=== PATIENT | female | born 1955 | race Caucasian/White ===

== ENCOUNTER 2017-03-13 09:53 | Inpatient (IN) ==
[2017-03-13] MEDS ORDERED: 0.9 % Sodium Chloride 1,000 ML IVC ONE (10:23)
--- NOTE | 2017-03-13 10:27 | Emergency Department Note ---
Disposition Clinical Impression: Hyperkalemia Diverticulitis Qualifiers: Diverticulitis site: large intestine Diverticulitis bleeding: with bleeding Qualified Code(s): K57.33 - Elevated WBC count Qualifiers: Leukocytosis type: other Qualified Code(s): D72.828 - Other elevated white blood cell count GI bleed Qualifiers: GI bleed type/associated pathology: anorectal hemorrhage Qualified Code(s): K62.5 - Hemorrhage of anus and rectum Disposition: Admitted As Inpatient Condition: Good Time of Disposition: 12:45 General Adult HPI - General Chief complaint: ED GI Bleed Stated complaint: cough and rectal bleeding Time Seen by Provider: 03/13/17 10:07 Source: patient Mode of arrival: ambulatory Limitations: no limitations Nursing Notes Reviewed: Yes Vital Signs Reviewed: Yes - History of Present Illness HPI Narrative: 62-year-old female history of COPD, diabetes, hyperlipidemia presents with rectal bleeding for the past 3 days. States on Wednesday she noticed blood when she wipes as well as on her underwear. She reports 2 days ago she went to see her primary care physician Dr. Liao but no further orders at that time. She is also complaining of left lower quadrant pain. She reports reports weakness and fatigue. Has lost over 10 lbs the past few weeks. Denies any recent illness, fever, chest pain, nausea or vomiting. She is also been having a cough over the past several days as well. She believes it could be due to her smoking. Patient's daughter's at bedside helps with the history and reports use of anticoagulant. Reportedly is for a minor heart attack she has had the past. She has her medications at bedside and she has multiple bottles of clopidogrel. Patient lives at home with daughter. She is reportedly very independent and takes care for all medications. Daughters concerned that she may be taken more than indicated. She recently fell over a month ago but denies any recent falls. Pain Scale: 0 - Related Data Home Medications Medication Instructions Recorded Confirmed Albuterol Sulfate [Albuterol 2 puff IH Q4H PRN 03/13/17 03/13/17 Inhaler] Beclomethasone Diprop 40mcg [QVAR 2 puff IH BID 03/13/17 03/13/17 40 mcg] Clopidogrel [Plavix] 75 mg PO DAILY 03/13/17 03/13/17 Diphenoxylate/Atropine [Lomotil 1 tab PO Q6-8H PRN 03/13/17 03/13/17 2.5 mg/0.025 mg] Gabapentin [Neurontin] 300 mg PO QAM 03/13/17 03/13/17 Glimepiride [Amaryl] 4 mg PO DAILY 03/13/17 03/13/17 Ipratropium [ATROVENT Inhaler] 2 puff IH QID 03/13/17 03/13/17 Ipratropium/Albuterol Sulfate 1 puff IH QID 03/13/17 03/13/17 [Combivent Respimat Inhal [place]] Pravastatin Sodium [Pravachol] 20 mg PO DAILY 03/13/17 03/13/17 Ranitidine HCl [Zantac] 150 mg PO BID 03/13/17 03/13/17 Allergies Allergy/AdvReac Type Severity Reaction Status Date / Time Penicillins Allergy Unknown Hives Verified 03/13/17 13:00 Sulfa (Sulfonamide Allergy Unknown Hives Verified 03/13/17 13:00 Antibiotics) aspirin AdvReac Unknown Nausea Verified 03/13/17 13:00 All systems ED: reviewed and negative except as stated. Constitutional: Reports: weakness, weight change. Denies: fever, chills Cardiovascular: Denies: chest pain Respiratory: Reports: cough, dyspnea Gastrointestinal: Reports: abdominal pain, melena, hematochezia. Denies: nausea , vomiting Genitourinary: Denies: urgency, dysuria Musculoskeletal: Denies: back pain, neck pain Integumentary: Denies: rash, abrasion Past Medical History - Past Medical History Attestation: Yes The following information was validated with the patient. Source: patient Medical history: Reports: asthma, COPD Psychiatric history: Reports: no psych history - Social History Smoking Status: Current every day smoker Smokeless Tobacco Status: No Alcohol use: Reports: none Drug use: Reports: none Physical Exam - General Limitations: no limitations General appearance: alert, in no apparent distress, other (appears weak and ill) - Head Head exam: atraumatic, normocephalic, normal inspection - Eye Eye exam: Present: normal appearance, PERRL, EOMI, other (conjunctiva pink). Absent: scleral icterus - ENT ENT exam: normal exam, normal oropharynx, mucous membranes dry - Neck Neck exam: Present: normal inspection, full ROM, trachea midline. Absent: tenderness - Expanded Neck Exam Neck exam focused ED: Absent: midline tenderness - Chest Chest inspection: Present: normal inspection, symmetric chest wall rise - Respiratory Respiratory exam: Present: normal lung sounds bilaterally. Absent: respiratory distress, wheezes - Cardiovascular Cardiovascular exam: Present: regular rate, normal rhythm, normal heart sounds - Abdominal Exam Abdominal exam: Present: soft, tenderness, normal bowel sounds. Absent: Non- Tender, distention, guarding, rebound, rigidity Abdominal tenderness: Present: LLQ - Rectal Exam [employer] present during exam: Yes Rectal exam: Present: normal rectal tone, heme (+) stool, bloody stool, other ( no fissure). Absent: hemorrhoids, tenderness - Extremities Exam Extremities exam: Present: normal inspection, full ROM, normal capillary refill. Absent: tenderness, pedal edema, calf tenderness - Back Exam Back exam: Present: normal inspection, full ROM. Absent: tenderness, CVA tenderness (R), CVA tenderness (L), vertebral tenderness - Neurological Exam Neurological exam: Present: alert, oriented X3 - Expanded Neurological Exam Patient oriented to: Present: person, place, time Speech: Present: fluid speech (appears to slur) Cranial nerves: EOM function (II, III, IV, ): Normal, facial sensation (V): Normal, facial palsy (VII): Normal, gag reflex (IX): Normal, spinal accessory function (XI): Normal, tongue deviation (XII): Normal Motor strength - LUE: 5/5 Motor strength - RUE: 5/5 Motor strength - LLE: 5/5 Motor strength - RLE: 5/5 - Psychiatric Psychiatric exam: Present: normal affect, normal mood - Skin Skin exam: Present: warm, dry, intact, normal color, other (ecchymoses to upper extremity) Course Course Narrative: 62-year-old female presents rectal bleeding and pain in the left lower quadrant. Denies history this in the past. Denies any history of G.I. bleed. She reportedly takes anticoagulants but we can only see clip afebrile honor medication was. Patient slightly tachycardic otherwise vitals are stable. Daughter reports patient is confused is concern due to a recent fall. Her neurologic exam is normal without focal neural deficits. No midline neck tenderness. She appears pale but conjunctiva is pink. Heart is regular rate and rhythm. Lungs are clear auscultation bilaterally. She has tenderness to the left lower quadrant. Rectal exam reveals obvious bloody stool. No signs of hemorrhoids or fissure. Will get basic labs, troponin, EKG is CT of the abdomen and pelvis. Type and screen ordered. Started on 1 L normal saline. Due to the recent fall and unverified medication list will is CT of the head. Patients in agreement with this plan. - Reevaluation(s) Reevaluation #1: Critical lab WBC 196.2. Review of her prior labs reveals elevations in the past. Patient denies any known history of lymphoma. Her CT of the abdomen and pelvis reveals acute diverticulitis without complication. There is also lymphadenopathy consistent with lymphoproliferative disease. These findings are consistent with patient's symptoms of fatigue. Her potassium is also elevated 6.0. She has a wide QRS on EKG. Patient currently denies any chest pain, shortness of breath or heaviness. Will treat with albuterol, calcium 1 amp, insulin, glucose give her dose of kayexlate. No signs of acidosis, will not treat with bicarb. Will treat her diverticulitis uncomplicated with Cipro and Flagyl. Her hemoglobin 10.5. This is a drop from her prior from several years ago. Will admit patient for G.I. bleed, EKG changes, hyperkalemia, rectal bleeding, and elevated WBC that will require admission for further workup. Time: 12:14 - Consultations Consultation #1: Spoke with on-call hospitalist camille Collins to admit for rectal bleeding, diverticulitis, abdominal pain, EKG changes, elevated WBC concerning for lymphoproliferative disease. No further orders at this time Time: 12:45 Vital Signs Temperature 97.5 F L 03/13/17 09:56 Pulse Rate 101 03/13/17 09:56 Respiratory Rate 16 03/13/17 09:56 Blood Pressure 138/62 03/13/17 09:56 O2 Sat by Pulse Oximetry 92 03/13/17 09:56 Temperature 97.6 F 03/13/17 15:06 Pulse Rate 78 03/13/17 15:06 Respiratory Rate 17 03/13/17 15:06 Blood Pressure 155/62 03/13/17 15:06 O2 Sat by Pulse Oximetry 92 03/13/17 15:06 Oxygen Delivery Oxygen Delivery Nasal Cannula Medical Decision Making - Medical Records Medical records reviewed: Yes I reviewed the patient's medical records. - Lab Data Lab results reviewed: Yes I reviewed the patient's lab results. Result diagrams: 03/13/17 11:36 03/13/17 11:36 Lab Results 03/13/17 03/13/17 03/13/17 Range/Units 11:36 11:36 11:36 WBC 196.2 H* (4.3-11.1) K/mcL RBC 3.89 (3.82-4.97) M/mcL Hgb 10.5 L (11.5-15.4) g/dL Hct 35.9 (35.3-44.9) % MCV 92.3 (83.0-100.0) fL MCH 27.0 L (28.0-33.3) pg MCHC 29.2 L (31.6-35.5) g/dL RDW 14.5 (11.5-14.5) % Plt Count 87 L (140-400) K/mcL MPV 11.9 (9.4-12.4) fL Seg Neutrophils % 6.0 % Lymphocytes % 92.0 % Blast Cells % 2.0 H (0) % Neutrophils # 11.8 H (1.6-8.9) K/mcL Lymphocytes # 180.5 H (0.6-4.6) K/mcL Smudge Cells Present A (Not Present) Platelet Estimate Decreased L (Normal) PT 11.9 (9.4-12.1) Seconds INR 1.1 APTT 34.8 (26.0-36.0) Seconds Sodium 136 (136-145) mEq/L Potassium 6.0 H (3.5-4.5) mEq/L Chloride 106 (98-109) mEq/L Carbon Dioxide 24 (19-29) mEq/L BUN 19 (7-20) mg/dL Creatinine 0.70 (0.57-1.11) mg/dL Est GFR ( Amer) > 60 (> 60) Est GFR (Non-Af Amer) > 60 (> 60) BUN/Creatinine Ratio 27 H (6-26) Glucose 93 (70-99) mg/dL Calculated Osmolality 284 (280-300) Calcium 8.4 L (8.6-10.8) mg/dL Total Bilirubin 0.4 (0.2-1.2) mg/dL AST 21 (5-34) Units/L ALT 11 (0-55) Units/L Alkaline Phosphatase 62 (38-126) Units/L Troponin I (0-0.03) ng/mL Serum Total Protein 5.7 L (6.0-8.3) g/dL Albumin 3.3 L (3.5-5.0) g/dL Globulin 2.4 (2.4-3.5) g/dL Albumin/Globulin Ratio 1.4 (1.1-2.2) Lipase 17 (8-78) Units/L Urine Color (Yellow) Urine Clarity (Clear) Urine pH (5.0-8.0) pH Units Ur Specific [place] (1.010-1.025) Urine Protein (Neg-Trace) mg/dL Urine Glucose (UA) (Normal) mg/dL Urine Ketones (Negative) mg/dL Urine Blood (Negative) Urine Nitrite (Negative) Urine Bilirubin (Negative) Urine Urobilinogen (Normal) mg/dL Ur Leukocyte Esterase (Negative) Urine Microscopic RBC (0-3) per hpf Urine Microscopic WBC (0-3) per hpf Ur Squamous Epith Cells (None-Few) per lpf Urine Bacteria (None-Few) per hpf Hyaline Casts (None-Few) per lpf Stool Occult Blood (Negative) Blood Type Antibody Screen 03/13/17 03/13/17 03/13/17 Range/Units 11:36 11:36 11:43 WBC (4.3-11.1) K/mcL RBC (3.82-4.97) M/mcL Hgb (11.5-15.4) g/dL Hct (35.3-44.9) % MCV (83.0-100.0) fL MCH (28.0-33.3) pg MCHC (31.6-35.5) g/dL RDW (11.5-14.5) % Plt Count (140-400) K/mcL MPV (9.4-12.4) fL Seg Neutrophils % % Lymphocytes % % Blast Cells % (0) % Neutrophils # (1.6-8.9) K/mcL Lymphocytes # (0.6-4.6) K/mcL Smudge Cells (Not Present) Platelet Estimate (Normal) PT (9.4-12.1) Seconds INR APTT (26.0-36.0) Seconds Sodium (136-145) mEq/L Potassium (3.5-4.5) mEq/L Chloride (98-109) mEq/L Carbon Dioxide (19-29) mEq/L BUN (7-20) mg/dL Creatinine (0.57-1.11) mg/dL Est GFR ( Amer) (> 60) Est GFR (Non-Af Amer) (> 60) BUN/Creatinine Ratio (6-26) Glucose (70-99) mg/dL Calculated Osmolality (280-300) Calcium (8.6-10.8) mg/dL Total Bilirubin (0.2-1.2) mg/dL AST (5-34) Units/L ALT (0-55) Units/L Alkaline Phosphatase (38-126) Units/L Troponin I 0.00 (0-0.03) ng/mL Serum Total Protein (6.0-8.3) g/dL Albumin (3.5-5.0) g/dL Globulin (2.4-3.5) g/dL Albumin/Globulin Ratio (1.1-2.2) Lipase (8-78) Units/L Urine Color (Yellow) Urine Clarity (Clear) Urine pH (5.0-8.0) pH Units Ur Specific [place] (1.010-1.025) Urine Protein (Neg-Trace) mg/dL Urine Glucose (UA) (Normal) mg/dL Urine Ketones (Negative) mg/dL Urine Blood (Negative) Urine Nitrite (Negative) Urine Bilirubin (Negative) Urine Urobilinogen (Normal) mg/dL Ur Leukocyte Esterase (Negative) Urine Microscopic RBC (0-3) per hpf Urine Microscopic WBC (0-3) per hpf Ur Squamous Epith Cells (None-Few) per lpf Urine Bacteria (None-Few) per hpf Hyaline Casts (None-Few) per lpf Stool Occult Blood Positive A (Negative) Blood Type A NEGATIVE Antibody Screen NEGATIVE 03/13/17 Range/Units 13:59 WBC (4.3-11.1) K/mcL RBC (3.82-4.97) M/mcL Hgb (11.5-15.4) g/dL Hct (35.3-44.9) % MCV (83.0-100.0) fL MCH (28.0-33.3) pg MCHC (31.6-35.5) g/dL RDW (11.5-14.5) % Plt Count (140-400) K/mcL MPV (9.4-12.4) fL Seg Neutrophils % % Lymphocytes % % Blast Cells % (0) % Neutrophils # (1.6-8.9) K/mcL Lymphocytes # (0.6-4.6) K/mcL Smudge Cells (Not Present) Platelet Estimate (Normal) PT (9.4-12.1) Seconds INR APTT (26.0-36.0) Seconds Sodium (136-145) mEq/L Potassium (3.5-4.5) mEq/L Chloride (98-109) mEq/L Carbon Dioxide (19-29) mEq/L BUN (7-20) mg/dL Creatinine (0.57-1.11) mg/dL Est GFR ( Amer) (> 60) Est GFR (Non-Af Amer) (> 60) BUN/Creatinine Ratio (6-26) Glucose (70-99) mg/dL Calculated Osmolality (280-300) Calcium (8.6-10.8) mg/dL Total Bilirubin (0.2-1.2) mg/dL AST (5-34) Units/L ALT (0-55) Units/L Alkaline Phosphatase (38-126) Units/L Troponin I (0-0.03) ng/mL Serum Total Protein (6.0-8.3) g/dL Albumin (3.5-5.0) g/dL Globulin (2.4-3.5) g/dL Albumin/Globulin Ratio (1.1-2.2) Lipase (8-78) Units/L Urine Color Yellow (Yellow) Urine Clarity Clear (Clear) Urine pH 6.0 (5.0-8.0) pH Units Ur Specific [place] 1.010 (1.010-1.025) Urine Protein Negative (Neg-Trace) mg/dL Urine Glucose (UA) Normal (Normal) mg/dL Urine Ketones Negative (Negative) mg/dL Urine Blood Moderate H (Negative) Urine Nitrite Negative (Negative) Urine Bilirubin Negative (Negative) Urine Urobilinogen Normal (Normal) mg/dL Ur Leukocyte Esterase Negative (Negative) Urine Microscopic RBC 0-3 (0-3) per hpf Urine Microscopic WBC 0-3 (0-3) per hpf Ur Squamous Epith Cells Moderate H (None-Few) per lpf Urine Bacteria None Seen (None-Few) per hpf Hyaline Casts None Seen (None-Few) per lpf Stool Occult Blood (Negative) Blood Type Antibody Screen - Radiology Data Radiology results reviewed: Yes I reviewed the patient's radiology results. Chest X-Ray 03/13/17 10:23 IMPRESSION: No acute cardiopulmonary process. D/ / 03/13/2017 10:39:00 Patrick Hartman MD / [email or web address] Interpreting Provider: Patrick Hartman MD Abdomen/Pelvis CT 03/13/17 10:24 IMPRESSION: 1. Acute uncomplicated diverticulitis involving the proximal sigmoid colon. . 2. Splenomegaly with bilateral external iliac and inguinal adenopathy concerning for lymphoproliferative disease including lymphoma. D/ / Jordy Iraheta MD / Jordy Iraheta MD Interpreting Provider: Jordy Iraheta MD Head CT 03/13/17 10:31 IMPRESSION: No acute intracranial abnormality. D/ / Antwon Bundy MD / Antwon Bundy MD Interpreting Provider: Antwon Bundy MD - EKG Data EKG #1 EKG attestation: Yes I reviewed and interpreted this EKG. EKG results narrative: EKG performed at 1150 shows sinus rhythm 69 bpm with a widening QRS 116 and possible developing left bundle branch block. This appears new to her prior EKG performed 10/28/2009. Patient denies any chest pain, shortness of breath, chest heaviness. This is an abnormal EKG. Attestation Statement - Attestation Attestation: I personally interviewed and examined this patient and my medical decision- making was reviewed with the ED Resident Physician, Dr. Miranda I agree with the documented findings, disposition and treatment plan as described except to the extent set forth below. Patient is a 62-year-old white female, who appears significantly older than stated age, who is brought by her daughter today for evaluation of left lower quadrant abdominal pain and bright red blood per rectum that she has been experiencing over the last 3 days with increased frequency of loose bowel movements. Patient denies any history of GI bleeding, does take Plavix but not on Coumadin. Patient denies any fevers or chills, no nausea vomiting, has had an occasional nonproductive cough but states this is baseline for her with her history of COPD. Patient's denies any urinary symptoms or flank pain. Patient' s also been experiencing generalized weakness and occasional lightheadedness with positional changes. No syncopal episodes. Patient denies any form of chest pain pressure or heaviness and no diaphoresis. I agree with patient's physical exam findings as documented. Patient with symptoms suggestive of possible diverticulitis, patient had labs performed and CT imaging to evaluate for abdominal pain and diarrhea as well as bright red blood per rectum. Patient's bedside rectal exam was guaiac positive. Pt has been hemodynamically stable throughout her ED course. Patient CT scan shows non-complicated diverticulitis. Patient's lab evaluation shows an elevated potassium with normal renal function. Patient started on IV antibiotics for the diverticulitis, as well as medications are administered to treat her hyperkalemia. There are also findings concerning for possible lymphoma on the CT scan with splenomegaly and diffuse lymphadenopathy. Patient' s white count was significantly elevated at 196. When asking the patient regarding this as best lab was not new compared to a prior white count that was elevated similarly 2 years ago, patient denied any knowledge or prior diagnosis of lymphoma although she does mention gradual weight loss over the past few months. We will admit the patient for continued IV antibiotics, treatment for hyperkalemia and continued cardiac monitoring. Discussed with the hospitalist who accepted the patient for admission for continued management. Patient remains hemodynamically stable in the ED.
[2017-03-13 11:47] LABS: Hematocrit 35.9 % (35.3-44.9); Hemoglobin 10.5 g/dL (11.5-15.4); Mean Corpuscular HGB Conc 29.2 g/dL (31.6-35.5); Mean Corpuscular Volume 92.3 fL (83.0-100.0); Mean Platelet Volume 11.9 fL (9.4-12.4); Red Blood Count 3.89 M/mcL (3.82-4.97); Red Cell Distribution Width 14.5 % (11.5-14.5)
[2017-03-13 12:02] LABS: Alanine Aminotransferase 11 Units/L (0-55); Albumin 3.3 g/dL (3.5-5.0); Albumin/Globulin Ratio 1.4 (1.1-2.2); Alkaline Phosphatase 62 Units/L (38-126); Aspartate Amino Transferase 21 Units/L (5-34); BUN/Creatinine Ratio 27 (6-26); Bilirubin,Total 0.4 mg/dL (0.2-1.2); Blood Urea Nitrogen 19 mg/dL (7-20); Calcium 8.4 mg/dL (8.6-10.8); Carbon Dioxide 24 mEq/L (19-29); Chloride 106 mEq/L (98-109); Globulin 2.4 g/dL (2.4-3.5); Glucose 93 mg/dL (70-99); Lipase 17 Units/L (8-78); Osmolality,Calculated 284 (280-300); Sodium 136 mEq/L (136-145); Total Protein 5.7 g/dL (6.0-8.3); eGFR For African Americans > 60 (> 60); eGFR For Non-African Americans > 60 (> 60)
[2017-03-13 12:05] LABS: Platelet Count 87 K/mcL (140-400)
[2017-03-13] MEDS ORDERED: Calcium Gluconate 1,000 MG in D5% in Water 100 ML IVPB ONE (12:09)
[2017-03-13] MEDS ORDERED: Ipratropium/Albuterol Neb 3 ML IH ONE (12:09)
[2017-03-13] MEDS ORDERED: MetroNIDAZOLE 500 MG/100 ML 500 MG/100 ML BAG IVPB ONE (12:09)
[2017-03-13] MEDS ORDERED: *HR* Dextrose 50 % in Water (Syg) 50 ML SYRINGE IVP ONE (12:12)
[2017-03-13] MEDS ORDERED: Insulin Regular, Human 100 UNIT/ML SQ ONE (12:12)
[2017-03-13 12:27] LABS: INR 1.1; Prothrombin Time 11.9 Seconds (9.4-12.1)
[2017-03-13 12:29] LABS: Activated Partial Thrombo Time 34.8 Seconds (26.0-36.0)
[2017-03-13 12:41] LABS: Lymphocytes # 180.5 K/mcL (0.6-4.6); Neutrophils # 11.8 K/mcL (1.6-8.9)
[2017-03-13 12:43] LABS: Platelet Estimate Decreased (Normal); Smudge Cells Present (Not Present)
[2017-03-13 14:09] LABS: Bilirubin,Urine Negative (Negative); Blood,Urine Moderate (Negative); Clarity,Urine Clear (Clear); Color,Urine Yellow (Yellow); Glucose,Urine (UA) Normal (Normal); Ketones,Urine Negative (Negative); Leukocyte Esterase,Urine Negative (Negative); Nitrite,Urine Negative (Negative); Protein,Urine Negative (Neg-Trace); Urobilinogen,Urine Normal (Normal)
[2017-03-13 14:10] LABS: Bacteria,Urine None Seen per hpf (None-Few); Hyaline Casts,Urine None Seen per lpf (None-Few); RBC,Urine 0-3 per hpf (0-3); Squamous Epithelial Cell,Urine Moderate per lpf (None-Few); WBC,Urine 0-3 per hpf (0-3)
[2017-03-13] MEDS ORDERED: Naloxone 0.4 MG/ML INJ IVP PRN (14:19)
[2017-03-13] MEDS ORDERED: D5% in 0.45% NACL 1,000 ML IVC SCH (14:30)
--- NOTE | 2017-03-13 14:41 | Internal Med History&Physical ---
Date of Encounter: 03/13/17 Time of Encounter: 14:00 Assessment and Plan (1) Diverticulitis Current visit: Yes Status: Acute Patient with acute sigmoid diverticulitis with GI bleed. We will admit inpatient. Treat with IV antibiotics. Keep nothing by mouth. IV fluids. Monitor vital signs closely. GI consult. High risk for complications. Qualifiers: Diverticulitis site: large intestine Diverticulitis bleeding: with bleeding Diverticulitis complication: without perforation or abscess Qualified Code(s): K57.33 - Diverticulitis of large intestine without perforation or abscess with bleeding (2) GI bleed Current visit: Yes Status: Acute Recent with lower GI bleed. On Plavix at home. At risk for continued bleeding. Monitor blood counts closely. Consult GI. On PPI Qualifiers: GI bleed type/associated pathology: anorectal hemorrhage Qualified Code(s) : K62.5 - Hemorrhage of anus and rectum (3) Lymphocytosis Current visit: Yes Status: Acute Patient has severely elevated WBC count with low platelets and anemia. Concern for CLL or other lymphoma. Consult oncology. (4) COPD (chronic obstructive pulmonary disease) Current visit: Yes Status: Acute Will treat with bronchodilators. Patient will resume antibiotics for diverticulitis. O2 supplementation as needed. Qualifiers: COPD type: chronic bronchitis Chronic bronchitis type: simple Qualified Code(s): J41.0 - Simple chronic bronchitis (5) Coronary artery disease Current visit: Yes Status: Chronic Patient reports history of coronary artery disease. We will hold Plavix for now due to severe GI bleed. Continue other medications. No chest pain. Qualifiers: Coronary Disease-Associated Artery/Lesion type: [place] artery [place] vs. transplanted heart: [place] heart Associated angina: without angina Qualified Code(s): I25.10 - Atherosclerotic heart disease of [place] coronary artery without angina pectoris (6) Hyperkalemia Current visit: Yes Status: Acute Potassium of 6. EKG changes present with widening QRS. Given Kayexalate in the ER. We will recheck values. Place on telemetry. Internal Medicine - H&P: HPI Chief complaint: GI bleed and abdominal pain Admitted From: Emergency Dept Plans for Post Hospital Care: Home History of present illness: Ms. Sheridan is a 62 year old female patient with a history of hyperlipidemia, diabetes mellitus type 2, asthma/COPD, chronic smoker presented to the ER with complaints of severe abdominal pain along with GI bleed that began this morning. She has had bright red bleeding per rectum. She has never had this symptom before. Denies any hematemesis. No nausea or vomiting. No chest pain. No fever chills or night sweats. She denies knowing about any sort of lymphatic or blood issues in the past. She reports that she had a minor heart attack in the past and has been on Plavix and statin. Past Med Surg Social Fam HX - Past Medical History Attestation: Yes The following information was validated with the patient. Source: patient, old records reviewed, obtained from family Medical history: asthma, COPD Psychiatric history: no psych history - Social History Smoking Status: Current every day smoker Smokeless Tobacco Status: No Alcohol use: none Drug use: none - Additional Family History Additional family history: Reviewed and found to be noncontributory at this time Internal Medicine - H&P: Meds Albuterol Sulfate [Albuterol Inhaler] 2 puff IH Q4H PRN 03/13/17 [History] Beclomethasone Diprop 40mcg [QVAR 40 mcg] 2 puff IH BID 03/13/17 [History] Clopidogrel [Plavix] 75 mg PO DAILY 03/13/17 [History] Diphenoxylate/Atropine [Lomotil 2.5 mg/0.025 mg] 1 tab PO Q6-8H PRN 03/13/17 [ History] Gabapentin [Neurontin] 300 mg PO QAM 03/13/17 [History] Glimepiride [Amaryl] 4 mg PO DAILY 03/13/17 [History] Ipratropium [ATROVENT Inhaler] 2 puff IH QID 03/13/17 [History] Ipratropium/Albuterol Sulfate [Combivent Respimat Inhal [place]] 1 puff IH QID [History] Pravastatin Sodium [Pravachol] 20 mg PO DAILY 03/13/17 [History] Ranitidine HCl [Zantac] 150 mg PO BID 03/13/17 [History] Allergies Penicillins Allergy (Unknown, Verified 03/13/17 13:00) Hives Sulfa (Sulfonamide Antibiotics) Allergy (Unknown, Verified 03/13/17 13:00) Hives aspirin Adverse Reaction (Unknown, Verified 03/13/17 13:00) Nausea All Systems PM: A 10-system review of systems was performed and is negative for pertinent findings except as documented above in the HPI. - Constitutional Constitutional: malaise, no chills, no fever(s), no night sweats - EENT Eyes: no change in vision, no discharge, no pain, no photophobia Ears: no ear discharge, no ear pain, no tinnitus Nose, mouth and throat: no dysphagia, no nasal discharge, no neck pain, no sore throat - Cardiovascular Cardiovascular ROS IM: no chest pain, no diaphoresis, no dyspnea, no lightheadedness, no palpitations, no syncope - Respiratory Respiratory: cough, no dyspnea, no wheezing, no excessive phlegm production - Gastrointestinal Gastrointestinal: abdominal pain, diarrhea, hematochezia, no hematemesis, no melena, no nausea, no vomiting - Genitourinary Genitourinary: no change in urinary stream, no dysuria, no flank pain, no hematuria - Musculoskeletal Musculoskeletal ROS IM: no numbness, no tingling - Integumentary Integumentary IM: no rash, no unusual bruising - Neurological Neurological ROS: no confusion, no convulsions, no focal weakness, no numbness, no tingling, no tremor(s) - Hematologic/Lymphatic Hematologic/Lymphatic: no easy bruising - Constitutional Vitals: Temp Pulse Resp BP Pulse Ox 97.5 F L 73 18 159/67 100 03/13/17 09:56 03/13/17 13:58 03/13/17 13:58 03/13/17 13:58 03/13/17 13:58 General appearance: Present: cooperative, A&O X 3, answers questions appropriately Exam: Moderate distress - Eye Eye exam: Present: EOMI, PERRL, conjuntiva pink, sclera anicteric - ENT ENT exam: Present: mucous membranes dry - Neck Neck exam general surgery: Present: supple, trachea midline. Absent: lymphadenopathy - Respiratory Respiratory exam: Present: CTAB, prolonged expiratory phase. Absent: accessory muscle use, rales, rhonchi, wheezes - Cardiovascular Cardiovascular exam: Present: RRR, +S1, +S2. Absent: diastolic murmur, gallop, rubs, systolic murmur - GI/Abdominal GI/Abdominal exam: Present: normal bowel sounds, soft, no peritoneal signs. Absent: distended, tenderness - Extremities Exam Extremities exam: Present: warm, radial pulses palpable and symetrical. Absent : calf tenderness, cyanotic, pedal edema - Neurological Exam Neurological exam: Present: alert, CN II-XII intact, oriented X3, no focal deficits. Absent: facial droop, speech deficit - Skin Skin exam: Present: dry, intact, pallor Internal Med - H&P Results - Labs CBC & Chem 7: 03/13/17 11:36 03/13/17 11:36 Labs: Urine 03/13/17 Range/Units 13:59 Urine Color Yellow (Yellow) Urine Clarity Clear (Clear) Urine pH 6.0 (5.0-8.0) pH Units Ur Specific [place] 1.010 (1.010-1.025) Urine Protein Negative (Neg-Trace) mg/dL Urine Glucose (UA) Normal (Normal) mg/dL - Impressions Impressions Chest X-Ray 03/13/17 10:23 IMPRESSION: No acute cardiopulmonary process. D/ / 03/13/2017 10:39:00 Patrick Hartman MD / rowdy Interpreting Provider: Patrick Hartman MD Abdomen/Pelvis CT 03/13/17 10:24 IMPRESSION: 1. Acute uncomplicated diverticulitis involving the proximal sigmoid colon. . 2. Splenomegaly with bilateral external iliac and inguinal adenopathy concerning for lymphoproliferative disease including lymphoma. D/ / Jordy Iraheta MD / Jordy Iraheta MD Interpreting Provider: Jordy Iraheta MD Head CT 03/13/17 10:31 IMPRESSION: No acute intracranial abnormality. D/ / Antwon Bundy MD / Antwon Bundy MD Interpreting Provider: Antwon Bundy MD
--- NOTE | 2017-03-13 15:44 | Internal Medicine Consult Note ---
Date of Encounter: 03/13/17 Time of Encounter: 15:42 - Assessment and Plan (1) Lower GI bleeding Current Visit: Yes Status: Acute Assessment and plan: She has acute diverticulitis via CT scan. Really no tenderness, it is possible she's had diverticular bleeding as well.. Given the divierticulitis, will not pursue Endoscopy at this time.. this can be done urgently if the bleeding becomes more worrisome. This can also be pursued as outpatient. (2) Diabetes mellitus type 2 in nonobese Current Visit: Yes Status: Chronic (3) Diverticulitis Current Visit: Yes Status: Acute Qualifiers: Diverticulitis site: large intestine Diverticulitis bleeding: with bleeding Qualified Code(s): K57.33 - Diverticulitis of large intestine without perforation or abscess with bleeding (4) Lymphocytosis Current Visit: Yes Status: Chronic Assessment and plan: She has Smudge cells, along with adenopathy and spleenomegaly.. all consistent with CLL. (5) COPD (chronic obstructive pulmonary disease) Current Visit: Yes Status: Acute Qualifiers: Chronic bronchitis type: simple Qualified Code(s): J41.0 - Simple chronic bronchitis (6) Coronary artery disease Current Visit: Yes Status: Chronic Qualifiers: Coronary Disease-Associated Artery/Lesion type: [place] artery [place] vs. transplanted heart: [place] heart Associated angina: without angina Qualified Code(s): I25.10 - Atherosclerotic heart disease of [place] coronary artery without angina pectoris (7) Thrombocytopenia Current Visit: Yes Status: Acute Assessment and plan: Most likely due to spleenomegaly and CLL Internal Medicine - CN: HPI - Data of Consult Patient: new to practice Consult date: 03/13/17 Requesting Physician: Mary Ellen Shea CNP - Consult Narrative Reason for consult: Lower GI [place] History of present illness: Ms. Sheridan is a 62 year old female who presented to the emergency room with a chief complaint of weakness and bright red rectal bleeding. her daughter states roughly 3 day, No clots. She has had some weight loss with poor appetite. No prior GI bleeding or endoscopy. Past Med Surg Social Fam HX - Past Medical History Medical history: asthma, COPD, coronary artery disease, diabetes, GERD Psychiatric history: no psych history - Social History Smoking Status: Current every day smoker Smokeless Tobacco Status: No Alcohol use: none Drug use: none ROS unobtainable: due to mental status Internal Medicine - CN: Meds Albuterol Sulfate [Albuterol Inhaler] 2 puff IH Q4H PRN 03/13/17 [History] Beclomethasone Diprop 40mcg [QVAR 40 mcg] 2 puff IH BID 03/13/17 [History] Clopidogrel [Plavix] 75 mg PO DAILY 03/13/17 [History] Diphenoxylate/Atropine [Lomotil 2.5 mg/0.025 mg] 1 tab PO Q6-8H PRN 03/13/17 [ History] Gabapentin [Neurontin] 300 mg PO QAM 03/13/17 [History] Glimepiride [Amaryl] 4 mg PO DAILY 03/13/17 [History] Ipratropium [ATROVENT Inhaler] 2 puff IH QID 03/13/17 [History] Ipratropium/Albuterol Sulfate [Combivent Respimat Inhal [place]] 1 puff IH QID [History] Pravastatin Sodium [Pravachol] 20 mg PO DAILY 03/13/17 [History] Ranitidine HCl [Zantac] 150 mg PO BID 03/13/17 [History] Allergies Penicillins Allergy (Unknown, Verified 03/13/17 13:00) Hives Sulfa (Sulfonamide Antibiotics) Allergy (Unknown, Verified 03/13/17 13:00) Hives aspirin Adverse Reaction (Unknown, Verified 03/13/17 13:00) Nausea Internal Medicine - CN: Exam - Constitutional Vitals: Temp Pulse Resp BP Pulse Ox 97.6 F 78 17 155/62 92 03/13/17 15:06 03/13/17 15:06 03/13/17 15:06 03/13/17 15:06 03/13/17 15:06 General appearance IM: Present: cachectic, A&O X 1, disheveled, no acute distress, underweight - Head Head exam: Present: atraumatic - Eye Eye exam: Present: conjuntiva pink, sclera anicteric - ENT ENT exam: Present: mucous membranes moist - Neck Neck exam general surgery: Present: normal inspection, supple, trachea midline - Respiratory Respiratory exam: Present: decreased breath sounds, CTAB. Absent: respiratory distress, tachypnea - Cardiovascular Cardiovascular exam IM: Present: distant heart sounds, RRR - GI/Abdominal GI/Abdominal exam IM: Present: diminished bowel sounds, soft, no peritoneal signs. Absent: mass, tenderness - Rectal Rectal exam: Present: deferred Internal Medicine - CN: Reslt - Labs CBC & Chem 7: 03/13/17 11:36 03/13/17 11:36 Labs: Urine 03/13/17 Range/Units 13:59 Urine Color Yellow (Yellow) Urine Clarity Clear (Clear) Urine pH 6.0 (5.0-8.0) pH Units Ur Specific [place] 1.010 (1.010-1.025) Urine Protein Negative (Neg-Trace) mg/dL Urine Glucose (UA) Normal (Normal) mg/dL - ABG Interpretation ABG results: PT/INR, D-dimer PT 11.9 Seconds (9.4-12.1) 03/13/17 11:36 Consult Discharge Plan - Plan Referrals: Stephen Liao MD [Primary Care Provider] -
[2017-03-13] MEDS ORDERED: MetroNIDAZOLE 500 MG/100 ML 500 MG/100 ML BAG IVPB SCH (16:00)
[2017-03-13 16:40] LABS: % Iron Saturation 18 % (15-50); Iron 62 mcg/dL (50-170); Transferrin 247 mg/dL (180-382)
[2017-03-13 17:03] LABS: Ferritin 46 ng/ml (5-204)
[2017-03-13] MEDS ORDERED: Pantoprazole 40 MG VIAL IVP SCH (18:00)
[2017-03-13] MEDS ORDERED: 0.9 % Sodium Chloride 250 ML ONE ×2 (19:00→21:51)
[2017-03-14 01:10] LABS: Basophils % 0.2 %; Hematocrit 39.4 % (35.3-44.9); Hemoglobin 11.9 g/dL (11.5-15.4); Immature Granulocytes % 0.1 % (0-4); Lymphocytes % 93.2 %; Mean Corpuscular HGB Conc 30.2 g/dL (31.6-35.5); Mean Corpuscular Hemoglobin 27.3 pg (28.0-33.3); Mean Corpuscular Volume 90.4 fL (83.0-100.0); Mean Platelet Volume 12.1 fL (9.4-12.4); Monocytes % 4.8 %; Red Blood Count 4.36 M/mcL (3.82-4.97); Segmented Neutrophils % 1.7 %
[2017-03-14 01:11] LABS: Basophils # 0.4 K/mcL (0.0-0.2); Lymphocytes # 184.6 K/mcL (0.6-4.6); Monocytes # 9.5 K/mcL (0.0-1.3); Neutrophils # 3.4 K/mcL (1.6-8.9); Platelet Count 80 K/mcL (140-400)
[2017-03-14 01:15] LABS: INR 1.1; Prothrombin Time 12.2 Seconds (9.4-12.1)
[2017-03-14 01:21] LABS: BUN/Creatinine Ratio 18 (6-26); Blood Urea Nitrogen 10 mg/dL (7-20); Calcium 8.2 mg/dL (8.6-10.8); Carbon Dioxide 21 mEq/L (19-29); Chloride 107 mEq/L (98-109); Glucose 101 mg/dL (70-99); Osmolality,Calculated 281 (280-300); Sodium 136 mEq/L (136-145); eGFR For African Americans > 60 (> 60); eGFR For Non-African Americans > 60 (> 60)
[2017-03-14 01:27] LABS: Potassium 7.1 mEq/L (3.5-4.5)
[2017-03-14] MEDS ORDERED: Calcium Gluconate 1,000 MG in D5% in Water 100 ML IVPB ONE (01:32)
[2017-03-14] MEDS ORDERED: Insulin Human Regular 10 UNIT in 0.9 % Sodium Chloride 10 ML IV ONE ×2 (01:32→02:24)
[2017-03-14] MEDS ORDERED: *HR* Dextrose 50 % in Water (Syg) 50 ML SYRINGE IVP ONE (01:32)
[2017-03-14 01:33] LABS: Platelet Estimate Marked Decrease (Normal); Smudge Cells Present (Not Present)
[2017-03-14] MEDS ORDERED: Albuterol 2.5 MG/3 ML NEBULIZER IH ONE (01:33)
[2017-03-14] MEDS ORDERED: 0.9 % Sodium Chloride 1,000 ML IVC ONE ×2 (02:02→02:20)
[2017-03-14] MEDS ORDERED: Furosemide 40 MG/4 ML VIAL IVP ONE (02:03)
--- NOTE | 2017-03-14 02:10 | Event Note ---
Date of Encounter: 03/14/17 Time of Encounter: 02:09 I was paged as this patient has a potassium level of 7.1 Patient evaluated at bedside She denies CP, SOB, palpitations or lightheadedness Patient admitted with diverticulitis causing GI bleed On exam, CTAB. S1 & S2 present without any murmurs. EKG STAT reviewed personally - QRS widening (duration of 133 ms) with LBBB Labs reviewed. WBC of 198. Assessment: 1. Hyperkalemic emergency 2. Suspected Tumor Lysis syndrome due to possible Lymphoma Plan: 1. Hyperkalemic emergency - STAT Nephrology consulted. Case discussed with Dr. Boone. - Patient being given the following: a. Calcium gluconate 3g iv b. Insulin 10 units IV with D50% (2 rounds of this) c. Kayaxelate 30g (Pt. had received Kayexelate 30g yesterday) d. Normal saline bolus of 2L with 40 mg IV lasix e. 0.45 NS with 1.5 amp of sodium bicarbonate @ 150 ml -Patient will be transferred to the ICU. Will repeat potassium level in 1 hour. If potassium does not decrease, patient will likely need emergent hemodialysis 2. Suspected Tumor Lysis Syndrome - Will obtain uric acid level and LDH level. - Oncology has already been consulted. - Nephrology on board. Total critical care time in the stabilization of her organ functions, coordinating care and to prevent mortality and morbidity is 40 min
[2017-03-14] MEDS ORDERED: Calcium Gluconate 2,000 MG in D5% in Water 100 ML IVPB ONE (02:20)
[2017-03-14] MEDS: *HR* Dextrose 50 % in Water (Syg) 50 ML SYRINGE IVP SCH (03:04)
[2017-03-14 04:09] LABS: Phosphorous 3.9 mg/dL (2.3-4.7); Uric Acid 5.5 mg/dL (2.6-6.0)
[2017-03-14 04:10] LABS: Lactate Dehydrogenase 355 Units/L (159-327)
[2017-03-14 05:22] LABS: BUN/Creatinine Ratio 14 (6-26); Blood Urea Nitrogen 8 mg/dL (7-20); Calcium 8.9 mg/dL (8.6-10.8); Carbon Dioxide 24 mEq/L (19-29); Chloride 105 mEq/L (98-109); Glucose 111 mg/dL (70-99); Osmolality,Calculated 283 (280-300); Potassium 5.2 mEq/L (3.5-4.5); Sodium 137 mEq/L (136-145); eGFR For African Americans > 60 (> 60); eGFR For Non-African Americans > 60 (> 60)
[2017-03-14] MEDS: Sodium Bicarbonate 75 MEQ in 0.45 % Sodium Chloride 1,000 ML IVC SCH ×3 (05:24→19:56)
--- NOTE | 2017-03-14 08:29 | Internal Med Progress Note ---
Date of Encounter: 03/19/17 Time of Encounter: 08:27 - Assessment and plan (1) Lower GI bleeding Current Visit: Yes Status: Resolved Assessment and plan: Most likely diverticular. Will not plan Endoscopy at this time.. has more pressing issues. Such as hyperkalemia, CLL with low platelets. (2) Diabetes mellitus type 2 in nonobese Current Visit: Yes Status: Chronic (3) Diverticulitis Current Visit: Yes Status: Acute Assessment and plan: Abdomen remains soft.. Qualifiers: Diverticulitis site: large intestine Diverticulitis bleeding: with bleeding Diverticulitis complication: without perforation or abscess Qualified Code(s): K57.33 - Diverticulitis of large intestine without perforation or abscess with bleeding (4) Lymphocytosis Current Visit: Yes Status: Chronic Assessment and plan: Most likely CLL.. this is somewhat advanced with low platelets, abd. lymphadenopaty, and spleenomegaly (5) COPD (chronic obstructive pulmonary disease) Current Visit: Yes Status: Acute Qualifiers: Chronic bronchitis type: simple Qualified Code(s): J41.0 - Simple chronic bronchitis (6) Coronary artery disease Current Visit: Yes Status: Chronic Qualifiers: Coronary Disease-Associated Artery/Lesion type: [place] artery [place] vs. transplanted heart: [place] heart Associated angina: without angina Qualified Code(s): I25.10 - Atherosclerotic heart disease of [place] coronary artery without angina pectoris (7) Thrombocytopenia Current Visit: Yes Status: Acute - Subjective Interval history: She remains a bit restless, multiple BM's this AM with Kayexlate..no blood. She does not describe abd. pain. Wanting to advance diet. Noted she did recieve 2 units blood.. HGB now stable. - Constitutional Vitals: Temp Pulse Resp BP Pulse Ox 97.5 F L 64 19 144/74 98 03/14/17 07:52 03/14/17 06:00 03/14/17 06:00 03/14/17 06:00 03/14/17 06:00 General appearance: Present: cachectic, A&O X 1, disheveled, no acute distress, underweight - ENT ENT exam: Present: mucous membranes moist - Neck Neck exam general surgery: Present: trachea midline - Respiratory Respiratory exam: Present: CTAB - GI/Abdominal GI/Abdominal exam: Present: normal bowel sounds, soft, splenomegaly, no peritoneal signs. Absent: rigid Internal Medicine: Result - Labs CBC & Chem 7: 03/19/17 03:32 03/19/17 03:32 Labs: Short CBC 03/13/17 03/14/17 Range/Units 17:24 00:39 WBC 198.1 H* (4.3-11.1) K/mcL Hgb 10.5 L 11.9 (11.5-15.4) g/dL Hct 39.4 (35.3-44.9) % Plt Count 80 L (140-400) K/mcL Neutrophils # 3.4 (1.6-8.9) K/mcL BMP 03/14/17 03/14/17 00:39 04:56 Sodium 136 137 Potassium 7.1 H* D 5.2 H D Chloride 107 105 Carbon Dioxide 21 24 BUN 10 8 Creatinine 0.57 0.56 L Glucose 101 H 111 H Calcium 8.2 L 8.9 Cardiac Enzymes 03/14/17 Range/Units 04:56 Troponin I 0.05 H* (0-0.03) ng/mL - ABG Interpretation ABG results: PT/INR, D-dimer PT 12.2 Seconds (9.4-12.1) H 03/14/17 00:39 Consult Discharge Plan - Plan Referrals: Stephen Liao MD [Primary Care Provider] -
[2017-03-14] MEDS: MetroNIDAZOLE 500 MG/100 ML 500 MG/100 ML BAG IVPB SCH ×3 (11:07→16:13)
--- NOTE | 2017-03-14 11:37 | Nephrology Consult Note ---
Date of Encounter: 03/14/17 Time of Encounter: 11:35 Assessment and Plan (1) CLL (chronic lymphocytic leukemia) Current Visit: Yes Status: Acute This appears to have been present since 2014. Hematology has been consulted. (2) Diverticulitis Current Visit: Yes Status: Acute Patient abdominal pain and CT findings concerning for diverticulitis. Management per primary team. Patient with rectal bleeding. Agree with GI consult. Monitor hemoglobin and transfuse if hemoglobin less than 7.0 or the patient is symptomatic. Qualifiers: Diverticulitis site: large intestine Diverticulitis bleeding: with bleeding Qualified Code(s): K57.33 - Diverticulitis of large intestine without perforation or abscess with bleeding (3) GI bleed Current Visit: Yes Status: Acute Transfuse as needed. GI consult. Qualifiers: GI bleed type/associated pathology: anorectal hemorrhage Qualified Code(s) : K62.5 - Hemorrhage of anus and rectum (4) Hyperkalemia Current Visit: Yes Status: Acute Etiology of her hyperkalemia is unclear. The patient denies ingestion of potassium supplement. Evaluation for tumor lysis syndrome was unremarkable as her LDH is only mildly elevated and her uric acid is within normal limits. Her renal function is normal and she has good urine output. Her hyperkalemia responded to aggressive medical management. Continue with adequate hydration, avoid high potassium foods. We will continue to follow thank you for consult. (5) Anemia Current Visit: Yes Status: Acute Monitor hemoglobin. Qualifiers: Qualified Code(s): D64.9 - Anemia, unspecified (6) Lymphadenopathy Current Visit: Yes Status: Acute hematology consulted. History of Present Illness - Reason for Consult Consult date: 03/14/17 hyperkalemia - Chief Complaint hyperkalemia - History of Present Illness Ms. Sheridan is a 62 yo woman with a history of CLL who presents with abdominal pain and was found to have diverticulitis. She also was found to have hyperkalemia that got worse. I was called overnight and assisted Dr. Ibarra ( the covering hospitalist) with management of her critical potassium levels. This morning the patient reports she is in stable condition, she is having some diarrhea. She also has some abdominal pain, but she reports it is better than when she came in the hospital. She reports hematochezia prior to admission. She denies history of kidney problems. She denies chest pain, shortness shortness of breath. Past Med Surg Social Fam HX - Past Medical History Medical history: asthma, COPD Psychiatric history: no psych history - Social History Smoking Status: Current every day smoker Smokeless Tobacco Status: No Alcohol use: none Drug use: none Medications and Allergies Albuterol Sulfate [Albuterol Inhaler] 2 puff IH Q4H PRN 03/13/17 [History] Beclomethasone Diprop 40mcg [QVAR 40 mcg] 2 puff IH BID 03/13/17 [History] Clopidogrel [Plavix] 75 mg PO DAILY 03/13/17 [History] Diphenoxylate/Atropine [Lomotil 2.5 mg/0.025 mg] 1 tab PO Q6-8H PRN 03/13/17 [ History] Gabapentin [Neurontin] 300 mg PO QAM 03/13/17 [History] Glimepiride [Amaryl] 4 mg PO DAILY 03/13/17 [History] Ipratropium [ATROVENT Inhaler] 2 puff IH QID 03/13/17 [History] Ipratropium/Albuterol Sulfate [Combivent Respimat Inhal [place]] 1 puff IH QID [History] Pravastatin Sodium [Pravachol] 20 mg PO DAILY 03/13/17 [History] Ranitidine HCl [Zantac] 150 mg PO BID 03/13/17 [History] Allergies Penicillins Allergy (Unknown, Verified 03/13/17 13:00) Hives Sulfa (Sulfonamide Antibiotics) Allergy (Unknown, Verified 03/13/17 13:00) Hives aspirin Adverse Reaction (Unknown, Verified 03/13/17 13:00) Nausea Review of Systems All Systems: reviewed and no additional remarkable complaints except as stated ( As documented in the history of present illness) Exam - Vital Signs Vital signs: Initial Vital Signs Temp Pulse Resp BP Pulse Ox 97.5 F L 101 16 138/62 92 03/13/17 09:56 03/13/17 09:56 03/13/17 09:56 03/13/17 09:56 03/13/17 09:56 Vital Signs - Last 8 Hours Temp Pulse Resp BP Pulse Ox 03/14/17 09:00 69 19 155/127 89 03/14/17 08:00 76 26 137/106 94 03/14/17 07:52 97.5 F L 03/14/17 07:00 74 20 133/82 95 03/14/17 06:00 64 19 144/74 98 03/14/17 05:06 64 18 156/73 98 03/14/17 04:16 67 03/14/17 04:15 98.1 F 67 24 166/77 98 Intake and Output 03/13/17 03/14/17 03/14/17 23:59 07:59 15:59 Intake Total 350 / 350 760 / 760 1075 / 1075 Output Total 0 / 0 2450 / 2450 Balance 350 / 350 -1690 / -1690 1075 / 1075 Intake: IV Fluids 410 / 410 1075 / 1075 Sodium Bicarbonate 75 MEQ 1075 / 1075 In 0.45% Sodium Chloride 1000 Ml 1000 Ml 1,000 ML @ 150 mls/hr IVC .[id number] [facility] Rx#:[id number] Calcium Gluconate 1,000 110 / 110 MG In Dextrose 5% 100 ML @ 220 mls/hr IVPB ONCE ONE Rx#:[id number] Cipro Premix 400 MG/200 200 / 200 ML 400 mg In 200 ml @ 200 mls/hr IVPB Q12HR [facility] Rx #:[id number] Flagyl Premix 500 MG/100 100 / 100 ML 500 mg In 100 ml @ 100 mls/hr IVPB Q8HR [facility] Rx# :[id number] Oral 0 / 0 Blood Product 350 / 350 350 / 350 Rbcs Leuko Poor As-1 350 / 350 Unit [id number] Rbcs Leuko Poor As-3 2nd 0 / 0 350 / 350 Unit [id number] Output: Urine 0 / 0 Catheter 2450 / 2450 Other: Stool Size Moderate Moderate Small Stool Consistency soft liquid liquid Stool Characteristics [place] Normal for Patient Stool Color Brown Brown Brown Yellow # Voids 3 # Bowel Movements 1 1 2 Weight 45 kg 44.8 kg Blood Glucose* 204 Patient Weight 03/14/17 23:59 Weight 44.8 kg - General Appearance General appearance: well-developed, well-nourished EENT: ATNC Neck: supple Respiratory: clear Cardiology: no edema, regular rate Gastrointestinal: normoactive bowel sounds, tenderness, no guarding Integumentary: warm and dry Neurologic: alert and oriented x3 Musculoskeletal: no cyanosis Psychiatric: mood/affect appropriate Results - Lab Results 03/14/17 00:39 03/14/17 04:56 Most recent lab results Calcium 8.9 mg/dL (8.6-10.8) 03/14/17 04:56 Phosphorus 3.9 mg/dL (2.3-4.7) 03/14/17 00:39 Consult Discharge Plan - Plan Referrals: Stephen Liao MD [Primary Care Provider] -
[2017-03-14] MEDS ORDERED: 0.9 % Sodium Chloride 1,000 ML IVC SCH (11:45)
[2017-03-14 12:12] LABS: Hematocrit 39.8 % (35.3-44.9); Hemoglobin 12.3 g/dL (11.5-15.4); Mean Corpuscular HGB Conc 30.9 g/dL (31.6-35.5); Mean Corpuscular Volume 90.7 fL (83.0-100.0); Red Blood Count 4.39 M/mcL (3.82-4.97); Red Cell Distribution Width 14.4 % (11.5-14.5)
[2017-03-14 12:15] LABS: Platelet Count 76 K/mcL (140-400)
[2017-03-14 12:25] LABS: BUN/Creatinine Ratio 12 (6-26); Blood Urea Nitrogen 8 mg/dL (7-20); Calcium 8.1 mg/dL (8.6-10.8); Glucose 176 mg/dL (70-99); Osmolality,Calculated 287 (280-300); Sodium 137 mEq/L (136-145); eGFR For African Americans > 60 (> 60); eGFR For Non-African Americans > 60 (> 60)
[2017-03-14 12:26] LABS: Carbon Dioxide 27 mEq/L (19-29); Chloride 104 mEq/L (98-109); Potassium 5.8 mEq/L (3.5-4.5)
[2017-03-14] MEDS ORDERED: (Ipratropium/Albuterol Sulfate [Combivent Respimat In) IH SCH (13:00)
--- NOTE | 2017-03-14 13:18 | Internal Med Progress Note ---
Date of Encounter: 03/14/17 Time of Encounter: 13:16 - Assessment and plan (1) Diverticulitis Current Visit: Yes Status: Acute Assessment and plan: CT scan shows possible proximal sigmoid diverticulitis with a splenomegaly and bilateral external iliac and inguinal adenopathy possible lymphoproliferative disease versus lymphoma Currently on a diet, consider switching to nothing by mouth if worse Decrease hydration due to congestion and start normal saline after bicarbonate is completed Continue ciprofloxacin and Flagyl IV day [address] Sierra, no intervention recommended due to acute diverticulitis (no colonoscopy) Qualifiers: Diverticulitis site: large intestine Diverticulitis bleeding: with bleeding Qualified Code(s): K57.33 - Diverticulitis of large intestine without perforation or abscess with bleeding (2) Elevated WBC count Current Visit: Yes Status: Acute Assessment and plan: Likely secondary to leukemia Oncology consulted No evidence of tumor lysis syndrome Qualifiers: Leukocytosis type: lymphocytosis Qualified Code(s): D72.820 - Lymphocytosis (symptomatic) (3) Hyperkalemia Current Visit: Yes Status: Acute Assessment and plan: Improving after receiving Kayexalate, may discontinue sodium bicarbonate later today Followed by nephrology (4) Lymphocytosis Current Visit: Yes Status: Chronic Assessment and plan: Most likely CLL.. this is somewhat advanced with low platelets, abd. lymphadenopaty, and spleenomegaly (5) COPD (chronic obstructive pulmonary disease) Current Visit: Yes Status: Acute Assessment and plan: Stable, continue inhalers Qualifiers: Chronic bronchitis type: simple Qualified Code(s): J41.0 - Simple chronic bronchitis (6) Diabetes mellitus type 2 in nonobese Current Visit: Yes Status: Chronic (7) Thrombocytopenia Current Visit: Yes Status: Acute (8) CLL (chronic lymphocytic leukemia) Current Visit: Yes Status: Acute (9) Anemia Current Visit: Yes Status: Acute Qualifiers: Qualified Code(s): D64.9 - Anemia, unspecified (10) Lymphadenopathy Current Visit: Yes Status: Acute - Subjective Interval history: Very somnolent, the patient is very congested, complaining of abdominal pain mainly in the left lower quadrant, no nausea or vomiting. Has not had any more episodes of bleeding. No fevers - Constitutional Vitals: Temp Pulse Resp BP Pulse Ox 97.9 F 85 24 154/61 94 03/14/17 11:44 03/14/17 12:00 03/14/17 12:00 03/14/17 12:00 03/14/17 12:00 General appearance: Present: cachectic, A&O X 1, disheveled, no acute distress, underweight Exam: Confused - Head Head exam: Present: atraumatic, normocephalic - Eye Eye exam: Present: PERRL, conjuntiva pink, sclera anicteric Pupils: Present: PERRL - Neck Neck exam general surgery: Present: supple, trachea midline. Absent: lymphadenopathy - Respiratory Respiratory exam: Present: CTAB, rales (Diffuse crackles, no wheezing). Absent : accessory muscle use, rhonchi, wheezes - Cardiovascular Cardiovascular exam: Present: RRR, +S1, +S2. Absent: diastolic murmur, gallop, rubs, systolic murmur - GI/Abdominal GI/Abdominal exam: Present: normal bowel sounds, soft, tenderness (Left lower quadrant tenderness, no rebound), no peritoneal signs. Absent: distended - Extremities Exam Extremities exam: Present: warm, radial pulses palpable and symetrical. Absent : calf tenderness, cyanotic, pedal edema - Neurological Exam Neurological exam: Present: CN II-XII intact, no focal deficits. Absent: oriented X3 (Dysarthria at baseline), pronater drift, facial droop, speech deficit - Skin Skin exam: Present: dry, intact Internal Medicine: Result - Labs CBC & Chem 7: 03/14/17 12:05 03/14/17 12:05 Labs: Short CBC 03/13/17 03/14/17 03/14/17 Range/Units 17:24 00:39 12:05 WBC 198.1 H* 183.3 H* (4.3-11.1) K/mcL Hgb 10.5 L 11.9 12.3 (11.5-15.4) g/dL Hct 39.4 39.8 (35.3-44.9) % Plt Count 80 L 76 L (140-400) K/mcL Neutrophils # 3.4 (1.6-8.9) K/mcL BMP 03/14/17 03/14/17 03/14/17 00:39 04:56 12:05 Sodium 136 137 137 Potassium 7.1 H* D 5.2 H D 5.8 H Chloride 107 105 104 Carbon Dioxide 21 24 27 BUN 10 8 8 Creatinine 0.57 0.56 L 0.67 Glucose 101 H 111 H 176 H Calcium 8.2 L 8.9 8.1 L Cardiac Enzymes 03/14/17 03/14/17 Range/Units 04:56 12:05 Troponin I 0.05 H* 0.01 (0-0.03) ng/mL - ABG Interpretation ABG results: PT/INR, D-dimer PT 12.2 Seconds (9.4-12.1) H 03/14/17 00:39 Consult Discharge Plan - Plan Referrals: Stephen Liao MD [Primary Care Provider] -
--- NOTE | 2017-03-14 14:19 | Oncology Inp Consult Note ---
Date of Encounter: 03/15/17 Time of Encounter: 14:12 Assessment and Plan (1) CLL (chronic lymphocytic leukemia) Status: Acute Assessment and plan: recommend peripheral blood flow cytometry. It may take one week for the report. will follow her up as an outpatient to discuss treatment. CT scan showed bilateral pelvic lymphadenopathy largest 1.4 x 3.2 cm. Also splenomegaly mild thrombocytopenia. Likely HORTON stage II. Thrombocytopenia is likely from splenomegaly. Acute drop is secondary to her current problems. If thrombocytopenia is from CLL could make it stage IV also elevated monocyte count of 9000 and Basophil count of count 400 (2) Hyperkalemia Status: Acute Assessment and plan: potassium been up to 7.1 down to 5.8. No renal insufficiency. LDH upper limits of normal. Uric acid and phosphorus normal. Unlikely to be tumor lysis. Also CLL rarely causes tumor lysis. Other forms of lymphoma cannot be ruled out. Flow cytometry should help (3) Lower GI bleeding Status: Resolved Assessment and plan: diverticulitis. Hemeoccult stool positive. She is currently on Plavix. She is getting Flagyl and Cipro and symptoms have improved - Data of Consult Requesting Physician: Mary Ellen Shea CNP Primary Care Provider: Stephen Liao MD - Consult Narrative Reason for consult: lympho proliferative disorder History of present illness: Presented to the ER with complaints of severe abdominal pain along with GI bleed that began this morning. She has had bright red bleeding per rectum. She has never had this symptom before. Denies any hematemesis. No nausea or vomiting. No chest pain. No fever chills or night sweats. She denies knowing about any sort of lymphatic or blood issues in the past. She reports that she had a minor heart attack in the past and has been on Plavix and statin. ONCOLOGY CONSULT IS FOR LYMPHOCYTOSIS AND THROMBOCYTOPENIA. I reviewed the PCI. She had lymphocytosis dating back to September 2007 with lymphocyte count 52K. On February of 2013 it increased 87. Further increased to 163 on May 2015 and on further increased to 184 on February. she also has mild thrombocytopenia platelet count 1 13 K on February 2013. Since hospitalization reduced further to 80K. CT abdomen and pelvis without contrast on March 13, 2017 showed splenomegaly 18 cm. On March 13, 2017 CT head without contrast negative pathology review of smear on May 2015 showed smudge cells indicating possible CLL PAST MEDICAL HISTORY hyperlipidemia, diabetes mellitus type 2, asthma/COPD, chronic smoker Past Med Surg Social Fam HX - Past Medical History Medical history: asthma, COPD Psychiatric history: no psych history - Social History Smoking Status: Current every day smoker Smokeless Tobacco Status: No Alcohol use: none Drug use: none Medications and Allergies Albuterol Sulfate [Albuterol Inhaler] 2 puff IH Q4H PRN 03/13/17 [History] Beclomethasone Diprop 40mcg [QVAR 40 mcg] 2 puff IH BID 03/13/17 [History] Clopidogrel [Plavix] 75 mg PO DAILY 03/13/17 [History] Diphenoxylate/Atropine [Lomotil 2.5 mg/0.025 mg] 1 tab PO Q6-8H PRN 03/13/17 [ History] Gabapentin [Neurontin] 300 mg PO QAM 03/13/17 [History] Glimepiride [Amaryl] 4 mg PO DAILY 03/13/17 [History] Ipratropium [ATROVENT Inhaler] 2 puff IH QID 03/13/17 [History] Ipratropium/Albuterol Sulfate [Combivent Respimat Inhal [place]] 1 puff IH QID [History] Pravastatin Sodium [Pravachol] 20 mg PO DAILY 03/13/17 [History] Ranitidine HCl [Zantac] 150 mg PO BID 03/13/17 [History] Allergies Penicillins Allergy (Unknown, Verified 03/13/17 13:00) Hives Sulfa (Sulfonamide Antibiotics) Allergy (Unknown, Verified 03/13/17 13:00) Hives aspirin Adverse Reaction (Unknown, Verified 03/13/17 13:00) Nausea Review of systems: No fever chills. No evidence of rhabdomyolysis . Not in acute distress Oncology - Exam - Constitutional Vitals: Temp Pulse Resp BP Pulse Ox 97.9 F 80 20 163/77 95 03/14/17 11:44 03/14/17 14:00 03/14/17 14:00 03/14/17 14:00 03/14/17 14:00 Exam: GENERAL: Sleepy but arousable. Her speech is not clear because she is edentulous. Mental Status: Affect appropriate for circumstances HEENT: Sclerae anicteric. No mucositis or thrush. No other oral or pharyngeal lesions or erythema. Skin: No rashes or petechiae. No evidence of skin malignancy Lymph nodes: No cervical, supraclavicular, axillary, or inguinal adenopathy. Lungs: Air entry normal with normal breath sounds. No rhonchi or wheezing Cardiovascular: Regular rate and rhythm. No skipped beats Abdomen: Soft, nontender; no organomegaly or masses palpable. Extremities: No edema. No calf swelling or tenderness. No joint deformity. Neurologic: Limited exam due to patient at ICU. No focal neurological deficit. Oncology - Results - Labs Labs: Short CBC 03/13/17 03/14/17 03/14/17 Range/Units 17:24 00:39 12:05 WBC 198.1 H* 183.3 H* (4.3-11.1) K/mcL Hgb 10.5 L 11.9 12.3 (11.5-15.4) g/dL Hct 39.4 39.8 (35.3-44.9) % Plt Count 80 L 76 L (140-400) K/mcL Neutrophils # 3.4 (1.6-8.9) K/mcL BMP 03/14/17 03/14/17 03/14/17 00:39 04:56 12:05 Sodium 136 137 137 Potassium 7.1 H* D 5.2 H D 5.8 H Chloride 107 105 104 Carbon Dioxide 21 24 27 BUN 10 8 8 Creatinine 0.57 0.56 L 0.67 Glucose 101 H 111 H 176 H Calcium 8.2 L 8.9 8.1 L Cardiac Enzymes 03/14/17 03/14/17 Range/Units 04:56 12:05 Troponin I 0.05 H* 0.01 (0-0.03) ng/mL Consult Discharge Plan - Plan Referrals: Stephen Liao MD [Primary Care Provider] -
--- NOTE | 2017-03-14 14:32 | Electrocardiograph Report ---
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
--- NOTE | 2017-03-14 14:48 | Electrocardiograph Report ---
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
[2017-03-14] MEDS ORDERED: Ipratropium/Albuterol Neb 3 ML ONE (15:08)
[2017-03-14] MEDS: Ipratropium/Albuterol Neb 3 ML IH SCH ×2 (15:23→22:18)
[2017-03-14] MEDS: Acetaminophen 325 MG TABLET PO PRN (21:51)
[2017-03-15] MEDS: 0.9 % Sodium Chloride 1,000 ML IVC SCH ×3 (00:44→16:55)
[2017-03-15] MEDS: MetroNIDAZOLE 500 MG/100 ML 500 MG/100 ML BAG IVPB SCH ×3 (00:45→16:50)
[2017-03-15] MEDS: Sodium Bicarbonate 75 MEQ in 0.45 % Sodium Chloride 1,000 ML IVC SCH ×2 (00:45→05:32)
[2017-03-15] MEDS: *HR* Dextrose 50 % in Water (Syg) 50 ML SYRINGE IVP SCH (00:51)
[2017-03-15] MEDS: Ipratropium/Albuterol Neb 3 ML IH SCH ×4 (04:08→21:56)
[2017-03-15 06:32] LABS: Hematocrit 36.6 % (35.3-44.9); Hemoglobin 11.5 g/dL (11.5-15.4); Immature Platelets 15.8 % (1.1-6.1); Mean Corpuscular HGB Conc 31.4 g/dL (31.6-35.5); Mean Corpuscular Volume 89.1 fL (83.0-100.0); Red Blood Count 4.11 M/mcL (3.82-4.97)
[2017-03-15 06:45] LABS: BUN/Creatinine Ratio 8 (6-26); Calcium 7.7 mg/dL (8.6-10.8); Carbon Dioxide 27 mEq/L (19-29); Chloride 102 mEq/L (98-109); Glucose 148 mg/dL (70-99); Osmolality,Calculated 280 (280-300); Potassium 4.8 mEq/L (3.5-4.5); Sodium 135 mEq/L (136-145); eGFR For African Americans > 60 (> 60); eGFR For Non-African Americans > 60 (> 60)
[2017-03-15 06:50] LABS: Blood Urea Nitrogen 5 mg/dL (7-20); Platelet Count 73 K/mcL (140-400)
[2017-03-15 06:57] LABS: Lymphocytes # 138.5 K/mcL (0.6-4.6); Microcytosis Present (Not Present); Platelet Estimate Decreased (Normal); Reactive Lymphocytes Present (Not Present)
--- NOTE | 2017-03-15 11:54 | Nephrology Progress Note ---
Date of Encounter: 03/15/17 Time of Encounter: 11:54 - Assessment and Plan (1) CLL (chronic lymphocytic leukemia) Current Visit: Yes Status: Acute per primary team and hematology. (2) Diverticulitis Current Visit: Yes Status: Acute per primary team. Patient reported some bleeding overnight. Qualifiers: Diverticulitis site: large intestine Diverticulitis bleeding: with bleeding Diverticulitis complication: without perforation or abscess Qualified Code(s): K57.33 - Diverticulitis of large intestine without perforation or abscess with bleeding (3) GI bleed Current Visit: Yes Status: Acute Per primary team. GI consulted. Secondary to diverticulitis. Qualifiers: GI bleed type/associated pathology: anorectal hemorrhage Qualified Code(s) : K62.5 - Hemorrhage of anus and rectum (4) Hyperkalemia Current Visit: Yes Status: Acute mildly elevated. Etiology not completely clear. May need further work-up if persistent. (5) Anemia Current Visit: Yes Status: Acute Tansfuse as needed. Qualifiers: Anemia type: iron deficiency Qualified Code(s): D50.0 - Iron deficiency anemia secondary to blood loss (chronic) Subjective Principal diagnosis: hyperkalemia Interval history: Patient seen and evaluated. She has no new complaint. Objective - Vital Signs Vital signs: Vital Signs Temp Pulse Resp BP Pulse Ox 03/15/17 11:24 97.5 F L 03/15/17 11:08 19 145/70 100 03/15/17 10:57 16 93 03/15/17 10:00 71 16 134/58 94 03/15/17 09:25 78 20 158/97 93 03/15/17 08:19 60 03/15/17 08:00 58 16 153/114 91 03/15/17 07:25 98.1 F 03/15/17 07:20 60 26 154/86 95 03/15/17 06:00 61 20 147/71 94 03/15/17 05:00 63 18 132/59 94 03/15/17 04:36 64 03/15/17 04:10 16 95 03/15/17 04:00 98.2 F 64 18 155/67 95 03/15/17 03:00 63 20 154/71 95 03/15/17 02:00 67 20 155/69 94 03/15/17 01:00 68 20 149/79 95 03/15/17 00:00 71 20 158/84 92 03/14/17 23:15 69 03/14/17 23:00 70 20 167/80 91 03/14/17 22:18 16 92 03/14/17 22:00 69 16 164/80 96 03/14/17 21:00 74 24 123/107 95 03/14/17 20:00 78 18 159/87 94 03/14/17 19:50 74 03/14/17 19:00 98.0 F 74 20 168/75 94 03/14/17 18:00 75 16 171/88 94 03/14/17 17:00 86 20 163/86 96 03/14/17 16:00 80 19 168/68 96 03/14/17 15:35 98.1 F 03/14/17 15:24 24 144/80 96 03/14/17 14:00 80 20 163/77 95 03/14/17 13:00 85 24 154/61 94 03/14/17 12:00 85 24 154/61 94 Intake and Output 03/14/17 03/15/17 03/15/17 23:59 07:59 15:59 Intake Total 1660 / 1660 475 / 475 1040 / 1040 Output Total 2550 / 2550 800 / 800 400 / 400 Balance -890 / -890 -325 / -325 640 / 640 Intake: IV Fluids 300 / 300 475 / 475 800 / 800 0.9 % Sodium Chloride 1, 500 / 500 000 ML @ 75 mls/hr IVC . [id number] [facility] Rx#: [id number] Sodium Bicarbonate 75 MEQ 375 / 375 In 0.45% Sodium Chloride 1000 Ml 1000 Ml 1,000 ML @ 150 mls/hr IVC .Q7H10M [facility] Rx#:[id number] Cipro Premix 400 MG/200 200 / 200 200 / 200 ML 400 mg In 200 ml @ 200 mls/hr IVPB Q12HR [facility] Rx #:[id number] Flagyl Premix 500 MG/100 100 / 100 100 / 100 100 / 100 ML 500 mg In 100 ml @ 100 mls/hr IVPB Q8HR [facility] Rx# :[id number] Oral 1360 / 1360 240 / 240 Output: Urine 600 / 600 550 / 550 Stool 100 / 100 Rectal Tube 900 / 900 0 / 0 0 / 0 Catheter 950 / 950 250 / 250 400 / 400 Other: Meal Lunch Breakfast Percent of Meal Consumed 75% 100% Stool Consistency liquid Stool Color Brown Weight 46.9 kg Blood Glucose* 126 203 Patient Weight 03/15/17 23:59 Weight 46.9 kg - General Appearance General appearance: Present: well-developed, well-nourished, chronically ill, frail EENT: Present: ATNC Neck: Present: supple Respiratory: Present: clear Cardiology: Present: no edema, regular rate, regular rhythm Integumentary: Present: warm and dry Neurologic: Present: alert and oriented x3 Psychiatric: Present: mood/affect appropriate - Lab 03/15/17 06:22 03/15/17 06:22 Most recent lab results Calcium 7.7 mg/dL (8.6-10.8) L 03/15/17 06:22 Phosphorus 3.9 mg/dL (2.3-4.7) 03/14/17 00:39 Consult Discharge Plan - Plan Referrals: Stephen Liao MD [Primary Care Provider] -
[2017-03-15] MEDS ORDERED: *HR* Dextrose 50 % in Water (Syg) 50 ML SYRINGE IVP PRN (13:24)
[2017-03-15] MEDS ORDERED: Dextrose Gel 15 GM PO PRN ×2 (13:24)
[2017-03-15] MEDS ORDERED: D5% in Water 1,000 ML IVC PRN (13:24)
--- NOTE | 2017-03-15 14:48 | Internal Med Progress Note ---
Date of Encounter: 03/15/17 Time of Encounter: 14:48 - Assessment and plan (1) Diverticulitis Current Visit: Yes Status: Acute Assessment and plan: CT scan shows possible proximal sigmoid diverticulitis with a splenomegaly and bilateral external iliac and inguinal adenopathy possible lymphoproliferative disease versus lymphoma Currently on a diet, consider switching to nothing by mouth if worse gentle hydration due to congestion with normal saline(received IV bicarbonate hen admitted) Continue ciprofloxacin and Flagyl IV day [address] Sierra, no intervention recommended due to acute diverticulitis (no colonoscopy) Qualifiers: Diverticulitis site: large intestine Diverticulitis bleeding: with bleeding Diverticulitis complication: without perforation or abscess Qualified Code(s): K57.33 - Diverticulitis of large intestine without perforation or abscess with bleeding (2) Elevated WBC count Current Visit: Yes Status: Acute Assessment and plan: Likely secondary to leukemia Oncology consulted flow cytometry recmmended No evidence of tumor lysis syndrome Qualifiers: Leukocytosis type: lymphocytosis Qualified Code(s): D72.820 - Lymphocytosis (symptomatic) (3) Hyperkalemia Current Visit: Yes Status: Acute Assessment and plan: Resolved after receiving Kayexalate sodium bicarbonate Followed by nephrology (4) Lymphocytosis Current Visit: Yes Status: Chronic Assessment and plan: Most likely CLL.. this is somewhat advanced with low platelets, abd. lymphadenopaty, and splenomegaly (5) COPD (chronic obstructive pulmonary disease) Current Visit: Yes Status: Acute Assessment and plan: Stable, continue inhalers Qualifiers: Chronic bronchitis type: simple Qualified Code(s): J41.0 - Simple chronic bronchitis (6) Diabetes mellitus type 2 in nonobese Current Visit: Yes Status: Chronic (7) Thrombocytopenia Current Visit: Yes Status: Acute (8) CLL (chronic lymphocytic leukemia) Current Visit: Yes Status: Acute (9) Anemia Current Visit: Yes Status: Acute Qualifiers: Anemia type: iron deficiency Qualified Code(s): D50.0 - Iron deficiency anemia secondary to blood loss (chronic) (10) Lymphadenopathy Current Visit: Yes Status: Acute - Subjective Interval history: Lesssomnolent, the patient is less congested, complaining of abdominal pain mainly in the left lower quadrant, no nausea or vomiting. Has not had any more episodes of bleeding. No fevers - Constitutional Vitals: Temp Pulse Resp BP Pulse Ox 97.5 F L 69 18 145/68 92 03/15/17 11:24 03/15/17 13:20 03/15/17 13:20 03/15/17 13:20 03/15/17 12:15 General appearance: Present: cachectic, disheveled, A&O X 2, no acute distress, underweight - Head Head exam: Present: atraumatic, normocephalic - Eye Eye exam: Present: PERRL, conjuntiva pink, sclera anicteric Pupils: Present: PERRL - Neck Neck exam general surgery: Present: supple, trachea midline. Absent: lymphadenopathy - Respiratory Respiratory exam: Present: CTAB, rales (Fine bibasilar crackles). Absent: accessory muscle use, rhonchi, wheezes - Cardiovascular Cardiovascular exam: Present: RRR, +S1, +S2. Absent: diastolic murmur, gallop, rubs, systolic murmur - GI/Abdominal GI/Abdominal exam: Present: normal bowel sounds, soft, tenderness (Left lower quadrant tenderness, no rebound), no peritoneal signs. Absent: distended - Extremities Exam Extremities exam: Present: warm, radial pulses palpable and symetrical. Absent : calf tenderness, cyanotic, pedal edema - Neurological Exam Neurological exam: Present: CN II-XII intact, oriented X3, no focal deficits. Absent: pronater drift, facial droop, speech deficit - Skin Skin exam: Present: dry, intact Internal Medicine: Result - Labs CBC & Chem 7: 03/15/17 06:22 03/15/17 06:22 Labs: Short CBC 03/15/17 Range/Units 06:22 WBC 150.5 H* (4.3-11.1) K/mcL Hgb 11.5 (11.5-15.4) g/dL Hct 36.6 (35.3-44.9) % Plt Count 73 L (140-400) K/mcL Neutrophils # 3.0 (1.6-8.9) K/mcL BMP 03/15/17 06:22 Sodium 135 L Potassium 4.8 H D Chloride 102 Carbon Dioxide 27 BUN 5 L Creatinine 0.64 Glucose 148 H Calcium 7.7 L - ABG Interpretation ABG results: PT/INR, D-dimer PT 12.2 Seconds (9.4-12.1) H 03/14/17 00:39 Consult Discharge Plan - Plan Referrals: Stephen Liao MD [Primary Care Provider] -
[2017-03-15] MEDS: Insulin LISPRO 300 UNITS/3 ML VIAL SQ SCH ×2 (15:32→19:59)
[2017-03-16] MEDS: Ipratropium/Albuterol Neb 3 ML IH SCH ×4 (04:32→22:15)
[2017-03-16 05:53] LABS: Basophils % 0.6 %; Eosinophils % 0.1 %; Hemoglobin 11.5 g/dL (11.5-15.4); Immature Granulocytes % 0.1 % (0-4)
[2017-03-16 05:54] LABS: Hematocrit 37.1 % (35.3-44.9); Lymphocytes % 94.1 %; Mean Corpuscular Hemoglobin 27.9 pg (28.0-33.3); Mean Platelet Volume 12.6 fL (9.4-12.4); Monocytes # 5.3 K/mcL (0.0-1.3); Monocytes % 3.5 %; Red Blood Count 4.12 M/mcL (3.82-4.97); Red Cell Distribution Width 14.3 % (11.5-14.5); Segmented Neutrophils % 1.6 %
[2017-03-16] MEDS: 0.9 % Sodium Chloride 1,000 ML IVC SCH (06:04)
[2017-03-16] MEDS: MetroNIDAZOLE 500 MG/100 ML 500 MG/100 ML BAG IVPB SCH ×4 (06:05→23:29)
[2017-03-16 06:07] LABS: BUN/Creatinine Ratio 15 (6-26); Blood Urea Nitrogen 9 mg/dL (7-20); Carbon Dioxide 27 mEq/L (19-29); Chloride 106 mEq/L (98-109); Glucose 114 mg/dL (70-99); Osmolality,Calculated 284 (280-300); Potassium 5.2 mEq/L (3.5-4.5); Sodium 137 mEq/L (136-145); eGFR For African Americans > 60 (> 60); eGFR For Non-African Americans > 60 (> 60)
[2017-03-16 06:30] LABS: Basophils # 0.9 K/mcL (0.0-0.2); Eosinophils # 0.2 K/mcL (0.0-0.6); Lymphocytes # 142.9 K/mcL (0.6-4.6); Neutrophils # 2.4 K/mcL (1.6-8.9); Platelet Count 70 K/mcL (140-400)
[2017-03-16 06:33] LABS: Platelet Estimate Marked Decrease (Normal); Smudge Cells Present (Not Present)
[2017-03-16] MEDS: Insulin LISPRO 300 UNITS/3 ML VIAL SQ SCH ×4 (07:28→21:22)
--- NOTE | 2017-03-16 10:52 | Nephrology Progress Note ---
Date of Encounter: 03/16/17 Time of Encounter: 10:49 - Assessment and Plan (1) CLL (chronic lymphocytic leukemia) Current Visit: Yes Status: Acute per primary team and hematology. (2) Diverticulitis Current Visit: Yes Status: Acute per primary team. Qualifiers: Diverticulitis site: large intestine Diverticulitis bleeding: with bleeding Diverticulitis complication: without perforation or abscess Qualified Code(s): K57.33 - Diverticulitis of large intestine without perforation or abscess with bleeding (3) GI bleed Current Visit: Yes Status: Acute Per primary team. GI consulted. Secondary to diverticulitis. Qualifiers: GI bleed type/associated pathology: anorectal hemorrhage Qualified Code(s) : K62.5 - Hemorrhage of anus and rectum (4) Hyperkalemia Current Visit: Yes Status: Acute mildly elevated. Etiology not completely clear. Will check aldosterone level. (5) Anemia Current Visit: Yes Status: Acute Tansfuse as needed. Qualifiers: Anemia type: iron deficiency Qualified Code(s): D50.0 - Iron deficiency anemia secondary to blood loss (chronic) Subjective Principal diagnosis: hyperkalemia Interval history: Patient seen and evaluated. She is resting. Objective - Vital Signs Vital signs: Vital Signs Temp Pulse Resp BP Pulse Ox 03/16/17 09:45 20 153/69 99 03/16/17 08:00 97.5 F L 70 20 153/69 95 03/16/17 07:32 97.5 F L 03/16/17 05:02 63 03/16/17 04:32 16 95 03/16/17 04:00 63 18 152/68 94 03/16/17 00:05 70 03/16/17 00:00 97.7 F 70 14 168/81 96 03/15/17 21:56 18 97 03/15/17 19:50 74 03/15/17 19:00 97.8 F 74 20 154/74 98 03/15/17 17:51 81 16 143/59 95 03/15/17 16:28 98.1 F 03/15/17 16:05 84 20 159/65 93 03/15/17 15:39 16 159/72 96 03/15/17 15:06 72 19 159/72 96 03/15/17 14:45 79 17 159/72 95 03/15/17 13:20 69 18 145/68 03/15/17 12:15 83 20 145/73 92 03/15/17 11:24 97.5 F L 03/15/17 11:08 19 145/70 100 03/15/17 10:57 16 93 Intake and Output 03/15/17 03/16/17 03/16/17 23:59 07:59 15:59 Intake Total 750 / 750 2200 / 2200 240 / 240 Output Total 1150 / 1150 2400 / 2400 Balance -400 / -400 -200 / -200 240 / 240 Intake: IV Fluids 750 / 750 1000 / 1000 0.9 % Sodium Chloride 1, 450 / 450 1000 / 1000 000 ML @ 75 mls/hr IVC . [id number] [facility] Rx#: [id number] Cipro Premix 400 MG/200 200 / 200 ML 400 mg In 200 ml @ 200 mls/hr IVPB Q12HR [facility] Rx #:[id number] Flagyl Premix 500 MG/100 100 / 100 ML 500 mg In 100 ml @ 100 mls/hr IVPB Q8HR [facility] Rx# :[id number] Oral 1200 / 1200 240 / 240 Output: Rectal Tube 50 / 50 Catheter 1100 / 1100 2400 / 2400 Other: Meal Breakfast Percent of Meal Consumed 95% Weight 48.8 kg Blood Glucose* 280 148 Patient Weight 03/16/17 23:59 Weight 48.8 kg - General Appearance General appearance: Present: well-developed, chronically ill, frail EENT: Present: ATNC Additional Comments: respirations are unlabored. - Lab 03/16/17 05:26 03/16/17 05:26 Most recent lab results Calcium 8.0 mg/dL (8.6-10.8) L 03/16/17 05:26 Phosphorus 3.9 mg/dL (2.3-4.7) 03/14/17 00:39 Consult Discharge Plan - Plan Referrals: Stephen Liao MD [Primary Care Provider] -
--- NOTE | 2017-03-16 11:29 | Internal Med Progress Note ---
Date of Encounter: 03/16/17 Time of Encounter: 11:28 - Assessment and plan (1) Diverticulitis Current Visit: Yes Status: Acute Assessment and plan: 03/16/2017: CT scan shows possible proximal sigmoid diverticulitis with a splenomegaly and bilateral external iliac and inguinal adenopathy possible lymphoproliferative disease versus lymphoma Currently on a diet, consider switching to nothing by mouth if worse gentle hydration Continue ciprofloxacin and Flagyl IV day [address] Minor, no intervention recommended due to acute diverticulitis ( no colonoscopy) Qualifiers: Diverticulitis site: large intestine Diverticulitis bleeding: with bleeding Diverticulitis complication: without perforation or abscess Qualified Code(s): K57.33 - Diverticulitis of large intestine without perforation or abscess with bleeding (2) Elevated WBC count Current Visit: Yes Status: Acute Assessment and plan: Likely secondary to leukemia Oncology consulted flow cytometry recmmended No evidence of tumor lysis syndrome Qualifiers: Leukocytosis type: lymphocytosis Qualified Code(s): D72.820 - Lymphocytosis (symptomatic) (3) Hyperkalemia Current Visit: Yes Status: Acute Assessment and plan: , Currently improving. Potassium still slightly above range. No evidence of tumor lysis. Appreciate nephrology input. (4) COPD (chronic obstructive pulmonary disease) Current Visit: Yes Status: Acute Assessment and plan: Stable, continue inhalers Qualifiers: Chronic bronchitis type: simple Qualified Code(s): J41.0 - Simple chronic bronchitis (5) CLL (chronic lymphocytic leukemia) Current Visit: Yes Status: Acute Assessment and plan: Follow-up with hematology oncology. Flow cytometry studies pending. - Subjective Interval history: 03/16/2017: Patient reports 0/10 abdominal pain today, no associated nausea or vomiting. She tolerated a diet, reports poor appetite. She continues to have a rectal tube which puts out dark liquid stool. - Constitutional Vitals: Temp Pulse Resp BP Pulse Ox 97.5 F L 70 20 153/69 99 03/16/17 08:00 03/16/17 08:00 03/16/17 09:45 03/16/17 09:45 03/16/17 09:45 General appearance: Present: cachectic, disheveled, A&O X 2, no acute distress, underweight - Eye Eye exam: Present: PERRL, conjuntiva pink, sclera anicteric Pupils: Present: PERRL - Respiratory Respiratory exam: Present: CTAB. Absent: accessory muscle use, rales, rhonchi, wheezes - Cardiovascular Cardiovascular exam: Present: RRR, +S1, +S2. Absent: diastolic murmur, gallop, rubs, systolic murmur - GI/Abdominal GI/Abdominal exam: Present: normal bowel sounds, soft, splenomegaly, no peritoneal signs. Absent: distended, tenderness - Extremities Exam Extremities exam: Present: warm, radial pulses palpable and symetrical. Absent : calf tenderness, cyanotic, pedal edema - Skin Skin exam: Present: dry, intact Internal Medicine: Result - Labs CBC & Chem 7: 03/16/17 05:26 03/16/17 05:26 Labs: Short CBC 03/16/17 Range/Units 05:26 WBC 151.9 H* (4.3-11.1) K/mcL Hgb 11.5 (11.5-15.4) g/dL Hct 37.1 (35.3-44.9) % Plt Count 70 L (140-400) K/mcL Neutrophils # 2.4 (1.6-8.9) K/mcL BMP 03/16/17 05:26 Sodium 137 Potassium 5.2 H Chloride 106 Carbon Dioxide 27 BUN 9 Creatinine 0.62 Glucose 114 H Calcium 8.0 L - ABG Interpretation ABG results: PT/INR, D-dimer PT 12.2 Seconds (9.4-12.1) H 03/14/17 00:39 Consult Discharge Plan - Plan Referrals: Stephen Liao MD [Primary Care Provider] -
[2017-03-17] MEDS: Ipratropium/Albuterol Neb 3 ML IH SCH ×4 (04:30→21:58)
[2017-03-17 06:29] LABS: Red Cell Distribution Width 14.4 % (11.5-14.5)
[2017-03-17 06:31] LABS: Hematocrit 37.3 % (35.3-44.9); Hemoglobin 11.5 g/dL (11.5-15.4); Mean Corpuscular HGB Conc 30.8 g/dL (31.6-35.5); Mean Corpuscular Hemoglobin 27.9 pg (28.0-33.3); Mean Corpuscular Volume 90.5 fL (83.0-100.0); Mean Platelet Volume 13.1 fL (9.4-12.4); Red Blood Count 4.12 M/mcL (3.82-4.97)
[2017-03-17 07:29] LABS: Platelet Count 69 K/mcL (140-400)
[2017-03-17 07:35] LABS: Lymphocytes # 135.8 K/mcL (0.6-4.6); Neutrophils # 22.6 K/mcL (1.6-8.9); Platelet Estimate Decreased (Normal); Reactive Lymphocytes Present (Not Present); Smudge Cells Present (Not Present)
[2017-03-17] MEDS: MetroNIDAZOLE 500 MG/100 ML 500 MG/100 ML BAG IVPB SCH ×3 (08:21→23:44)
[2017-03-17 08:38] LABS: BUN/Creatinine Ratio 17 (6-26); Blood Urea Nitrogen 11 mg/dL (7-20); Calcium 8.3 mg/dL (8.6-10.8); Carbon Dioxide 24 mEq/L (19-29); Chloride 104 mEq/L (98-109); Glucose 165 mg/dL (70-99); Osmolality,Calculated 281 (280-300); Potassium 4.1 mEq/L (3.5-4.5); Sodium 134 mEq/L (136-145); eGFR For African Americans > 60 (> 60); eGFR For Non-African Americans > 60 (> 60)
[2017-03-17] MEDS: Insulin LISPRO 300 UNITS/3 ML VIAL SQ SCH ×4 (08:38→21:29)
--- NOTE | 2017-03-17 11:30 | Nephrology Progress Note ---
Date of Encounter: 03/17/17 Time of Encounter: 11:28 - Assessment and Plan (1) CLL (chronic lymphocytic leukemia) Current Visit: Yes Status: Acute per primary team and hematology. (2) Diverticulitis Current Visit: Yes Status: Acute per primary team. Qualifiers: Diverticulitis site: large intestine Diverticulitis bleeding: with bleeding Diverticulitis complication: without perforation or abscess Qualified Code(s): K57.33 - Diverticulitis of large intestine without perforation or abscess with bleeding (3) GI bleed Current Visit: Yes Status: Acute Per primary team. GI consulted. Secondary to diverticulitis. Qualifiers: GI bleed type/associated pathology: anorectal hemorrhage Qualified Code(s) : K62.5 - Hemorrhage of anus and rectum (4) Hyperkalemia Current Visit: Yes Status: Acute Etiology not completely clear. but has resolved. Can discontinue saline infusion. Will check aldosterone level. (5) Anemia Current Visit: Yes Status: Acute Tansfuse as needed. Qualifiers: Anemia type: iron deficiency Qualified Code(s): D50.0 - Iron deficiency anemia secondary to blood loss (chronic) (6) Hypertension Current Visit: Yes Status: Acute Uncontrolled. Discontinue saline and monitor. May need to add diuretic. Patient not on antihypertensive at home. Qualifiers: Qualified Code(s): I10 - Essential (primary) hypertension Subjective Principal diagnosis: hyperkalemia Interval history: Patient seen and evaluated. She has no new complaint. Objective - Vital Signs Vital signs: Vital Signs Temp Pulse Resp BP Pulse Ox 03/17/17 10:35 16 93 03/17/17 06:50 97.9 F 73 17 160/71 92 03/17/17 04:30 16 94 03/17/17 04:00 98.6 F 77 15 161/73 93 03/16/17 23:32 98.3 F 83 14 159/82 93 03/16/17 22:15 16 98 03/16/17 19:33 98.8 F 78 18 129/54 94 03/16/17 17:11 96.8 F L 89 16 163/81 92 03/16/17 15:59 98.5 F 80 23 165/114 100 03/16/17 15:45 16 96 03/16/17 15:43 98.5 F 03/16/17 12:05 98.1 F 03/16/17 12:00 98.1 F 78 16 146/116 95 Intake and Output 03/16/17 03/17/17 03/17/17 23:59 07:59 15:59 Intake Total 540 / 540 0 / 0 Output Total 2200 / 2200 1800 / 1800 Balance -1660 / -1660 -1800 / -1800 Intake: IV Fluids 300 / 300 0 / 0 Cipro Premix 400 MG/200 200 / 200 ML 400 mg In 200 ml @ 200 mls/hr IVPB Q12HR [facility] Rx #:[id number] Flagyl Premix 500 MG/100 100 / 100 0 / 0 ML 500 mg In 100 ml @ 100 mls/hr IVPB Q8HR [facility] Rx# :[id number] Oral 240 / 240 Output: Catheter 2200 / 2200 1800 / 1800 Other: Meal Dinner Breakfast Percent of Meal Consumed 90% 100% Weight 46.5 kg Blood Glucose* 266 132 Patient Weight 03/17/17 23:59 Weight 46.5 kg - General Appearance General appearance: Present: well-developed, chronically ill, frail EENT: Present: ATNC Additional Comments: respirations are unlabored. Cardiology: Present: regular rate - Lab 03/17/17 05:24 03/17/17 07:31 Most recent lab results Calcium 8.3 mg/dL (8.6-10.8) L 03/17/17 07:31 Phosphorus 3.9 mg/dL (2.3-4.7) 03/14/17 00:39 Consult Discharge Plan - Plan Referrals: Stephen Liao MD [Primary Care Provider] -
--- NOTE | 2017-03-17 17:49 | Internal Med Progress Note ---
Date of Encounter: 03/17/17 Time of Encounter: 11:00 - Assessment and plan (1) Diverticulitis Current Visit: Yes Status: Acute Assessment and plan: 03/17/2017: We will continue with oral antibiotics. Advance diet. 03/16/2017: CT scan shows possible proximal sigmoid diverticulitis with a splenomegaly and bilateral external iliac and inguinal adenopathy possible lymphoproliferative disease versus lymphoma Currently on a diet, consider switching to nothing by mouth if worse gentle hydration Continue ciprofloxacin and Flagyl IV day [address] Minor, no intervention recommended due to acute diverticulitis ( no colonoscopy) Qualifiers: Diverticulitis site: large intestine Diverticulitis bleeding: with bleeding Diverticulitis complication: without perforation or abscess Qualified Code(s): K57.33 - Diverticulitis of large intestine without perforation or abscess with bleeding (2) Elevated WBC count Current Visit: Yes Status: Acute Assessment and plan: Likely secondary to leukemia Oncology consulted flow cytometry recmmended No evidence of tumor lysis syndrome Qualifiers: Leukocytosis type: lymphocytosis Qualified Code(s): D72.820 - Lymphocytosis (symptomatic) (3) Hyperkalemia Current Visit: Yes Status: Acute Assessment and plan: , Resolved with no intervention. No evidence of tumor lysis. Appreciate nephrology input. (4) COPD (chronic obstructive pulmonary disease) Current Visit: Yes Status: Acute Assessment and plan: Stable, continue inhalers Qualifiers: Chronic bronchitis type: simple Qualified Code(s): J41.0 - Simple chronic bronchitis (5) CLL (chronic lymphocytic leukemia) Current Visit: Yes Status: Acute Assessment and plan: Follow-up with hematology oncology. Flow cytometry studies pending. - Subjective Interval history: 03/17/2017: Patient and denies abdominal pain. Had a soft bowel movement, rectal tube was removed yesterday. Denies associated fevers or chills. 03/16/2017: Patient reports 0/10 abdominal pain today, no associated nausea or vomiting. She tolerated a diet, reports poor appetite. She continues to have a rectal tube which puts out dark liquid stool. - Constitutional Vitals: Temp Pulse Resp BP Pulse Ox 97.9 F 97 17 160/71 97 03/17/17 06:50 03/17/17 16:42 03/17/17 16:42 03/17/17 16:42 03/17/17 16:42 General appearance: Present: cachectic, disheveled, A&O X 2, no acute distress, underweight - Respiratory Respiratory exam: Present: CTAB. Absent: accessory muscle use, rales, rhonchi, wheezes - Cardiovascular Cardiovascular exam: Present: RRR, +S1, +S2. Absent: diastolic murmur, gallop, rubs, systolic murmur - GI/Abdominal GI/Abdominal exam: Present: normal bowel sounds, soft, no peritoneal signs. Absent: distended, tenderness - Extremities Exam Extremities exam: Present: warm, radial pulses palpable and symetrical. Absent : calf tenderness, cyanotic, pedal edema - Skin Skin exam: Present: dry, intact Internal Medicine: Result - Labs CBC & Chem 7: 03/17/17 05:24 03/17/17 07:31 Labs: Short CBC 03/17/17 Range/Units 05:24 WBC 161.7 H* (4.3-11.1) K/mcL Hgb 11.5 (11.5-15.4) g/dL Hct 37.3 (35.3-44.9) % Plt Count 69 L (140-400) K/mcL Neutrophils # 22.6 H (1.6-8.9) K/mcL BMP 03/17/17 07:31 Sodium 134 L Potassium 4.1 D Chloride 104 Carbon Dioxide 24 BUN 11 Creatinine 0.63 Glucose 165 H Calcium 8.3 L - ABG Interpretation ABG results: PT/INR, D-dimer PT 12.2 Seconds (9.4-12.1) H 03/14/17 00:39 Consult Discharge Plan - Plan Referrals: Stephen Liao MD [Primary Care Provider] -
[2017-03-17] MEDS: Acetaminophen 325 MG TABLET PO PRN (23:44)
[2017-03-17] MEDS ORDERED: Melatonin 3 MG TABLET PO ONE (23:46)
[2017-03-18] MEDS: Ipratropium/Albuterol Neb 3 ML IH SCH ×4 (04:10→22:38)
[2017-03-18 06:27] LABS: Red Cell Distribution Width 14.5 % (11.5-14.5)
[2017-03-18 06:29] LABS: Hematocrit 38.1 % (35.3-44.9); Hemoglobin 11.9 g/dL (11.5-15.4); Mean Corpuscular HGB Conc 31.2 g/dL (31.6-35.5); Mean Corpuscular Hemoglobin 28.2 pg (28.0-33.3); Mean Corpuscular Volume 90.3 fL (83.0-100.0); Mean Platelet Volume 12.7 fL (9.4-12.4); Red Blood Count 4.22 M/mcL (3.82-4.97)
[2017-03-18 06:33] LABS: Platelet Count 62 K/mcL (140-400)
[2017-03-18 06:39] LABS: BUN/Creatinine Ratio 24 (6-26); Blood Urea Nitrogen 14 mg/dL (7-20); Calcium 8.5 mg/dL (8.6-10.8); Carbon Dioxide 27 mEq/L (19-29); Chloride 104 mEq/L (98-109); Glucose 106 mg/dL (70-99); Osmolality,Calculated 279 (280-300); Sodium 134 mEq/L (136-145); eGFR For African Americans > 60 (> 60); eGFR For Non-African Americans > 60 (> 60)
[2017-03-18 06:40] LABS: Potassium 5.8 mEq/L (3.5-4.5)
[2017-03-18 06:54] LABS: Monocytes # 6.4 K/mcL (0.0-1.3); Neutrophils # 22.3 K/mcL (1.6-8.9); Platelet Estimate Decreased (Normal)
[2017-03-18] MEDS: Insulin LISPRO 300 UNITS/3 ML VIAL SQ SCH ×4 (08:31→22:37)
[2017-03-18] MEDS: MetroNIDAZOLE 500 MG/100 ML 500 MG/100 ML BAG IVPB SCH ×2 (09:09→18:16)
--- NOTE | 2017-03-18 10:42 | Nephrology Progress Note ---
Date of Encounter: 03/18/17 Time of Encounter: 12:07 - Assessment and Plan (1) Hyperkalemia Current Visit: Yes Status: Acute Etiology not completely clear. Work up for TLS or hemolysis was unremarkable. Does not seem to be medication induced. Responded to medical management. Saline discontinued 03/17/17. Aldosterone level ordered. 03/18/17 potassium up to 5.8. Will restart furosemide. Consult nutrition for low potassium diet. (2) Hypertension Current Visit: Yes Status: Acute Uncontrolled. Discontinue saline and monitor. Furosemide 20mg bid added. Aldosterone added. Patient not on antihypertensive at home. Qualifiers: Qualified Code(s): I10 - Essential (primary) hypertension (3) Anemia Current Visit: Yes Status: Acute Tansfuse as needed. Qualifiers: Anemia type: iron deficiency Qualified Code(s): D50.0 - Iron deficiency anemia secondary to blood loss (chronic) (4) Diverticulitis Current Visit: Yes Status: Acute per primary team. Qualifiers: Diverticulitis site: large intestine Diverticulitis bleeding: with bleeding Diverticulitis complication: without perforation or abscess Qualified Code(s): K57.33 - Diverticulitis of large intestine without perforation or abscess with bleeding (5) CLL (chronic lymphocytic leukemia) Current Visit: Yes Status: Acute per primary team and hematology. (6) GI bleed Current Visit: Yes Status: Acute Per primary team. GI consulted. Secondary to diverticulitis. Qualifiers: GI bleed type/associated pathology: anorectal hemorrhage Qualified Code(s) : K62.5 - Hemorrhage of anus and rectum Subjective Principal diagnosis: hyperkalemia Interval history: Patient seen and evaluated. She has no new complaint. She is resting with albuterol nebulizer on her face. Objective - Vital Signs Vital signs: Vital Signs Temp Pulse Resp BP Pulse Ox 03/18/17 10:32 18 97 03/18/17 07:00 79 18 156/71 93 03/18/17 04:12 16 98 03/18/17 03:34 98.6 F 75 16 144/56 96 03/17/17 23:47 98.9 F 88 16 169/75 96 03/17/17 22:00 16 98 03/17/17 19:06 97.7 F 89 16 169/75 98 03/17/17 16:42 97 17 160/71 97 03/17/17 16:09 16 94 Intake and Output 03/17/17 03/18/17 03/18/17 23:59 07:59 15:59 Intake Total 300 / 300 100 / 100 Balance 300 / 300 100 / 100 Intake: IV Fluids 300 / 300 100 / 100 Cipro Premix 400 MG/200 200 / 200 ML 400 mg In 200 ml @ 200 mls/hr IVPB Q12HR [facility] Rx #:[id number] Flagyl Premix 500 MG/100 100 / 100 100 / 100 ML 500 mg In 100 ml @ 100 mls/hr IVPB Q8HR [facility] Rx# :[id number] Other: Meal Breakfast Percent of Meal Consumed 100% Stool Size Moderate Stool Consistency formed Stool Color Brown # Voids 3 1 Weight 46.6 kg Blood Glucose* 256 156 Patient Weight 03/18/17 23:59 Weight 46.6 kg - General Appearance General appearance: Present: well-developed, chronically ill, frail EENT: Present: ATNC Respiratory: Present: clear (anteriorly) Cardiology: Present: no edema, regular rate Integumentary: Present: warm and dry - Lab 03/18/17 05:56 03/18/17 05:56 Most recent lab results Calcium 8.5 mg/dL (8.6-10.8) L 03/18/17 05:56 Phosphorus 3.9 mg/dL (2.3-4.7) 03/14/17 00:39 Consult Discharge Plan - Plan Referrals: Stephen Liao MD [Primary Care Provider] -
--- NOTE | 2017-03-18 11:54 | Internal Med Progress Note ---
Date of Encounter: 03/18/17 Time of Encounter: 11:52 - Assessment and plan (1) Diverticulitis Current Visit: Yes Status: Acute Assessment and plan: 03/17/2017: We will continue with oral antibiotics. Advance diet. 03/16/2017: CT scan shows possible proximal sigmoid diverticulitis with a splenomegaly and bilateral external iliac and inguinal adenopathy possible lymphoproliferative disease versus lymphoma Currently on a diet, consider switching to nothing by mouth if worse gentle hydration Continue ciprofloxacin and Flagyl IV day [address] Minor, no intervention recommended due to acute diverticulitis ( no colonoscopy) Qualifiers: Diverticulitis site: large intestine Diverticulitis bleeding: with bleeding Diverticulitis complication: without perforation or abscess Qualified Code(s): K57.33 - Diverticulitis of large intestine without perforation or abscess with bleeding (2) Elevated WBC count Current Visit: Yes Status: Acute Assessment and plan: Likely secondary to leukemia Oncology consulted flow cytometry recmmended No evidence of tumor lysis syndrome Qualifiers: Leukocytosis type: lymphocytosis Qualified Code(s): D72.820 - Lymphocytosis (symptomatic) (3) Hyperkalemia Current Visit: Yes Status: Acute Assessment and plan: , Potassium worsening today. We will start low potassium diet. Follow-up with nephrology. Appreciate nephrology input. (4) COPD (chronic obstructive pulmonary disease) Current Visit: Yes Status: Acute Assessment and plan: Stable, continue inhalers Qualifiers: COPD type: chronic bronchitis Chronic bronchitis type: simple Qualified Code(s): J41.0 - Simple chronic bronchitis (5) CLL (chronic lymphocytic leukemia) Current Visit: Yes Status: Acute Assessment and plan: Follow-up with hematology oncology. Flow cytometry studies pending. (6) Right arm cellulitis Current Visit: Yes Status: Acute Assessment and plan: Right upper extremity is swollen, examination reveals skin redness and warmth, tenderness to palpation. Concerned of cellulitis. I will start oral doxycycline to cover skin f fay. Will monitor clinically. We will obtain ultrasound to rule out DVT. - Subjective Interval history: 03/18/2017: Patient denies abdominal pain, reports good appetite, tolerated diet. She has new right upper arm pain and swelling, per RN her right arm has significantly swollen since yesterday at a site where she had an IV line inserted. The IV was discontinued 2 days ago. 03/17/2017: Patient and denies abdominal pain. Had a soft bowel movement, rectal tube was removed yesterday. Denies associated fevers or chills. 03/16/2017: Patient reports 0/10 abdominal pain today, no associated nausea or vomiting. She tolerated a diet, reports poor appetite. She continues to have a rectal tube which puts out dark liquid stool. - Constitutional Vitals: Temp Pulse Resp BP Pulse Ox 98.6 F 79 18 156/71 97 03/18/17 03:34 03/18/17 07:00 03/18/17 10:32 03/18/17 07:00 03/18/17 10:32 General appearance: Present: cachectic, disheveled, A&O X 2, no acute distress, underweight - Respiratory Respiratory exam: Present: CTAB. Absent: accessory muscle use, rales, rhonchi, wheezes - Cardiovascular Cardiovascular exam: Present: RRR, +S1, +S2. Absent: diastolic murmur, gallop, rubs, systolic murmur - GI/Abdominal GI/Abdominal exam: Present: normal bowel sounds, soft, no peritoneal signs. Absent: distended, tenderness - Extremities Exam Extremities exam: Present: warm, radial pulses palpable and symetrical. Absent : calf tenderness, cyanotic, pedal edema - Neurological Exam Neurological exam: Present: CN II-XII intact, oriented X3, no focal deficits. Absent: pronater drift, facial droop, speech deficit - Skin Skin exam: Present: dry, erythema (Right arm erythema and pitting edema, tenderness to palpation), intact Internal Medicine: Result - Labs CBC & Chem 7: 03/19/17 03:32 03/19/17 03:32 Labs: Short CBC 03/18/17 Range/Units 05:56 WBC 159.2 H* (4.3-11.1) K/mcL Hgb 11.9 (11.5-15.4) g/dL Hct 38.1 (35.3-44.9) % Plt Count 62 L (140-400) K/mcL Neutrophils # 22.3 H (1.6-8.9) K/mcL BMP 03/18/17 05:56 Sodium 134 L Potassium 5.8 H D Chloride 104 Carbon Dioxide 27 BUN 14 Creatinine 0.59 Glucose 106 H Calcium 8.5 L - ABG Interpretation ABG results: PT/INR, D-dimer PT 12.2 Seconds (9.4-12.1) H 03/14/17 00:39 Consult Discharge Plan - Plan Referrals: Stephen Liao MD [Primary Care Provider] -
[2017-03-18] MEDS: Furosemide 20 MG TABLET PO SCH ×2 (12:02→18:16)
[2017-03-18] MEDS: levoFLOXacin 750 MG TABLET PO SCH (14:06)
[2017-03-18] MEDS: Doxycycline 100 MG CAPSULE PO SCH ×2 (14:06→21:41)
[2017-03-19] MEDS: MetroNIDAZOLE 500 MG/100 ML 500 MG/100 ML BAG IVPB SCH ×4 (02:05→23:34)
[2017-03-19] MEDS: Acetaminophen 325 MG TABLET PO PRN (02:05)
[2017-03-19] MEDS: Ipratropium/Albuterol Neb 3 ML IH SCH ×4 (03:47→22:07)
[2017-03-19 04:15] LABS: Red Cell Distribution Width 14.6 % (11.5-14.5)
[2017-03-19 04:16] LABS: Hematocrit 38.4 % (35.3-44.9); Hemoglobin 11.7 g/dL (11.5-15.4); Mean Corpuscular HGB Conc 30.5 g/dL (31.6-35.5); Mean Corpuscular Hemoglobin 27.9 pg (28.0-33.3); Mean Corpuscular Volume 91.6 fL (83.0-100.0); Mean Platelet Volume 13.4 fL (9.4-12.4); Red Blood Count 4.19 M/mcL (3.82-4.97)
[2017-03-19 04:25] LABS: Platelet Count 63 K/mcL (140-400)
[2017-03-19 04:29] LABS: BUN/Creatinine Ratio 26 (6-26); Blood Urea Nitrogen 21 mg/dL (7-20); Calcium 8.8 mg/dL (8.6-10.8); Carbon Dioxide 26 mEq/L (19-29); Chloride 101 mEq/L (98-109); Glucose 178 mg/dL (70-99); Osmolality,Calculated 281 (280-300); Potassium 6.3 mEq/L (3.5-4.5); Sodium 132 mEq/L (136-145); eGFR For African Americans > 60 (> 60); eGFR For Non-African Americans > 60 (> 60)
[2017-03-19] MEDS ORDERED: 0.9 % Sodium Chloride 500 ML IVC ONE (04:43)
[2017-03-19 04:46] LABS: Lymphocytes # 158.1 K/mcL (0.6-4.6); Monocytes # 10.5 K/mcL (0.0-1.3); Platelet Estimate Decreased (Normal); Reactive Lymphocytes Present (Not Present); Smudge Cells Present (Not Present)
--- NOTE | 2017-03-19 08:19 | Nephrology Progress Note ---
Date of Encounter: 03/19/17 Time of Encounter: 09:14 - Assessment and Plan (1) Hyperkalemia Current Visit: Yes Status: Acute There are several documented cases of Pseudohyperkalemia from a severely elevated WBC. The test of choice to confirm this suspicion is a "Whole blood potassium", not a standard serum potassium. The whole blood potassium is not a listed lab option in our system, so I've called our inpatient lab and requested this test to be collected and sent to a reference lab stat. The suspicion for Pseudohyperkalemia is especially apparent in this patient because she has been asymptomatic without EKG changes and has a worsening WBC from her leukemia. Agree with inducing kaliuresis from diuretics in the meantime. I received a face to face sign-out from my colleague Dr. Boone. The brando and renin levels are pending. Also in the DDx includes hyporeninemic hypoaldosteronism, which could also lead to simultaneous hyperkalemia and hyponatremia. (2) Elevated WBC count Current Visit: Yes Status: Acute Qualifiers: Leukocytosis type: lymphocytosis Qualified Code(s): D72.820 - Lymphocytosis (symptomatic) (3) Hyponatremia Current Visit: Yes Status: Acute (4) CLL (chronic lymphocytic leukemia) Current Visit: Yes Status: Acute Subjective Principal diagnosis: hyperkalemia Interval history: Pt was s/e earlier today. She did not affirm CP, palpitations. She reported fatigue and loose stool. I called the lab to discuss lab options for her. Pt said her PCP is Dr. Liao in [place]. Objective - Vital Signs Vital signs: Vital Signs Temp Pulse Resp BP Pulse Ox 03/19/17 07:46 98.3 F 67 15 82/57 91 03/19/17 06:10 73 105/74 03/19/17 05:04 103/75 03/19/17 04:42 98.3 F 77 16 80/54 91 03/19/17 03:48 18 94 03/18/17 22:38 18 94 03/18/17 19:29 98.6 F 81 17 125/55 96 03/18/17 15:49 97.9 F 75 16 145/68 98 03/18/17 15:27 18 98 03/18/17 10:32 18 97 Intake and Output 03/18/17 03/19/1717 23:59 07:59 15:59 Intake Total 100 / 100 300 / 300 Output Total 350 / 350 600 / 600 Balance -250 / -250 -300 / -300 Intake: IV Fluids 100 / 100 100 / 100 Flagyl Premix 500 MG/100 100 / 100 100 / 100 ML 500 mg In 100 ml @ 100 mls/hr IVPB Q8HR [facility] Rx# :[id number] Oral 200 / 200 Output: Urine 350 / 350 600 / 600 Other: # Voids 1 Blood Glucose* 215 111 - General Appearance General appearance: Present: chronically ill, fatigue, frail EENT: Present: ATNC, PERRL, mucous membranes moist Additional Comments: Speech impediment. Left eye strabismus Neck: Present: supple Respiratory: Present: clear Cardiology: Present: no edema, normal S1, normal S2 Gastrointestinal: Present: normoactive bowel sounds, no tenderness Integumentary: Present: warm and dry Neurologic: Present: no asterixis Musculoskeletal: Present: no cyanosis Psychiatric: Present: cooperative - Lab 03/19/17 03:32 03/19/17 03:32 Most recent lab results Calcium 8.8 mg/dL (8.6-10.8) 03/19/17 03:32 Phosphorus 3.9 mg/dL (2.3-4.7) 03/14/17 00:39 Consult Discharge Plan - Plan Referrals: Stephen Liao MD [Primary Care Provider] -
[2017-03-19] MEDS: Insulin LISPRO 300 UNITS/3 ML VIAL SQ SCH ×4 (09:53→21:13)
[2017-03-19] MEDS: Furosemide 20 MG TABLET PO SCH ×2 (09:58→16:16)
[2017-03-19] MEDS: levoFLOXacin 750 MG TABLET PO SCH (09:58)
[2017-03-19] MEDS: Doxycycline 100 MG CAPSULE PO SCH ×2 (09:58→21:14)
[2017-03-19 15:28] LABS: AGL Flow Result See EMR document.
--- NOTE | 2017-03-19 16:57 | Venous Imaging Report ---
UE Venous Duplex Patient Name:Domenica Sheridan Order Number:[id number] Procedure Date:03/18/2017 Date:1955ge:62 yrs Gender:Female Location:[facility] Room #: 2NE19 Manager Transfer:Mariela Johnson Referring MD:[place]ana Dawson MD central office technician:Stephen Liao MD Reading MD:Gaurav Deluca MD Primary Indications:Edema, redness to site, r/o DVT Secondary Indications: Risk Factors Yes/No Anticoagulants Impressions: Upper extremity abnormal superficial exam: right Cephalic vein acute thrombosis. Recommendations: Test completed on 03/18/2017 at 6:37:00 pm. Critical findings reported to IBIS Payan by phone at 6:40:00 pm on 03/18/2017 by Mariela Johnson. Findings Venous Duplex Results: Right: There is an acute occlusive thrombus seen in the right cephalic. Prior Study: No prior study available for comparison. Upper Extremity Venous Duplex Side Vein Compress Spontaneous Flow Augment Right Jugular Normal Yes Phasic Yes Right Subclavian Normal Yes Phasic Yes Right Axillary Normal Yes Phasic Yes Right Brachial Normal Yes Phasic Yes Right Cephalic None no Absent no Right Basilic Normal Yes Phasic Yes Right Radial Normal Yes Phasic Yes Right Ulnar Normal Yes Phasic Yes Left Subclavian Normal Yes Phasic Yes Updated by Gaurav Deluca MD on 03/19/2017 4:53:58 PM electronically signed on 03/19/2017 4:54:11 PM with status of Final
--- NOTE | 2017-03-19 18:17 | Internal Med Progress Note ---
Date of Encounter: 03/19/17 Time of Encounter: 10:00 - Assessment and plan (1) Diverticulitis Current Visit: Yes Status: Acute Assessment and plan: 03/17/2017: We will continue with oral antibiotics. Advance diet. 03/16/2017: CT scan shows possible proximal sigmoid diverticulitis with a splenomegaly and bilateral external iliac and inguinal adenopathy possible lymphoproliferative disease versus lymphoma Currently on a diet, consider switching to nothing by mouth if worse gentle hydration Continue ciprofloxacin and Flagyl IV day [address] Minor, no intervention recommended due to acute diverticulitis ( no colonoscopy) Qualifiers: Diverticulitis site: large intestine Diverticulitis bleeding: with bleeding Diverticulitis complication: without perforation or abscess Qualified Code(s): K57.33 - Diverticulitis of large intestine without perforation or abscess with bleeding (2) Elevated WBC count Current Visit: Yes Status: Acute Assessment and plan: Likely secondary to leukemia Oncology consulted flow cytometry recmmended No evidence of tumor lysis syndrome Qualifiers: Leukocytosis type: lymphocytosis Qualified Code(s): D72.820 - Lymphocytosis (symptomatic) (3) Hyperkalemia Current Visit: Yes Status: Acute Assessment and plan: , Potassium continues to trend up in accordance with WBC trend. I do suspect some degree of tumor lysis. I will check LDH. I appreciate nephrology recommendations. We will give 1 dose of Kayexalate and will repeat potassium at 8 PM tonight. (4) COPD (chronic obstructive pulmonary disease) Current Visit: Yes Status: Acute Assessment and plan: Stable, continue inhalers Qualifiers: COPD type: chronic bronchitis Chronic bronchitis type: simple Qualified Code(s): J41.0 - Simple chronic bronchitis (5) CLL (chronic lymphocytic leukemia) Current Visit: Yes Status: Acute Assessment and plan: I discussed the case with oncology. I will check LDH and uric acid to look into the possibility of tumor lysis. Follow-up with hematology oncology. Flow cytometry studies pending. (6) Right arm cellulitis Current Visit: Yes Status: Acute - Subjective Interval history: 03/19/2017: Patient's potassium has gone up, she denies weakness nausea or vomiting. Denies abdominal pain. 03/18/2017: Patient denies abdominal pain, reports good appetite, tolerated diet. She has new right upper arm pain and swelling, per RN her right arm has significantly swollen since yesterday at a site where she had an IV line inserted. The IV was discontinued 2 days ago. 03/17/2017: Patient and denies abdominal pain. Had a soft bowel movement, rectal tube was removed yesterday. Denies associated fevers or chills. 03/16/2017: Patient reports 0/10 abdominal pain today, no associated nausea or vomiting. She tolerated a diet, reports poor appetite. She continues to have a rectal tube which puts out dark liquid stool. - Constitutional Vitals: Temp Pulse Resp BP Pulse Ox 98.3 F 75 16 94/76 94 03/19/17 15:00 03/19/17 15:00 03/19/17 16:00 03/19/17 15:00 03/19/17 16:00 General appearance: Present: cachectic, disheveled, A&O X 2, no acute distress, underweight - Cardiovascular Cardiovascular exam: Present: RRR, +S1, +S2. Absent: diastolic murmur, gallop, rubs, systolic murmur - GI/Abdominal GI/Abdominal exam: Present: normal bowel sounds, soft, no peritoneal signs. Absent: distended, tenderness - Extremities Exam Extremities exam: Present: warm, radial pulses palpable and symetrical. Absent : calf tenderness, cyanotic, pedal edema - Skin Skin exam: Present: dry, intact Internal Medicine: Result - Labs CBC & Chem 7: 03/19/17 03:32 03/19/17 03:32 Labs: Short CBC 03/19/17 Range/Units 03:32 WBC 175.7 H* (4.3-11.1) K/mcL Hgb 11.7 (11.5-15.4) g/dL Hct 38.4 (35.3-44.9) % Plt Count 63 L (140-400) K/mcL Neutrophils # 7.0 (1.6-8.9) K/mcL BMP 03/19/17 03:32 Sodium 132 L Potassium 6.3 H Chloride 101 Carbon Dioxide 26 BUN 21 H Creatinine 0.80 Glucose 178 H Calcium 8.8 - ABG Interpretation ABG results: PT/INR, D-dimer PT 12.2 Seconds (9.4-12.1) H 03/14/17 00:39 Consult Discharge Plan - Plan Referrals: Stephen Liao MD [Primary Care Provider] -
[2017-03-19] MEDS: 0.9 % Sodium Chloride 1,000 ML IVC SCH (21:50)
[2017-03-19 22:10] LABS: BUN/Creatinine Ratio 31 (6-26); Blood Urea Nitrogen 24 mg/dL (7-20); Calcium 9.2 mg/dL (8.6-10.8); Carbon Dioxide 27 mEq/L (19-29); Chloride 98 mEq/L (98-109); Glucose 156 mg/dL (70-99); Osmolality,Calculated 279 (280-300); Sodium 131 mEq/L (136-145); eGFR For African Americans > 60 (> 60); eGFR For Non-African Americans > 60 (> 60)
[2017-03-19 22:16] LABS: Potassium 7.4 mEq/L (3.5-4.5)
[2017-03-19] MEDS ORDERED: Lactulose Oral Soln 20 GM/30 ML UDC PO ONE (22:21)
[2017-03-19] MEDS ORDERED: Calcium Gluconate 1,000 MG in D5% in Water 100 ML IVPB ONE (22:21)
[2017-03-19] MEDS ORDERED: *HR* Dextrose 50 % in Water (Syg) 50 ML SYRINGE IVP ONE (22:21)
[2017-03-19] MEDS ORDERED: Insulin LISPRO 300 UNITS/3 ML VIAL SQ ONE (22:23)
--- NOTE | 2017-03-19 23:36 | Event Note ---
Date of Encounter: 03/19/17 Time of Encounter: 22:20 On-Call Hospitalist Note: Hyperkalemia: Serum Potassium 7.4. EKG showed LBBB, with prominent T waves Pt is given calcium gluconate IV, kayexalate, Insulin / dextrose, sodium bicarbonate IV. Will recheck BMP.
[2017-03-20] MEDS: Ipratropium/Albuterol Neb 3 ML IH SCH ×4 (03:42→22:27)
[2017-03-20 04:52] LABS: BUN/Creatinine Ratio 39 (6-26); Blood Urea Nitrogen 24 mg/dL (7-20); Calcium 8.8 mg/dL (8.6-10.8); Carbon Dioxide 26 mEq/L (19-29); Chloride 106 mEq/L (98-109); Glucose 97 mg/dL (70-99); Lactate Dehydrogenase 257 Units/L (159-327); Magnesium 1.7 mg/dL (1.6-2.6); Osmolality,Calculated 288 (280-300); Phosphorous 4.2 mg/dL (2.3-4.7); Potassium 5.3 mEq/L (3.5-4.5); Sodium 137 mEq/L (136-145); Uric Acid 5.2 mg/dL (2.6-6.0); eGFR For African Americans > 60 (> 60); eGFR For Non-African Americans > 60 (> 60)
[2017-03-20 04:59] LABS: Basophils # 0.3 K/mcL (0.0-0.2); Basophils % 0.2 %; Hematocrit 38.5 % (35.3-44.9); Hemoglobin 11.8 g/dL (11.5-15.4); Immature Granulocytes % 0.1 % (0-4); Lymphocytes # 160.9 K/mcL (0.6-4.6); Lymphocytes % 93.3 %; Mean Corpuscular HGB Conc 30.6 g/dL (31.6-35.5); Mean Corpuscular Hemoglobin 28.2 pg (28.0-33.3); Mean Corpuscular Volume 91.9 fL (83.0-100.0); Monocytes # 8.1 K/mcL (0.0-1.3); Monocytes % 4.7 %; Red Blood Count 4.19 M/mcL (3.82-4.97); Red Cell Distribution Width 14.6 % (11.5-14.5); Segmented Neutrophils % 1.7 %
[2017-03-20 05:00] LABS: Neutrophils # 2.9 K/mcL (1.6-8.9); Platelet Count 68 K/mcL (140-400)
[2017-03-20 05:39] LABS: Platelet Estimate Decreased (Normal); Smudge Cells Present (Not Present)
[2017-03-20 05:41] LABS: Reactive Lymphocytes Present (Not Present)
[2017-03-20] MEDS: levoFLOXacin 750 MG TABLET PO SCH (09:06)
[2017-03-20] MEDS: Insulin LISPRO 300 UNITS/3 ML VIAL SQ SCH ×4 (09:06→20:15)
[2017-03-20] MEDS: Furosemide 20 MG TABLET PO SCH (09:06)
[2017-03-20] MEDS: Doxycycline 100 MG CAPSULE PO SCH ×2 (09:06→20:10)
--- NOTE | 2017-03-20 09:33 | Nephrology Progress Note ---
Date of Encounter: 03/20/17 Time of Encounter: 09:30 - Assessment and Plan (1) Hyperkalemia Current Visit: Yes Status: Acute I still suspect potential pseudohyperkalemia from a severely elevated WBC, but a "Whole blood potassium", cannot be drawn locally and is a send-out test. Nevertheless, I still provided kayexalate yesterday and it appears the night hospitalist did as well. Her SCr is not sufficiently elevated to warrant HD. Serum K+ has improved but remains elevated, so I'll provide kayexalate again this AM to help minimize the risk for rebound and help lower her risk to her myocardium. Still pending the brando and renin levels are pending. Also in the DDx includes hyporeninemic hypoaldosteronism, which could also lead to simultaneous hyperkalemia and hyponatremia. Hyponatremia has resolved for now. Agree with IVF: continue. I've stopped the Lasix as she is developing a slightly rising BUN, likely from the diuretics. CLL as per heme/onc. Not clear what their plan is for her. Will follow with you. Thank you. (2) Elevated WBC count Current Visit: Yes Status: Acute Qualifiers: Leukocytosis type: lymphocytosis Qualified Code(s): D72.820 - Lymphocytosis (symptomatic) (3) Hyponatremia Current Visit: Yes Status: Acute (4) CLL (chronic lymphocytic leukemia) Current Visit: Yes Status: Acute Subjective Principal diagnosis: hyperkalemia Interval history: Pt was s/e earlier today. Received more kayexalte overnight. This AM she lost her IV access. She did not affirm CP or N/V but has had several loose stools from the Kayexalate. Objective - Vital Signs Vital signs: Vital Signs Temp Pulse Resp BP Pulse Ox 03/20/17 07:19 98.4 F 81 16 148/72 93 03/20/17 04:45 98.0 F 88 17 145/55 94 03/20/17 03:44 14 93 03/19/17 22:10 15 94 03/19/17 19:00 97.7 F 86 19 144/72 94 03/19/17 16:00 16 94 03/19/17 15:00 98.3 F 75 15 94/76 100 03/19/17 11:00 98.3 F 80 15 76/55 93 03/19/17 09:35 16 93 Intake and Output 03/19/17 03/20/17 03/20/17 23:59 07:59 15:59 Intake Total 340 / 340 100 / 100 Balance 340 / 340 100 / 100 Intake: IV Fluids 100 / 100 100 / 100 Flagyl Premix 500 MG/100 100 / 100 100 / 100 ML 500 mg In 100 ml @ 100 mls/hr IVPB Q8HR [facility] Rx# :[id number] Oral 240 / 240 0 / 0 Other: Meal Dinner Percent of Meal Consumed 90% Stool Size Moderate Stool Consistency soft loose liquid soft Stool Color Green # Voids 0 # Bowel Movement Diapers 1 Blood Glucose* 166 138 - General Appearance Exam: General appearance: Present: chronically ill, fatigue, frail EENT: Present: ATNC, PERRL, mucous membranes moist Additional Comments: Speech impediment. Left eye strabismus Neck: Present: supple Respiratory: Present: clear Cardiology: Present: no edema, normal S1, normal S2 Gastrointestinal: Present: normoactive bowel sounds, no tenderness Integumentary: Present: warm and dry Neurologic: Present: no asterixis Musculoskeletal: Present: no cyanosis Psychiatric: Present: cooperative - Lab 03/20/17 04:13 03/20/17 18:30 Most recent lab results Calcium 8.8 mg/dL (8.6-10.8) 03/20/17 04:13 Phosphorus 4.2 mg/dL (2.3-4.7) 03/20/17 04:13 Magnesium 1.7 mg/dL (1.6-2.6) 03/20/17 04:13 Consult Discharge Plan - Plan Referrals: Stephen Liao MD [Primary Care Provider] -
[2017-03-20] MEDS: 0.9 % Sodium Chloride 1,000 ML IVC SCH (13:21)
[2017-03-20] MEDS: MetroNIDAZOLE 500 MG/100 ML 500 MG/100 ML BAG IVPB SCH ×3 (13:22→23:34)
[2017-03-20] MEDS: Acetaminophen 325 MG TABLET PO PRN (17:19)
--- NOTE | 2017-03-20 17:30 | Internal Med Progress Note ---
Date of Encounter: 03/20/17 Time of Encounter: 10:00 - Assessment and plan (1) Diverticulitis Current Visit: Yes Status: Acute Assessment and plan: 03/17/2017: We will continue with oral antibiotics. Advance diet. 03/16/2017: CT scan shows possible proximal sigmoid diverticulitis with a splenomegaly and bilateral external iliac and inguinal adenopathy possible lymphoproliferative disease versus lymphoma Currently on a diet, consider switching to nothing by mouth if worse gentle hydration Continue ciprofloxacin and Flagyl IV day [address] Minor, no intervention recommended due to acute diverticulitis ( no colonoscopy) Qualifiers: Diverticulitis site: large intestine Diverticulitis bleeding: with bleeding Diverticulitis complication: without perforation or abscess Qualified Code(s): K57.33 - Diverticulitis of large intestine without perforation or abscess with bleeding (2) Elevated WBC count Current Visit: Yes Status: Acute Assessment and plan: Likely secondary to leukemia Oncology consulted flow cytometry recmmended No evidence of tumor lysis syndrome. I have repeated lysis labs and are currently negative. No symptoms to suggest hyperviscosity syndrome. Per chart review she has chronic elevation with WBC count. In May 2015 white count was 165,000. Qualifiers: Leukocytosis type: lymphocytosis Qualified Code(s): D72.820 - Lymphocytosis (symptomatic) (3) Hyperkalemia Current Visit: Yes Status: Acute Assessment and plan: 03/20/2017: Potassium continues to rise. Last night potassium lowering management was started. Was given Kayexalate. We will check potassium level twice daily and re-dose Kayexalate as needed. Follow-up with nephrology. Low potassium diet. 03/19/2017: Potassium continues to trend up in accordance with WBC trend. I do suspect some degree of tumor lysis. I will check LDH. I appreciate nephrology recommendations. We will give 1 dose of Kayexalate and will repeat potassium at 8 PM tonight. (4) COPD (chronic obstructive pulmonary disease) Current Visit: Yes Status: Acute Assessment and plan: Stable, continue inhalers Qualifiers: COPD type: chronic bronchitis Chronic bronchitis type: simple Qualified Code(s): J41.0 - Simple chronic bronchitis (5) CLL (chronic lymphocytic leukemia) Current Visit: Yes Status: Acute Assessment and plan: I discussed the case with oncology. I will check LDH and uric acid to look into the possibility of tumor lysis. Follow-up with hematology oncology. Flow cytometry studies pending. (6) Right arm cellulitis Current Visit: Yes Status: Acute Assessment and plan: Right upper extremity is swollen, examination reveals skin redness and warmth, tenderness to palpation. Concerned of cellulitis. I will start oral doxycycline to cover skin fay. Will monitor clinically. We will obtain ultrasound to rule out DVT. - Subjective Interval history: 03/20/2017: The patient reports lower abdominal pain, she has not been able to urinate today. She has had increased diarrhea over the last 12 hours and required a rectal tube placement. Her potassium went up to 7.4 and she was given several doses of Kayexalate. She denies nausea, chest pain, headache, vision changes. 03/19/2017: Patient's potassium has gone up, she denies weakness nausea or vomiting. Denies abdominal pain. 03/18/2017: Patient denies abdominal pain, reports good appetite, tolerated diet. She has new right upper arm pain and swelling, per RN her right arm has significantly swollen since yesterday at a site where she had an IV line inserted. The IV was discontinued 2 days ago. 03/17/2017: Patient and denies abdominal pain. Had a soft bowel movement, rectal tube was removed yesterday. Denies associated fevers or chills. 03/16/2017: Patient reports 0/10 abdominal pain today, no associated nausea or vomiting. She tolerated a diet, reports poor appetite. She continues to have a rectal tube which puts out dark liquid stool. - Constitutional Vitals: Temp Pulse Resp BP Pulse Ox 98 F 90 16 117/78 92 03/20/17 15:44 03/20/17 15:44 03/20/17 15:44 03/20/17 15:44 03/20/17 15:44 General appearance: Present: cachectic, disheveled, A&O X 2, no acute distress, underweight - Eye Eye exam: Present: PERRL, conjuntiva pink, sclera anicteric Pupils: Present: PERRL - Respiratory Respiratory exam: Present: CTAB. Absent: accessory muscle use, rales, rhonchi, wheezes - Cardiovascular Cardiovascular exam: Present: RRR, +S1, +S2. Absent: diastolic murmur, gallop, rubs, systolic murmur - GI/Abdominal GI/Abdominal exam: Present: normal bowel sounds, soft, no peritoneal signs. Absent: distended, tenderness - Extremities Exam Extremities exam: Present: warm, radial pulses palpable and symetrical. Absent : calf tenderness, cyanotic, pedal edema - Neurological Exam Neurological exam: Present: CN II-XII intact, oriented X3, no focal deficits. Absent: pronater drift, facial droop, speech deficit - Skin Skin exam: Present: dry, intact Internal Medicine: Result - Labs CBC & Chem 7: 03/20/17 04:13 03/20/17 04:13 Labs: Short CBC 03/20/17 Range/Units 04:13 WBC 172.4 H* (4.3-11.1) K/mcL Hgb 11.8 (11.5-15.4) g/dL Hct 38.5 (35.3-44.9) % Plt Count 68 L (140-400) K/mcL Neutrophils # 2.9 (1.6-8.9) K/mcL [facility] 03/19/17 03/20/17 03/20/17 21:47 00:58 04:13 Sodium 131 L 137 Potassium 7.4 H* D 5.2 H D 5.3 H Chloride 98 106 Carbon Dioxide 27 26 BUN 24 H 24 H Creatinine 0.78 0.62 Glucose 156 H 97 Calcium 9.2 8.8 - ABG Interpretation ABG results: PT/INR, D-dimer PT 12.2 Seconds (9.4-12.1) H 03/14/17 00:39 Consult Discharge Plan - Plan Referrals: Stephen Liao MD [Primary Care Provider] -
[2017-03-20 17:59] LABS: Bilirubin,Urine Negative (Negative); Blood,Urine Small (Negative); Clarity,Urine Clear (Clear); Color,Urine Yellow (Yellow); Glucose,Urine (UA) Normal (Normal); Ketones,Urine Negative (Negative); Leukocyte Esterase,Urine Negative (Negative); Nitrite,Urine Negative (Negative); Protein,Urine Negative (Neg-Trace); Specific Gravity,Urine 1.009 (1.010-1.025); Urobilinogen,Urine Normal (Normal)
[2017-03-20 18:02] LABS: Bacteria,Urine None Seen per hpf (None-Few); Hyaline Casts,Urine None Seen per lpf (None-Few); RBC,Urine 0-3 per hpf (0-3); Squamous Epithelial Cell,Urine Few per lpf (None-Few); WBC,Urine 0-3 per hpf (0-3)
[2017-03-20 18:56] LABS: BUN/Creatinine Ratio 28 (6-26); Blood Urea Nitrogen 19 mg/dL (7-20); Calcium 8.6 mg/dL (8.6-10.8); Carbon Dioxide 23 mEq/L (19-29); Chloride 103 mEq/L (98-109); Glucose 186 mg/dL (70-99); Osmolality,Calculated 289 (280-300); eGFR For African Americans > 60 (> 60); eGFR For Non-African Americans > 60 (> 60)
[2017-03-20 18:57] LABS: Potassium 4.2 mEq/L (3.5-4.5); Sodium 136 mEq/L (136-145)
[2017-03-21] MEDS: Ipratropium/Albuterol Neb 3 ML IH SCH ×4 (04:18→21:31)
[2017-03-21 04:19] LABS: Basophils % 0.2 %; Eosinophils % 0.1 %; Hematocrit 37.6 % (35.3-44.9); Hemoglobin 11.1 g/dL (11.5-15.4); Immature Granulocytes % 0.1 % (0-4); Lymphocytes % 93.2 %; Mean Corpuscular HGB Conc 29.5 g/dL (31.6-35.5); Mean Corpuscular Hemoglobin 27.3 pg (28.0-33.3); Mean Corpuscular Volume 92.6 fL (83.0-100.0); Mean Platelet Volume 12.7 fL (9.4-12.4); Monocytes % 5.1 %; Red Blood Count 4.06 M/mcL (3.82-4.97); Red Cell Distribution Width 14.5 % (11.5-14.5); Segmented Neutrophils % 1.3 %
[2017-03-21 04:24] LABS: Basophils # 0.4 K/mcL (0.0-0.2); Eosinophils # 0.2 K/mcL (0.0-0.6); Lymphocytes # 166.2 K/mcL (0.6-4.6); Monocytes # 9.1 K/mcL (0.0-1.3); Neutrophils # 2.3 K/mcL (1.6-8.9); Platelet Count 79 K/mcL (140-400)
[2017-03-21 04:32] LABS: BUN/Creatinine Ratio 31 (6-26); Blood Urea Nitrogen 21 mg/dL (7-20); Calcium 8.3 mg/dL (8.6-10.8); Carbon Dioxide 26 mEq/L (19-29); Chloride 107 mEq/L (98-109); Glucose 138 mg/dL (70-99); Osmolality,Calculated 291 (280-300); Sodium 138 mEq/L (136-145); eGFR For African Americans > 60 (> 60); eGFR For Non-African Americans > 60 (> 60)
[2017-03-21 04:34] LABS: Potassium 5.6 mEq/L (3.5-4.5)
[2017-03-21 04:50] LABS: Platelet Estimate Decreased (Normal); Reactive Lymphocytes Present (Not Present); Smudge Cells Present (Not Present)
[2017-03-21] MEDS: Acetaminophen 325 MG TABLET PO PRN ×2 (04:58→16:30)
[2017-03-21] MEDS: 0.9 % Sodium Chloride 1,000 ML IVC SCH ×2 (05:39→20:20)
--- NOTE | 2017-03-21 09:03 | Nephrology Progress Note ---
Date of Encounter: 03/21/17 Time of Encounter: 08:55 - Assessment and Plan (1) Hyperkalemia Current Visit: Yes Status: Acute Recurrent hyperkalemia associated with severe Leukocytosis. Rebounded again today. Will have to provide another dose of Kayexalate. Phos, SCr and Uric acid were WNL. Mildly low Calcium but also hypoalbuminemic. No urgent HD indicated, but give the referactory nature of the hyperkalemia, this may be an option. For today (Wednesday), will provide further IVF and Kayexalate. Still pending the brando and renin levels are pending. Also in the DDx includes hyporeninemic hypoaldosteronism, which could also lead to simultaneous hyperkalemia and hyponatremia. Since these are still pendin, I will order (I was under the impression that these studies had been ordered before I started covering this pt). Hyponatremia has resolved for now. Agree with IVF: continue. I've stopped the Lasix as she is developing a slightly rising BUN, likely from the diuretics. CLL as per heme/onc. Not clear what their plan is for her. Will follow with you. Thank you. (2) Elevated WBC count Current Visit: Yes Status: Acute Qualifiers: Leukocytosis type: lymphocytosis Qualified Code(s): D72.820 - Lymphocytosis (symptomatic) (3) Hyponatremia Current Visit: Yes Status: Resolved (4) CLL (chronic lymphocytic leukemia) Current Visit: Yes Status: Acute As per Heme/Onc Subjective Principal diagnosis: hyperkalemia Interval history: Pt was s/e earlier today. She did not affirm CP or N/V. She received a rectal sanchez. She denied any new major complaints. Objective - Vital Signs Vital signs: Vital Signs Temp Pulse Resp BP Pulse Ox 03/21/17 07:05 98.1 F 73 16 99/55 91 03/21/17 04:20 18 93 03/21/17 03:45 98.1 F 98 19 151/65 92 03/20/17 22:27 18 93 03/20/17 18:44 98.0 F 84 16 130/83 94 03/20/17 15:44 98 F 90 16 117/78 92 03/20/17 15:10 16 117/78 95 03/20/17 12:08 97.7 F 84 16 109/69 94 03/20/17 09:12 16 148/72 93 Intake and Output 03/20/17 03/21/17 03/21/17 23:59 07:59 15:59 Intake Total 100 / 100 1100 / 1100 Output Total 1700 / 1700 900 / 900 Balance -1600 / -1600 200 / 200 Intake: IV Fluids 100 / 100 1100 / 1100 0.9 % Sodium Chloride 1, 1000 / 1000 000 ML @ 80 mls/hr IVC . [id number] [facility] Rx#: [id number] Flagyl Premix 500 MG/100 100 / 100 100 / 100 ML 500 mg In 100 ml @ 100 mls/hr IVPB Q8HR [facility] Rx# :[id number] Output: Urine 900 / 900 2-way Urethral 900 / 900 Catheter 800 / 800 900 / 900 Other: Weight 45.6 kg Blood Glucose* 156 115 Patient Weight 03/21/17 23:59 Weight 45.6 kg - General Appearance Exam: General appearance: Present: chronically ill, fatigue, frail EENT: Present: ATNC, PERRL, mucous membranes moist Additional Comments: Speech impediment. Left eye strabismus Neck: Present: supple Respiratory: Present: clear Cardiology: Present: no edema, normal S1, normal S2 Gastrointestinal: Present: normoactive bowel sounds, no tenderness Integumentary: Present: warm and dry Neurologic: Present: no asterixis Musculoskeletal: Present: no cyanosis Psychiatric: Present: cooperative - Lab 03/21/17 03:38 03/21/17 03:38 Most recent lab results Calcium 8.3 mg/dL (8.6-10.8) L 03/21/17 03:38 Phosphorus 4.2 mg/dL (2.3-4.7) 03/20/17 04:13 Magnesium 1.7 mg/dL (1.6-2.6) 03/20/17 04:13 Consult Discharge Plan - Plan Referrals: Stephen Liao MD [Primary Care Provider] -
[2017-03-21] MEDS: Insulin LISPRO 300 UNITS/3 ML VIAL SQ SCH ×4 (11:44→21:35)
[2017-03-21] MEDS: levoFLOXacin 750 MG TABLET PO SCH (11:57)
[2017-03-21] MEDS: Doxycycline 100 MG CAPSULE PO SCH ×2 (11:57→21:35)
[2017-03-21] MEDS: MetroNIDAZOLE 500 MG/100 ML 500 MG/100 ML BAG IVPB SCH ×2 (11:57→16:31)
--- NOTE | 2017-03-21 17:43 | Internal Med Progress Note ---
Date of Encounter: 03/21/17 Time of Encounter: 10:00 - Assessment and plan (1) Diverticulitis Current Visit: Yes Status: Acute Assessment and plan: 03/21/2017: Continue with Cipro and Flagyl for a total of 10 days. 03/17/2017: We will continue with oral antibiotics. Advance diet. 03/16/2017: CT scan shows possible proximal sigmoid diverticulitis with a splenomegaly and bilateral external iliac and inguinal adenopathy possible lymphoproliferative disease versus lymphoma Currently on a diet, consider switching to nothing by mouth if worse gentle hydration Continue ciprofloxacin and Flagyl IV day [address] Minor, no intervention recommended due to acute diverticulitis ( no colonoscopy) Qualifiers: Diverticulitis site: large intestine Diverticulitis bleeding: with bleeding Diverticulitis complication: without perforation or abscess Qualified Code(s): K57.33 - Diverticulitis of large intestine without perforation or abscess with bleeding (2) Elevated WBC count Current Visit: Yes Status: Acute Assessment and plan: Likely secondary to leukemia Oncology consulted flow cytometry recmmended No evidence of tumor lysis syndrome. I have repeated lysis labs and are currently negative. No symptoms to suggest hyperviscosity syndrome. Per chart review she has chronic elevation with WBC count. In May 2015 white count was 165,000. Qualifiers: Leukocytosis type: lymphocytosis Qualified Code(s): D72.820 - Lymphocytosis (symptomatic) (3) Hyperkalemia Current Visit: Yes Status: Acute Assessment and plan: 03/21/2017: Continue with IV fluids. Oral Kayexalate. Follow-up with nephrology. 03/20/2017: Potassium continues to rise. Last night potassium lowering management was started. Was given Kayexalate. We will check potassium level twice daily and re-dose Kayexalate as needed. Follow-up with nephrology. Low potassium diet. 03/19/2017: Potassium continues to trend up in accordance with WBC trend. I do suspect some degree of tumor lysis. I will check LDH. I appreciate nephrology recommendations. We will give 1 dose of Kayexalate and will repeat potassium at 8 PM tonight. (4) COPD (chronic obstructive pulmonary disease) Current Visit: Yes Status: Acute Assessment and plan: Stable, continue inhalers Qualifiers: COPD type: chronic bronchitis Chronic bronchitis type: simple Qualified Code(s): J41.0 - Simple chronic bronchitis (5) CLL (chronic lymphocytic leukemia) Current Visit: Yes Status: Acute Assessment and plan: I discussed the case with oncology. I will check LDH and uric acid to look into the possibility of tumor lysis. Follow-up with hematology oncology. Flow cytometry studies pending. (6) Right arm cellulitis Current Visit: Yes Status: Acute Assessment and plan: 03/21/2017: cellulitis greatly improved with antibiotics and cold compresses. Right upper extremity is swollen, examination reveals skin redness and warmth, tenderness to palpation. Concerned of cellulitis. I will start oral doxycycline to cover skin afy. Will monitor clinically. We will obtain ultrasound to rule out DVT. (7) Urinary retention Current Visit: Yes Status: Acute Assessment and plan: Could be secondary to metabolic derangements. Urinalysis with no evidence of infection. Follow-up urine culture. Continue with Givens catheter (8) Coronary artery disease Current Visit: Yes Status: Chronic Assessment and plan: Continue to hold Plavix due to severe GI bleed on presentation and thrombocytopenia. Qualifiers: Coronary Disease-Associated Artery/Lesion type: [place] artery [place] vs. transplanted heart: [place] heart Associated angina: without angina Qualified Code(s): I25.10 - Atherosclerotic heart disease of [place] coronary artery without angina pectoris - Subjective Interval history: 03/21/2017: The patient has abundant diarrhea and had a rectal tube replaced. Potassium is still elevated. She reports generalized weakness. Denies headache denies vision loss and double vision and blurry vision. Denies confusion nausea and vomiting. 03/20/2017: The patient reports lower abdominal pain, she has not been able to urinate today. She has had increased diarrhea over the last 12 hours and required a rectal tube placement. Her potassium went up to 7.4 and she was given several doses of Kayexalate. She denies nausea, chest pain, headache, vision changes. 03/19/2017: Patient's potassium has gone up, she denies weakness nausea or vomiting. Denies abdominal pain. 03/18/2017: Patient denies abdominal pain, reports good appetite, tolerated diet. She has new right upper arm pain and swelling, per RN her right arm has significantly swollen since yesterday at a site where she had an IV line inserted. The IV was discontinued 2 days ago. 03/17/2017: Patient and denies abdominal pain. Had a soft bowel movement, rectal tube was removed yesterday. Denies associated fevers or chills. 03/16/2017: Patient reports 0/10 abdominal pain today, no associated nausea or vomiting. She tolerated a diet, reports poor appetite. She continues to have a rectal tube which puts out dark liquid stool. - Constitutional Vitals: Temp Pulse Resp BP Pulse Ox 98.2 F 84 16 103/66 95 03/21/17 15:25 03/21/17 15:25 03/21/17 16:07 03/21/17 15:25 03/21/17 16:07 General appearance: Present: cachectic, disheveled, A&O X 2, no acute distress, underweight - Respiratory Respiratory exam: Present: CTAB. Absent: accessory muscle use, rales, rhonchi, wheezes - Cardiovascular Cardiovascular exam: Present: RRR, +S1, +S2. Absent: diastolic murmur, gallop, rubs, systolic murmur - GI/Abdominal GI/Abdominal exam: Present: normal bowel sounds, soft, no peritoneal signs. Absent: distended, tenderness - Extremities Exam Extremities exam: Present: warm, radial pulses palpable and symetrical. Absent : calf tenderness, cyanotic, pedal edema - Neurological Exam Neurological exam: Present: CN II-XII intact, oriented X3, no focal deficits. Absent: pronater drift, facial droop, speech deficit Internal Medicine: Result - Labs CBC & Chem 7: 03/21/17 03:38 03/21/17 03:38 Labs: Short CBC 03/21/17 Range/Units 03:38 WBC 178.3 H* (4.3-11.1) K/mcL Hgb 11.1 L (11.5-15.4) g/dL Hct 37.6 (35.3-44.9) % Plt Count 79 L (140-400) K/mcL Neutrophils # 2.3 (1.6-8.9) K/mcL BMP 03/20/17 03/21/17 18:30 03:38 Sodium 136 138 Potassium 4.2 D 5.6 H D Chloride 103 107 Carbon Dioxide 23 26 BUN 19 21 H Creatinine 0.68 0.67 Glucose 186 H 138 H Calcium 8.6 8.3 L Urine 03/20/17 Range/Units 17:50 Urine Color Yellow (Yellow) Urine Clarity Clear (Clear) Urine pH 7.0 (5.0-8.0) pH Units Ur Specific [place] 1.009 L (1.010-1.025) Urine Protein Negative (Neg-Trace) mg/dL Urine Glucose (UA) Normal (Normal) mg/dL - ABG Interpretation ABG results: PT/INR, D-dimer PT 12.2 Seconds (9.4-12.1) H 03/14/17 00:39 Consult Discharge Plan - Plan Referrals: Stephen Liao MD [Primary Care Provider] -
[2017-03-21] MEDS: Beclomethasone 40mcg MDI IH SCH (21:31)
[2017-03-21] MEDS: Famotidine 20 MG TABLET PO SCH (21:33)
[2017-03-22] MEDS: MetroNIDAZOLE 500 MG/100 ML 500 MG/100 ML BAG IVPB SCH ×3 (00:07→15:32)
[2017-03-22 03:55] LABS: Eosinophils % 0.1 %; Hemoglobin 11.3 g/dL (11.5-15.4); Immature Granulocytes % 0.1 % (0-4); Red Cell Distribution Width 14.6 % (11.5-14.5); Segmented Neutrophils % 1.6 %
[2017-03-22 03:56] LABS: Basophils % 0.1 %; Hematocrit 37.3 % (35.3-44.9); Mean Corpuscular HGB Conc 30.3 g/dL (31.6-35.5); Mean Corpuscular Hemoglobin 27.8 pg (28.0-33.3); Mean Corpuscular Volume 91.9 fL (83.0-100.0); Mean Platelet Volume 12.3 fL (9.4-12.4); Monocytes % 4.1 %; Red Blood Count 4.06 M/mcL (3.82-4.97)
[2017-03-22 03:57] LABS: Basophils # 0.2 K/mcL (0.0-0.2); Lymphocytes # 162.2 K/mcL (0.6-4.6); Monocytes # 7.1 K/mcL (0.0-1.3); Neutrophils # 2.8 K/mcL (1.6-8.9)
[2017-03-22 04:00] LABS: Eosinophils # 0.2 K/mcL (0.0-0.6); Platelet Count 81 K/mcL (140-400)
[2017-03-22 04:08] LABS: BUN/Creatinine Ratio 24 (6-26); Blood Urea Nitrogen 14 mg/dL (7-20); Calcium 8.3 mg/dL (8.6-10.8); Carbon Dioxide 25 mEq/L (19-29); Chloride 107 mEq/L (98-109); Glucose 153 mg/dL (70-99); Osmolality,Calculated 286 (280-300); Potassium 6.4 mEq/L (3.5-4.5); Sodium 136 mEq/L (136-145); eGFR For African Americans > 60 (> 60); eGFR For Non-African Americans > 60 (> 60)
[2017-03-22] MEDS: Ipratropium/Albuterol Neb 3 ML IH SCH ×4 (04:13→21:42)
[2017-03-22 04:17] LABS: Platelet Estimate Marked Decrease (Normal); Smudge Cells Present (Not Present)
[2017-03-22] MEDS: Acetaminophen 325 MG TABLET PO PRN (04:54)
[2017-03-22] MEDS: Famotidine 20 MG TABLET PO SCH ×3 (05:38→15:32)
[2017-03-22] MEDS: Insulin LISPRO 300 UNITS/3 ML VIAL SQ SCH ×4 (07:51→20:43)
[2017-03-22] MEDS: Doxycycline 100 MG CAPSULE PO SCH ×2 (08:09→20:42)
[2017-03-22] MEDS: Gabapentin 300 MG CAPSULE PO SCH (08:09)
[2017-03-22] MEDS: levoFLOXacin 750 MG TABLET PO SCH (08:10)
--- NOTE | 2017-03-22 09:52 | Nephrology Progress Note ---
Date of Encounter: 03/22/17 Time of Encounter: 09:52 - Assessment and Plan (1) Hyperkalemia Current Visit: Yes Status: Acute Potassium trending up: 6.4 DDX: hyporeninemic hypoaldosternonism which can lead to hyperkalemia and hyponatermia: serum renin and aldosterone pending, pseduhyperkalemia from severely elevated wbc Hyponatremia resolved: continue IVF tumor lysis syndrome less likely: LDH and uric acid WNL, phosphorus WNL, SCR WNL (urine output 4000cc) Flow cytometry confirms CLL: discussed with oncology that TLS less likely and patient will follow up outpatient after discharge. Plan: Kayexatlae 30mg once. (2) CLL (chronic lymphocytic leukemia) Current Visit: Yes Status: Acute (3) Elevated WBC count Current Visit: Yes Status: Acute Qualifiers: Leukocytosis type: lymphocytosis Qualified Code(s): D72.820 - Lymphocytosis (symptomatic) (4) Hyponatremia Current Visit: Yes Status: Resolved Subjective Principal diagnosis: hyperkalemia Interval history: No acute overnight events. Denies N/V. Continues to have rectal sanchez with diarrhea. Objective - Vital Signs Vital signs: Vital Signs Temp Pulse Resp BP Pulse Ox 03/22/17 07:00 85 17 128/91 95 03/22/17 04:16 15 100 03/22/17 03:37 98.0 F 76 18 113/68 100 03/21/17 23:35 98.1 F 94 18 113/66 96 03/21/17 21:34 16 95 03/21/17 19:38 97.8 F 51 18 120/59 94 03/21/17 16:07 16 95 03/21/17 15:25 98.2 F 84 16 103/66 93 03/21/17 11:41 97.8 F 86 16 104/63 91 03/21/17 10:34 16 93 Intake and Output 03/21/17 03/22/17 03/22/17 23:59 07:59 15:59 Intake Total 1700 / 1700 200 / 200 240 / 240 Output Total 2450 / 2450 2950 / 2950 1000 / 1000 Balance -750 / -750 -2750 / -2750 -760 / -760 Intake: IV Fluids 1100 / 1100 100 / 100 0.9 % Sodium Chloride 1, 1000 / 1000 000 ML @ 80 mls/hr IVC . [id number] [facility] Rx#: [id number] Flagyl Premix 500 MG/100 100 / 100 100 / 100 ML 500 mg In 100 ml @ 100 mls/hr IVPB Q8HR [facility] Rx# :[id number] Oral 600 / 600 100 / 100 240 / 240 Output: Stool 500 / 500 Catheter 2450 / 2450 2450 / 2450 1000 / 1000 Other: Meal Dinner Breakfast Percent of Meal Consumed 25% 100% Weight 47.3 kg Blood Glucose* 194 112 Patient Weight 03/22/17 23:59 Weight 47.3 kg - General Appearance General appearance: Present: obese, moderate distress, chronically ill Neck: Present: supple Respiratory: Present: clear Cardiology: Present: edema (2+), regular rate, regular rhythm, normal S1, normal S2 Gastrointestinal: Present: normoactive bowel sounds, no tenderness Integumentary: Present: warm and dry Psychiatric: Present: mood/affect appropriate, cooperative - Lab 03/22/17 03:48 03/22/17 03:48 Most recent lab results Calcium 8.3 mg/dL (8.6-10.8) L 03/22/17 03:48 Phosphorus 4.2 mg/dL (2.3-4.7) 03/20/17 04:13 Magnesium 1.7 mg/dL (1.6-2.6) 03/20/17 04:13 Consult Discharge Plan - Plan Referrals: Stephen Liao MD [Primary Care Provider] -
[2017-03-22] MEDS: Beclomethasone 40mcg MDI IH SCH ×2 (10:21→21:42)
[2017-03-22] MEDS: 0.9 % Sodium Chloride 1,000 ML IVC SCH ×2 (10:45→20:42)
--- NOTE | 2017-03-22 11:16 | Electrocardiograph Report ---
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
--- NOTE | 2017-03-22 12:13 | Electrocardiograph Report ---
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
--- NOTE | 2017-03-22 18:38 | Internal Med Progress Note ---
Date of Encounter: 03/22/17 Time of Encounter: 18:36 - Assessment and plan (1) Diverticulitis Current Visit: Yes Status: Acute Assessment and plan: 03/22/2017: We will continue with antibiotics. Last day is tomorrow. 03/21/2017: Continue with Cipro and Flagyl for a total of 10 days. 03/17/2017: We will continue with oral antibiotics. Advance diet. 03/16/2017: CT scan shows possible proximal sigmoid diverticulitis with a splenomegaly and bilateral external iliac and inguinal adenopathy possible lymphoproliferative disease versus lymphoma Currently on a diet, consider switching to nothing by mouth if worse gentle hydration Continue ciprofloxacin and Flagyl IV day [address] Minor, no intervention recommended due to acute diverticulitis ( no colonoscopy) Qualifiers: Diverticulitis site: large intestine Diverticulitis bleeding: with bleeding Diverticulitis complication: without perforation or abscess Qualified Code(s): K57.33 - Diverticulitis of large intestine without perforation or abscess with bleeding (2) Elevated WBC count Current Visit: Yes Status: Acute Assessment and plan: Likely secondary to leukemia Oncology consulted flow cytometry recmmended No evidence of tumor lysis syndrome. I have repeated lysis labs and are currently negative. No symptoms to suggest hyperviscosity syndrome. Per chart review she has chronic elevation with WBC count. In May 2015 white count was 165,000. Qualifiers: Leukocytosis type: lymphocytosis Qualified Code(s): D72.820 - Lymphocytosis (symptomatic) (3) Hyperkalemia Current Visit: Yes Status: Acute Assessment and plan: 03/22/2017: I discussed the etiology and treatment with both oncology and nephrology. Currently working up the diagnosis of hyperaldosteronism. Renal and activity and aldosterone level pending. We will continue with Kayexalate. Low potassium diet. 03/21/2017: Continue with IV fluids. Oral Kayexalate. Follow-up with nephrology. 03/20/2017: Potassium continues to rise. Last night potassium lowering management was started. Was given Kayexalate. We will check potassium level twice daily and re-dose Kayexalate as needed. Follow-up with nephrology. Low potassium diet. 03/19/2017: Potassium continues to trend up in accordance with WBC trend. I do suspect some degree of tumor lysis. I will check LDH. I appreciate nephrology recommendations. We will give 1 dose of Kayexalate and will repeat potassium at 8 PM tonight. (4) COPD (chronic obstructive pulmonary disease) Current Visit: Yes Status: Acute Assessment and plan: Stable, continue inhalers Qualifiers: COPD type: chronic bronchitis Chronic bronchitis type: simple Qualified Code(s): J41.0 - Simple chronic bronchitis (5) CLL (chronic lymphocytic leukemia) Current Visit: Yes Status: Acute Assessment and plan: 03/22/2017: I discussed the case with oncology. At this point treatment for CLL is not indicated and per oncology service I would not improve the hypercalcemia. Tumor lysis syndrome has been ruled out. Flow studies confirmed CLL. (6) Right arm cellulitis Current Visit: Yes Status: Acute Assessment and plan: 03/21/2017: cellulitis greatly improved with antibiotics and cold compresses. Right upper extremity is swollen, examination reveals skin redness and warmth, tenderness to palpation. Concerned of cellulitis. I will start oral doxycycline to cover skin fay. Will monitor clinically. We will obtain ultrasound to rule out DVT. (7) Urinary retention Current Visit: Yes Status: Acute Assessment and plan: Could be secondary to metabolic derangements. Urinalysis with no evidence of infection. Follow-up urine culture. Continue with Givens catheter (8) Coronary artery disease Current Visit: Yes Status: Chronic Assessment and plan: Continue to hold Plavix due to severe GI bleed on presentation and thrombocytopenia. Qualifiers: Coronary Disease-Associated Artery/Lesion type: ute artery [place] vs. transplanted heart: ute heart Associated angina: without angina Qualified Code(s): I25.10 - Atherosclerotic heart disease of ute coronary artery without angina pectoris - Subjective Interval history: 03/22/2017: Mrs. Sheridan continues to complain of diarrhea. Denies associated abdominal pain. Her potassium levels are trending up instead of treatment with IV fluids and Kayexalate. 03/21/2017: The patient has abundant diarrhea and had a rectal tube replaced. Potassium is still elevated. She reports generalized weakness. Denies headache denies vision loss and double vision and blurry vision. Denies confusion nausea and vomiting. 03/20/2017: The patient reports lower abdominal pain, she has not been able to urinate today. She has had increased diarrhea over the last 12 hours and required a rectal tube placement. Her potassium went up to 7.4 and she was given several doses of Kayexalate. She denies nausea, chest pain, headache, vision changes. 03/19/2017: Patient's potassium has gone up, she denies weakness nausea or vomiting. Denies abdominal pain. 03/18/2017: Patient denies abdominal pain, reports good appetite, tolerated diet. She has new right upper arm pain and swelling, per RN her right arm has significantly swollen since yesterday at a site where she had an IV line inserted. The IV was discontinued 2 days ago. 03/17/2017: Patient and denies abdominal pain. Had a soft bowel movement, rectal tube was removed yesterday. Denies associated fevers or chills. 03/16/2017: Patient reports 0/10 abdominal pain today, no associated nausea or vomiting. She tolerated a diet, reports poor appetite. She continues to have a rectal tube which puts out dark liquid stool. - Constitutional Vitals: Temp Pulse Resp BP Pulse Ox 98.0 F 91 17 123/76 96 03/22/17 03:37 03/22/17 15:00 03/22/17 15:48 03/22/17 15:00 03/22/17 15:48 General appearance: Present: cachectic, disheveled, A&O X 2, no acute distress, underweight - Respiratory Respiratory exam: Present: CTAB. Absent: accessory muscle use, rales, rhonchi, wheezes - Cardiovascular Cardiovascular exam: Present: RRR, +S1, +S2. Absent: diastolic murmur, gallop, rubs, systolic murmur - GI/Abdominal GI/Abdominal exam: Present: normal bowel sounds, soft, no peritoneal signs. Absent: distended, tenderness - Extremities Exam Extremities exam: Present: warm, radial pulses palpable and symetrical. Absent : calf tenderness, cyanotic, pedal edema - Neurological Exam Neurological exam: Present: CN II-XII intact, oriented X3, no focal deficits. Absent: pronater drift, facial droop, speech deficit - Skin Skin exam: Present: dry, intact Internal Medicine: Result - Labs CBC & Chem 7: 03/22/17 03:48 03/22/17 03:48 Labs: Short CBC 03/22/17 Range/Units 03:48 WBC 172.5 H* (4.3-11.1) K/mcL Hgb 11.3 L (11.5-15.4) g/dL Hct 37.3 (35.3-44.9) % Plt Count 81 L (140-400) K/mcL Neutrophils # 2.8 (1.6-8.9) K/mcL BMP 03/22/17 03:48 Sodium 136 Potassium 6.4 H Chloride 107 Carbon Dioxide 25 BUN 14 Creatinine 0.58 Glucose 153 H Calcium 8.3 L - ABG Interpretation ABG results: PT/INR, D-dimer PT 12.2 Seconds (9.4-12.1) H 03/14/17 00:39 Consult Discharge Plan - Plan Referrals: Stephen Liao MD [Primary Care Provider] -
[2017-03-23] MEDS: MetroNIDAZOLE 500 MG/100 ML 500 MG/100 ML BAG IVPB SCH ×2 (00:15→07:56)
[2017-03-23] MEDS: Ipratropium/Albuterol Neb 3 ML IH SCH ×4 (03:53→22:27)
[2017-03-23 04:56] LABS: Eosinophils % 0.1 %; Immature Granulocytes % 0.1 % (0-4); Red Cell Distribution Width 14.4 % (11.5-14.5)
[2017-03-23 05:00] LABS: Basophils # 0.3 K/mcL (0.0-0.2); Basophils % 0.2 %; Hematocrit 36.1 % (35.3-44.9); Mean Corpuscular HGB Conc 30.5 g/dL (31.6-35.5); Mean Corpuscular Hemoglobin 27.8 pg (28.0-33.3); Mean Corpuscular Volume 91.2 fL (83.0-100.0); Mean Platelet Volume 12.7 fL (9.4-12.4); Monocytes % 5.8 %; Red Blood Count 3.96 M/mcL (3.82-4.97); Segmented Neutrophils % 1.8 %
[2017-03-23 05:01] LABS: Eosinophils # 0.2 K/mcL (0.0-0.6); Lymphocytes # 136.2 K/mcL (0.6-4.6); Monocytes # 8.6 K/mcL (0.0-1.3); Neutrophils # 2.7 K/mcL (1.6-8.9); Platelet Count 78 K/mcL (140-400)
[2017-03-23 05:11] LABS: BUN/Creatinine Ratio 26 (6-26); Blood Urea Nitrogen 15 mg/dL (7-20); Calcium 8.4 mg/dL (8.6-10.8); Carbon Dioxide 28 mEq/L (19-29); Chloride 104 mEq/L (98-109); Glucose 129 mg/dL (70-99); Osmolality,Calculated 283 (280-300); Phosphorous 3.2 mg/dL (2.3-4.7); Potassium 5.9 mEq/L (3.5-4.5); Sodium 135 mEq/L (136-145); Uric Acid 3.8 mg/dL (2.6-6.0); eGFR For African Americans > 60 (> 60); eGFR For Non-African Americans > 60 (> 60)
[2017-03-23 05:58] LABS: Platelet Estimate Decreased (Normal); Reactive Lymphocytes Present (Not Present); Smudge Cells Present (Not Present)
[2017-03-23] MEDS: Doxycycline 100 MG CAPSULE PO SCH ×2 (07:55→21:37)
[2017-03-23] MEDS: levoFLOXacin 750 MG TABLET PO SCH (07:55)
[2017-03-23] MEDS: Gabapentin 300 MG CAPSULE PO SCH (07:55)
[2017-03-23] MEDS: Famotidine 20 MG TABLET PO SCH ×2 (07:56→16:57)
[2017-03-23] MEDS: Insulin LISPRO 300 UNITS/3 ML VIAL SQ SCH ×4 (07:56→21:37)
--- NOTE | 2017-03-23 10:01 | Nephrology Progress Note ---
Date of Encounter: 03/23/17 Time of Encounter: 09:58 - Assessment and Plan (1) Hyperkalemia Current Visit: Yes Status: Acute continues to be hyperkalemic DDX: hyporeninemic hypoaldosternonism which can lead to hyperkalemia and hyponatermia: serum renin and aldosterone still pending, pseduhyperkalemia from severely elevated wbc Hyponatremia resolved: continue IVF tumor lysis syndrome less likely: LDH and uric acid WNL, phosphorus WNL, SCR WNL Flow cytometry confirms CLL: discussed with oncology that TLS less likely and patient will follow up outpatient after discharge. Plan: Continue florinef empirically Kayexatlae given this morning. continue to monitor potassium As patient remains hyperkalemic remains unclear if anything further can be done. Recommend transfer to a higher level facility like the [facility]. Thank you for consulting [facility]. Will sign off. (2) CLL (chronic lymphocytic leukemia) Current Visit: Yes Status: Acute (3) Elevated WBC count Current Visit: Yes Status: Acute Qualifiers: Leukocytosis type: lymphocytosis Qualified Code(s): D72.820 - Lymphocytosis (symptomatic) (4) Hyponatremia Current Visit: Yes Status: Resolved Subjective Principal diagnosis: hyperkalemia Interval history: No acute overnight events. rectal sanchez out. More energetic and conversational. Objective - Vital Signs Vital signs: Vital Signs Temp Pulse Resp BP Pulse Ox 03/23/17 07:00 98.3 F 75 16 103/74 99 03/23/17 03:56 18 98 03/23/17 03:16 98.3 F 79 18 126/74 100 03/22/17 23:46 98.2 F 86 17 127/57 100 03/22/17 21:45 14 98 03/22/17 19:27 97.9 F 83 18 132/72 97 03/22/17 15:48 17 96 03/22/17 15:00 91 14 123/76 92 Intake and Output 03/22/17 03/23/17 03/23/17 23:59 07:59 15:59 Intake Total 1100 / 1100 950 / 950 Output Total 3200 / 3200 2250 / 2250 Balance -2100 / -2100 -1300 / -1300 Intake: IV Fluids 1100 / 1100 100 / 100 0.9 % Sodium Chloride 1, 1000 / 1000 000 ML @ 80 mls/hr IVC . [id number] [facility] Rx#: [id number] Flagyl Premix 500 MG/100 100 / 100 100 / 100 ML 500 mg In 100 ml @ 100 mls/hr IVPB Q8HR [facility] Rx# :[id number] Oral 0 / 0 850 / 850 Output: Rectal Tube 150 / 150 Catheter 3050 / 3050 2250 / 2250 Other: Meal Breakfast Percent of Meal Consumed 100% Stool Size Large Stool Consistency formed Stool Color Brown # Bowel Movements 1 Weight 47.8 kg Blood Glucose* 116 169 Patient Weight 03/23/17 23:59 Weight 47.8 kg - General Appearance General appearance: Present: cachectic, frail Neck: Present: no JVD Respiratory: Present: clear Cardiology: Present: edema, normal S1, normal S2 Gastrointestinal: Present: no tenderness Integumentary: Present: no rash, warm and dry Musculoskeletal: Present: no clubbing - Lab 03/23/17 04:30 03/23/17 04:30 Most recent lab results Calcium 8.4 mg/dL (8.6-10.8) L 03/23/17 04:30 Phosphorus 3.2 mg/dL (2.3-4.7) 03/23/17 04:30 Magnesium 1.7 mg/dL (1.6-2.6) 03/20/17 04:13 Consult Discharge Plan - Plan Referrals: Stephen Laio MD [Primary Care Provider] -
[2017-03-23] MEDS: Beclomethasone 40mcg MDI IH SCH ×2 (10:53→22:27)
--- NOTE | 2017-03-23 10:57 | Oncology Inp Progress Note ---
Date of Encounter: 03/23/17 Time of Encounter: 10:36 Oncology: Subj Interval history: History of present illness: Patient seen and examined at bedside. Chart reviewed for interval details and appreciate ongoing management by hospital team. She is feeling well today. No new physical complaint. She is not having any symptoms attributable to CLL, elevated WBC or hyperkalemia. Workup ongoing per nephrology for suspected hyperaldosteronism. Due to concern about refractory hyperkalemia, transfer to tertiary center has been recommended. No other new issues. Review of systems: 12 point review of systems as noted above.All other systems are negative: Physical exam: Vital Signs Temp 98.3 F 03/23/17 07:00 Pulse 75 03/23/17 07:00 Resp 16 03/23/17 07:00 BP 103/74 03/23/17 07:00 Pulse Ox 99 03/23/17 07:00 GENERAL: Alert and oriented, comfortable appearing. She is in no obvious distress. Mental Status: Affect appropriate for circumstances Skin: No rashes or petechiae. No evidence of skin malignancy Extremities: No edema. No calf swelling or tenderness. No joint deformity. Neurologic: Global weakness but no focal sensorimotor abnormalities. Per bedside manager cardiac, she appears to be in normal sinus rhythm. Results: Laboratory Last Values WBC 148.0 K/mcL (4.3-11.1) H* 03/23/17 04:30 RBC 3.96 M/mcL (3.82-4.97) 03/23/17 04:30 Hgb 11.0 g/dL (11.5-15.4) L 03/23/17 04:30 Hct 36.1 % (35.3-44.9) 03/23/17 04:30 MCV 91.2 fL (83.0-100.0) 03/23/17 04:30 MCH 27.8 pg (28.0-33.3) L 03/23/17 04:30 MCHC 30.5 g/dL (31.6-35.5) L 03/23/17 04:30 RDW 14.4 % (11.5-14.5) 03/23/17 04:30 Plt Count 78 K/mcL (140-400) L 03/23/17 04:30 MPV 12.7 fL (9.4-12.4) H 03/23/17 04:30 Immature Gran % 0.1 % (0-4) 03/23/17 04:30 Seg Neutrophils % 1.8 % 03/23/17 04:30 Band Neutrophils % 6.0 % (0-4) H 03/18/17 05:56 Lymphocytes % 92.0 % 03/23/17 04:30 Monocytes % 5.8 % 03/23/17 04:30 Eosinophils % 0.1 % 03/23/17 04:30 Basophils % 0.2 % 03/23/17 04:30 Blast Cells % 6.0 % (0) H 03/18/17 05:56 Neutrophils # 2.7 K/mcL (1.6-8.9) 03/23/17 04:30 Lymphocytes # 136.2 K/mcL (0.6-4.6) H 03/23/17 04:30 Monocytes # 8.6 K/mcL (0.0-1.3) H 03/23/17 04:30 Eosinophils # 0.2 K/mcL (0.0-0.6) 03/23/17 04:30 Basophils # 0.3 K/mcL (0.0-0.2) H 03/23/17 04:30 Reactive Lymphocytes Present (Not Present) A 03/23/17 04:30 Smudge Cells Present (Not Present) A 03/23/17 04:30 Platelet Estimate Decreased (Normal) L 03/23/17 04:30 Immature Plt Fraction 15.8 % (1.1-6.1) H 03/15/17 06:22 Microcytosis Present (Not Present) A 03/15/17 06:22 PT 12.2 Seconds (9.4-12.1) H 03/14/17 00:39 INR 1.1 03/14/17 00:39 APTT 34.8 Seconds (26.0-36.0) 03/13/17 11:36 VBG pH TNP 03/19/17 09:27 VBG pCO2 TNP 03/19/17 09:27 VBG pO2 TNP 03/19/17 09:27 VBG HCO3 TNP 03/19/17 09:27 VBG Hematocrit TNP 03/19/17 09:27 VBG Ionized Calcium TNP 03/19/17 09:27 Glucose TNP 03/19/17 09:27 Venous Sodium TNP 03/19/17 09:27 Sodium 135 mEq/L (136-145) L 03/23/17 04:30 Venous Potassium 7.6 mEq/L (3.5-5.5) H 03/19/17 09:27 Potassium 5.9 mEq/L (3.5-4.5) H 03/23/17 04:30 Chloride 104 mEq/L (98-109) 03/23/17 04:30 Carbon Dioxide 28 mEq/L (19-29) 03/23/17 04:30 BUN 15 mg/dL (7-20) 03/23/17 04:30 Creatinine 0.58 mg/dL (0.57-1.11) 03/23/17 04:30 Est GFR ( Amer) > 60 (> 60) 03/23/17 04:30 Est GFR (Non-Af Amer) > 60 (> 60) 03/23/17 04:30 BUN/Creatinine Ratio 26 (6-26) 03/23/17 04:30 Glucose 129 mg/dL (70-99) H 03/23/17 04:30 POC Glucose 116 (58-89) H 03/22/17 19:38 Calculated Osmolality 283 (280-300) 03/23/17 04:30 Uric Acid 3.8 mg/dL (2.6-6.0) 03/23/17 04:30 Calcium 8.4 mg/dL (8.6-10.8) L 03/23/17 04:30 Phosphorus 3.2 mg/dL (2.3-4.7) 03/23/17 04:30 Magnesium 1.7 mg/dL (1.6-2.6) 03/20/17 04:13 Iron 62 mcg/dL (50-170) 03/13/17 11:36 % Saturation 18 % (15-50) 03/13/17 11:36 Transferrin 247 mg/dL (180-382) 03/13/17 11:36 Ferritin 46 ng/ml (5-204) 03/13/17 11:36 Total Bilirubin 0.4 mg/dL (0.2-1.2) 03/13/17 11:36 AST 21 Units/L (5-34) 03/13/17 11:36 ALT 11 Units/L (0-55) 03/13/17 11:36 Alkaline Phosphatase 62 Units/L (38-126) 03/13/17 11:36 Lactate Dehydrogenase 257 Units/L (159-327) 03/20/17 04:13 Creatine Kinase 17 Units/L (29-168) L 03/15/17 11:21 Troponin I 0.01 ng/mL (0-0.03) 03/14/17 12:05 Serum Total Protein 5.7 g/dL (6.0-8.3) L 03/13/17 11:36 Albumin 3.3 g/dL (3.5-5.0) L 03/13/17 11:36 Globulin 2.4 g/dL (2.4-3.5) 03/13/17 11:36 Albumin/Globulin Ratio 1.4 (1.1-2.2) 03/13/17 11:36 Lipase 17 Units/L (8-78) 03/13/17 11:36 Urine Color Yellow (Yellow) 03/20/17 17:50 Urine Clarity Clear (Clear) 03/20/17 17:50 Urine pH 7.0 pH Units (5.0-8.0) 03/20/17 17:50 Ur Specific [place] 1.009 (1.010-1.025) L 03/20/17 17:50 Urine Protein Negative mg/dL (Neg-Trace) 03/20/17 17:50 Urine Glucose (UA) Normal mg/dL (Normal) 03/20/17 17:50 Urine Ketones Negative mg/dL (Negative) 03/20/17 17:50 Urine Blood Small (Negative) H 03/20/17 17:50 Urine Nitrite Negative (Negative) 03/20/17 17:50 Urine Bilirubin Negative (Negative) 03/20/17 17:50 Urine Urobilinogen Normal mg/dL (Normal) 03/20/17 17:50 Ur Leukocyte Esterase Negative (Negative) 03/20/17 17:50 Urine Microscopic RBC 0-3 per hpf (0-3) 03/20/17 17:50 Urine Microscopic WBC 0-3 per hpf (0-3) 03/20/17 17:50 Ur Squamous Epith Cells Few per lpf (None-Few) 03/20/17 17:50 Urine Bacteria None Seen per hpf (None-Few) 03/20/17 17:50 Hyaline Casts None Seen per lpf (None-Few) 03/20/17 17:50 Ur Culture Indicated? NO (NO) 03/20/17 17:50 Stool Occult Blood Positive (Negative) A 03/13/17 11:43 Flow Cytometry Specimen See EMR document. 03/14/17 19:10 Specimen Rejected Hemolyzed 03/20/17 17:46 Blood Type A NEGATIVE 03/13/17 11:36 Antibody Screen NEGATIVE 03/13/17 11:36 Crossmatch See Detail 03/13/17 11:36 Radiographic studies: Impression/recommendations: CLL (chronic lymphocytic leukemia).Also splenomegaly.Likely [place] stage II. CT scan showed bilateral pelvic lymphadenopathy largest 1.4 x 3.2 cm. Peripheral blood flow cytometry from 03/13/17 is compatible with immunophenotype of CLL. Lack of CD38 expression associated with a favorable prognosis which likely explains why she has done so well despite having persistent leukocytosis since May 2015. She will need cytogenetic and FISH analysis for more definitive prognostic evaluation. This can be done as an outpatient. She is doing well today and has no symptoms to suggest leukostasis/ hyperviscosity from her leukocytosis. No indication for antineoplastic therapy at this time. Thrombocytopenia: Possibly related to hypersplenism or autoimmune phenomenon from CLL. Most important, no treatment indicated for her current platelet count. We'll continue monitoring. Hyperkalemia Based on her extensive workup so far, I suspect that she has pseudo- hyperkalemia on account of CLL. Likely mechanisms potassium reflux from fragile WBCs. Hyperaldosteronism is not excluded. Workup is ongoing per nephrology. Recommend to repeat plasma potassium on non-anticoagulated specimen. I discussed with lab and we will go ahead and repeat this today. In the interim, I agree with ongoing supportive measures for hyperkalemia including Kayexalate as needed. Potassium is improving on most recent metabolic panel. Since patient is doing well clinically, I'm not sure if she will derive any additional benefit from transfer to a tertiary center. I discussed with Dr. Dawson today and we both agreed to hold off on transfer to tertiary center at this time. If plasma potassium remains elevated, it may be worthwhile consideration. Otherwise, I think she can be discharged with Kayexalate and potassium monitoring on an outpatient basis. If she ends up being discharged to home, I think she will need some help at home through home care services for medication management and lab draws. In spite of extensive support system at home, I'm not sure how much help she is getting since her family members appear to be occupied with issues of their own. Upon discharge, we'll arrange an outpatient follow-up with Dr. Ortega for ongoing management of her CLL. We'll follow the patient peripherally with you. Please call with any interval questions. Thank you for your excellent ongoing care for allowing us to see her while in- house. This report was created using voice recognition software and may contain errors. It was signed but not edited to expedite communication. - Constitutional Vitals: Vital Signs Temp Pulse Resp BP Pulse Ox 03/23/17 07:00 98.3 F 75 16 103/74 99 03/23/17 03:56 18 98 03/23/17 03:16 98.3 F 79 18 126/74 100 03/22/17 23:46 98.2 F 86 17 127/57 100 03/22/17 21:45 14 98 03/22/17 19:27 97.9 F 83 18 132/72 97 03/22/17 15:48 17 96 03/22/17 15:00 91 14 123/76 92 Intake and Output 03/23/17 03/23/17 03/23/17 00:59 08:59 16:59 Intake Total 1000 / 1000 950 / 950 Output Total 2400 / 2400 2250 / 2250 Balance -1400 / -1400 -1300 / -1300 Intake: IV Fluids 1000 / 1000 100 / 100 0.9 % Sodium Chloride 1, 1000 / 1000 000 ML @ 80 mls/hr IVC . [id number] [facility] Rx#: [id number] Flagyl Premix 500 MG/100 100 / 100 ML 500 mg In 100 ml @ 100 mls/hr IVPB Q8HR [facility] Rx# :[id number] Oral 0 / 0 850 / 850 Output: Rectal Tube 150 / 150 Catheter 2250 / 2250 2250 / 2250 Other: Meal Breakfast Percent of Meal Consumed 100% Stool Size Large Stool Consistency formed Stool Color Brown # Bowel Movements 1 Weight 47.8 kg Blood Glucose* 116 169 Oncology: Obj Data - Labs CBC & Chem 7: 03/23/17 04:30 03/23/17 04:30 Labs: Laboratory Results - last 24 hr 03/21/17 03/21/17 03/21/17 11:43 16:23 20:29 WBC RBC Hgb Hct MCV MCH MCHC RDW Plt Count MPV Immature Gran % Seg Neutrophils % Lymphocytes % Monocytes % Eosinophils % Basophils % Neutrophils # Lymphocytes # Monocytes # Eosinophils # Basophils # Reactive Lymphocytes Smudge Cells Platelet Estimate Sodium Potassium Chloride Carbon Dioxide BUN Creatinine Est GFR ( Amer) Est GFR (Non-Af Amer) BUN/Creatinine Ratio Glucose POC Glucose 124 H 188 H 194 H Calculated Osmolality Uric Acid Calcium Phosphorus 03/22/17 03/22/17 03/22/17 07:23 11:22 19:38 WBC RBC Hgb Hct MCV MCH MCHC RDW Plt Count MPV Immature Gran % Seg Neutrophils % Lymphocytes % Monocytes % Eosinophils % Basophils % Neutrophils # Lymphocytes # Monocytes # Eosinophils # Basophils # Reactive Lymphocytes Smudge Cells Platelet Estimate Sodium Potassium Chloride Carbon Dioxide BUN Creatinine Est GFR ( Amer) Est GFR (Non-Af Amer) BUN/Creatinine Ratio Glucose POC Glucose 112 H 172 H 116 H Calculated Osmolality Uric Acid Calcium Phosphorus 03/23/17 03/23/17 04:30 04:30 WBC 148.0 H* RBC 3.96 Hgb 11.0 L Hct 36.1 MCV 91.2 MCH 27.8 L MCHC 30.5 L RDW 14.4 Plt Count 78 L MPV 12.7 H Immature Gran % 0.1 Seg Neutrophils % 1.8 Lymphocytes % 92.0 Monocytes % 5.8 Eosinophils % 0.1 Basophils % 0.2 Neutrophils # 2.7 Lymphocytes # 136.2 H Monocytes # 8.6 H Eosinophils # 0.2 Basophils # 0.3 H Reactive Lymphocytes Present A Smudge Cells Present A Platelet Estimate Decreased L Sodium 135 L Potassium 5.9 H Chloride 104 Carbon Dioxide 28 BUN 15 Creatinine 0.58 Est GFR ( Amer) > 60 Est GFR (Non-Af Amer) > 60 BUN/Creatinine Ratio 26 Glucose 129 H POC Glucose Calculated Osmolality 283 Uric Acid 3.8 Calcium 8.4 L Phosphorus 3.2 - ABG Interpretation ABG results: PT/INR, D-dimer PT 12.2 Seconds (9.4-12.1) H 03/14/17 00:39 Consult Discharge Plan - Plan Referrals: Stephen Liao MD [Primary Care Provider] -
--- NOTE | 2017-03-23 11:17 | Internal Med Progress Note ---
Addendum entered and electronically signed by [email or web address] 03/23/17 15: 30: Addendum to physical exam: Right upper extremity: Significant ecchymosis and hematoma above and below the site of IV insertion associated with very mild heat radiation. She reports no tenderness to palpation or pruritus associated. Original Note: <Lionel Michele - Last Filed: 03/23/17 15:21> Date of Encounter: 03/23/17 Time of Encounter: 08:30 - Assessment and plan (1) Diverticulitis Current Visit: Yes Status: Resolved Assessment and plan: Patient has completed a course of IV metronidazole and Levaquin and I will discontinue today. Patient reports no more symptoms associated with GI bleeding. Patient does continue to complain of diarrhea and loose stools which is most likely due to Kayexalate. Hemoglobin has remained stable Qualifiers: Diverticulitis site: large intestine Diverticulitis bleeding: with bleeding Diverticulitis complication: without perforation or abscess Qualified Code(s): K57.33 - Diverticulitis of large intestine without perforation or abscess with bleeding (2) Hyperkalemia Current Visit: Yes Status: Acute Assessment and plan: Patient is remaining on Kayexalate over the course of her hospital visit. Potassium was demonstrated to be 3.8 troponin are today. We will start Kayexalate at this time and monitor potassium levels. We will consider sleep pseudo-hyperkalemia as source however patient has demonstrated EKG changes consistent with hyperkalemia previously. We will monitor basic metabolic panel to determine level of potassium in the morning. (3) COPD (chronic obstructive pulmonary disease) Current Visit: Yes Status: Chronic Assessment and plan: COPD stable throughout admission. We will maintain inhalers at this time Qualifiers: COPD type: chronic bronchitis Chronic bronchitis type: simple Qualified Code(s): J41.0 - Simple chronic bronchitis (4) CLL (chronic lymphocytic leukemia) Current Visit: Yes Status: Chronic Assessment and plan: Pathology report demonstrates presence of CLL. Patient family member was present in room and expressed a known family history of CLL. We will continue to coordinate with oncology treatment of this dictation CLL. At this time we do not plan to transfer to a tertiary Center. We will follow recommendations as necessary (5) Coronary artery disease Current Visit: No Status: Chronic Assessment and plan: Stable at this time Qualifiers: Coronary Disease-Associated Artery/Lesion type: [place] artery [place] vs. transplanted heart: [place] heart Associated angina: without angina Qualified Code(s): I25.10 - Atherosclerotic heart disease of [place] coronary artery without angina pectoris (6) Right arm cellulitis Current Visit: Yes Status: Acute Assessment and plan: Inspection of right arm demonstrates significant improvement of rash. There is no clear indication of erythema and/or heat admitted from the location. Cellulitis. We will continue the dose of doxycycline for resolution. - Subjective Interval history: Ms. Sheridan is resting comfortably in her bed at the time of examination. She complained that she is still experiencing diarrhea however she denied any red blood per rectum at this time stools dark and/or tarry. Says that she is otherwise feeling much better. She says the rash on her symptoms improved and that she does not notice any pain and/or pruritus associated with it. She denies any chest pain, shortness of breath, fevers, chills, or generalized weakness at this time. The exception of the complaint of diarrhea, a 10 point Review of systems otherwise completely negative. - Constitutional Vitals: Temp Pulse Resp BP Pulse Ox 98.3 F 75 16 103/74 99 03/23/17 07:00 03/23/17 07:00 03/23/17 10:55 03/23/17 07:00 03/23/17 10:55 General appearance: Present: cachectic, disheveled, A&O X 2, no acute distress, underweight Exam: Gen.: Vitals noted. No acute distress. AAOx3 HEENT: PERRL/EOMI, oropharynx clear, Normocephalic, atraumatic Neck: Supple. No adenopathy. Cardiac: RRR, no murmur, +S1/S2 Pulmonary: CTA bilaterally, no wheezes, rales or rhonchi, equal chest expansion Abdomen: soft, nontender, BS noted, no guarding Back: Nontender throughout. MSK: ROM intact, no joint swelling noted Extremities: no BLE edema, nontender calf, no cyanosis or clubbing Neuro: A&Ox3, moves all extremities, no focal deficits Psych: Appropriate mood and behavior Internal Medicine: Result - Labs CBC & Chem 7: 03/23/17 04:30 03/23/17 11:07 Labs: Short CBC 03/23/17 Range/Units 04:30 WBC 148.0 H* (4.3-11.1) K/mcL Hgb 11.0 L (11.5-15.4) g/dL Hct 36.1 (35.3-44.9) % Plt Count 78 L (140-400) K/mcL Neutrophils # 2.7 (1.6-8.9) K/mcL BMP 03/23/17 04:30 Sodium 135 L Potassium 5.9 H Chloride 104 Carbon Dioxide 28 BUN 15 Creatinine 0.58 Glucose 129 H Calcium 8.4 L - ABG Interpretation ABG results: PT/INR, D-dimer PT 12.2 Seconds (9.4-12.1) H 03/14/17 00:39 Consult Discharge Plan - Plan Referrals: Stephen Liao MD [Primary Care Provider] - <[place] Dawson - Last Filed: 03/23/17 16:42> Date of Encounter: 03/23/17 - Assessment and plan (1) Diverticulitis Current Visit: Yes Status: Resolved Qualifiers: Diverticulitis site: large intestine Diverticulitis bleeding: with bleeding Diverticulitis complication: without perforation or abscess Qualified Code(s): K57.33 - Diverticulitis of large intestine without perforation or abscess with bleeding (2) Elevated WBC count Current Visit: Yes Status: Acute Qualifiers: Leukocytosis type: lymphocytosis Qualified Code(s): D72.820 - Lymphocytosis (symptomatic) (3) Hyperkalemia Current Visit: Yes Status: Acute (4) COPD (chronic obstructive pulmonary disease) Current Visit: Yes Status: Chronic Qualifiers: COPD type: chronic bronchitis Chronic bronchitis type: simple Qualified Code(s): J41.0 - Simple chronic bronchitis (5) CLL (chronic lymphocytic leukemia) Current Visit: Yes Status: Chronic (6) Right arm cellulitis Current Visit: Yes Status: Acute (7) Urinary retention Current Visit: Yes Status: Acute (8) Coronary artery disease Current Visit: No Status: Chronic Qualifiers: Coronary Disease-Associated Artery/Lesion type: [place] artery [place] vs. transplanted heart: [place] heart Associated angina: without angina Qualified Code(s): I25.10 - Atherosclerotic heart disease of [place] coronary artery without angina pectoris - Constitutional Vitals: Temp Pulse Resp BP Pulse Ox 97.5 F L 77 15 91/52 97 03/23/17 15:00 03/23/17 15:00 03/23/17 15:00 03/23/17 15:00 03/23/17 15:00 Internal Medicine: Result - Labs CBC & Chem 7: 03/23/17 04:30 03/23/17 11:07 Labs: Short CBC 03/23/17 Range/Units 04:30 WBC 148.0 H* (4.3-11.1) K/mcL Hgb 11.0 L (11.5-15.4) g/dL Hct 36.1 (35.3-44.9) % Plt Count 78 L (140-400) K/mcL Neutrophils # 2.7 (1.6-8.9) K/mcL BMP 03/23/17 03/23/17 04:30 11:07 Sodium 135 L Potassium 5.9 H 3.8 D Chloride 104 Carbon Dioxide 28 BUN 15 Creatinine 0.58 Glucose 129 H Calcium 8.4 L - ABG Interpretation ABG results: PT/INR, D-dimer PT 12.2 Seconds (9.4-12.1) H 03/14/17 00:39 - Attending Attestation I examined this patient and my medical decision-making was reviewed with the Resident Physician, Dr Michele. I agree with the documented findings, disposition and treatment plan as described except to the extent set forth below. Patient is in no acute distress awake alert oriented. Abdomen is soft and nontender. Lungs are clear. Plan: Whole plasma potassium is 3.8 today. This supports the diagnosis of pseudohyperkalemia as her total serum potassium is 6.4. For follow-up of gastrin and creatinine levels. Continue to monitor electrolytes and blood counts. Stop Kayexalate.
[2017-03-23] MEDS: 0.9 % Sodium Chloride 1,000 ML IVC SCH ×2 (15:57→16:58)
[2017-03-24] MEDS: Ipratropium/Albuterol Neb 3 ML IH SCH ×3 (04:50→16:13)
[2017-03-24 06:10] LABS: Eosinophils % 0.1 %; Immature Granulocytes % 0.1 % (0-4); Segmented Neutrophils % 1.8 %
[2017-03-24 06:11] LABS: Basophils # 0.3 K/mcL (0.0-0.2); Basophils % 0.2 %; Hematocrit 35.8 % (35.3-44.9); Hemoglobin 10.9 g/dL (11.5-15.4); Lymphocytes % 91.4 %; Mean Corpuscular HGB Conc 30.4 g/dL (31.6-35.5); Mean Corpuscular Hemoglobin 28.1 pg (28.0-33.3); Mean Corpuscular Volume 92.3 fL (83.0-100.0); Mean Platelet Volume 12.2 fL (9.4-12.4); Monocytes % 6.4 %; Red Blood Count 3.88 M/mcL (3.82-4.97); Red Cell Distribution Width 14.5 % (11.5-14.5)
[2017-03-24 06:19] LABS: Eosinophils # 0.2 K/mcL (0.0-0.6); Lymphocytes # 138.5 K/mcL (0.6-4.6); Monocytes # 9.7 K/mcL (0.0-1.3); Neutrophils # 2.7 K/mcL (1.6-8.9); Platelet Count 80 K/mcL (140-400)
[2017-03-24 06:39] LABS: Reactive Lymphocytes Present (Not Present); Smudge Cells Present (Not Present)
[2017-03-24 06:40] LABS: Platelet Estimate Decreased (Normal)
[2017-03-24 08:09] LABS: BUN/Creatinine Ratio 27 (6-26); Blood Urea Nitrogen 17 mg/dL (7-20); Calcium 8.3 mg/dL (8.6-10.8); Carbon Dioxide 26 mEq/L (19-29); Chloride 104 mEq/L (98-109); Glucose 128 mg/dL (70-99); Osmolality,Calculated 287 (280-300); Potassium 3.9 mEq/L (3.5-4.5); Sodium 137 mEq/L (136-145); eGFR For African Americans > 60 (> 60); eGFR For Non-African Americans > 60 (> 60)
[2017-03-24] MEDS: Insulin LISPRO 300 UNITS/3 ML VIAL SQ SCH ×3 (08:56→17:06)
[2017-03-24] MEDS: Doxycycline 100 MG CAPSULE PO SCH (08:59)
[2017-03-24] MEDS: Gabapentin 300 MG CAPSULE PO SCH (08:59)
[2017-03-24] MEDS: Famotidine 20 MG TABLET PO SCH ×2 (08:59→17:06)
[2017-03-24 09:06] LABS: BUN/Creatinine Ratio 28 (6-26); Blood Urea Nitrogen 17 mg/dL (7-20); Calcium 8.5 mg/dL (8.6-10.8); Carbon Dioxide 27 mEq/L (19-29); Chloride 104 mEq/L (98-109); Glucose 113 mg/dL (70-99); Osmolality,Calculated 288 (280-300); Potassium 3.8 mEq/L (3.5-4.5); Sodium 138 mEq/L (136-145); eGFR For African Americans > 60 (> 60); eGFR For Non-African Americans > 60 (> 60)
--- NOTE | 2017-03-24 09:37 | Nephrology Progress Note ---
Date of Encounter: 03/24/17 Time of Encounter: 09:20 - Assessment and Plan (1) Hyperkalemia Current Visit: Yes Status: Acute Potassium is trending better and was WNL on the last two checks. Continue Florinef. No need for Kayexalate today. Reasonable to d/c the urethral sanchez catheter as well today. Agree with IVF to help keep the pt hydrated the serum K+ down. However, with improvement seen in her serum K+ today and the fact that she's eating/drinking, it's time to start de-escalating her care. Okay to d/c the IVF. CLL as per heme/onc. Not clear what their plan is for her. Will follow with you. Thank you. (2) Elevated WBC count Current Visit: Yes Status: Acute Qualifiers: Leukocytosis type: lymphocytosis Qualified Code(s): D72.820 - Lymphocytosis (symptomatic) (3) Hyponatremia Current Visit: Yes Status: Resolved (4) CLL (chronic lymphocytic leukemia) Current Visit: Yes Status: Chronic As per Heme/Onc Subjective Principal diagnosis: hyperkalemia Interval history: Pt was s/e earlier today. She did not affirm CP or N/V. The rectal sanchez has been out but she still has a urethral sanchez. She did not affirm any major complaints. Objective - Vital Signs Vital signs: Vital Signs Temp Pulse Resp BP Pulse Ox 03/24/17 07:12 97.9 F 68 16 124/56 98 03/24/17 04:50 14 99 03/24/17 00:00 98.4 F 79 16 115/65 95 03/23/17 22:27 17 97 03/23/17 20:00 98.2 F 96 16 95/31 98 03/23/17 15:28 16 98 03/23/17 15:00 97.5 F L 77 15 91/52 97 03/23/17 11:00 98.3 F 90 15 97/58 95 03/23/17 10:55 16 99 Intake and Output 03/23/17 03/24/17 03/24/17 23:59 07:59 15:59 Intake Total 800 / 800 0 / 0 Output Total 0 / 0 2400 / 2400 Balance 800 / 800 -2400 / -2400 Intake: Oral 800 / 800 0 / 0 Output: Urine 0 / 0 Catheter 2400 / 2400 Other: # Bowel Movements 2 Blood Glucose* 185 110 - General Appearance General appearance: Present: appears started age, cachectic, fatigue, frail EENT: Present: ATNC, PERRL, mucous membranes moist Neck: Present: supple Respiratory: Present: clear Cardiology: Present: no edema, regular rate, regular rhythm, normal S1, normal S2 Gastrointestinal: Present: normoactive bowel sounds, no tenderness, no guarding Integumentary: Present: warm and dry Neurologic: Present: no focal deficit, no asterixis, alert and oriented x3 Musculoskeletal: Present: no deformities, no clubbing Psychiatric: Present: mood/affect appropriate, cooperative - Lab 03/24/17 05:18 03/24/17 08:28 Most recent lab results Calcium 8.5 mg/dL (8.6-10.8) L 03/24/17 08:28 Phosphorus 3.2 mg/dL (2.3-4.7) 03/23/17 04:30 Magnesium 1.7 mg/dL (1.6-2.6) 03/20/17 04:13 Consult Discharge Plan - Plan Referrals: Stephen Liao MD [Primary Care Provider] -
[2017-03-24] MEDS: Beclomethasone 40mcg MDI IH SCH (10:21)
--- NOTE | 2017-03-24 14:44 | Discharge Summary ---
<Lionel Michele - Last Filed: 03/24/17 17:14> Date of Encounter: 03/24/17 Time of Encounter: 10:00 - Discharge Diagnosis (1) Diverticulitis Priority: Primary Status: Resolved Comments: Patient longer complaining about diarrhea and/or bright blood per rectum. Her hemoglobin has remained stable. Antibiotics have been discontinued. The patient should follow up with primary care as needed Qualifiers: Diverticulitis site: large intestine Diverticulitis bleeding: with bleeding Diverticulitis complication: without perforation or abscess Qualified Code(s): K57.33 - Diverticulitis of large intestine without perforation or abscess with bleeding (2) Hyperkalemia Priority: Secondary Status: Acute Comments: Patient has been followed by nephrology and oncology. Her potassium is trending and has been within normal limits on the last 2 checks. Nephrology recommends continuing Florinef. This hyperkalemia is thought to largely be associated with patient's condition of CLL. We discontinued Kayexalate today due to normal potassium measurements, however we will provide an order for outpatient BMP within the next 3 days and the patient should follow up with primary care within 1 week to manage potassium levels. She will follow up with oncology and hematology outpatient. Nephrology recommends continuing fludrocortisone at this time. We will prescribe appropriate prescription and patient should follow-up with nephrology. (3) COPD (chronic obstructive pulmonary disease) Priority: Secondary Status: Chronic Comments: Patient's COPD is stable at this time. She will continue on her home medication. Qualifiers: COPD type: chronic bronchitis Chronic bronchitis type: simple Qualified Code(s): J41.0 - Simple chronic bronchitis (4) CLL (chronic lymphocytic leukemia) Priority: Secondary Status: Chronic Comments: Patient CLL has been established her heme/onc. He has been arranged for her to follow up as an outpatient with Dr. Ortega for ongoing management. (5) Coronary artery disease Priority: Secondary Status: Chronic Comments: Cardiac status is stable throughout the course of this admission. Qualifiers: Coronary Disease-Associated Artery/Lesion type: red devil artery [place] vs. transplanted heart: red devil heart Associated angina: without angina Qualified Code(s): I25.10 - Atherosclerotic heart disease of red devil coronary artery without angina pectoris (6) Right arm cellulitis Priority: Secondary Status: Resolved Comments: Patient's cellulitis right arm has resolved at this time. Antibiotics have been discontinued. (7) Left arm swelling Priority: Secondary Status: Acute Comments: Mild edema located at the posterior left forearm with area of induration. Doppler ultrasound confirmed superficial venous thrombosis. Patient can use warm compresses as needed to alleviate any pain associated with it. - Discharge Medications Prescriptions: Fludrocortisone Acetate [Florinef] 0.1 mg PO DAILY #30 tablet Home Medications: Albuterol Sulfate [Albuterol Inhaler] 2 puff IH Q4H PRN 03/13/17 [History] Beclomethasone Diprop 40mcg [QVAR 40 mcg] 2 puff IH BID 03/13/17 [History] Clopidogrel [Plavix] 75 mg PO DAILY 03/13/17 [History] Diphenoxylate/Atropine [Lomotil 2.5 mg/0.025 mg] 1 tab PO Q6-8H PRN 03/13/17 [ History] Gabapentin [Neurontin] 300 mg PO QAM 03/13/17 [History] Glimepiride [Amaryl] 4 mg PO DAILY 03/13/17 [History] Ipratropium [ATROVENT Inhaler] 2 puff IH QID 03/13/17 [History] Ipratropium/Albuterol Sulfate [Combivent Respimat Inhal [place]] 1 puff IH QID [History] Pravastatin Sodium [Pravachol] 20 mg PO DAILY 03/13/17 [History] Ranitidine HCl [Zantac] 150 mg PO BID 03/13/17 [History] Fludrocortisone Acetate [Florinef] 0.1 mg PO DAILY #30 tablet 03/24/17 [Rx] Allergies/Adverse Reactions: Allergies Penicillins Allergy (Unknown, Verified 03/13/17 13:00) Hives Sulfa (Sulfonamide Antibiotics) Allergy (Unknown, Verified 03/13/17 13:00) Hives aspirin Adverse Reaction (Unknown, Verified 03/13/17 13:00) Nausea Procedures/tests Complete & Pending: Procedures Performed prior 72 hours Category Date Time Status Venous Doppler [EV venous imaging UE LT] Stat Y 03/23/17 22:26 Completed Date of admission: 03/13/17 14:57 Primary care physician: Stephen Liao MD Consults: 03/14/17 02:22 Consult to Nephrology [CONS] Stat Consulting Provider: Angel Luis Boone Reason for Consult: Hyperkalemia Call Completed: Yes 03/18/17 10:42 Consult to Nutrition [CONS] Routine Comment: for low potassium diet. Consulting Provider: NUTRITION Reason for Dietary Consult: Diet Education 03/20/17 09:45 Consult to Invasive Line Access Team [CONS] Routine Reason for Consult: no iv access Line Type: EPIV 03/20/17 11:15 PICC LINE [Consult to Invasive Line Access Team] [CONS] Stat Reason for Consult: no iv access Line Type: EPIV 03/24/17 10:48 Consult to Occupational Therapy [CONS] Routine Comment: Evaluate, develop and implement POC Reason for Consult: generalized weakness Consult to Physical Therapy [CONS] Routine Comment: Evaluate, develop and implement POC Reason for Consult: generalized weakness Discharging clinician: Montana Dawson Anticipated date of discharge: 03/24/17 - Patient Status Disposition: Home Health Service Condition: Good Overall status at discharge: patient is progressing back to baseline - Ambulatory Orders Ambulatory Orders: Basic Metabolic Panel [CHEM] Time Frame: 1 Week, Location: Any - Discharge Instructions Follow Up With: Stephen Liao MD [Primary Care Provider] - Additional Instructions: Patient will be provided with water for BMP to be done within 3 days as well as follow-up with primary care within 1 week of hospitalization discharge. Patient will be contacted about follow-up with both nephrology and oncology/ hematology - Diet and Activity Activity: increase activity as tolerated Diet: diabetic diet Hospital course: Ms. hSeridan is a 62 year old female with a past medical history of hyperlipidemia and diabetes mellitus type 2 COPD, coronary artery disease. She presented to the hospital for GI bleed on March 13 and was admitted at that time for diverticulitis dictated by GI bleed. She also experienced urinary retention which was alleviated by the insertion of a urethral Givens catheter, and she will remain on IV fluids majority of her stay. She was found to have a significant leukocytosis which was later determined by peripheral blood smear to be CLL. Throughout her admission her white count remained relatively stable. The patient did develop hyperkalemia throughout the course of her stay which required treatment with Kayexalate to decrease her potassium. In the last 2 days of her stay her potassium did return to normal level and Kayexalate was discontinued at that time. Patient also experienced onset of a rash on her right arm which was determined to be cellulitis and was treated with antibiotics accordingly. She did later experience erythema and ecchymosis on the left upper extremity both proximally and distal to the insertion of her intravenous catheter. Duplex ultrasound demonstrated the presence of a superficial venous thrombosis. This rash has resolved prior to discharge. Patient was followed closely by oncology and nephrology throughout her stay. At present patient's Givens catheter and IV fluids discontinued she is no longer on any antibiotics, and she is no longer taking Kayexalate. She still complains of some moderate fatigue however she says that this is generally her baseline. - Time Spent with Patient Total time spent providing and/or coordinating discharge services: - Constitutional Vitals: Temp Pulse Resp BP Pulse Ox 97.8 F 79 18 90/64 94 03/24/17 11:37 03/24/17 11:37 03/24/17 11:37 03/24/17 11:37 03/24/17 11:37 General appearance: Present: cachectic, disheveled, A&O X 2, no acute distress, underweight - Head Head exam: Present: atraumatic, normocephalic - Eye Eye exam: Present: PERRL, conjuntiva pink, sclera anicteric Pupils: Present: PERRL - Neck Neck exam general surgery: Present: supple, trachea midline. Absent: lymphadenopathy - Respiratory Respiratory exam: Present: wheezes. Absent: accessory muscle use, rales, rhonchi Additional comments: Mild expiratory wheezes in upper lobes b/l - Cardiovascular Cardiovascular exam: Present: RRR, +S1, +S2. Absent: diastolic murmur, gallop, rubs, systolic murmur - GI/Abdominal GI/Abdominal exam: Present: normal bowel sounds, soft, no peritoneal signs. Absent: distended, tenderness - Extremities Exam Extremities exam: Present: warm, radial pulses palpable and symetrical. Absent : calf tenderness, cyanotic, pedal edema Additional comments: LUE: Erythema and ecchymosis noted in both proximal and distal to the site of IV insertion. Small area of induration noted on the superior portion of forearm. Patient denies any tenderness to palpation. - Neurological Exam Neurological exam: Present: CN II-XII intact, oriented X3, no focal deficits. Absent: pronater drift, facial droop, speech deficit - Skin Skin exam: Present: dry, intact <Montana Dawson - Last Filed: 03/24/17 18:40> Date of Encounter: 03/24/17 - Discharge Diagnosis (1) Diverticulitis Status: Resolved Qualifiers: Diverticulitis site: large intestine Diverticulitis bleeding: with bleeding Diverticulitis complication: without perforation or abscess Qualified Code(s): K57.33 - Diverticulitis of large intestine without perforation or abscess with bleeding (2) Elevated WBC count Status: Acute Qualifiers: Leukocytosis type: lymphocytosis Qualified Code(s): D72.820 - Lymphocytosis (symptomatic) (3) Hyperkalemia Status: Acute (4) COPD (chronic obstructive pulmonary disease) Status: Chronic Qualifiers: COPD type: chronic bronchitis Chronic bronchitis type: simple Qualified Code(s): J41.0 - Simple chronic bronchitis (5) CLL (chronic lymphocytic leukemia) Status: Chronic (6) Right arm cellulitis Status: Resolved (7) Urinary retention Status: Acute (8) Coronary artery disease Status: Chronic Qualifiers: Coronary Disease-Associated Artery/Lesion type: red devil artery [place] vs. transplanted heart: red devil heart Associated angina: without angina Qualified Code(s): I25.10 - Atherosclerotic heart disease of red devil coronary artery without angina pectoris Procedures/tests Complete & Pending: Procedures Performed prior 72 hours Category Date Time Status ECG 12 lead ECG [ECG] Stat Y 03/24/17 16:27 Ordered Venous Doppler [EV venous imaging UE LT] Stat Y 03/23/17 22:26 Completed Date of admission: 03/13/17 14:57 Primary care physician: Stephen Liao MD Consults: 03/14/17 02:22 Consult to Nephrology [CONS] Stat Consulting Provider: Angel Luis Boone Reason for Consult: Hyperkalemia Call Completed: Yes 03/18/17 10:42 Consult to Nutrition [CONS] Routine Comment: for low potassium diet. Consulting Provider: NUTRITION Reason for Dietary Consult: Diet Education 03/20/17 09:45 Consult to Invasive Line Access Team [CONS] Routine Reason for Consult: no iv access Line Type: EPIV 03/20/17 11:15 PICC LINE [Consult to Invasive Line Access Team] [CONS] Stat Reason for Consult: no iv access Line Type: EPIV 03/24/17 10:48 Consult to Occupational Therapy [CONS] Routine Comment: Evaluate, develop and implement POC Reason for Consult: generalized weakness Consult to Physical Therapy [CONS] Routine Comment: Evaluate, develop and implement POC Reason for Consult: generalized weakness Hospital course: Ms. Sheridan is a 62 year old female - Time Spent with Patient Total time spent providing and/or coordinating discharge services: - Constitutional Vitals: Temp Pulse Resp BP Pulse Ox 97.9 F 81 18 98/68 100 03/24/17 16:36 03/24/17 16:36 03/24/17 16:36 03/24/17 17:10 03/24/17 16:36 - Attending Attestation I examined this patient and my medical decision-making was reviewed with the Resident Physician, Dr Michele. I agree with the documented findings, disposition and treatment plan as described except to the extent set forth below. Patient was admitted to the hospital. Treated for acute diverticulitis. Her abdominal pain has resolved. She had hyperkalemia which currently has resolved. She was started on Florinef. Aldosterone level and renal and activity level are pending and should be followed up by nephrology. I have spent 40 minutes coordinating this discharge.
--- NOTE | 2017-03-24 15:34 | Physician Discharge Referral ---
Home Health/Hosp Referral Info Transfer to: Home Health Attending Provider: maxx Provider in Charge Post Discharge: PCP - Diagnosis (1) Diverticulitis Status: Resolved (2) Hyperkalemia Priority: Secondary Status: Acute (3) COPD (chronic obstructive pulmonary disease) Priority: Secondary Status: Chronic (4) CLL (chronic lymphocytic leukemia) Priority: Secondary Status: Chronic (5) Coronary artery disease Priority: Secondary Status: Chronic (6) Right arm cellulitis Priority: Secondary Status: Resolved (7) Left arm swelling Priority: Secondary Status: Acute - Respiratory Orders Smoking Cessation: Smoking cessation has been advised. For more information, call the [place] Tobacco Quit Line at 2-687-NXVO-NOW. - Diet/Nutrition Diet/Nutrition Orders: Cardiac Diet/Nutrition: List: Diabetic - Activity Activity Orders: Ambulate - Services Needed Following services are medically necessary services: Nursing - Transfer Medications Prescriptions: Fludrocortisone Acetate [Florinef] 0.1 mg PO DAILY #30 tablet Home Medications: Albuterol Sulfate [Albuterol Inhaler] 2 puff IH Q4H PRN 03/13/17 [History] Beclomethasone Diprop 40mcg [QVAR 40 mcg] 2 puff IH BID 03/13/17 [History] Clopidogrel [Plavix] 75 mg PO DAILY 03/13/17 [History] Diphenoxylate/Atropine [Lomotil 2.5 mg/0.025 mg] 1 tab PO Q6-8H PRN 03/13/17 [ History] Gabapentin [Neurontin] 300 mg PO QAM 03/13/17 [History] Glimepiride [Amaryl] 4 mg PO DAILY 03/13/17 [History] Ipratropium [ATROVENT Inhaler] 2 puff IH QID 03/13/17 [History] Ipratropium/Albuterol Sulfate [Combivent Respimat Inhal [place]] 1 puff IH QID [History] Pravastatin Sodium [Pravachol] 20 mg PO DAILY 03/13/17 [History] Ranitidine HCl [Zantac] 150 mg PO BID 03/13/17 [History] Fludrocortisone Acetate [Florinef] 0.1 mg PO DAILY #30 tablet 03/24/17 [Rx] Allergies/Adverse Reactions: Allergies Penicillins Allergy (Unknown, Verified 03/13/17 13:00) Hives Sulfa (Sulfonamide Antibiotics) Allergy (Unknown, Verified 03/13/17 13:00) Hives aspirin Adverse Reaction (Unknown, Verified 03/13/17 13:00) Nausea Certification: Further, I certify that my clinical findings support that this patient is homebound (i.e. absences from home require considerable and taxing effort and are for medical reasons or sabianist services or infrequently or short duration when for other reasons) because: Homebound Reason: Leaving home requires considerable and taxing effort due to condition Attestation: My signature below is to certify that this patient is under my care and that I, or nurse practitioner, or a physician's cleaner assistant working with me, has a face-to -face encounter with this patient.
[2017-03-24 17:10] VITALS: BP 98/68
--- NOTE | 2017-03-25 07:20 | Venous Imaging Report ---
UE Venous Duplex Patient Name:Domenica Sheridan Order Number:[id number] Procedure Date:03/24/2017 Date:1955ge:62 yrs Gender:Female Location:[facility] Room #: Crime Laboratory Analyst:Cecil Ruiz RDCS Referring MD:DO Marina Elaine MD:John Shea MD Primary Indications:Swelling of limb Secondary Indications: Risk Factors Yes/No Anticoagulants Impressions: Normal left upper extremity deep venous exam. Acute superficial thrombosis is present in the left cephalic vein. Normal contralateral subclavian vein. Findings Venous Duplex Results: Right: Venous imaging of the upper extremity reveals full patency and normal vessel compressibility of the right subclavian. Doppler signals in the evaluated veins were normal. Left: Venous imaging of the upper extremity reveals full patency and normal vessel compressibility of the left jugular, left subclavian, left axillary, left brachial, left cephalic, left cephalic upper arm, left basilic, left basilic upper arm, left basilic forearm, left radial and left ulnar. Doppler signals in the evaluated veins were normal. The left cephalic forearm demonstrates an incompressible vein. Flow was absent and it did not augment. Upper Extremity Venous Duplex Side Vein Compress Spontaneous Flow Augment Left Basilic Upper Arm Normal Yes Phasic Yes Left Basilic Forearm Normal Yes Phasic Yes Left Radial Normal Yes Phasic Yes Left Ulnar Normal Yes Phasic Yes Right Subclavian Normal Yes Phasic Yes Left Jugular Normal Yes Phasic Yes Left Subclavian Normal Yes Phasic Yes Left Axillary Normal Yes Phasic Yes Left Brachial Normal Yes Phasic Yes Left Cephalic Normal Yes Phasic Yes Left Cephalic Upper Arm Normal Yes Phasic Yes Left Cephalic Forearm None no Absent no Left Basilic Normal Yes Phasic Yes Updated by John Shea MD on 03/25/2017 7:15:01 AM electronically signed on 03/25/2017 7:15:12 AM with status of Final
--- NOTE | 2017-03-25 11:52 | Electrocardiograph Report ---
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
== END 2017-03-24 18:06 | disposition home health service (06) | DRG 244 ==
LOC: EMEROO 09:53 → 3BNU 09:53 → 2NENU 14:25 → SUATTDRO 14:57 → ICNU 03-14 04:09 → 2NENU 03-16 17:11
PROVIDERS: ADMIT Internal Medicine; ATTEND Internal Medicine

== ENCOUNTER 2017-09-09 18:07 | Inpatient (IN) ==
[2017-09-09] MEDS ORDERED: methylPREDNISolone 125 MG/2 ML VIAL IVP ONE (18:16)
[2017-09-09] MEDS ORDERED: Ipratropium/Albuterol Neb 3 ML IH ONE ×2 (18:16→18:17)
[2017-09-09] MEDS ORDERED: 0.9 % Sodium Chloride 1,000 ML IVC ONE (18:16)
--- NOTE | 2017-09-09 18:21 | Emergency Department Note ---
Disposition Clinical Impression: HCAP (healthcare-associated pneumonia), Hypoxia Disposition: Admitted As Inpatient Condition: Fair Forms: ED Satisfaction Letter Time of Disposition: 00:38 SOB HPI - General Chief Complaint: ED Shortness of Breath/Dyspnea Stated Complaint: Shortness of Breath Time Seen by Provider: 09/09/17 18:16 Source: EMS Nursing Notes Reviewed: Yes Vital Signs Reviewed: Yes - History of Present Illness Patient is a 62-year-old female brought in from [facility] for shortness of breath and hypoxia with a O2 sat 50s. Patient was given a DuoNeb therapy and placed on oxygen. EMS arrived and states patient was breathing better at that time. Patient is recently discharged from [facility] from inpatient therapy for pneumonia. Patient is a DNR CCA. Patient states she does not want BiPAP - Related Data Home Medications Medication Instructions Recorded Confirmed Diphenoxylate/Atropine [Lomotil 1 tab PO QID PRN 03/13/17 09/09/17 2.5 mg/0.025 mg] Gabapentin [Neurontin] 300 mg PO DAILY 03/13/17 09/09/17 Glimepiride [Amaryl] 4 mg PO QAM 03/13/17 09/09/17 Ranitidine HCl [Zantac] 150 mg PO BID 03/13/17 09/09/17 Allopurinol [Zyloprim 300 MG] 300 mg PO DAILY 09/09/17 09/09/17 Atorvastatin [Lipitor] 40 mg PO HS 09/09/17 09/09/17 Budesonide/Formoterol 160/4.5 2 puff IH BIDR 09/09/17 09/09/17 [Symbicort 160/4.5] Carvedilol [Coreg] 25 mg PO BID 09/09/17 09/09/17 Ferrous Sulfate 324 mg PO BID 09/09/17 09/09/17 Furosemide [Lasix] 40 mg PO DAILY 09/09/17 09/09/17 Glucagon, Human Recombinant 1 mg IM ONCE PRN 09/09/17 09/09/17 [GlucaGen] HydrOXYzine 10 mg PO TID PRN 09/09/17 09/09/17 Lisinopril [Zestril] 20 mg PO DAILY 09/09/17 09/09/17 Melatonin [Melatin] 6 mg PO HS 09/09/17 09/09/17 Prochlorperazine Maleate 10 mg PO Q6H PRN 09/09/17 09/09/17 [Compazine] Tramadol HCl [Ultram] 50 mg PO Q6H PRN 09/09/17 09/09/17 Allergies Allergy/AdvReac Type Severity Reaction Status Date / Time Penicillins Allergy Unknown Hives Verified 03/13/17 13:00 Sulfa (Sulfonamide Allergy Unknown Hives Verified 03/13/17 13:00 Antibiotics) aspirin AdvReac Unknown Nausea Verified 03/13/17 13:00 All systems ED: reviewed and negative except as stated. Review of Systems: As Per HPI Constitutional: Denies: fever ENT ED: Reports: congestion Cardiovascular: Denies: chest pain Respiratory: Reports: cough, dyspnea Past Medical History - Past Medical History Attestation: Yes The following information was validated with the patient. Source: patient, nursing notes reviewed Medical history: Reports: asthma, cancer, COPD Psychiatric history: Reports: no psych history - Social History Smoking Status: Current every day smoker Smokeless Tobacco Status: No Alcohol use: Reports: none Drug use: Reports: none Physical Exam Vital Signs Temperature 98.4 F 09/09/17 18:08 Pulse Rate 77 09/09/17 18:08 Respiratory Rate 26 09/09/17 18:08 Blood Pressure 147/62 09/09/17 18:08 O2 Sat by Pulse Oximetry 100 09/09/17 18:08 Temperature 98.4 F 09/09/17 18:08 Pulse Rate 77 09/09/17 18:08 Respiratory Rate 18 09/09/17 18:24 Blood Pressure 147/62 09/09/17 18:08 O2 Sat by Pulse Oximetry 97 09/09/17 18:24 Oxygen Delivery Oxygen Delivery Non Rebreather Mask 62-year-old female who is alert and oriented 3 and in no acute distress at this time. Patient is nontoxic appearing - General General appearance: alert, in no apparent distress - Head Head exam: atraumatic, normocephalic, normal inspection - Eye Eye exam: Present: normal appearance, PERRL, EOMI - ENT ENT exam: normal exam, normal oropharynx, mucous membranes dry - Neck Neck exam: Present: normal inspection, full ROM, trachea midline - Chest Chest inspection: Present: normal inspection, symmetric chest wall rise - Respiratory Respiratory exam: Present: other (Decreased lung sounds right lower lobe in comparison to the left). Absent: respiratory distress, wheezes - Cardiovascular Cardiovascular exam: Present: regular rate, normal rhythm, normal heart sounds - Abdominal Exam Abdominal exam: Present: soft, Non-Tender. Absent: tenderness, distention, guarding, rebound, rigidity - Extremities Exam Extremities exam: Present: normal inspection, full ROM, pedal edema (Bilateral lower extremity edema 1+ pitting no tenderness to palpation laterally distal pulses intact. Dorsal pedal and posterior tibial.). Absent: tenderness - Back Exam Back exam: Present: normal inspection, full ROM. Absent: tenderness, CVA tenderness (R), CVA tenderness (L) - Neurological Exam Neurological exam: Present: alert, oriented X3 - Skin Skin exam: Present: warm, dry, intact, normal color Course Vital Signs Temperature 98.4 F 09/09/17 18:08 Pulse Rate 77 09/09/17 18:08 Respiratory Rate 26 09/09/17 18:08 Blood Pressure 147/62 09/09/17 18:08 O2 Sat by Pulse Oximetry 100 09/09/17 18:08 Temperature 98.4 F 09/09/17 18:08 Pulse Rate 90 09/09/17 19:46 Respiratory Rate 20 09/09/17 19:46 Blood Pressure 144/55 09/09/17 19:46 O2 Sat by Pulse Oximetry 98 09/09/17 19:46 Oxygen Delivery Oxygen Delivery Nasal Cannula Shortness of Breath/Dyspnea - [facility] Narrative Medical decision making narrative: Reevaluation, 1855 hrs. Patient's completed her DuoNeb therapy. Patient on nasal cannula to maintain O2 saturations. Comes off O2 her O2 sats continued to go down past 86% patient currently on 4 L via nasal cannula to maintain O2 sat 94%. Patient most likely has an acute exacerbation of her symptoms. Currently going to rehabilitation secondary to inpatient therapy for pneumonia. Patient has history of COPD the patient currently doing well on 4 L via nasal cannula. Patient has normal mentation and is currently eating. ABG shows CO2 retention 1 point higher than allowable competition for bicarbonate elevation. 4 acute on chronic respiratory acidosis with metabolic compensation. Chest x-ray results: MPRESSION: Bilateral lower lobe airspace disease, right greater than left. Findings concerning for acute pneumonia. There was an problem with obtaining patient's labs. Patient has poor vascular access. I performed a femoral stick of the right femoral vein and obtain the necessary blood labs and cultures. Patient's lab work revealed no elevation of lactic acid and mild worsening of patient's anemia. Still around normal baseline for patient. Patient has appetite and would like to eat. We gave patient whether we can find to eat since the kitchen is closed. Patient still complains about wanting food. Diet has been ordered. Patient has HCAP and be started on vancomycin, Zosyn and meropenem secondary to penicillin allergy. Patient's currently doing well. Dr. Odonnell the hospitalist has accepted the patient for admission at 2246 hrs. - Lab Data Lab results reviewed: Yes I reviewed the patient's lab results. Lab results narrative: Short CBC 09/09/17 Range/Units 21:10 WBC 7.8 (4.3-11.1) K/mcL Hgb 8.6 L (11.5-15.4) g/dL Hct 29.7 L (35.3-44.9) % Plt Count 118 L (140-400) K/mcL Neutrophils # 2.3 (1.6-8.9) K/mcL BMP 09/09/17 Range/Units 21:10 Sodium 139 (136-145) mEq/L Potassium 3.8 (3.5-5.1) mEq/L Chloride 97 L (98-107) mEq/L Carbon Dioxide 38 H (23-29) mEq/L BUN 16 (8-23) mg/dL Creatinine 0.43 L (0.60-1.20) mg/dL Glucose 315 H (70-105) mg/dL Calcium 8.6 (8.6-10.3) mg/dL Cardiac Enzymes 09/09/17 Range/Units 21:10 Troponin I < 0.03 (< 0.04) ng/mL Urine 09/09/17 Range/Units 20:11 Urine Color Yellow (Yellow) Urine Clarity Clear (Clear) Urine pH 7.0 (5.0-8.0) pH Units Ur Specific [place] 1.015 (1.010-1.025) Urine Protein 30 H (Neg-Trace) mg/dL Urine Glucose (UA) Normal (Normal) mg/dL Result diagrams: 09/09/17 21:10 09/09/17 21:10 Lab Results 12/21/17 12/21/17 12/21/17 Range/Units 18:31 20:11 21:10 WBC (4.3-11.1) K/mcL RBC (3.82-4.97) M/mcL Hgb (11.5-15.4) g/dL Hct (35.3-44.9) % MCV (83.0-100.0) fL MCH (28.0-33.3) pg MCHC (31.6-35.5) g/dL RDW (11.5-14.5) % Plt Count (140-400) K/mcL MPV (9.4-12.4) fL Immature Gran % (0-4) % Seg Neutrophils % % Lymphocytes % % Monocytes % % Eosinophils % % Basophils % % Neutrophils # (1.6-8.9) K/mcL Lymphocytes # (0.6-4.6) K/mcL Monocytes # (0.0-1.3) K/mcL Eosinophils # (0.0-0.6) K/mcL Basophils # (0.0-0.2) K/mcL Nucleated RBCs/100 WBC (0) /100 WBC Immature Plt Fraction (1.1-6.1) % PT 11.8 (9.4-12.1) Seconds INR 1.1 APTT 32.1 (26.0-36.0) Seconds ABG pH 7.36 (7.32-7.45) pH Units ABG pCO2 79 H* (35-45) mmHg ABG pO2 100 (85-104) mmHg ABG HCO3 45 H (21-27) mEq/L ABG Total CO2 47 H (20-26) mEq/L ABG O2 Saturation 97 (95-98) % ABG Base Excess 17 H (-2 to 3) mEq/L Sodium (136-145) mEq/L Potassium (3.5-5.1) mEq/L Chloride (98-107) mEq/L Carbon Dioxide (23-29) mEq/L BUN (8-23) mg/dL Creatinine (0.60-1.20) mg/dL Est GFR ( Amer) (> 60) Est GFR (Non-Af Amer) (> 60) BUN/Creatinine Ratio (6-26) Glucose (70-105) mg/dL Calculated Osmolality (280-300) Lactic Acid (0.5-2.2) mmol/L Calcium (8.6-10.3) mg/dL Troponin I (< 0.04) ng/mL B-Natriuretic Peptide (Less than 100) pg/mL Urine Color Yellow (Yellow) Urine Clarity Clear (Clear) Urine pH 7.0 (5.0-8.0) pH Units Ur Specific [place] 1.015 (1.010-1.025) Urine Protein 30 H (Neg-Trace) mg/dL Urine Glucose (UA) Normal (Normal) mg/dL Urine Ketones Negative (Negative) mg/dL Urine Blood Moderate H (Negative) Urine Nitrite Negative (Negative) Urine Bilirubin Negative (Negative) Urine Urobilinogen Normal (Normal) mg/dL Ur Leukocyte Esterase Small H (Negative) Urine Microscopic RBC 0-3 (0-3) per hpf Urine Microscopic WBC 15-30 H (0-3) per hpf Ur Squamous Epith Cells Many H (None-Few) per lpf Urine Bacteria Few (None-Few) per hpf Hyaline Casts None Seen (None-Few) per lpf Urine Yeast Moderate H (None Seen) per hpf Ur Culture Indicated? NO (NO) Person Notif of [place] 09/09/17 09/09/17 09/09/17 Range/Units 21:10 21:10 21:10 WBC 7.8 (4.3-11.1) K/mcL RBC 2.99 L (3.82-4.97) M/mcL Hgb 8.6 L (11.5-15.4) g/dL Hct 29.7 L (35.3-44.9) % MCV 99.3 (83.0-100.0) fL MCH 28.8 (28.0-33.3) pg MCHC 29.0 L (31.6-35.5) g/dL RDW 17.5 H (11.5-14.5) % Plt Count 118 L (140-400) K/mcL MPV 11.4 (9.4-12.4) fL Immature Gran % 0.3 (0-4) % Seg Neutrophils % 29.9 % Lymphocytes % 63.3 % Monocytes % 6.3 % Eosinophils % 0.1 % Basophils % 0.1 % Neutrophils # 2.3 (1.6-8.9) K/mcL Lymphocytes # 5.0 H (0.6-4.6) K/mcL Monocytes # 0.5 (0.0-1.3) K/mcL Eosinophils # 0.0 (0.0-0.6) K/mcL Basophils # 0.0 (0.0-0.2) K/mcL Nucleated RBCs/100 WBC 0.3 H (0) /100 WBC Immature Plt Fraction 6.1 (1.1-6.1) % PT (9.4-12.1) Seconds INR APTT (26.0-36.0) Seconds ABG pH (7.32-7.45) pH Units ABG pCO2 (35-45) mmHg ABG pO2 (85-104) mmHg ABG HCO3 (21-27) mEq/L ABG Total CO2 (20-26) mEq/L ABG O2 Saturation (95-98) % ABG Base Excess (-2 to 3) mEq/L Sodium 139 (136-145) mEq/L Potassium 3.8 (3.5-5.1) mEq/L Chloride 97 L (98-107) mEq/L Carbon Dioxide 38 H (23-29) mEq/L BUN 16 (8-23) mg/dL Creatinine 0.43 L (0.60-1.20) mg/dL Est GFR ( Amer) > 60 (> 60) Est GFR (Non-Af Amer) > 60 (> 60) BUN/Creatinine Ratio 37 H (6-26) Glucose 315 H (70-105) mg/dL Calculated Osmolality 301 H (280-300) Lactic Acid (0.5-2.2) mmol/L Calcium 8.6 (8.6-10.3) mg/dL Troponin I (< 0.04) ng/mL B-Natriuretic Peptide 1494 H (Less than 100) pg/mL Urine Color (Yellow) Urine Clarity (Clear) Urine pH (5.0-8.0) pH Units Ur Specific [place] (1.010-1.025) Urine Protein (Neg-Trace) mg/dL Urine Glucose (UA) (Normal) mg/dL Urine Ketones (Negative) mg/dL Urine Blood (Negative) Urine Nitrite (Negative) Urine Bilirubin (Negative) Urine Urobilinogen (Normal) mg/dL Ur Leukocyte Esterase (Negative) Urine Microscopic RBC (0-3) per hpf Urine Microscopic WBC (0-3) per hpf Ur Squamous Epith Cells (None-Few) per lpf Urine Bacteria (None-Few) per hpf Hyaline Casts (None-Few) per lpf Urine Yeast (None Seen) per hpf Ur Culture Indicated? (NO) Person Notif of Crit 09/09/17 09/09/17 Range/Units 21:10 21:10 WBC (4.3-11.1) K/mcL RBC (3.82-4.97) M/mcL Hgb (11.5-15.4) g/dL Hct (35.3-44.9) % MCV (83.0-100.0) fL MCH (28.0-33.3) pg MCHC (31.6-35.5) g/dL RDW (11.5-14.5) % Plt Count (140-400) K/mcL MPV (9.4-12.4) fL Immature Gran % (0-4) % Seg Neutrophils % % Lymphocytes % % Monocytes % % Eosinophils % % Basophils % % Neutrophils # (1.6-8.9) K/mcL Lymphocytes # (0.6-4.6) K/mcL Monocytes # (0.0-1.3) K/mcL Eosinophils # (0.0-0.6) K/mcL Basophils # (0.0-0.2) K/mcL Nucleated RBCs/100 WBC (0) /100 WBC Immature Plt Fraction (1.1-6.1) % PT (9.4-12.1) Seconds INR APTT (26.0-36.0) Seconds ABG pH (7.32-7.45) pH Units ABG pCO2 (35-45) mmHg ABG pO2 (85-104) mmHg ABG HCO3 (21-27) mEq/L ABG Total CO2 (20-26) mEq/L ABG O2 Saturation (95-98) % ABG Base Excess (-2 to 3) mEq/L Sodium (136-145) mEq/L Potassium (3.5-5.1) mEq/L Chloride (98-107) mEq/L Carbon Dioxide (23-29) mEq/L BUN (8-23) mg/dL Creatinine (0.60-1.20) mg/dL Est GFR ( Amer) (> 60) Est GFR (Non-Af Amer) (> 60) BUN/Creatinine Ratio (6-26) Glucose (70-105) mg/dL Calculated Osmolality (280-300) Lactic Acid 0.9 (0.5-2.2) mmol/L Calcium (8.6-10.3) mg/dL Troponin I < 0.03 (< 0.04) ng/mL B-Natriuretic Peptide (Less than 100) pg/mL Urine Color (Yellow) Urine Clarity (Clear) Urine pH (5.0-8.0) pH Units Ur Specific [place] (1.010-1.025) Urine Protein (Neg-Trace) mg/dL Urine Glucose (UA) (Normal) mg/dL Urine Ketones (Negative) mg/dL Urine Blood (Negative) Urine Nitrite (Negative) Urine Bilirubin (Negative) Urine Urobilinogen (Normal) mg/dL Ur Leukocyte Esterase (Negative) Urine Microscopic RBC (0-3) per hpf Urine Microscopic WBC (0-3) per hpf Ur Squamous Epith Cells (None-Few) per lpf Urine Bacteria (None-Few) per hpf Hyaline Casts (None-Few) per lpf Urine Yeast (None Seen) per hpf Ur Culture Indicated? (NO) Person Notif of Crit - Radiology Data Radiology results reviewed: Yes I reviewed the patient's radiology results. Chest X-Ray 09/09/17 18:33 IMPRESSION: Bilateral lower lobe airspace disease, right greater than left. Findings concerning for acute pneumonia D/ / Antwon Bundy MD / Antwon Bundy MD Interpreting Provider: Antwon Bundy MD - EKG Data EKG attestation: Yes I reviewed and interpreted this EKG. EKG results narrative: EKG taken 09/09/2017 at 1813 hrs. shows a sinus rhythm at a rate of 76 bpm. Patient signs of right bundle branch block which is not new. Patient has pretty same morphology to previous EKGs taken March 2017. This EKG shows no change from previous morphology.
--- NOTE | 2017-09-09 18:27 | Emergency Department Note ---
START Narrative - START START: I examined this patient and my medical decision-making was reviewed with the Resident Physician. I agree with the documented findings, disposition and treatment plan as described except to the extent set forth below. 62 year old female presents to the eD via ems from residential where she had transferred to [facility] from the discharge from the hospital for pnuemonia rehab. Patient who is suppose to be on 2LNC at all times was on RA and becamse hypoxic to 56% and then when EMS arived residential had her on 3lNC and she was low 80%, EMS placed her on NRB and now she is 100%. Patient is DNR-CCA/DNI. WE will do cardiopulmonary workup
[2017-09-09 18:37] LABS: ABG Base Excess 17 mEq/L (-2 to 3); ABG HCO3 45 mEq/L (21-27); ABG Oxygen Saturation 97 % (95-98); ABG PCO2 79 mmHg (35-45); ABG PH 7.36 pH Units (7.32-7.45); ABG PO2 100 mmHg (85-104); ABG TCO2 47 mEq/L (20-26)
[2017-09-09] MEDS ORDERED: Vancomycin 750 MG in D5% in Water 250 ML IVPB ONE ×2 (19:14→19:30)
[2017-09-09] MEDS ORDERED: Levofloxacin 750 MG/150 ML 750 MG/150 ML BAG IVPB ONE (19:14)
[2017-09-09 20:19] LABS: Bilirubin,Urine Negative (Negative); Blood,Urine Moderate (Negative); Clarity,Urine Clear (Clear); Color,Urine Yellow (Yellow); Glucose,Urine (UA) Normal (Normal); Ketones,Urine Negative (Negative); Leukocyte Esterase,Urine Small (Negative); Nitrite,Urine Negative (Negative); Protein,Urine 30 mg/dL (Neg-Trace); Specific Gravity,Urine 1.015 (1.010-1.025); Urobilinogen,Urine Normal (Normal)
[2017-09-09 20:24] LABS: Bacteria,Urine Few per hpf (None-Few); Hyaline Casts,Urine None Seen per lpf (None-Few); Squamous Epithelial Cell,Urine Many per lpf (None-Few); WBC,Urine 15-30 per hpf (0-3)
[2017-09-09 20:34] LABS: RBC,Urine 0-3 per hpf (0-3); Yeast,Urine Moderate per hpf (None Seen)
[2017-09-09 21:31] LABS: Basophils % 0.1 %; Eosinophils % 0.1 %; Hematocrit 29.7 % (35.3-44.9); Hemoglobin 8.6 g/dL (11.5-15.4); Immature Granulocytes % 0.3 % (0-4); Immature Platelets 6.1 % (1.1-6.1); Lymphocytes % 63.3 %; Mean Corpuscular Hemoglobin 28.8 pg (28.0-33.3); Mean Corpuscular Volume 99.3 fL (83.0-100.0); Mean Platelet Volume 11.4 fL (9.4-12.4); Monocytes # 0.5 K/mcL (0.0-1.3); Monocytes % 6.3 %; Neutrophils # 2.3 K/mcL (1.6-8.9); Nucleated Red Blood Cells 0.3 /100 WBC (0); Platelet Count 118 K/mcL (140-400); Red Blood Count 2.99 M/mcL (3.82-4.97); Red Cell Distribution Width 17.5 % (11.5-14.5); Segmented Neutrophils % 29.9 %
[2017-09-09 21:35] LABS: INR 1.1; Prothrombin Time 11.8 Seconds (9.4-12.1)
[2017-09-09 21:38] LABS: Activated Partial Thrombo Time 32.1 Seconds (26.0-36.0)
[2017-09-09 21:44] LABS: BUN/Creatinine Ratio 37 (6-26); Blood Urea Nitrogen 16 mg/dL (8-23); Calcium 8.6 mg/dL (8.6-10.3); Carbon Dioxide 38 mEq/L (23-29); Chloride 97 mEq/L (98-107); Glucose 315 mg/dL (70-105); Osmolality,Calculated 301 (280-300); Potassium 3.8 mEq/L (3.5-5.1); Sodium 139 mEq/L (136-145); eGFR For African Americans > 60 (> 60); eGFR For Non-African Americans > 60 (> 60)
[2017-09-10] MEDS ORDERED: Ipratropium/Albuterol Neb 3 ML IH PRN (01:39)
[2017-09-10] MEDS ORDERED: Meropenem 500 MG in 0.9 % Sodium Chloride Mini Bag 100 ML IVPB ONE ×2 (02:38→19:16)
[2017-09-10] MEDS ORDERED: Meropenem 500 MG in Water for inj. (sterile) 10 ML IVP ONE (03:00)
--- NOTE | 2017-09-10 03:22 | Internal Med History&Physical ---
Date of Encounter: 09/10/17 Time of Encounter: 02:11 Assessment and Plan (1) Acute respiratory failure with hypoxia and hypercarbia Current visit: No Status: Acute Vancomycin, meropenem, duo nebs, prednisone. continue supplemental O2 as needed. (2) Healthcare-associated pneumonia Current visit: Yes Status: Acute Continue vancomyin and meropenem. Would consider switch to Cefepime. Unsure of what type of reaction patient has to penicillins. She has incoherent speech at baseline (3) COPD exacerbation Current visit: Yes Status: Acute Start Duo Nebs, Prednisone. Will continue Vanc and meropenem (4) Coronary artery disease Current visit: No Status: Chronic continue lipitor, coreg. Allergic to aspirin Qualifiers: Coronary Disease-Associated Artery/Lesion type: [place] artery [place] vs. transplanted heart: [place] heart Associated angina: without angina Qualified Code(s): I25.10 - Atherosclerotic heart disease of [place] coronary artery without angina pectoris (5) Diabetes mellitus type 2 in nonobese Current visit: No Status: Chronic resume home medications. (6) Hypertension Current visit: No Status: Acute Qualifiers: Hypertension type: essential hypertension Qualified Code(s): I10 - Essential (primary) hypertension Internal Medicine - H&P: HPI History of present illness: Ms. Sheridan is a 62 year old female with history of COPD was brought in from [facility] for hypoxia with O2 saturations in 50s and complaints of shortness of breath. She was given Duo Neb therapy and placed on oxygen. She was recently discharged from [facility] after being admitted for pneumonia. ABG in ED showed CO2 retention butchronic. Chestxay showed findings concerning for acute pneumonia. In ED she was started on Vancomycin and meropenem. She is currently in no acute distress. Past Med Surg Social Fam HX - Past Medical History Medical history: asthma, cancer, COPD Psychiatric history: no psych history - Social History Smoking Status: Current every day smoker Smokeless Tobacco Status: No Alcohol use: none Drug use: none Internal Medicine - H&P: Meds Diphenoxylate/Atropine [Lomotil 2.5 mg/0.025 mg] 1 tab PO QID PRN 03/13/17 [ History] Gabapentin [Neurontin] 300 mg PO DAILY 03/13/17 [History] Glimepiride [Amaryl] 4 mg PO QAM 03/13/17 [History] Ranitidine HCl [Zantac] 150 mg PO BID 03/13/17 [History] Allopurinol [Zyloprim 300 MG] 300 mg PO DAILY 09/09/17 [History] Atorvastatin [Lipitor] 40 mg PO HS 09/09/17 [History] Budesonide/Formoterol 160/4.5 [Symbicort 160/4.5] 2 puff IH BIDR 09/09/17 [ History] Carvedilol [Coreg] 25 mg PO BID 09/09/17 [History] Ferrous Sulfate 324 mg PO BID 09/09/17 [History] Furosemide [Lasix] 40 mg PO DAILY 09/09/17 [History] Glucagon, Human Recombinant [GlucaGen] 1 mg IM ONCE PRN 09/09/17 [History] HydrOXYzine 10 mg PO TID PRN 09/09/17 [History] Lisinopril [Zestril] 20 mg PO DAILY 09/09/17 [History] Melatonin [Melatin] 6 mg PO HS 09/09/17 [History] Prochlorperazine Maleate [Compazine] 10 mg PO Q6H PRN 09/09/17 [History] Tramadol HCl [Ultram] 50 mg PO Q6H PRN 09/09/17 [History] 3 Allergy/AdvReac Type Severity Reaction Status Date / Time Penicillins Allergy Unknown Hives Verified 03/13/17 13:00 Sulfa (Sulfonamide Allergy Unknown Hives Verified 03/13/17 13:00 Antibiotics) aspirin AdvReac Unknown Nausea Verified 03/13/17 13:00 All Systems PM: A 10-system review of systems was performed and is negative for pertinent findings except as documented above in the HPI. Review of systems: ROS limited due to patient incoherent speech. - Constitutional Constitutional: no chills, no fever(s), no night sweats - Cardiovascular Cardiovascular ROS IM: dyspnea, edema (states is not new), no chest pain - Respiratory Respiratory: dyspnea - Constitutional Vitals: Temp Pulse Resp BP Pulse Ox 98.5 F 76 18 160/62 95 09/09/17 23:56 09/09/17 23:56 09/10/17 02:13 09/09/17 23:56 12/22/17 02:13 Exam: - Head Head exam: atraumatic, normocephalic, normal inspection - Eye Eye exam: Present: normal appearance, PERRL, EOMI - ENT ENT exam: normal exam, normal oropharynx, mucous membranes dry - Neck Neck exam: Present: normal inspection, full ROM, trachea midline - Chest Chest inspection: Present: normal inspection, symmetric chest wall rise - Respiratory Respiratory exam: Present: other (Decreased lung sounds right lower lobe in comparison to the left). Absent: respiratory distress, wheezes - Cardiovascular Cardiovascular exam: Present: regular rate, normal rhythm, normal heart sounds - Abdominal Exam Abdominal exam: Present: soft, Non-Tender. Absent: tenderness, distention, guarding, rebound, rigidity - Extremities Exam Extremities exam: Present: normal inspection, full ROM, pedal edema (Bilateral lower extremity edema 1+ pitting no tenderness to palpation laterally distal pulses intact. Dorsal pedal and posterior tibial.). Absent: tenderness - Back Exam Back exam: Present: normal inspection, full ROM. Absent: tenderness, CVA tenderness (R), CVA tenderness (L) - Neurological Exam Neurological exam: Present: alert, oriented X3 - Skin Skin exam: Present: warm, dry, intact, normal color Internal Med - H&P Results - Labs CBC & Chem 7: 09/09/17 21:10 09/09/17 21:10
[2017-09-10] MEDS ORDERED: Diphenoxylate/Atropine 1 TAB TABLET PO PRN (04:19)
[2017-09-10] MEDS ORDERED: Ondansetron 4 MG/2 ML VIAL IVP PRN (04:26)
[2017-09-10] MEDS ORDERED: Naloxone 0.4 MG/ML INJ IVP PRN (04:26)
[2017-09-10] MEDS: traMADol 50 MG TABLET PO PRN ×2 (04:59→17:37)
[2017-09-10] MEDS ORDERED: Vancomycin 750 MG in D5% in Water 250 ML IVPB SCH ×3 (05:00→21:00)
[2017-09-10] MEDS: *HR* Heparin 5,000 UNIT/ML VIAL SQ SCH ×2 (05:07→17:37)
[2017-09-10 06:07] LABS: Basophils % 0.1 %; Hematocrit 28.8 % (35.3-44.9); Hemoglobin 8.5 g/dL (11.5-15.4); Immature Granulocytes % 0.2 % (0-4); Lymphocytes # 10.8 K/mcL (0.6-4.6); Lymphocytes % 74.7 %; Mean Corpuscular HGB Conc 29.5 g/dL (31.6-35.5); Mean Corpuscular Hemoglobin 29.1 pg (28.0-33.3); Mean Corpuscular Volume 98.6 fL (83.0-100.0); Mean Platelet Volume 11.8 fL (9.4-12.4); Monocytes # 1.3 K/mcL (0.0-1.3); Monocytes % 8.6 %; Neutrophils # 2.4 K/mcL (1.6-8.9); Platelet Count 127 K/mcL (140-400); Red Blood Count 2.92 M/mcL (3.82-4.97); Red Cell Distribution Width 17.4 % (11.5-14.5); Segmented Neutrophils % 16.4 %
[2017-09-10 06:54] LABS: BUN/Creatinine Ratio 33 (6-26); Blood Urea Nitrogen 19 mg/dL (8-23); Calcium 8.8 mg/dL (8.6-10.3); Carbon Dioxide 38 mEq/L (23-29); Chloride 96 mEq/L (98-107); Glucose 531 mg/dL (70-105); Osmolality,Calculated 310 (280-300); Potassium 4.3 mEq/L (3.5-5.1); Sodium 137 mEq/L (136-145); eGFR For African Americans > 60 (> 60); eGFR For Non-African Americans > 60 (> 60)
[2017-09-10] MEDS ORDERED: Insulin DETEMIR 100 UNIT/ML X5UNITS SQ ONE (07:03)
[2017-09-10 07:05] LABS: Anisocytosis 1+ (Not Present); Macrocytosis Present (Not Present); Platelet Estimate Decreased (Normal); Reactive Lymphocytes Present (Not Present); Smudge Cells Present (Not Present)
[2017-09-10] MEDS ORDERED: Insulin LISPRO 300 UNITS/3 ML VIAL SQ ONE (07:07)
[2017-09-10] MEDS: Ipratropium/Albuterol Neb 3 ML IH SCH ×4 (07:33→20:44)
[2017-09-10] MEDS: Budesonide/Formoterol 160/4.5 MDI IH SCH ×2 (07:33→20:44)
[2017-09-10] MEDS: Gabapentin 300 MG CAPSULE PO SCH (09:31)
[2017-09-10] MEDS: Insulin LISPRO 300 UNITS/3 ML VIAL SQ SCH ×4 (09:31→23:53)
[2017-09-10] MEDS: predniSONE 20 MG TABLET PO SCH (09:31)
[2017-09-10] MEDS: Famotidine 20 MG TABLET PO SCH ×2 (09:32→21:26)
[2017-09-10] MEDS: Lisinopril 20 MG TABLET PO SCH (09:32)
[2017-09-10] MEDS: *HR* Glimepiride 4 MG TABLET PO SCH (09:32)
[2017-09-10] MEDS: Furosemide 40 MG TABLET PO SCH (09:32)
[2017-09-10] MEDS ORDERED: Aminoglycoside Consult 1 EACH MC ONE (10:13)
[2017-09-10] MEDS: Meropenem 1,000 MG in Water for inj. (sterile) 10 ML IVP SCH ×2 (12:15→17:37)
--- NOTE | 2017-09-10 14:33 | Event Note ---
Date of Encounter: 09/10/17 Time of Encounter: 14:30 62/female Multiple comorbid conditions. Was recently hospitalized and [facility] for pneumonia. She was discharged to care home here in [place] for continuation of treatment. Brought to the emergency room for low oxygen saturation. ABG revealed chronic elevated PCO2. Noted that patient's blood sugar is elevated. The elevated blood sugar is likely secondary to steroid use/undergoing sepsis. Plan: Continue antibiotics for now. Subcutaneous insulin orders set recommendations to follow for elevated blood sugar. Close monitoring. Of note: Patient was complaining of some kind of discoloration/middle insertion in the right groin. Charge nurse RN Miss Koroma along with ARTIST SCIENTIFIC Miss Cortes was present with me during the entire evaluation. We will get more information from [facility] for any possible intervention there.
--- NOTE | 2017-09-10 18:22 | Electrocardiograph Report ---
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
[2017-09-10] MEDS: Melatonin 3 MG TABLET PO SCH (21:26)
[2017-09-11] MEDS: Ipratropium/Albuterol Neb 3 ML IH SCH ×7 (00:20→23:51)
[2017-09-11] MEDS: Meropenem 1,000 MG in Water for inj. (sterile) 10 ML IVP SCH ×3 (03:15→18:42)
[2017-09-11 05:11] LABS: Basophils % 0.2 %; Eosinophils % 0.3 %; Hematocrit 27.9 % (35.3-44.9); Hemoglobin 8.3 g/dL (11.5-15.4); Immature Granulocytes % 0.5 % (0-4); Lymphocytes # 7.8 K/mcL (0.6-4.6); Lymphocytes % 76.4 %; Mean Corpuscular HGB Conc 29.7 g/dL (31.6-35.5); Mean Corpuscular Hemoglobin 28.9 pg (28.0-33.3); Mean Corpuscular Volume 97.2 fL (83.0-100.0); Mean Platelet Volume 11.6 fL (9.4-12.4); Monocytes # 0.3 K/mcL (0.0-1.3); Monocytes % 3.2 %; Nucleated Red Blood Cells 0.2 /100 WBC (0); Platelet Count 106 K/mcL (140-400); Red Blood Count 2.87 M/mcL (3.82-4.97); Red Cell Distribution Width 17.5 % (11.5-14.5); Segmented Neutrophils % 19.4 %
[2017-09-11] MEDS: *HR* Heparin 5,000 UNIT/ML VIAL SQ SCH ×2 (05:30→18:45)
[2017-09-11 05:55] LABS: Anisocytosis 1+ (Not Present); Macrocytosis Present (Not Present); Platelet Estimate Decreased (Normal); Reactive Lymphocytes Present (Not Present); Smudge Cells Present (Not Present)
[2017-09-11] MEDS: Budesonide/Formoterol 160/4.5 MDI IH SCH ×2 (07:54→20:09)
[2017-09-11] MEDS: Insulin LISPRO 300 UNITS/3 ML VIAL SQ SCH ×4 (08:36→22:12)
[2017-09-11] MEDS: *HR* Glimepiride 4 MG TABLET PO SCH (08:48)
[2017-09-11] MEDS: Famotidine 20 MG TABLET PO SCH ×2 (08:48→21:31)
[2017-09-11] MEDS: Gabapentin 300 MG CAPSULE PO SCH (08:48)
[2017-09-11] MEDS: Lisinopril 20 MG TABLET PO SCH (08:48)
[2017-09-11] MEDS: traMADol 50 MG TABLET PO PRN (08:48)
[2017-09-11] MEDS: Furosemide 40 MG TABLET PO SCH (08:49)
[2017-09-11] MEDS: predniSONE 20 MG TABLET PO SCH (08:49)
[2017-09-11 10:01] LABS: BUN/Creatinine Ratio 54 (6-26); Blood Urea Nitrogen 22 mg/dL (8-23); Calcium 8.6 mg/dL (8.6-10.3); Carbon Dioxide 35 mEq/L (23-29); Chloride 97 mEq/L (98-107); Glucose 86 mg/dL (70-105); Osmolality,Calculated 291 (280-300); Potassium 4.4 mEq/L (3.5-5.1); Sodium 139 mEq/L (136-145); eGFR For African Americans > 60 (> 60); eGFR For Non-African Americans > 60 (> 60)
--- NOTE | 2017-09-11 14:14 | Internal Med Progress Note ---
Date of Encounter: 09/12/17 Time of Encounter: 14:13 - Assessment and plan (1) Acute respiratory failure with hypoxia and hypercarbia Current Visit: No Status: Acute Assessment and plan: 62/female Admitted with the COPD exacerbation. Was started on intravenous steroids/intravenous antibiotics/inhaled bronchodilators. Patient is recovering well from her acute exacerbation. Patient's symptoms of hypercarbia are improving. Clinically and biochemically patient has improved. (2) HCAP (healthcare-associated pneumonia) Current Visit: Yes Status: Acute Assessment and plan: Patient has a penicillin allergy. Admitted with healthcare associated pneumonia: Technically it should be hospital -acquired pneumonia. Was started on vancomycin/meropenem. Blood culture negative so far: 48 hours of blood cultures. Sputum culture does not meet criteria Influenza negative. Plan: We will discontinue vancomycin as blood culture is negative for 48 hours. We will continue other antibiotics. Close monitoring of the respiratory status. (3) COPD exacerbation Current Visit: Yes Status: Acute Assessment and plan: See above (4) Diabetes mellitus type 2 in nonobese Current Visit: No Status: Chronic Assessment and plan: Patient has elevated blood glucose. This is likely secondary to steroids. We will continue recommendations from subcutaneous insulin order set. (5) Hypertension Current Visit: No Status: Acute Assessment and plan: Patient blood pressure is very well controlled. Qualifiers: Hypertension type: essential hypertension Qualified Code(s): I10 - Essential (primary) hypertension - Subjective Interval history: Patient seen and examined. Chart reviewed. patient is comfortably lying in the bed. Patient denies any chest pain, shortness of breath, nausea, vomiting, abdominal pain, dizziness - Constitutional Vitals: Temp Pulse Resp BP Pulse Ox 97.7 F 59 16 120/67 98 09/11/17 11:32 09/11/17 11:32 09/11/17 11:32 09/11/17 11:32 09/11/17 11:32 General appearance: Present: A&O X 3, pleasant, no acute distress, answers questions appropriately - Head Head exam: Present: atraumatic, normocephalic - Eye Eye exam: Present: PERRL, conjuntiva pink, sclera anicteric Pupils: Present: PERRL - Neck Neck exam general surgery: Present: supple, trachea midline. Absent: lymphadenopathy - Respiratory Respiratory exam: Present: CTAB. Absent: accessory muscle use, rales, rhonchi, wheezes - Cardiovascular Cardiovascular exam: Present: RRR, +S1, +S2. Absent: diastolic murmur, gallop, rubs, systolic murmur - GI/Abdominal GI/Abdominal exam: Present: normal bowel sounds, soft, no peritoneal signs. Absent: distended, tenderness - Extremities Exam Extremities exam: Present: warm, radial pulses palpable and symmetrical. Absent : calf tenderness, cyanotic, pedal edema - Neurological Exam Neurological exam: Present: CN II-XII intact, oriented X3, no focal deficits. Absent: pronater drift, facial droop, speech deficit - Skin Skin exam: Present: dry, intact Internal Medicine: Result - Labs CBC & Chem 7: 09/12/17 02:41 09/12/17 02:41 Labs: Short CBC 09/11/17 Range/Units 04:44 WBC 10.2 (4.3-11.1) K/mcL Hgb 8.3 L (11.5-15.4) g/dL Hct 27.9 L (35.3-44.9) % Plt Count 106 L (140-400) K/mcL Neutrophils # 2.0 (1.6-8.9) K/mcL BMP 09/11/17 07:44 Sodium 139 Potassium 4.4 Chloride 97 L Carbon Dioxide 35 H BUN 22 Creatinine 0.41 L Glucose 86 Calcium 8.6 - ABG Interpretation ABG results: ABG ABG pH 7.36 pH Units (7.32-7.45) 09/09/17 18:31 ABG pCO2 79 mmHg (35-45) H* 09/09/17 18:31 ABG pO2 100 mmHg (85-104) 09/09/17 18:31 ABG O2 Saturation 97 % (95-98) 09/09/17 18:31 PT/INR, D-dimer PT 11.8 Seconds (9.4-12.1) 09/09/17 21:10 Consult Discharge Plan - Plan Referrals: Stephen Liao MD [Primary Care Provider] -
[2017-09-11] MEDS: Melatonin 3 MG TABLET PO SCH (21:31)
[2017-09-12] MEDS: Meropenem 1,000 MG in Water for inj. (sterile) 10 ML IVP SCH ×3 (03:10→18:03)
[2017-09-12 03:40] LABS: Basophils % 0.2 %; Eosinophils % 0.2 %; Immature Granulocytes % 0.3 % (0-4); Red Cell Distribution Width 17.4 % (11.5-14.5)
[2017-09-12 03:41] LABS: Hematocrit 28.3 % (35.3-44.9); Hemoglobin 8.3 g/dL (11.5-15.4); Lymphocytes # 7.4 K/mcL (0.6-4.6); Lymphocytes % 69.4 %; Mean Corpuscular HGB Conc 29.3 g/dL (31.6-35.5); Mean Corpuscular Hemoglobin 28.6 pg (28.0-33.3); Mean Corpuscular Volume 97.6 fL (83.0-100.0); Mean Platelet Volume 11.4 fL (9.4-12.4); Neutrophils # 2.2 K/mcL (1.6-8.9); Nucleated Red Blood Cells 0.2 /100 WBC (0); Platelet Count 110 K/mcL (140-400); Segmented Neutrophils % 20.9 %
[2017-09-12] MEDS: Ipratropium/Albuterol Neb 3 ML IH SCH ×6 (04:03→23:21)
[2017-09-12 04:04] LABS: BUN/Creatinine Ratio 46 (6-26); Blood Urea Nitrogen 26 mg/dL (8-23); Calcium 8.6 mg/dL (8.6-10.3); Carbon Dioxide 40 mEq/L (23-29); Chloride 95 mEq/L (98-107); Glucose 154 mg/dL (70-105); Osmolality,Calculated 292 (280-300); Potassium 4.2 mEq/L (3.5-5.1); Sodium 137 mEq/L (136-145); eGFR For African Americans > 60 (> 60); eGFR For Non-African Americans > 60 (> 60)
[2017-09-12 04:16] LABS: Anisocytosis 1+ (Not Present); Microcytosis Present (Not Present); Platelet Estimate Decreased (Normal)
[2017-09-12] MEDS: Budesonide/Formoterol 160/4.5 MDI IH SCH ×2 (07:35→19:45)
[2017-09-12] MEDS: Insulin LISPRO 300 UNITS/3 ML VIAL SQ SCH ×4 (09:00→20:38)
[2017-09-12] MEDS: Lisinopril 20 MG TABLET PO SCH (09:10)
[2017-09-12] MEDS: predniSONE 20 MG TABLET PO SCH (09:10)
[2017-09-12] MEDS: *HR* Heparin 5,000 UNIT/ML VIAL SQ SCH ×2 (09:10→17:54)
[2017-09-12] MEDS: *HR* Glimepiride 4 MG TABLET PO SCH (09:10)
[2017-09-12] MEDS: Furosemide 40 MG TABLET PO SCH (09:10)
[2017-09-12] MEDS: Famotidine 20 MG TABLET PO SCH ×2 (09:10→20:37)
[2017-09-12] MEDS: Gabapentin 300 MG CAPSULE PO SCH (09:10)
[2017-09-12] MEDS ORDERED: Acetaminophen 325 MG TABLET PO PRN (12:49)
--- NOTE | 2017-09-12 14:32 | Internal Med Progress Note ---
Date of Encounter: 09/12/17 Time of Encounter: 14:29 - Assessment and plan (1) Acute respiratory failure with hypoxia and hypercarbia Current Visit: No Status: Acute Assessment and plan: 62/female Admitted with the COPD exacerbation. Was started on intravenous steroids/intravenous antibiotics/inhaled bronchodilators. Patient is recovering well from her acute exacerbation. Patient's symptoms of hypercarbia are improving. Clinically and biochemically patient has improved. 09/12/2017 Day 3 : Antibiotics/Steroids and Bronchodilators. recovering well. occasional wheezing noted. patiet is keen to stay one more day. (2) HCAP (healthcare-associated pneumonia) Current Visit: Yes Status: Acute Assessment and plan: Patient has a penicillin allergy. Admitted with healthcare associated pneumonia: Technically it should be hospital -acquired pneumonia. Was started on vancomycin/meropenem. Blood culture negative so far: 48 hours of blood cultures. Sputum culture does not meet criteria Influenza negative. Plan: We will discontinue vancomycin as blood culture is negative for 48 hours. We will continue other antibiotics. Close monitoring of the respiratory status. 09/12/2017 cont same as above. (3) COPD exacerbation Current Visit: Yes Status: Acute Assessment and plan: See above (4) Diabetes mellitus type 2 in nonobese Current Visit: No Status: Chronic Assessment and plan: Patient has elevated blood glucose. This is likely secondary to steroids. We will continue recommendations from subcutaneous insulin order set. (5) Hypertension Current Visit: No Status: Acute Assessment and plan: Patient blood pressure is very well controlled. Qualifiers: Hypertension type: essential hypertension Qualified Code(s): I10 - Essential (primary) hypertension - Subjective Interval history: Patient seen and examined. Chart reviewed. patient is comfortably lying in the bed. Patient denies any chest pain, shortness of breath, nausea, vomiting, abdominal pain, dizziness 09/12/2017 Patient seen and examined. Chart reviewed. Patient is comfortably lying in bed. Patient denies any new symptoms. informed patient she can be discharged today. Patient is requesting that she should be going home tomorrow instead of today - Constitutional Vitals: Temp Pulse Resp BP Pulse Ox 97.6 F 64 18 164/84 94 09/12/17 09:55 09/12/17 09:55 09/12/17 11:03 09/12/17 09:55 09/12/17 11:03 General appearance: Present: A&O X 3, pleasant, no acute distress, answers questions appropriately - Head Head exam: Present: atraumatic, normocephalic - Eye Eye exam: Present: PERRL, conjuntiva pink, sclera anicteric Pupils: Present: PERRL - Neck Neck exam general surgery: Present: supple, trachea midline. Absent: lymphadenopathy - Respiratory Respiratory exam: Present: CTAB. Absent: accessory muscle use, rales, rhonchi, wheezes - Cardiovascular Cardiovascular exam: Present: RRR, +S1, +S2. Absent: diastolic murmur, gallop, rubs, systolic murmur - GI/Abdominal GI/Abdominal exam: Present: normal bowel sounds, soft, no peritoneal signs. Absent: distended, tenderness - Extremities Exam Extremities exam: Present: warm, radial pulses palpable and symmetrical. Absent : calf tenderness, cyanotic, pedal edema - Neurological Exam Neurological exam: Present: CN II-XII intact, oriented X3, no focal deficits. Absent: pronater drift, facial droop, speech deficit - Skin Skin exam: Present: dry, intact Internal Medicine: Result - Labs CBC & Chem 7: 09/12/17 02:41 09/12/17 02:41 Labs: Short CBC 09/12/17 Range/Units 02:41 WBC 10.7 (4.3-11.1) K/mcL Hgb 8.3 L (11.5-15.4) g/dL Hct 28.3 L (35.3-44.9) % Plt Count 110 L (140-400) K/mcL Neutrophils # 2.2 (1.6-8.9) K/mcL BMP 09/12/17 02:41 Sodium 137 Potassium 4.2 Chloride 95 L Carbon Dioxide 40 H* BUN 26 H Creatinine 0.57 L Glucose 154 H Calcium 8.6 - ABG Interpretation ABG results: ABG ABG pH 7.36 pH Units (7.32-7.45) 09/09/17 18:31 ABG pCO2 79 mmHg (35-45) H* 09/09/17 18:31 ABG pO2 100 mmHg (85-104) 09/09/17 18:31 ABG O2 Saturation 97 % (95-98) 09/09/17 18:31 PT/INR, D-dimer PT 11.8 Seconds (9.4-12.1) 09/09/17 21:10 Consult Discharge Plan - Plan Referrals: Stephen Liao MD [Primary Care Provider] -
[2017-09-12] MEDS ORDERED: Furosemide 20 MG/2 ML VIAL IVP ONE (17:50)
[2017-09-12] MEDS ORDERED: D5% in Water 1,000 ML IVC PRN (20:37)
[2017-09-12] MEDS ORDERED: Dextrose Gel 15 GM/37.5 ML TUBE PO PRN ×2 (20:37)
[2017-09-12] MEDS ORDERED: *HR* Dextrose 50 % in Water (Syg) 50 ML SYRINGE IVP PRN (20:37)
[2017-09-12] MEDS: Melatonin 3 MG TABLET PO SCH (20:38)
[2017-09-12] MEDS: Insulin DETEMIR 100 UNIT/ML X5UNITS SQ SCH (21:48)
[2017-09-13] MEDS: Meropenem 1,000 MG in Water for inj. (sterile) 10 ML IVP SCH ×3 (03:10→17:52)
[2017-09-13 03:58] LABS: Basophils % 0.1 %; Eosinophils % 0.1 %; Hematocrit 30.6 % (35.3-44.9); Immature Granulocytes % 0.3 % (0-4); Lymphocytes # 12.1 K/mcL (0.6-4.6); Lymphocytes % 73.1 %; Mean Corpuscular HGB Conc 29.4 g/dL (31.6-35.5); Mean Corpuscular Hemoglobin 29.1 pg (28.0-33.3); Mean Platelet Volume 11.6 fL (9.4-12.4); Monocytes # 1.1 K/mcL (0.0-1.3); Monocytes % 6.9 %; Neutrophils # 3.2 K/mcL (1.6-8.9); Nucleated Red Blood Cells 0.2 /100 WBC (0); Platelet Count 118 K/mcL (140-400); Red Blood Count 3.09 M/mcL (3.82-4.97); Red Cell Distribution Width 17.7 % (11.5-14.5); Segmented Neutrophils % 19.5 %
[2017-09-13] MEDS: Ipratropium/Albuterol Neb 3 ML IH SCH ×6 (04:03→23:22)
[2017-09-13 04:20] LABS: Anisocytosis 1+ (Not Present); Platelet Estimate Decreased (Normal); Reactive Lymphocytes Present (Not Present); Smudge Cells Present (Not Present)
[2017-09-13 04:21] LABS: BUN/Creatinine Ratio 53 (6-26); Blood Urea Nitrogen 29 mg/dL (8-23); Calcium 8.8 mg/dL (8.6-10.3); Carbon Dioxide 39 mEq/L (23-29); Chloride 95 mEq/L (98-107); Glucose 206 mg/dL (70-105); Osmolality,Calculated 300 (280-300); Potassium 3.5 mEq/L (3.5-5.1); Sodium 139 mEq/L (136-145); eGFR For African Americans > 60 (> 60); eGFR For Non-African Americans > 60 (> 60)
[2017-09-13] MEDS: *HR* Heparin 5,000 UNIT/ML VIAL SQ SCH ×2 (05:02→17:52)
[2017-09-13] MEDS: Insulin LISPRO 300 UNITS/3 ML VIAL SQ SCH ×4 (07:38→21:23)
[2017-09-13] MEDS: Budesonide/Formoterol 160/4.5 MDI IH SCH ×2 (07:55→19:51)
[2017-09-13] MEDS: Lisinopril 20 MG TABLET PO SCH (09:29)
[2017-09-13] MEDS: Famotidine 20 MG TABLET PO SCH ×2 (09:29→19:36)
[2017-09-13] MEDS: *HR* Glimepiride 4 MG TABLET PO SCH (09:29)
[2017-09-13] MEDS: Gabapentin 300 MG CAPSULE PO SCH (09:29)
[2017-09-13] MEDS: Furosemide 40 MG TABLET PO SCH (09:29)
[2017-09-13] MEDS: predniSONE 20 MG TABLET PO SCH (09:30)
--- NOTE | 2017-09-13 16:22 | Internal Med Progress Note ---
Date of Encounter: 09/13/17 Time of Encounter: 16:21 - Assessment and plan (1) Acute respiratory failure with hypoxia and hypercarbia Current Visit: No Status: Acute Assessment and plan: 62/female Admitted with the COPD exacerbation. Was started on intravenous steroids/intravenous antibiotics/inhaled bronchodilators. Patient is recovering well from her acute exacerbation. Patient's symptoms of hypercarbia are improving. Clinically and biochemically patient has improved. 09/12/2017 Day 3 : Antibiotics/Steroids and Bronchodilators. recovering well. occasional wheezing noted. patiet is keen to stay one more day. 09/13/2017. Day for: Antibiotics/steroids and bronchodilators Patient is recovered well. No more wheezing. Patient is medically clear but pending placement in view of preauthorization to go back to her longterm as per social services aide (2) HCAP (healthcare-associated pneumonia) Current Visit: Yes Status: Acute Assessment and plan: Patient has a penicillin allergy. Admitted with healthcare associated pneumonia: Technically it should be hospital -acquired pneumonia. Was started on vancomycin/meropenem. Blood culture negative so far: 48 hours of blood cultures. Sputum culture does not meet criteria Influenza negative. Plan: We will discontinue vancomycin as blood culture is negative for 48 hours. We will continue other antibiotics. Close monitoring of the respiratory status. (3) COPD exacerbation Current Visit: Yes Status: Acute Assessment and plan: See above (4) Diabetes mellitus type 2 in nonobese Current Visit: No Status: Chronic Assessment and plan: Patient has elevated blood glucose. This is likely secondary to steroids. We will continue recommendations from subcutaneous insulin order set. (5) Hypertension Current Visit: No Status: Acute Assessment and plan: Patient blood pressure is very well controlled. Qualifiers: Hypertension type: essential hypertension Qualified Code(s): I10 - Essential (primary) hypertension - Subjective Interval history: Patient seen and examined. Chart reviewed. patient is comfortably lying in the bed. Patient denies any chest pain, shortness of breath, nausea, vomiting, abdominal pain, dizziness - Constitutional Vitals: Temp Pulse Resp BP Pulse Ox 98.5 F 79 16 160/64 97 09/13/17 14:52 09/13/17 14:52 09/13/17 15:38 09/13/17 14:52 09/13/17 15:38 General appearance: Present: A&O X 3, pleasant, no acute distress, answers questions appropriately - Head Head exam: Present: atraumatic, normocephalic - Eye Eye exam: Present: PERRL, conjuntiva pink, sclera anicteric Pupils: Present: PERRL - Neck Neck exam general surgery: Present: supple, trachea midline. Absent: lymphadenopathy - Respiratory Respiratory exam: Present: CTAB. Absent: accessory muscle use, rales, rhonchi, wheezes - Cardiovascular Cardiovascular exam: Present: RRR, +S1, +S2. Absent: diastolic murmur, gallop, rubs, systolic murmur - GI/Abdominal GI/Abdominal exam: Present: normal bowel sounds, soft, no peritoneal signs. Absent: distended, tenderness - Extremities Exam Extremities exam: Present: warm, radial pulses palpable and symmetrical. Absent : calf tenderness, cyanotic, pedal edema - Neurological Exam Neurological exam: Present: CN II-XII intact, oriented X3, no focal deficits. Absent: pronater drift, facial droop, speech deficit - Skin Skin exam: Present: dry, intact Internal Medicine: Result - Labs CBC & Chem 7: 09/13/17 02:57 09/13/17 02:57 Labs: Short CBC 09/13/17 Range/Units 02:57 WBC 16.5 H D (4.3-11.1) K/mcL Hgb 9.0 L (11.5-15.4) g/dL Hct 30.6 L (35.3-44.9) % Plt Count 118 L (140-400) K/mcL Neutrophils # 3.2 (1.6-8.9) K/mcL BMP 09/13/17 02:57 Sodium 139 Potassium 3.5 Chloride 95 L Carbon Dioxide 39 H BUN 29 H Creatinine 0.55 L Glucose 206 H Calcium 8.8 - ABG Interpretation ABG results: ABG ABG pH 7.36 pH Units (7.32-7.45) 09/09/17 18:31 ABG pCO2 79 mmHg (35-45) H* 09/09/17 18:31 ABG pO2 100 mmHg (85-104) 09/09/17 18:31 ABG O2 Saturation 97 % (95-98) 09/09/17 18:31 PT/INR, D-dimer PT 11.8 Seconds (9.4-12.1) 09/09/17 21:10 Consult Discharge Plan - Plan Referrals: Stephen Liao MD [Primary Care Provider] -
[2017-09-13] MEDS: Melatonin 3 MG TABLET PO SCH (19:36)
[2017-09-13] MEDS: Insulin DETEMIR 100 UNIT/ML X5UNITS SQ SCH (21:22)
[2017-09-14] MEDS: Meropenem 1,000 MG in Water for inj. (sterile) 10 ML IVP SCH ×3 (02:09→18:05)
[2017-09-14 04:13] LABS: Hemoglobin 9.4 g/dL (11.5-15.4); Red Cell Distribution Width 17.9 % (11.5-14.5)
[2017-09-14 04:15] LABS: Hematocrit 32.9 % (35.3-44.9); Mean Corpuscular HGB Conc 28.6 g/dL (31.6-35.5); Mean Corpuscular Hemoglobin 28.6 pg (28.0-33.3); Mean Platelet Volume 11.3 fL (9.4-12.4); Nucleated Red Blood Cells 0.1 /100 WBC (0); Platelet Count 115 K/mcL (140-400); Red Blood Count 3.29 M/mcL (3.82-4.97)
[2017-09-14] MEDS: Ipratropium/Albuterol Neb 3 ML IH SCH ×5 (04:22→20:24)
[2017-09-14 04:37] LABS: Hypochromasia Present (Not Present); Lymphocytes # 16.4 K/mcL (0.6-4.6); Monocytes # 1.3 K/mcL (0.0-1.3); Neutrophils # 3.9 K/mcL (1.6-8.9); Platelet Estimate Normal (Normal)
[2017-09-14 04:49] LABS: BUN/Creatinine Ratio 44 (6-26); Blood Urea Nitrogen 23 mg/dL (8-23); Calcium 8.4 mg/dL (8.6-10.3); Carbon Dioxide 41 mEq/L (23-29); Chloride 100 mEq/L (98-107); Glucose 73 mg/dL (70-105); Osmolality,Calculated 296 (280-300); Potassium 3.7 mEq/L (3.5-5.1); Sodium 142 mEq/L (136-145); eGFR For African Americans > 60 (> 60); eGFR For Non-African Americans > 60 (> 60)
[2017-09-14] MEDS: *HR* Heparin 5,000 UNIT/ML VIAL SQ SCH ×2 (05:48→18:12)
[2017-09-14] MEDS: Budesonide/Formoterol 160/4.5 MDI IH SCH ×2 (07:31→20:24)
[2017-09-14] MEDS: Insulin LISPRO 300 UNITS/3 ML VIAL SQ SCH ×4 (07:49→22:35)
[2017-09-14 08:56] LABS: Mycoplasma pneumoniae IgG 0.02 U/L (<=0.09); Procalcitonin 0.15 ng/mL (<=0.10)
[2017-09-14] MEDS: Lisinopril 20 MG TABLET PO SCH (10:01)
[2017-09-14] MEDS: predniSONE 20 MG TABLET PO SCH (10:01)
[2017-09-14] MEDS: *HR* Glimepiride 4 MG TABLET PO SCH (10:01)
[2017-09-14] MEDS: Furosemide 40 MG TABLET PO SCH (10:01)
[2017-09-14] MEDS: Gabapentin 300 MG CAPSULE PO SCH (10:01)
[2017-09-14] MEDS: Famotidine 20 MG TABLET PO SCH ×2 (10:01→22:32)
[2017-09-14] MEDS ORDERED: Vancomycin 750 MG in D5% in Water 250 ML IVPB SCH ×2 (16:00→17:00)
[2017-09-14] MEDS ORDERED: Insulin DETEMIR 100 UNIT/ML X5UNITS SQ SCH (16:01)
--- NOTE | 2017-09-14 16:11 | Internal Med Progress Note ---
Date of Encounter: 09/14/17 Time of Encounter: 16:07 - Assessment and plan (1) Acute respiratory failure with hypoxia and hypercarbia Current Visit: No Status: Acute Assessment and plan: 62/female Admitted with the COPD exacerbation. Was started on intravenous steroids/intravenous antibiotics/inhaled bronchodilators. now on presdnisone 40 mg daily she has deminished BS, Bicarbo is trending up she is breathing with accesary muscles discussed with RT, try Nebs, if not improving, then BIPAP (2) COPD exacerbation Current Visit: Yes Status: Acute Assessment and plan: contineu prednisone and ATB (3) Healthcare-associated pneumonia Current Visit: Yes Status: Acute Assessment and plan: will add Vancomycin to meropenem (4) Diabetes mellitus type 2 in nonobese Current Visit: No Status: Chronic Assessment and plan: Patient has elevated blood glucose. This is likely secondary to steroids. We will increase detmir lto 10 unit BID. (5) Hypertension Current Visit: No Status: Acute Assessment and plan: Patient blood pressure is very well controlled. Qualifiers: Hypertension type: essential hypertension Qualified Code(s): I10 - Essential (primary) hypertension - Time Spent With Patient 25 - 35 minutes - Subjective Interval history: patient was admitted for COPD exacerbation and lHCAP, ;she was placed on IV meropenem since admission, but patient continues laboring breath, SOB, pleuritic chest pain. she dchas demikmnished lBS and crackles B/L. will check CXR Add IV vancomycin contineu IV lasix uncontrolled DM, will increase detimir to BID - Constitutional Vitals: Temp Pulse Resp BP Pulse Ox 97.9 F 74 16 148/70 97 09/14/17 15:04 09/14/17 15:04 09/14/17 15:04 09/14/17 15:04 09/14/17 15:04 General appearance: Present: A&O X 3, pleasant, no acute distress, answers questions appropriately - Head Head exam: Present: atraumatic, normocephalic - Eye Eye exam: Present: PERRL, conjuntiva pink, sclera anicteric Pupils: Present: PERRL - ENT ENT exam: Present: normal exam, normal external ear exam, normal oropharynx - Respiratory Respiratory exam: Present: chest wall tenderness, decreased breath sounds, prolonged expiratory phase, rales - Cardiovascular Cardiovascular exam: Present: RRR - GI/Abdominal GI/Abdominal exam: Present: normal bowel sounds, soft, no peritoneal signs. Absent: distended, tenderness - Extremities Exam Extremities exam: Present: warm, radial pulses palpable and symmetrical. Absent : calf tenderness, cyanotic, pedal edema - Neurological Exam Neurological exam: Present: CN II-XII intact, oriented X3, no focal deficits. Absent: pronater drift, facial droop, speech deficit - Psychiatric Psychiatric exam: Present: normal affect, normal mood - Skin Skin exam: Present: dry, warm Internal Medicine: Result - Labs CBC & Chem 7: 09/14/17 03:51 09/14/17 03:51 Labs: Short CBC 09/14/17 Range/Units 03:51 WBC 21.6 H (4.3-11.1) K/mcL Hgb 9.4 L (11.5-15.4) g/dL Hct 32.9 L (35.3-44.9) % Plt Count 115 L (140-400) K/mcL Neutrophils # 3.9 (1.6-8.9) K/mcL BMP 09/14/17 03:51 Sodium 142 Potassium 3.7 Chloride 100 Carbon Dioxide 41 H* BUN 23 Creatinine 0.52 L Glucose 73 Calcium 8.4 L - ABG Interpretation ABG results: ABG ABG pH 7.36 pH Units (7.32-7.45) 09/09/17 18:31 ABG pCO2 79 mmHg (35-45) H* 09/09/17 18:31 ABG pO2 100 mmHg (85-104) 09/09/17 18:31 ABG O2 Saturation 97 % (95-98) 09/09/17 18:31 PT/INR, D-dimer PT 11.8 Seconds (9.4-12.1) 09/09/17 21:10 Consult Discharge Plan - Plan Referrals: Stephen Liao MD [Primary Care Provider] -
[2017-09-14] MEDS: Vancomycin 750 MG in D5% in Water 250 ML IVPB SCH (19:39)
[2017-09-14] MEDS: Melatonin 3 MG TABLET PO SCH (22:32)
[2017-09-14] MEDS: Insulin DETEMIR 100 UNIT/ML X5UNITS SQ SCH (22:33)
[2017-09-15] MEDS: Ipratropium/Albuterol Neb 3 ML IH SCH ×7 (00:14→23:19)
[2017-09-15 04:31] LABS: Basophils % 0.1 %; Eosinophils % 0.1 %; Hematocrit 30.8 % (35.3-44.9); Immature Granulocytes % 0.3 % (0-4); Immature Platelets 8.4 % (1.1-6.1); Lymphocytes # 10.3 K/mcL (0.6-4.6); Lymphocytes % 70.5 %; Mean Corpuscular HGB Conc 29.2 g/dL (31.6-35.5); Mean Corpuscular Hemoglobin 29.1 pg (28.0-33.3); Mean Corpuscular Volume 99.7 fL (83.0-100.0); Mean Platelet Volume 11.8 fL (9.4-12.4); Monocytes # 1.2 K/mcL (0.0-1.3); Monocytes % 8.3 %; Nucleated Red Blood Cells 0.2 /100 WBC (0); Red Blood Count 3.09 M/mcL (3.82-4.97); Segmented Neutrophils % 20.7 %
[2017-09-15 04:33] LABS: BUN/Creatinine Ratio 63 (6-26); Blood Urea Nitrogen 26 mg/dL (8-23); Calcium 8.6 mg/dL (8.6-10.3); Carbon Dioxide 42 mEq/L (23-29); Chloride 98 mEq/L (98-107); Glucose 238 mg/dL (70-105); Osmolality,Calculated 305 (280-300); Potassium 3.8 mEq/L (3.5-5.1); Sodium 141 mEq/L (136-145); eGFR For African Americans > 60 (> 60); eGFR For Non-African Americans > 60 (> 60)
[2017-09-15 05:03] LABS: Platelet Count 94 K/mcL (140-400)
[2017-09-15 05:06] LABS: Anisocytosis 1+ (Not Present); Macrocytosis Present (Not Present); Platelet Estimate Slight Decrease (Normal); Smudge Cells Present (Not Present)
[2017-09-15] MEDS: Meropenem 1,000 MG in Water for inj. (sterile) 10 ML IVP SCH ×2 (05:06→09:41)
[2017-09-15] MEDS: *HR* Heparin 5,000 UNIT/ML VIAL SQ SCH ×2 (07:48→18:13)
[2017-09-15] MEDS: Budesonide/Formoterol 160/4.5 MDI IH SCH ×2 (07:55→19:56)
[2017-09-15] MEDS: Furosemide 40 MG TABLET PO SCH (09:41)
[2017-09-15] MEDS: predniSONE 20 MG TABLET PO SCH (09:41)
[2017-09-15] MEDS: Famotidine 20 MG TABLET PO SCH ×2 (09:42→21:12)
[2017-09-15] MEDS: Gabapentin 300 MG CAPSULE PO SCH (09:42)
[2017-09-15] MEDS: *HR* Glimepiride 4 MG TABLET PO SCH (09:42)
[2017-09-15] MEDS: Lisinopril 20 MG TABLET PO SCH (09:42)
[2017-09-15] MEDS: Vancomycin 750 MG in D5% in Water 250 ML IVPB SCH ×2 (09:48→18:12)
[2017-09-15] MEDS: Insulin DETEMIR 100 UNIT/ML X5UNITS SQ SCH ×2 (09:48→21:12)
[2017-09-15] MEDS: Insulin LISPRO 300 UNITS/3 ML VIAL SQ SCH ×4 (09:49→21:12)
--- NOTE | 2017-09-15 10:12 | Internal Med Progress Note ---
<Omero Salamanca - Last Filed: 09/15/17 17:25> Date of Encounter: 09/15/17 Time of Encounter: 08:00 - Assessment and plan (1) Acute respiratory failure with hypoxia and hypercarbia Current Visit: No Status: Acute Assessment and plan: - Initial ABG: pH 7.36, pCO2 79, pO2 100, HCO3 45 - Likely multifactorial including pneumonia and COPD exacerbation. - Continue antibiotic for pneumonia. - Continue steroid, Symbicort, antibiotic, bronchodilators and supplemental oxygen for COPD - Improves as patient reports breathing better and maintains acceptable oxygen saturation on 2L NC. - Continue to monitor. (2) Healthcare-associated pneumonia Current Visit: Yes Status: Acute Assessment and plan: - CXR on admission found bilateral lower lobe airspace disease, right greater than left, concerning for acute pneumonia. - Sputum culture from 09/10/17 did not meet criteria for culture. - Blood cultures from 09/10/17: No growth. - Negative tests for influenza, urine antigens for Legionella and Strept. pneumoniae. - Patient was initially started on IV vancomycin and meropenem on admission but vancomycin was discontinued on 09/10. - Vancomycin is re-started on 09/14 as worsening leukocytosis (WBC 21.6). - Leukocytosis improves today (WBC 14.6). - Continue IV vancomycin and switch meropenem to cefepiem. - Will obtain CT chest for further evaluation. (3) COPD exacerbation Current Visit: Yes Status: Acute Assessment and plan: - Continue steroid, Symbicort, antibiotic, bronchodilators and supplemental oxygen. (4) Thrombocytopenia Current Visit: No Status: Acute Assessment and plan: - History of thrombocytopenia. - Per oncology note from March 2017, continue to monitor (platelet count was ~80 at that time). (5) CLL (chronic lymphocytic leukemia) Current Visit: No Status: Chronic Assessment and plan: - Know history of CLL. (6) Diabetes mellitus type 2 in nonobese Current Visit: No Status: Chronic Assessment and plan: - Continue basal and sliding scale insulin with glucose monitoring. (7) DVT prophylaxis Current Visit: Yes Status: Acute Assessment and plan: - Continue SQ heparin. - Subjective Interval history: Patient was seen and examined this morning. Patient still has some cough but reports breathing okay. Patient denies fever, chills, chest pain, abdominal pain. - Constitutional Vitals: Temp Pulse Resp BP Pulse Ox 97.6 F 71 15 168/79 93 09/15/17 07:28 09/15/17 07:28 09/15/17 07:55 09/15/17 07:28 09/15/17 07:55 General appearance: Present: A&O X 3, pleasant, no acute distress, answers questions appropriately - Head Head exam: Present: normal inspection - Eye Eye exam: Present: EOMI, conjuntiva pink, sclera anicteric - Neck Neck exam general surgery: Present: normal inspection, supple, trachea midline - Respiratory Respiratory exam: Present: decreased breath sounds. Absent: accessory muscle use, rales, rhonchi, wheezes - Cardiovascular Cardiovascular exam: Present: RRR, +S1, +S2 - GI/Abdominal GI/Abdominal exam: Present: normal bowel sounds, soft, no peritoneal signs. Absent: tenderness - Extremities Exam Extremities exam: Present: warm. Absent: cyanotic - Neurological Exam Neurological exam: Present: alert, no focal deficits. Absent: facial droop, speech deficit - Skin Skin exam: Present: dry, warm Internal Medicine: Result - Labs CBC & Chem 7: 09/15/17 03:31 09/15/17 03:31 Labs: Short CBC 09/15/17 Range/Units 03:31 WBC 14.6 H (4.3-11.1) K/mcL Hgb 9.0 L (11.5-15.4) g/dL Hct 30.8 L (35.3-44.9) % Plt Count 94 L (140-400) K/mcL Neutrophils # 3.0 (1.6-8.9) K/mcL BMP 09/15/17 03:31 Sodium 141 Potassium 3.8 Chloride 98 Carbon Dioxide 42 H* BUN 26 H Creatinine 0.41 L Glucose 238 H Calcium 8.6 - ABG Interpretation ABG results: ABG ABG pH 7.36 pH Units (7.32-7.45) 09/09/17 18:31 ABG pCO2 79 mmHg (35-45) H* 09/09/17 18:31 ABG pO2 100 mmHg (85-104) 09/09/17 18:31 ABG O2 Saturation 97 % (95-98) 09/09/17 18:31 PT/INR, D-dimer PT 11.8 Seconds (9.4-12.1) 09/09/17 21:10 - Impressions Impressions Chest X-Ray 09/14/17 16:00 IMPRESSION: Pulmonary edema and small to moderate bilateral pleural effusions. This appears slightly increased. Resolving previous focal consolidation of the right lung base, mild faint airspace opacity this location remains D/ / Dain Augustin MD / Dain Augustin MD Interpreting Provider: Dain Augustin MD Consult Discharge Plan - Plan Referrals: Stephen Liao MD [Primary Care Provider] - <Montana Dawson - Last Filed: 09/15/17 18:11> Date of Encounter: 09/15/17 - Constitutional Vitals: Temp Pulse Resp BP Pulse Ox 97.7 F 78 18 166/66 93 09/15/17 15:29 09/15/17 15:29 09/15/17 15:49 09/15/17 15:29 09/15/17 15:49 Internal Medicine: Result - Labs CBC & Chem 7: 09/15/17 03:31 09/15/17 03:31 Labs: Short CBC 09/15/17 Range/Units 03:31 WBC 14.6 H (4.3-11.1) K/mcL Hgb 9.0 L (11.5-15.4) g/dL Hct 30.8 L (35.3-44.9) % Plt Count 94 L (140-400) K/mcL Neutrophils # 3.0 (1.6-8.9) K/mcL BMP 09/15/17 03:31 Sodium 141 Potassium 3.8 Chloride 98 Carbon Dioxide 42 H* BUN 26 H Creatinine 0.41 L Glucose 238 H Calcium 8.6 - ABG Interpretation ABG results: ABG ABG pH 7.36 pH Units (7.32-7.45) 09/09/17 18:31 ABG pCO2 79 mmHg (35-45) H* 09/09/17 18:31 ABG pO2 100 mmHg (85-104) 09/09/17 18:31 ABG O2 Saturation 97 % (95-98) 09/09/17 18:31 PT/INR, D-dimer PT 11.8 Seconds (9.4-12.1) 09/09/17 21:10 - Impressions Impressions Chest CT 09/15/17 16:08 IMPRESSION: 1. Moderate right pleural effusion and small left pleural effusion. 2. Spiculated superior medial segment right lower lobe mass suspicious for neoplasia of 2.14 x 1.91 x 1.27 cm. 3. Mediastinal and hilar adenopathy. RECOMMENDATIONS: PET-CT imaging may prove helpful for further assessment. D/ / 09/15/2017 17:00:19 Madie Baird MD / andrew Interpreting Provider: Madie Baird MD - Attending Attestation I conducted a face to face diagnostic evaluation of this patient and my medical decision-making was reviewed with the Resident Physician, Dr Omero Salamanca. I agree with the documented findings, disposition and treatment plan as described except to the extent set forth below: Patient denies cough and shortness of breath. On exam there are diminished breath sounds at the right base and scattered rails. Heart is regular. Abdomen is soft. Chest x-ray was personally reviewed shows improvement in the right lower lobe infiltrate however development of a right pleural effusion. With blood cell count is still elevated. Given the parapneumonic effusion and persistent elevation in white blood cell count I will obtain a CT of the chest and IR directed thoracentesis to rule out empyema. Montana Dawson MD
[2017-09-15] MEDS: Cefepime HCl 1,000 MG in Water for inj. (sterile) 20 ML 10 ML IVP SCH (18:12)
[2017-09-15] MEDS: Melatonin 3 MG TABLET PO SCH (21:12)
[2017-09-15] MEDS: traMADol 50 MG TABLET PO PRN (22:53)
[2017-09-16] MEDS: Ipratropium/Albuterol Neb 3 ML IH SCH ×6 (04:24→23:34)
[2017-09-16] MEDS: Cefepime HCl 1,000 MG in Water for inj. (sterile) 20 ML 10 ML IVP SCH ×3 (04:39→17:27)
[2017-09-16] MEDS: *HR* Heparin 5,000 UNIT/ML VIAL SQ SCH ×2 (04:44→17:26)
[2017-09-16] MEDS: traMADol 50 MG TABLET PO PRN (05:13)
[2017-09-16] MEDS: Vancomycin 750 MG in D5% in Water 250 ML IVPB SCH (06:20)
[2017-09-16 06:34] LABS: Mean Corpuscular Volume 99.4 fL (83.0-100.0)
[2017-09-16 06:36] LABS: Hematocrit 34.5 % (35.3-44.9); Mean Corpuscular Hemoglobin 28.8 pg (28.0-33.3); Mean Platelet Volume 11.4 fL (9.4-12.4); Nucleated Red Blood Cells 0.2 /100 WBC (0); Red Blood Count 3.47 M/mcL (3.82-4.97); Red Cell Distribution Width 18.2 % (11.5-14.5)
[2017-09-16 06:49] LABS: Platelet Count 95 K/mcL (140-400)
[2017-09-16 07:02] LABS: BUN/Creatinine Ratio 59 (6-26); Blood Urea Nitrogen 26 mg/dL (8-23); Calcium 8.7 mg/dL (8.6-10.3); Carbon Dioxide 41 mEq/L (23-29); Chloride 98 mEq/L (98-107); Glucose 78 mg/dL (70-105); Osmolality,Calculated 294 (280-300); Potassium 4.5 mEq/L (3.5-5.1); Sodium 140 mEq/L (136-145); eGFR For African Americans > 60 (> 60); eGFR For Non-African Americans > 60 (> 60)
[2017-09-16 07:38] LABS: Lymphocytes # 17.8 K/mcL (0.6-4.6); Neutrophils # 3.1 K/mcL (1.6-8.9)
[2017-09-16 07:39] LABS: Platelet Estimate Decreased (Normal)
[2017-09-16] MEDS: Budesonide/Formoterol 160/4.5 MDI IH SCH ×2 (07:44→19:48)
[2017-09-16 07:50] LABS: INR 1.1; Prothrombin Time 11.4 Seconds (9.4-12.1)
[2017-09-16 07:53] LABS: Activated Partial Thrombo Time 32.7 Seconds (26.0-36.0)
--- NOTE | 2017-09-16 08:31 | Internal Med Progress Note ---
<Omero Salamanca - Last Filed: 09/16/17 11:32> Date of Encounter: 09/16/17 Time of Encounter: 07:30 - Assessment and plan (1) Acute respiratory failure with hypoxia and hypercarbia Current Visit: No Status: Acute Assessment and plan: - Initial ABG: pH 7.36, pCO2 79, pO2 100, HCO3 45 - Likely multifactorial including pneumonia, pleural effusion and COPD exacerbation. - Continue antibiotic for pneumonia. - Continue steroid, Symbicort, antibiotic, bronchodilators and supplemental oxygen for COPD - Improves as patient reports breathing better and maintains acceptable oxygen saturation on 2L NC. - Continue to monitor. (2) Pleural effusion Current Visit: Yes Status: Acute Assessment and plan: - CT chest on 09/15/17 found moderate right pleural effusion and small left pleural effusion. - Parapneumonic effusion/empyema vs. malignancy effusion given the right lower lobe mass. - Interventional radiology consulted and appreciate diagnostic and therapeutic thoracentesis. - Will send pleural fluid for further studies including gram stain, culture, cell count with diff, cytology, pH, LDH, total protein, glucose. (3) Healthcare-associated pneumonia Current Visit: Yes Status: Acute Assessment and plan: - CXR on admission found bilateral lower lobe airspace disease, right greater than left, concerning for acute pneumonia. - Sputum culture from 09/10/17 did not meet criteria for culture. - Blood cultures from 09/10/17: No growth. - Negative tests for influenza, urine antigens for Legionella and Strept. pneumoniae. - Patient was initially started on IV vancomycin and meropenem on admission but vancomycin was discontinued on 09/10. - Vancomycin is re-started on 09/14 as worsening leukocytosis (WBC 21.6). - Leukocytosis increased to 20.9 today - Continue IV vancomycin (since 09/14) and cefepiem (09/15). (4) Mass of right lung Current Visit: Yes Status: Acute Assessment and plan: - CT chest on 09/15/17 found spiculated superior medial segment right lower lobe mass suspicious for neoplasia of 2.14 x 1.91 x 1.27 cm. - Patient may benefit from bronchoscopy with EBUS biopsy as further work-up. - Pulmonary consulted and appreciate evaluation and recommendation. (5) COPD exacerbation Current Visit: Yes Status: Acute Assessment and plan: - Continue steroid, Symbicort, antibiotic, bronchodilators and supplemental oxygen. (6) Thrombocytopenia Current Visit: No Status: Acute Assessment and plan: - History of thrombocytopenia. - Per oncology note from March 2017, continue to monitor (platelet count was ~80 at that time). - Platelet stable at 95 today. - Continue to monitor. (7) CLL (chronic lymphocytic leukemia) Current Visit: No Status: Chronic Assessment and plan: - Know history of CLL. (8) Diabetes mellitus type 2 in nonobese Current Visit: No Status: Chronic Assessment and plan: - Continue basal and sliding scale insulin with glucose monitoring. (9) DVT prophylaxis Current Visit: Yes Status: Acute Assessment and plan: - Continue SQ heparin. - Subjective Interval history: Patient was seen and examined this morning. Patient still has some cough but reports breathing fine. Patient denies fever, chills, chest pain, abdominal pain , nausea, vomiting, diarrhea. - Constitutional Vitals: Temp Pulse Resp BP Pulse Ox 96.9 F L 63 17 165/69 97 09/16/17 07:49 09/16/17 07:49 09/16/17 07:49 09/16/17 07:49 09/16/17 07:49 General appearance: Present: A&O X 3, pleasant, no acute distress, answers questions appropriately - Head Head exam: Present: normal inspection - Eye Eye exam: Present: EOMI, conjuntiva pink, sclera anicteric - Neck Neck exam general surgery: Present: supple, trachea midline - Respiratory Respiratory exam: Present: decreased breath sounds (right lung base). Absent: accessory muscle use, rales, rhonchi, wheezes - Cardiovascular Cardiovascular exam: Present: RRR, +S1, +S2 - GI/Abdominal GI/Abdominal exam: Present: normal bowel sounds, soft, no peritoneal signs. Absent: tenderness - Extremities Exam Extremities exam: Present: warm. Absent: cyanotic, pedal edema - Neurological Exam Neurological exam: Present: alert. Absent: facial droop, speech deficit - Skin Skin exam: Present: dry, warm Internal Medicine: Result - Labs CBC & Chem 7: 09/16/17 06:10 09/16/17 06:10 Labs: Short CBC 09/16/17 Range/Units 06:10 WBC 20.9 H (4.3-11.1) K/mcL Hgb 10.0 L (11.5-15.4) g/dL Hct 34.5 L (35.3-44.9) % Plt Count 95 L (140-400) K/mcL Neutrophils # 3.1 (1.6-8.9) K/mcL BMP 09/16/17 06:10 Sodium 140 Potassium 4.5 Chloride 98 Carbon Dioxide 41 H* BUN 26 H Creatinine 0.44 L Glucose 78 Calcium 8.7 - ABG Interpretation ABG results: ABG ABG pH 7.36 pH Units (7.32-7.45) 09/09/17 18:31 ABG pCO2 79 mmHg (35-45) H* 09/09/17 18:31 ABG pO2 100 mmHg (85-104) 09/09/17 18:31 ABG O2 Saturation 97 % (95-98) 09/09/17 18:31 PT/INR, D-dimer PT 11.4 Seconds (9.4-12.1) 09/16/17 07:40 - Impressions Impressions Chest CT 09/15/17 16:08 IMPRESSION: 1. Moderate right pleural effusion and small left pleural effusion. 2. Spiculated superior medial segment right lower lobe mass suspicious for neoplasia of 2.14 x 1.91 x 1.27 cm. 3. Mediastinal and hilar adenopathy. RECOMMENDATIONS: PET-CT imaging may prove helpful for further assessment. D/ / 09/15/2017 17:00:19 Madie Baird MD / [facility] Interpreting Provider: Madie Baird MD Consult Discharge Plan - Plan Referrals: Stephen Liao MD [Primary Care Provider] - <Montana Dawson - Last Filed: 09/16/17 17:38> Date of Encounter: 09/16/17 - Constitutional Vitals: Temp Pulse Resp BP Pulse Ox 98.2 F 73 17 149/67 100 09/16/17 15:53 09/16/17 15:53 09/16/17 15:53 09/16/17 15:53 09/16/17 15:53 Internal Medicine: Result - Labs CBC & Chem 7: 09/16/17 06:10 09/16/17 06:10 Labs: Short CBC 09/16/17 Range/Units 06:10 WBC 20.9 H (4.3-11.1) K/mcL Hgb 10.0 L (11.5-15.4) g/dL Hct 34.5 L (35.3-44.9) % Plt Count 95 L (140-400) K/mcL Neutrophils # 3.1 (1.6-8.9) K/mcL BMP 09/16/17 06:10 Sodium 140 Potassium 4.5 Chloride 98 Carbon Dioxide 41 H* BUN 26 H Creatinine 0.44 L Glucose 78 Calcium 8.7 Liver Function 09/16/17 Range/Units 06:10 Total Bilirubin 0.6 (0.3-1.0) mg/dL Direct Bilirubin 0.1 (0.0-0.2) mg/dL AST 10 L (13-39) Units/L ALT 13 (7-52) Units/L Alkaline Phosphatase 47 (34-104) Units/L Albumin 3.3 L (3.5-5.7) g/dL - ABG Interpretation ABG results: ABG ABG pH 7.36 pH Units (7.32-7.45) 09/09/17 18:31 ABG pCO2 79 mmHg (35-45) H* 09/09/17 18:31 ABG pO2 100 mmHg (85-104) 09/09/17 18:31 ABG O2 Saturation 97 % (95-98) 09/09/17 18:31 PT/INR, D-dimer PT 11.4 Seconds (9.4-12.1) 09/16/17 07:40 - Impressions Impressions Chest CT 09/15/17 16:08 IMPRESSION: 1. Moderate right pleural effusion and small left pleural effusion. 2. Spiculated superior medial segment right lower lobe mass suspicious for neoplasia of 2.14 x 1.91 x 1.27 cm. 3. Mediastinal and hilar adenopathy. RECOMMENDATIONS: PET-CT imaging may prove helpful for further assessment. D/ / 09/15/2017 17:00:19 [facility] Inter[facility] Provider: Madie Baird MD Thoracentesis Ultrasound 09/16/17 00:00 IMPRESSION: Successful ultrasound guided thoracentesis. D/ / Samson Lucia MD / Samson Lucia MD Interpreting Provider: Samson Lucia MD Chest X-Ray 09/16/17 12:58 IMPRESSION: No evidence for pneumothorax status post right thoracentesis. Persistent but improved small right pleural effusion. Persistent and stable appearance to diffuse interstitial prominence along with Alejandro B-lines concerning for interstitial edema. Spiculated mass-like opacity to the superior segment of the right lower lobe medially on CT exam 09/15/2017 is not well demonstrated on this portable chest x-ray. Reference to the CT study can be made for additional information. This should be considered to be neoplastic until proven otherwise. D/ / 09/16/2017 14:50:41 Nasim Stevenson MD / [facility] Interpreting Provider: Nasim Stevenson MD - Attending Attestation I conducted a face to face diagnostic evaluation of this patient and my medical decision-making was reviewed with the Resident Physician, Dr Omero Salamanca. I agree with the documented findings, disposition and treatment plan as described except to the extent set forth below: On exam she is in no acute distress heart is regular. Lungs are clear. Lower extremity exam reveals 3+ lower extremity pitting edema below the knee. Plan: Start Lasix 20 mg IV twice a day for acute on chronic diastolic heart failure. I discussed the case with pulmonology. Plan for thoracentesis and outpatient follow-up for right lower lobe mass biopsy. Montana Dawson MD
[2017-09-16 08:44] LABS: Alanine Aminotransferase 13 Units/L (7-52); Albumin 3.3 g/dL (3.5-5.7); Albumin/Globulin Ratio 2.1 (1.1-2.2); Alkaline Phosphatase 47 Units/L (34-104); Aspartate Amino Transferase 10 Units/L (13-39); Bilirubin,Direct 0.1 mg/dL (0.0-0.2); Bilirubin,Indirect 0.5 mg/dL (0.0-1.2); Bilirubin,Total 0.6 mg/dL (0.3-1.0); Globulin 1.6 g/dL (2.4-3.5); Lactate Dehydrogenase 184 Units/L (140-271); Total Protein 4.9 g/dL (6.4-8.9)
[2017-09-16] MEDS: predniSONE 20 MG TABLET PO SCH (08:52)
[2017-09-16] MEDS: *HR* Glimepiride 4 MG TABLET PO SCH (08:53)
[2017-09-16] MEDS: Gabapentin 300 MG CAPSULE PO SCH (08:53)
[2017-09-16] MEDS: Famotidine 20 MG TABLET PO SCH ×2 (08:53→21:47)
[2017-09-16] MEDS: Lisinopril 20 MG TABLET PO SCH (08:53)
[2017-09-16] MEDS: Insulin DETEMIR 100 UNIT/ML X5UNITS SQ SCH ×2 (08:53→21:47)
[2017-09-16] MEDS: Furosemide 40 MG TABLET PO SCH (08:53)
[2017-09-16] MEDS: Insulin LISPRO 300 UNITS/3 ML VIAL SQ SCH ×4 (08:54→21:47)
--- NOTE | 2017-09-16 12:00 | Pulmonology Consult Note ---
Date of Encounter: 09/16/17 Time of Encounter: 12:00 Assessment and Plan (1) Acute respiratory failure with hypoxia and hypercarbia Current Visit: No Status: Acute This is likely multifactorial including a COPD exacerbation and I suspect volume overload secondary to cardiogenic pulmonary edema. She has a worsening metabolic alkalosis suggested of inadequate ventilation which would benefit from noninvasive ventilation at least at night and in the short-term for type patient will not tolerate BiPAP per the son and refuses it. I would continue oxygen to keep saturation greater than 88 to about 92%. In addition she will need aggressive electrolyte replacements including potassium and chloride for this metabolic alkalosiis. I would continue aggressive diuresis for cardiogenic edema and try to avoid any YOU[employer] depressant medications as she is quite somnolent now (2) Lung nodule Current Visit: Yes Status: Acute She is a high-risk for lung malignancy however the CT findings could be related to underlying CLL as well as pulmonary nodules can be one of the manifestations of this disease. Her diffuse lymphadenopathy I suspect is more related to CLL as opposed to metastatic lung carcinoma but this is not excluded. This is a challenging case in that patient is unable to comprehend and my opinion what I am discussing with her and and in my opinion is not reliable to providie adequate information to make serious health altering medical decisions such as bronchoscopy. The big question is going to be worse she wants to continue to receive her care for the treatment of her CLL if that is can to be established at [facility] than I would recommend follow-up at [facility] with her pulmonary division for further evaluation of these changes which likely would require bronchoscopy with endobronchial ultrasound and possibly even navigational bronchoscopy. If she decides to have her cancer treatment moved to here and wants to establish all care here then I would recommend obtaining outside hospital records including imaging disc for comparison of her changes and to see what sort of evaluation has been done. (3) Elevated WBC count Current Visit: No Status: Acute Threat clearly the patient has no worsening infection this may be related to his steroid effect or possibly the CLL itself. She remains afebrile and otherwise stable. Qualifiers: Leukocytosis type: other Qualified Code(s): D72.828 - Other elevated white blood cell count (4) CLL (chronic lymphocytic leukemia) Current Visit: No Status: Chronic She did not undergo at least 1 round of chemotherapy at [facility] I am not sure what the regimen was or what the plans for follow-up were but these outside hospital records should be obtained. Additional consideration of inpatient oncology consultation based upon planned follow-up by the patient and her family (5) COPD exacerbation Current Visit: Yes Status: Acute This is being treated with bronchodilators and steroids I suspect that steroids can be decreased or possibly even stopped to see if the leukocytosis is a steroid-induced phenomenon (6) Healthcare-associated pneumonia Current Visit: Yes Status: Acute She is remote receiving antibiotics cultures as far negative. I would advise treating for a total of 8 days for the time of admission and then stopping antimicrobials and evaluate clinically. I am not convinced that her elevation in her white count is distantly related to an infectious process but she will need to be watched closely for this. He does have a couple of patchy areas of infiltrate that may be related to CLL as likely as an an infectious process. This does not exclude a infection outside of her lung which showed inverted primary service for further evaluation. (7) Pleural effusion Current Visit: Yes Status: Acute She has a pleural effusion of unclear etiology I suspect this will be secondary to increased hydrostatic pressure such as cardiogenic pulmonary edema however pleural effusion is a significant finding in many cases of CLL with pulmonary involvement. Also possible but considered less likely is malignant effusion secondary to primary lung malignancy. Agree with thoracentesis with pleural fluid studies including pH LDH total protein triglycerides cholesterol albumin Gram stain culture cytology and flow cytometry History of Present Illness Consult date: 09/16/17 Requesting physician: Montana Dawson Reason for consult: abnormal CXR/CT Chief complaint: Shortness of Breath History of present illness: This is a 62-year-old woman with a history of CLL COPD on baseline oxygen. The history was obtained primarily from the medical record, her family on the phone and from the hospitalist team as patient is unfortunately very somnolent the time of discussion and is difficult to understand and I feel that there is a serious comprehension gap during our conversation. She was [facility] for possible pneumonia and COPD exacerbation since then he is she has been treated with antimicrobials steroids and bronchodilators with what appears to be overall improvement in symptomatology. Unfortunately her white count continues to climb despite Broad-spectrum antimicrobial coverage prompting a CT scan to be performed by the primary service. This was notable for diffuse lymphadenopathy and a left hilar mass versus lymph node consolidation additionally there is a spiculated right lower lobe lung nodule that was concerning for a neoplastic process. She also had a moderate right-sided pleural effusion. Pulmonary was consulted for further evaluation of the CT changes. The patient is a long-time smoker and quit only recently around the time of her last admission to the hospital for pneumonia which was at [facility].. My understanding for speaking with her son is that she was recently admitted at [facility] and treated for pneumonia she was there for approximately 3 weeks and at one point she actually started chemotherapy for CLL. She is not followed up their since discharge where she has been at a local [facility] facility. Per the son she was told at [facility] that she had a lung nodule and evaluation was started up their for this but she did not return for further evaluation. Past Med Surg Social Fam HX - Past Medical History Medical history: asthma, cancer, COPD Psychiatric history: no psych history - Social History Smoking Status: Current every day smoker Smokeless Tobacco Status: No Alcohol use: none Drug use: none Medications and Allergies Diphenoxylate/Atropine [Lomotil 2.5 mg/0.025 mg] 1 tab PO QID PRN 03/13/17 [ History] Gabapentin [Neurontin] 300 mg PO DAILY 03/13/17 [History] Glimepiride [Amaryl] 4 mg PO QAM 03/13/17 [History] Ranitidine HCl [Zantac] 150 mg PO BID 03/13/17 [History] Allopurinol [Zyloprim 300 MG] 300 mg PO DAILY 09/09/17 [History] Atorvastatin [Lipitor] 40 mg PO HS 09/09/17 [History] Budesonide/Formoterol 160/4.5 [Symbicort 160/4.5] 2 puff IH BIDR 09/09/17 [ History] Carvedilol [Coreg] 25 mg PO BID 09/09/17 [History] Ferrous Sulfate 324 mg PO BID 09/09/17 [History] Furosemide [Lasix] 40 mg PO DAILY 09/09/17 [History] Glucagon, Human Recombinant [GlucaGen] 1 mg IM ONCE PRN 09/09/17 [History] HydrOXYzine 10 mg PO TID PRN 09/09/17 [History] Lisinopril [Zestril] 20 mg PO DAILY 09/09/17 [History] Melatonin [Melatin] 6 mg PO HS 09/09/17 [History] Prochlorperazine Maleate [Compazine] 10 mg PO Q6H PRN 09/09/17 [History] Tramadol HCl [Ultram] 50 mg PO Q6H PRN 09/09/17 [History] 3 Allergy/AdvReac Type Severity Reaction Status Date / Time Penicillins Allergy Unknown Hives Verified 03/13/17 13:00 Sulfa (Sulfonamide Allergy Unknown Hives Verified 03/13/17 13:00 Antibiotics) aspirin AdvReac Unknown Nausea Verified 03/13/17 13:00 All Systems: A 10-system review of systems was performed and is negative for pertinent findings except as documented above in the HPI. Physical Examination Vital Signs: Vital Signs, Last 4 Hours Temp Pulse Resp BP Pulse Ox 09/16/17 11:44 97.2 F L 65 16 136/69 96 09/16/17 11:22 16 98 General appearance: lethargic Eyes: nonicteric ENT: oropharynx dry Effort: normal Auscultation: bilateral: diminished breath sounds (Right greater than left), rhonchi (Scattered) Cardiovascular: regular rate and rhythm Gastrointestinal: normoactive bowel sounds, soft, non-tender Integumentary: normal Extremities: edema Musculoskeletal: no deformities non-focal exam, pupils equal and round other (No distress) Results - Laboratory Findings CBC and BMP: 09/16/17 06:10 09/16/17 06:10 ABG ABG pH 7.36 pH Units (7.32-7.45) 09/09/17 18:31 ABG pCO2 79 mmHg (35-45) H* 09/09/17 18:31 ABG pO2 100 mmHg (85-104) 09/09/17 18:31 ABG O2 Saturation 97 % (95-98) 09/09/17 18:31 PT/INR, D-dimer PT 11.4 Seconds (9.4-12.1) 09/16/17 07:40 Abnormal lab findings: Abnormal lab results WBC 20.9 K/mcL (4.3-11.1) H 09/16/17 06:10 RBC 3.47 M/mcL (3.82-4.97) L 09/16/17 06:10 Hgb 10.0 g/dL (11.5-15.4) L 09/16/17 06:10 Hct 34.5 % (35.3-44.9) L 09/16/17 06:10 MCHC 29.0 g/dL (31.6-35.5) L 09/16/17 06:10 RDW 18.2 % (11.5-14.5) H 09/16/17 06:10 Plt Count 95 K/mcL (140-400) L 09/16/17 06:10 Lymphocytes # 17.8 K/mcL (0.6-4.6) H 09/16/17 06:10 Nucleated RBCs/100 WBC 0.2 /100 WBC (0) H 09/16/17 06:10 Reactive Lymphocytes Present (Not Present) A 09/13/17 02:57 Smudge Cells Present (Not Present) A 09/15/17 03:31 Platelet Estimate Decreased (Normal) L 09/16/17 06:10 Immature Plt Fraction 8.0 % (1.1-6.1) H 09/16/17 06:10 Hypochromasia Present (Not Present) A 09/14/17 03:51 Anisocytosis 1+ (Not Present) A 09/15/17 03:31 Microcytosis Present (Not Present) A 09/12/17 02:41 Macrocytosis Present (Not Present) A 09/15/17 03:31 ABG pCO2 79 mmHg (35-45) H* 09/09/17 18:31 ABG HCO3 45 mEq/L (21-27) H 09/09/17 18:31 ABG Total CO2 47 mEq/L (20-26) H 09/09/17 18:31 ABG Base Excess 17 mEq/L (-2 to 3) H 09/09/17 18:31 Carbon Dioxide 41 mEq/L (23-29) H* 09/16/17 06:10 BUN 26 mg/dL (8-23) H 09/16/17 06:10 Creatinine 0.44 mg/dL (0.60-1.20) L 09/16/17 06:10 BUN/Creatinine Ratio 59 (6-26) H 09/16/17 06:10 POC Glucose 389 (58-89) H 09/15/17 16:57 AST 10 Units/L (13-39) L 09/16/17 06:10 B-Natriuretic Peptide 1494 pg/mL (Less than 100) H 09/09/17 21:10 Serum Total Protein 4.9 g/dL (6.4-8.9) L 09/16/17 06:10 Albumin 3.3 g/dL (3.5-5.7) L 09/16/17 06:10 Globulin 1.6 g/dL (2.4-3.5) L 09/16/17 06:10 Procalcitonin 0.15 ng/mL (<=0.10) H 09/10/17 05:19 Urine Protein 30 mg/dL (Neg-Trace) H 09/09/17 20:11 Urine Blood Moderate (Negative) H 09/09/17 20:11 Ur Leukocyte Esterase Small (Negative) H 09/09/17 20:11 Urine Microscopic WBC 15-30 per hpf (0-3) H 09/09/17 20:11 Ur Squamous Epith Cells Many per lpf (None-Few) H 09/09/17 20:11 Urine Yeast Moderate per hpf (None Seen) H 09/09/17 20:11 Vancomycin Trough 7.3 mcg/mL (10-20) L 09/16/17 06:10 - Diagnostic Findings Chest x-ray: report reviewed, image reviewed CT scan - chest: report reviewed, image reviewed - Clinical Findings Intake & Output: Intake & Output 09/15/17 09/16/17 09/16/17 23:59 07:59 15:59 Intake Total 750 / 750 Balance 750 / 750 Consult Discharge Plan - Plan Referrals: Stephen Liao MD [Primary Care Provider] -
--- NOTE | 2017-09-16 12:58 | IR Procedure Note ---
Date of procedure: 09/16/17 Consent Obtained: Verbal consent, Written consent Timeout: Correct patient and procedure verified, Correct site verified, Time out performed, Skin prep completed Local anesthetic: Lidocaine 1% Indications: effusion Procedure Performed: thoracentesis Was there an criminal legal assistant present: No Site/Technique: right Results/Findings: 450 mL aspirated Estimated blood loss (cc): 1 Complications: None; Tolerated procedure well Post Procedure Treatment Plan: CXR Specimen: pleural fluid
[2017-09-16 14:47] LABS: RBC,Pleural Fluid < 0.002 M/mcL
[2017-09-16 15:03] LABS: Glucose,Pleural Fluid 150 mg/dL (No Ref Range); LDH,Pleural Fluid 45 Units/L (No Ref Range); Total Protein,Pleural Fluid < 3.0 g/dL (No Ref Range)
[2017-09-16 16:01] LABS: Appearance of Pleural Fl Clear (Clear)
--- NOTE | 2017-09-16 16:07 | Electrocardiograph Report ---
[address] [place] [address] Test Date: 2017-09-14 Pat Name: Domenica Sheridan Department: 113 Room: 3B21 Gender: F Mission Support Specialist: HAYDE : 1955 Requested By: Lesley Reid Order Number: [id number] Reading MD: Jose E Samuel MD Measurements Intervals [place] Rate: 74 P: 51 RI: 156 QRS: 83 QRSD: 120 T: 65 QT: 407 QTc: 434 Interpretive Statements SINUS RHYTHM LEFT VENTRICULAR HYPERTROPHY LBBB Electronically Signed On 09-16-2017 16:05:25 EST by Jose E Samuel MD
[2017-09-16] MEDS: Vancomycin 1,250 MG in D5% in Water 250 ML IVPB SCH (17:25)
[2017-09-16] MEDS: Furosemide 20 MG/2 ML VIAL IVP SCH (18:58)
[2017-09-16] MEDS: Melatonin 3 MG TABLET PO SCH (21:46)
[2017-09-17] MEDS: Cefepime HCl 1,000 MG in Water for inj. (sterile) 20 ML 10 ML IVP SCH (03:12)
[2017-09-17] MEDS: Ipratropium/Albuterol Neb 3 ML IH SCH ×6 (03:41→23:27)
[2017-09-17] MEDS: Vancomycin 1,250 MG in D5% in Water 250 ML IVPB SCH (03:57)
[2017-09-17 04:49] LABS: Mean Platelet Volume 12.2 fL (9.4-12.4)
[2017-09-17 04:50] LABS: Hematocrit 34.3 % (35.3-44.9); Hemoglobin 10.1 g/dL (11.5-15.4); Mean Corpuscular HGB Conc 29.4 g/dL (31.6-35.5); Mean Corpuscular Volume 98.6 fL (83.0-100.0); Nucleated Red Blood Cells 0.1 /100 WBC (0); Red Blood Count 3.48 M/mcL (3.82-4.97); Red Cell Distribution Width 17.5 % (11.5-14.5)
[2017-09-17 05:04] LABS: BUN/Creatinine Ratio 60 (6-26); Blood Urea Nitrogen 33 mg/dL (8-23); Calcium 8.8 mg/dL (8.6-10.3); Carbon Dioxide 40 mEq/L (23-29); Chloride 96 mEq/L (98-107); Glucose 180 mg/dL (70-105); Osmolality,Calculated 300 (280-300); Potassium 4.4 mEq/L (3.5-5.1); Sodium 139 mEq/L (136-145); eGFR For African Americans > 60 (> 60); eGFR For Non-African Americans > 60 (> 60)
[2017-09-17 05:20] LABS: Platelet Count 82 K/mcL (140-400)
[2017-09-17] MEDS: *HR* Heparin 5,000 UNIT/ML VIAL SQ SCH (05:42)
[2017-09-17 07:00] LABS: Lymphocytes # 20.2 K/mcL (0.6-4.6); Monocytes # 0.5 K/mcL (0.0-1.3); Neutrophils # 3.4 K/mcL (1.6-8.9)
[2017-09-17 07:01] LABS: Anisocytosis 1+ (Not Present); Microcytosis Present (Not Present); Platelet Estimate Decreased (Normal); Reactive Lymphocytes Present (Not Present); Smudge Cells Present (Not Present); Target Cells 1+ (Not Present)
[2017-09-17] MEDS: Budesonide/Formoterol 160/4.5 MDI IH SCH ×2 (07:51→19:38)
[2017-09-17] MEDS: Insulin LISPRO 300 UNITS/3 ML VIAL SQ SCH ×4 (08:40→21:05)
[2017-09-17] MEDS: *HR* Glimepiride 4 MG TABLET PO SCH (08:41)
[2017-09-17] MEDS: Famotidine 20 MG TABLET PO SCH ×2 (08:41→21:03)
[2017-09-17] MEDS: Furosemide 20 MG/2 ML VIAL IVP SCH ×2 (08:41→17:17)
[2017-09-17] MEDS: predniSONE 20 MG TABLET PO SCH (08:41)
[2017-09-17] MEDS: Gabapentin 300 MG CAPSULE PO SCH (08:41)
[2017-09-17] MEDS: Lisinopril 20 MG TABLET PO SCH (08:41)
[2017-09-17] MEDS: Insulin DETEMIR 100 UNIT/ML X5UNITS SQ SCH ×2 (08:42→21:05)
--- NOTE | 2017-09-17 08:49 | Pulmonology Progress Note ---
Date of Encounter: 09/17/17 Time of Encounter: 08:49 Assessment and Plan (1) Acute respiratory failure with hypoxia and hypercarbia Current Visit: No Status: Acute I reviewed the outside hospital medical records obtained from [facility] from the recent admission at the end of July. It appears that time she was seen by oncology and at least given one round of chemotherapy as an inpatient from the best history I have obtained. She also had an extensive cardiology evaluation including nuclear stress test after an echocardiogram was performed which was notable for a severely reduced ejection fraction of around 30%. Additionaly w/u included both CTPE and CT with Contrast. Both were notable for diffuse mediastinal and hilar adenopathy along with left hilar mass/lymph node consolidation. They did not make note of the right lower lobe lung nodule although I will only currently reports and not the actual CT images to review. This would make the concern for primary lung malignancy at least from the right- sided nodule unlikely given chronicity and I suspect lung findings are all related to CLL. She has a rising leukocytosis I do not feel that this is secondary to an infectious process given that she has been treated with antimicrobials and clinically is quite stable I recommend de-escalation/stopping antimicrobials and monitoring. This may be underlying CLL and may be a steroid effect steroids could also be stopped from a respiratory standpoint at this time safely She is clearly remains volume overloaded on examination and would continue to benefit from ongoing diuresis. Her metabolic alkalosis is present and stable if worsens without evidence kidney dysfunction while diuresing she could receive 24-48 hours of Diamox 250 mg 3 times a day. She would likely benefit from continued cardiology evaluation Ongoing treatment of COPD schedule bronchodilators (lloyd/evi combo) is warranted as above I do not think that additional prednisone is necessarily contribute beneficial Her right pleural effusion is transudative in nature and related to increased hydrostatic pressure from heart failure with reduced ejection fraction. Cytology should be followed up for the sake of completeness. The bigger question my mind overall is the goals of care for this patient with a known malignancy, developmental delay, CHF, chronic respiratory failure and COPD however aggressive family/patient would like to be. This may benefit from a formal palliative care consultation. Additionally if care with once to be pursued here versus at [facility] if care is to be established here than she should be scheduled for pulmonary follow-up in the outpatient clinic or we can follow this lung nodule and lymphadenopathy radiographically in collaboration with oncology. (2) Lung nodule Current Visit: Yes Status: Acute (3) Elevated WBC count Current Visit: No Status: Acute Qualifiers: Qualified Code(s): D72.828 - Other elevated white blood cell count (4) CLL (chronic lymphocytic leukemia) Current Visit: No Status: Chronic (5) COPD exacerbation Current Visit: Yes Status: Acute (6) Healthcare-associated pneumonia Current Visit: Yes Status: Acute (7) Pleural effusion Current Visit: Yes Status: Acute Subjective Principal diagnosis: Respiaratory failure Interval history: No acute events overnight. Patient's a little more awake today but still is difficult to completely understand her. Objective PUL Vital signs: Last Vital Signs Temp 98.0 F 09/17/17 07:15 Pulse 66 09/17/17 07:15 Resp 15 09/17/17 07:15 BP 102/76 09/17/17 07:15 Pulse Ox 98 09/17/17 07:15 General appearance: no acute distress Effort: normal Auscultation: right: diminished breath sounds, bilateral: rales Cardiovascular: regular rate and rhythm Gastrointestinal: normoactive bowel sounds Extremities: edema non-focal exam, other (She remains somnolent but easily arousable more interactive today) mood appropriate Results - Laboratory Findings CBC and BMP: 09/17/17 04:04 09/17/17 04:04 ABG ABG pH 7.36 pH Units (7.32-7.45) 09/09/17 18:31 ABG pCO2 79 mmHg (35-45) H* 09/09/17 18:31 ABG pO2 100 mmHg (85-104) 09/09/17 18:31 ABG O2 Saturation 97 % (95-98) 09/09/17 18:31 PT/INR, D-dimer PT 11.4 Seconds (9.4-12.1) 09/16/17 07:40 Abnormal lab findings: Abnormal lab results WBC 24.1 K/mcL (4.3-11.1) H 09/17/17 04:04 RBC 3.48 M/mcL (3.82-4.97) L 09/17/17 04:04 Hgb 10.1 g/dL (11.5-15.4) L 09/17/17 04:04 Hct 34.3 % (35.3-44.9) L 09/17/17 04:04 MCHC 29.4 g/dL (31.6-35.5) L 09/17/17 04:04 RDW 17.5 % (11.5-14.5) H 09/17/17 04:04 Plt Count 82 K/mcL (140-400) L 09/17/17 04:04 Lymphocytes # 20.2 K/mcL (0.6-4.6) H 09/17/17 04:04 Nucleated RBCs/100 WBC 0.1 /100 WBC (0) H 09/17/17 04:04 Reactive Lymphocytes Present (Not Present) A 09/17/17 04:04 Smudge Cells Present (Not Present) A 09/17/17 04:04 Platelet Estimate Decreased (Normal) L 09/17/17 04:04 Immature Plt Fraction 8.0 % (1.1-6.1) H 09/16/17 06:10 Hypochromasia Present (Not Present) A 09/14/17 03:51 Anisocytosis 1+ (Not Present) A 09/17/17 04:04 Microcytosis Present (Not Present) A 09/17/17 04:04 Macrocytosis Present (Not Present) A 09/15/17 03:31 Target Cells 1+ (Not Present) A 09/17/17 04:04 ABG pCO2 79 mmHg (35-45) H* 09/09/17 18:31 ABG HCO3 45 mEq/L (21-27) H 09/09/17 18:31 ABG Total CO2 47 mEq/L (20-26) H 09/09/17 18:31 ABG Base Excess 17 mEq/L (-2 to 3) H 09/09/17 18:31 Chloride 96 mEq/L (98-107) L 09/17/17 04:04 Carbon Dioxide 40 mEq/L (23-29) H* 09/17/17 04:04 BUN 33 mg/dL (8-23) H 09/17/17 04:04 Creatinine 0.55 mg/dL (0.60-1.20) L 09/17/17 04:04 BUN/Creatinine Ratio 60 (6-26) H 09/17/17 04:04 Glucose 180 mg/dL (70-105) H 09/17/17 04:04 POC Glucose 128 (58-89) H 09/16/17 12:07 AST 10 Units/L (13-39) L 09/16/17 06:10 B-Natriuretic Peptide 947 pg/mL (Less than 100) H 09/16/17 15:53 Serum Total Protein 4.9 g/dL (6.4-8.9) L 09/16/17 06:10 Albumin 3.3 g/dL (3.5-5.7) L 09/16/17 06:10 Globulin 1.6 g/dL (2.4-3.5) L 09/16/17 06:10 Procalcitonin 0.15 ng/mL (<=0.10) H 09/10/17 05:19 Urine Protein 30 mg/dL (Neg-Trace) H 09/09/17 20:11 Urine Blood Moderate (Negative) H 09/09/17 20:11 Ur Leukocyte Esterase Small (Negative) H 09/09/17 20:11 Urine Microscopic WBC 15-30 per hpf (0-3) H 09/09/17 20:11 Ur Squamous Epith Cells Many per lpf (None-Few) H 09/09/17 20:11 Urine Yeast Moderate per hpf (None Seen) H 09/09/17 20:11 Vancomycin Trough 7.3 mcg/mL (10-20) L 09/16/17 06:10 - Microbiology Findings Microbiology Findings: Microbiology, Last 48 Hours 09/16/17 12:00 Body Fluid Culture - Preliminary Pleural Fluid - Clinical Findings Intake & Output: Intake & Output 09/16/17 09/17/17 09/17/17 23:59 07:59 15:59 Intake Total 260 / 260 260 / 260 Output Total 1300 / 1300 300 / 300 Balance -1040 / -1040 -40 / -40 Weight 45.541 kg Consult Discharge Plan - Plan Referrals: Stephen Liao MD [Primary Care Provider] -
[2017-09-17] MEDS ORDERED: Aminoglycoside Consult 1 EACH MC ONE (09:44)
--- NOTE | 2017-09-17 10:45 | Internal Med Progress Note ---
<Omero Salamanca - Last Filed: 09/17/17 16:32> Date of Encounter: 09/17/17 Time of Encounter: 10:15 - Assessment and plan (1) Mass of right lung Current Visit: Yes Status: Acute Assessment and plan: - CT chest on 09/15/17 found spiculated superior medial segment right lower lobe mass suspicious for neoplasia of 2.14 x 1.91 x 1.27 cm. - The RLL mass is likely new as patient's prior CT chest report done at [facility] on 08/26/17 states "no suspicious lung nodule". - Patient may benefit from bronchoscopy with EBUS biopsy as further work-up. - Pulmonary on board. Appreciate evaluation and recommendation. - Plan to have meeting with patient's family to discuss about the finding and the goal of care. (2) CLL (chronic lymphocytic leukemia) Current Visit: No Status: Chronic Assessment and plan: - Know history of CLL. - Review of medical records from [facility] revealed that patient had acute blast crisis with WBC as high as 470 during her hospitalization there one month ago. - Patient has scheduled follow-up with [facility] on 09/22/17. - Current worsening leukocytosis with lymphocyte-dominance is likely related to CLL. (3) Acute respiratory failure with hypoxia and hypercarbia Current Visit: No Status: Acute Assessment and plan: - Initial ABG: pH 7.36, pCO2 79, pO2 100, HCO3 45 - Likely multifactorial including pneumonia, pleural effusion and COPD exacerbation. - Continue Symbicort, antibiotic, bronchodilators and supplemental oxygen for COPD - Significantly improved as patient reports breathing better and maintains acceptable oxygen saturation on 2L NC. - Continue to monitor. (4) Pleural effusion Current Visit: Yes Status: Acute Assessment and plan: - CT chest on 09/15/17 found moderate right pleural effusion and small left pleural effusion. - US-guided right thoracentesis on 09/16/17 with 450 mL of pleural fluid aspirated. - Per pleural fuid studies, it's transudate and does not appear to be from infection. Cytology pending. (5) Healthcare-associated pneumonia Current Visit: Yes Status: Acute Assessment and plan: - CXR on admission found bilateral lower lobe airspace disease, right greater than left, concerning for acute pneumonia. - Sputum culture from 09/10/17 did not meet criteria for culture. - Blood cultures from 09/10/17: No growth. - Negative tests for influenza, urine antigens for Legionella and Strept. pneumoniae. - Patient was initially started on IV vancomycin and meropenem on admission but vancomycin was discontinued on 09/10. - Vancomycin is re-started on 09/14 as worsening leukocytosis (WBC 21.6). - Meropenem was switched to cefepime on 09/14/17. - Currently on IV vancomycin (since 09/14) and cefepiem (09/15). - Case with discussed with pulmonology. Patient's respiratory status has significantly improved and the lymphocyte-predominant leukocytosis can be related to patient's CLL. Given patient has been on antibiotic therapy for more than 7 days, antibiotics can be discontinued at this time. (6) COPD exacerbation Current Visit: Yes Status: Acute Assessment and plan: - Continue Symbicort, antibiotic, bronchodilators and supplemental oxygen. - Will discontinue steroid as patient's respiratory status has significantly improved (7) Thrombocytopenia Current Visit: No Status: Acute Assessment and plan: - History of thrombocytopenia. - Per oncology note from March 2017, continue to monitor (platelet count was ~80 at that time). - Platelet slightly decreased to 82 today. - Continue to monitor. (8) Diabetes mellitus type 2 in nonobese Current Visit: No Status: Chronic Assessment and plan: - Continue basal and sliding scale insulin with glucose monitoring. (9) DVT prophylaxis Current Visit: Yes Status: Acute Assessment and plan: - Continue SQ heparin. - Subjective Interval history: Patient was seen and examined this morning. Patient still has some cough but reports breathing okay. Patient denies fever, chills, chest pain, abdominal pain , diarrhea. - Constitutional Vitals: Temp Pulse Resp BP Pulse Ox 98.0 F 66 18 102/76 98 09/17/17 07:15 09/17/17 07:15 09/17/17 07:51 09/17/17 07:15 09/17/17 07:51 General appearance: Present: A&O X 3, pleasant, no acute distress, answers questions appropriately - Head Head exam: Present: normal inspection - Eye Eye exam: Present: EOMI, conjuntiva pink, sclera anicteric - Neck Neck exam general surgery: Present: normal inspection, supple, trachea midline - Respiratory Respiratory exam: Present: CTAB. Absent: accessory muscle use, rales, rhonchi, wheezes - Cardiovascular Cardiovascular exam: Present: RRR, +S1, +S2 - GI/Abdominal GI/Abdominal exam: Present: normal bowel sounds, soft, no peritoneal signs. Absent: tenderness - Extremities Exam Extremities exam: Present: warm. Absent: cyanotic, pedal edema - Neurological Exam Neurological exam: Present: alert. Absent: facial droop, speech deficit - Skin Skin exam: Present: dry, warm Internal Medicine: Result - Labs CBC & Chem 7: 09/17/17 04:04 09/17/17 04:04 Labs: Short CBC 09/17/17 Range/Units 04:04 WBC 24.1 H (4.3-11.1) K/mcL Hgb 10.1 L (11.5-15.4) g/dL Hct 34.3 L (35.3-44.9) % Plt Count 82 L (140-400) K/mcL Neutrophils # 3.4 (1.6-8.9) K/mcL BMP 09/17/17 04:04 Sodium 139 Potassium 4.4 Chloride 96 L Carbon Dioxide 40 H* BUN 33 H Creatinine 0.55 L Glucose 180 H Calcium 8.8 - ABG Interpretation ABG results: ABG ABG pH 7.36 pH Units (7.32-7.45) 09/09/17 18:31 ABG pCO2 79 mmHg (35-45) H* 09/09/17 18:31 ABG pO2 100 mmHg (85-104) 09/09/17 18:31 ABG O2 Saturation 97 % (95-98) 09/09/17 18:31 PT/INR, D-dimer PT 11.4 Seconds (9.4-12.1) 09/16/17 07:40 - Impressions Impressions Thoracentesis Ultrasound 09/16/17 00:00 IMPRESSION: Successful ultrasound guided thoracentesis. D/ / Samson Lucia MD / Samson Lucia MD Interpreting Provider: Samson Lucia MD Chest X-Ray 09/16/17 12:58 IMPRESSION: No evidence for pneumothorax status post right thoracentesis. Persistent but improved small right pleural effusion. Persistent and stable appearance to diffuse interstitial prominence along with Alejandro B-lines concerning for interstitial edema. Spiculated mass-like opacity to the superior segment of the right lower lobe medially on CT exam 09/15/2017 is not well demonstrated on this portable chest x-ray. Reference to the CT study can be made for additional information. This should be considered to be neoplastic until proven otherwise. D/ / 09/16/2017 14:50:41 Nasim Stevenson MD / earnold Interpreting Provider: Nasim Stevenson MD Consult Discharge Plan - Plan Referrals: Stephen Liao MD [Primary Care Provider] - <Mikel Spence - Last Filed: 09/17/17 19:17> Date of Encounter: 09/17/17 - Assessment and plan (1) Acute respiratory failure with hypoxia and hypercarbia Current Visit: No Status: Acute (2) Pleural effusion Current Visit: Yes Status: Acute (3) CLL (chronic lymphocytic leukemia) Current Visit: No Status: Chronic (4) Coronary artery disease Current Visit: No Status: Chronic Qualifiers: Coronary Disease-Associated Artery/Lesion type: [place] artery [place] vs. transplanted heart: [place] heart Associated angina: without angina Qualified Code(s): I25.10 - Atherosclerotic heart disease of [place] coronary artery without angina pectoris (5) Mass of right lung Current Visit: Yes Status: Acute (6) COPD exacerbation Current Visit: Yes Status: Acute - Constitutional Vitals: Temp Pulse Resp BP Pulse Ox 98.2 F 72 16 157/59 94 09/17/17 16:15 09/17/17 16:15 09/17/17 16:15 09/17/17 16:15 09/17/17 16:15 Internal Medicine: Result - Labs CBC & Chem 7: 09/17/17 04:04 09/17/17 04:04 Labs: Short CBC 09/17/17 Range/Units 04:04 WBC 24.1 H (4.3-11.1) K/mcL Hgb 10.1 L (11.5-15.4) g/dL Hct 34.3 L (35.3-44.9) % Plt Count 82 L (140-400) K/mcL Neutrophils # 3.4 (1.6-8.9) K/mcL BMP 09/17/17 04:04 Sodium 139 Potassium 4.4 Chloride 96 L Carbon Dioxide 40 H* BUN 33 H Creatinine 0.55 L Glucose 180 H Calcium 8.8 - ABG Interpretation ABG results: ABG ABG pH 7.36 pH Units (7.32-7.45) 09/09/17 18:31 ABG pCO2 79 mmHg (35-45) H* 09/09/17 18:31 ABG pO2 100 mmHg (85-104) 09/09/17 18:31 ABG O2 Saturation 97 % (95-98) 09/09/17 18:31 PT/INR, D-dimer PT 11.4 Seconds (9.4-12.1) 09/16/17 07:40 - Attending Attestation I examined this patient and my medical decision-making was reviewed with the Resident Physician on 09/17/17. I agree with the documented findings, disposition and treatment plan as described except to the extent set forth below. Ms Sheridan is currently admitted for presumed pneumonia and lung mass. She remains moderate to high risk due to potential for worsening respiratory status. Ms Sheridan is still coughing. No fever or chills. WBC increasing but appears to be lymphocytes. Exam Alert. Comfortable Mucus membranes dry Heart reg No wheeze Abd soft I/P 1. Lung mass - family wants to follow up with onc here. 2. CLL Further diagnoses and plan as above. Plan d/c to SNF tomorrow.
[2017-09-17] MEDS: Melatonin 3 MG TABLET PO SCH (21:04)
[2017-09-17] MEDS: traMADol 50 MG TABLET PO PRN (21:19)
[2017-09-18] MEDS: Ipratropium/Albuterol Neb 3 ML IH SCH ×3 (03:35→11:23)
[2017-09-18 04:35] LABS: Chloride 94 mEq/L (98-107); Potassium 4.3 mEq/L (3.5-5.1); Sodium 137 mEq/L (136-145)
[2017-09-18 04:47] LABS: Eosinophils % 0.2 %; Nucleated Red Blood Cells 0.1 /100 WBC (0)
[2017-09-18 04:49] LABS: Basophils % 0.2 %; Eosinophils # 0.1 K/mcL (0.0-0.6); Hematocrit 34.2 % (35.3-44.9); Hemoglobin 10.2 g/dL (11.5-15.4); Immature Granulocytes % 0.1 % (0-4); Immature Platelets 10.8 % (1.1-6.1); Lymphocytes # 19.9 K/mcL (0.6-4.6); Mean Corpuscular HGB Conc 29.8 g/dL (31.6-35.5); Mean Corpuscular Hemoglobin 29.1 pg (28.0-33.3); Mean Corpuscular Volume 97.7 fL (83.0-100.0); Mean Platelet Volume 12.5 fL (9.4-12.4); Monocytes # 1.5 K/mcL (0.0-1.3); Neutrophils # 3.1 K/mcL (1.6-8.9); Red Cell Distribution Width 17.5 % (11.5-14.5); Segmented Neutrophils % 12.5 %
[2017-09-18 05:37] LABS: Basophils # 0.1 K/mcL (0.0-0.2); Platelet Count 67 K/mcL (140-400)
[2017-09-18 05:39] LABS: Anisocytosis 1+ (Not Present); Platelet Estimate Decreased (Normal); Reactive Lymphocytes Present (Not Present)
[2017-09-18 06:05] LABS: BUN/Creatinine Ratio 77 (6-26); Blood Urea Nitrogen 36 mg/dL (8-23); Carbon Dioxide 39 mEq/L (23-29); Glucose 113 mg/dL (70-105); Osmolality,Calculated 293 (280-300); eGFR For African Americans > 60 (> 60); eGFR For Non-African Americans > 60 (> 60)
[2017-09-18] MEDS: Budesonide/Formoterol 160/4.5 MDI IH SCH (07:33)
[2017-09-18 07:52] VITALS: BP 143/64
[2017-09-18] MEDS: *HR* Glimepiride 4 MG TABLET PO SCH (07:58)
[2017-09-18] MEDS: Famotidine 20 MG TABLET PO SCH (07:58)
[2017-09-18] MEDS: Gabapentin 300 MG CAPSULE PO SCH (07:58)
[2017-09-18] MEDS: Lisinopril 20 MG TABLET PO SCH (07:58)
[2017-09-18] MEDS: Furosemide 20 MG/2 ML VIAL IVP SCH (07:59)
[2017-09-18] MEDS: Insulin LISPRO 300 UNITS/3 ML VIAL SQ SCH (07:59)
--- NOTE | 2017-09-18 08:17 | Discharge Summary ---
Date of Encounter: 09/18/17 Time of Encounter: 08:11 - Discharge Diagnosis (1) Acute respiratory failure with hypoxia and hypercarbia Priority: Primary Status: Acute (2) Pleural effusion Priority: Primary Status: Acute (3) CLL (chronic lymphocytic leukemia) Priority: Secondary Status: Chronic (4) Coronary artery disease Priority: Secondary Status: Chronic Qualifiers: Coronary Disease-Associated Artery/Lesion type: [place] artery [place] vs. transplanted heart: [place] heart Associated angina: without angina Qualified Code(s): I25.10 - Atherosclerotic heart disease of [place] coronary artery without angina pectoris (5) Mass of right lung Priority: Secondary Status: Chronic (6) COPD exacerbation Priority: Secondary Status: Acute - Discharge Medications Prescriptions: Diphenoxylate/Atropine [Lomotil 2.5 mg/0.025 mg] 1 tab PO QID PRN #10 tablet PRN Reason: Diarrhea Gabapentin [Neurontin] 300 mg PO DAILY #5 capsule Tramadol HCl [Ultram] 50 mg PO Q6H PRN #10 tablet PRN Reason: Moderate to Severe Pain Home Medications: Glimepiride [Amaryl] 4 mg PO QAM 03/13/17 [History] Ranitidine HCl [Zantac] 150 mg PO BID 03/13/17 [History] Allopurinol [Zyloprim 300 MG] 300 mg PO DAILY 09/09/17 [History] Atorvastatin [Lipitor] 40 mg PO HS 09/09/17 [History] Budesonide/Formoterol 160/4.5 [Symbicort 160/4.5] 2 puff IH BIDR 09/09/17 [ History] Carvedilol [Coreg] 25 mg PO BID 09/09/17 [History] Ferrous Sulfate 324 mg PO BID 09/09/17 [History] Furosemide [Lasix] 40 mg PO DAILY 09/09/17 [History] Glucagon, Human Recombinant [Glucagen] 1 mg IM ONCE PRN 09/09/17 [History] HydrOXYzine 10 mg PO TID PRN 09/09/17 [History] Lisinopril [Zestril] 20 mg PO DAILY 09/09/17 [History] Melatonin [Melatin] 6 mg PO HS 09/09/17 [History] Prochlorperazine Maleate [Compazine] 10 mg PO Q6H PRN 09/09/17 [History] Acetaminophen [Tylenol] 650 mg PO Q6HR PRN tablet 09/18/17 [Rx] Diphenoxylate/Atropine [Lomotil 2.5 mg/0.025 mg] 1 tab PO QID PRN #10 tablet [Rx] Gabapentin [Neurontin] 300 mg PO DAILY #5 capsule 09/18/17 [Rx] Insulin DETEMIR [Levemir] 10 unit SQ BID [id number] 09/18/17 [Rx] Ipratropium/Albuterol Neb [Duoneb] 3 ml IH [id number] inhsol 09/18/17 [Rx] Ipratropium/Albuterol Neb [Duoneb] 3 ml IH [id number] PRN inhsol 09/18/17 [Rx] Tramadol HCl [Ultram] 50 mg PO Q6H PRN #10 tablet 09/18/17 [Rx] Allergies/Adverse Reactions: 3 Allergy/AdvReac Type Severity Reaction Status Date / Time Penicillins Allergy Unknown Hives Verified 03/13/17 13:00 Sulfa (Sulfonamide Allergy Unknown Hives Verified 03/13/17 13:00 Antibiotics) aspirin AdvReac Unknown Nausea Verified 03/13/17 13:00 Procedures/tests Complete & Pending: Procedures Performed prior 72 hours Category Date Time Status CT chest w/o contrast [CT chest wo con] [CT] Stat Cat Scan 09/15/17 16:08 Completed IR thoracentesis ultrasound [IR] Routine IR 09/16/17 Completed Date of admission: 09/10/17 05:54 Primary care physician: Stephen Liao MD Consults: 09/10/17 12:10 PT [Consult to Physical Therapy] [CONS] Routine Comment: Evaluate, develop and implement POC Reason for Consult: Evaluation 09/10/17 12:11 OT [Consult to Occupational Therapy] [CONS] Routine Comment: Evaluate, develop and implement POC Reason for Consult: Evaluation 09/16/17 07:50 Consult to Interventional Radiology [CONS] Routine Consulting Provider: Radiology Interventional Cols Reason for Consult: Moderate right pleural effusion and right lower lobe mass per CT chest. Appreciate diagnostic thoracentesis. Pleural fluid studies ordered. Call Completed: Yes 09/16/17 08:30 Consult to Pulmonology [CONS] Routine Consulting Provider: Pulm [facility] Reason for Consult: Right moderate pleural effusion with right lower lobe mass. Appreciate pulmonology evaluation and recommendations. Call Completed: Yes Discharging clinician: Mikel Spence Anticipated date of discharge: 09/18/17 - Patient Status Disposition: Transfer SNF Condition: Fair Functional capacity at discharge: uses cane/walker Overall status at discharge: patient is progressing back to baseline - Discharge Instructions Follow Up With: Stephen Liao MD [Primary Care Provider] - Brant Ortega MD [Partnered Physician] - Sony Crawley MD [Partnered Physician] - - Diet and Activity Activity: as per physical therapy, increase activity as tolerated Diet: diabetic diet Hospital course: Ms. Sheridan is a 62 year old female with history of CLL and recent hospitalization in [place] for blast crisis presented from [facility] with complaints of dyspnea and hypoxia. She was evaluated in ED and due to concern for pneumonia she was subsequently admitted. Ms Sheridan was admitted to [facility]. She was started on IV abx of Merrem and Vanc. She was placed on IV steroids and treated for acute exac COPD as well. IV Vanc was discontinued when blood cultures negative. She had initial improvement but developed worsening dyspnea again and had CT which showed pleural effusion on R and concern for mass in R lung. She underwent thoracentesis on 09/16 and cultures were negative. Pathology is pending. On 09/16 she was also evaluated by pulmonology due to persistent symptoms and concern for need for further work up. Records were obtained from [facility] and CT reports reviewed. It was suggested she follow up outpatient at [place] or here. Son prefers here so appointments to be made. Her WBC has been elevated but appears to be lymphocytes consistent with her CLL. Platelets are low but have fluctuated over last few months. On 09/18 she was evaluated and feels at baseline. She is afebrile with stable vitals and is ready for discharge back to SNF. - Time Spent with Patient Total time spent providing and/or coordinating discharge services: 42 min - Constitutional Vitals: Temp Pulse Resp BP Pulse Ox 97.5 F L 64 16 143/64 99 09/18/17 07:51 09/18/17 07:51 09/18/17 07:51 09/18/17 07:51 09/18/17 07:51 General appearance: Present: A&O X 3, pleasant, answers questions appropriately - Head Head exam: Present: normocephalic - Eye Eye exam: Present: conjuntiva pink - ENT ENT exam: Present: mucous membranes moist - Respiratory Respiratory exam: Present: decreased breath sounds, rhonchi. Absent: rales, wheezes - Cardiovascular Cardiovascular exam: Present: RRR. Absent: tachycardia - GI/Abdominal GI/Abdominal exam: Present: soft. Absent: tenderness - Extremities Exam Extremities exam: Present: warm. Absent: tenderness - Neurological Exam Neurological exam: Present: alert, oriented X3 - Skin Skin exam: Present: warm. Absent: rash
--- NOTE | 2017-09-18 08:39 | Physician Discharge Referral ---
ExtendedCare Referral Info Transfer To: [facility] Provider in Charge after Transfer: PCP Institutional Level of Care: Skilled - Diagnosis (1) Acute respiratory failure with hypoxia and hypercarbia Priority: Primary Status: Acute (2) Pleural effusion Priority: Primary Status: Acute (3) CLL (chronic lymphocytic leukemia) Priority: Secondary Status: Chronic (4) Coronary artery disease Priority: Secondary Status: Chronic (5) Mass of right lung Priority: Secondary Status: Chronic (6) COPD exacerbation Priority: Primary Status: Acute Expected Duration of Placement: Less than 30 days Prognosis: Fair Aware of Diagnosis: Patient, Family Aware of Prognosis: Patient, Family - Transfer Medications Prescriptions: Diphenoxylate/Atropine [Lomotil 2.5 mg/0.025 mg] 1 tab PO QID PRN #10 tablet PRN Reason: Diarrhea Gabapentin [Neurontin] 300 mg PO DAILY #5 capsule Tramadol HCl [Ultram] 50 mg PO Q6H PRN #10 tablet PRN Reason: Moderate to Severe Pain Home Medications: Glimepiride [Amaryl] 4 mg PO QAM 03/13/17 [History] Ranitidine HCl [Zantac] 150 mg PO BID 03/13/17 [History] Allopurinol [Zyloprim 300 MG] 300 mg PO DAILY 09/09/17 [History] Atorvastatin [Lipitor] 40 mg PO HS 09/09/17 [History] Budesonide/Formoterol 160/4.5 [Symbicort 160/4.5] 2 puff IH BIDR 09/09/17 [ History] Carvedilol [Coreg] 25 mg PO BID 09/09/17 [History] Ferrous Sulfate 324 mg PO BID 09/09/17 [History] Furosemide [Lasix] 40 mg PO DAILY 09/09/17 [History] Glucagon, Human Recombinant [Glucagen] 1 mg IM ONCE PRN 09/09/17 [History] HydrOXYzine 10 mg PO TID PRN 09/09/17 [History] Lisinopril [Zestril] 20 mg PO DAILY 09/09/17 [History] Melatonin [Melatin] 6 mg PO HS 09/09/17 [History] Prochlorperazine Maleate [Compazine] 10 mg PO Q6H PRN 09/09/17 [History] Acetaminophen [Tylenol] 650 mg PO Q6HR PRN tablet 09/18/17 [Rx] Diphenoxylate/Atropine [Lomotil 2.5 mg/0.025 mg] 1 tab PO QID PRN #10 tablet [Rx] Gabapentin [Neurontin] 300 mg PO DAILY #5 capsule 09/18/17 [Rx] Insulin DETEMIR [Levemir] 10 unit SQ BID [id number] 09/18/17 [Rx] Ipratropium/Albuterol Neb [Duoneb] 3 ml IH [id number] inhsol 09/18/17 [Rx] Ipratropium/Albuterol Neb [Duoneb] 3 ml IH [id number] PRN inhsol 09/18/17 [Rx] Tramadol HCl [Ultram] 50 mg PO Q6H PRN #10 tablet 09/18/17 [Rx] Allergies/Adverse Reactions: 3 Allergy/AdvReac Type Severity Reaction Status Date / Time Penicillins Allergy Unknown Hives Verified 03/13/17 13:00 Sulfa (Sulfonamide Allergy Unknown Hives Verified 03/13/17 13:00 Antibiotics) aspirin AdvReac Unknown Nausea Verified 03/13/17 13:00 - Respiratory Orders Oxygen / L per min (Maintain saturation greater than 88%) Smoking Cessation: Smoking cessation has been advised. For more information, call the [employer] Tobacco Quit Line at 2-628-CUMS-NOW. - Ancillary Orders May use pressure relief devices daily prn, May consult with Dentist, [employer], Bl[employer] PRN - Advance Directives Code Status: DNR-Arrest/Don't Intubate - History and Physical History/Physical reviewed & approved w/add comments: Pt with less dyspnea - Mobility Orders Ambulate - Rehabiliation Orders Rehab Potential: Fair Rehab Orders: Evaluation for Physical Therapy, Evaluation for Occupational Therapy, Evaluation for Speech Therapy Other: Rule out dysphagia - Treatments Skin tear care topically daily PRN per policy, Fleet enema rectally every other day PRN cleansing purposes - Diet Orders No Added Salt (CASI), No Concentrated Sweets CERTIFICATION: I certify that the transfer of the above named patient to an Extended Care Facility is necessary for the continuing treatment of the diagnosis listed. The above information is true and accurate reflection of patient's current condition. Confidential - Redisclosure prohibited without a patient's written consent.
== END 2017-09-18 09:45 | DRG 139 ==
LOC: EMEROO 18:07 → 3BNU 18:07 → SUATTDRO 09-10 05:54 → 3BNU 09-10 18:27
PROVIDERS: ADMIT Internal Medicine; ATTEND Internal Medicine

== ENCOUNTER 2017-09-18 22:54 | Inpatient (IN) ==
--- NOTE | 2017-09-18 22:57 | Emergency Department Note ---
Disposition Clinical Impression: COPD exacerbation, Elevated troponin I level, Respiratory distress, Hyperkalemia, Hyponatremia, History of chronic lymphocytic leukemia Disposition: Admitted As Inpatient Condition: Serious General Adult HPI - General Chief complaint: ED Shortness of Breath/Dyspnea Stated complaint: Difficulty Breathing Time Seen by Provider: 09/18/17 22:56 - Related Data Home Medications Medication Instructions Recorded Confirmed Glimepiride [Amaryl] 4 mg PO QAM 03/13/17 09/19/17 Ranitidine HCl [Zantac] 150 mg PO BID 03/13/17 09/19/17 Allopurinol [Zyloprim 300 MG] 300 mg PO DAILY 09/09/17 09/19/17 Atorvastatin [Lipitor] 40 mg PO HS 09/09/17 09/19/17 Budesonide/Formoterol 160/4.5 2 puff IH BIDR 09/09/17 09/19/17 [Symbicort 160/4.5] Carvedilol [Coreg] 25 mg PO BID 09/09/17 09/19/17 Ferrous Sulfate 324 mg PO BID 09/09/17 09/19/17 Furosemide [Lasix] 40 mg PO DAILY 09/09/17 09/19/17 Glucagon, Human Recombinant 1 mg IM ONCE PRN 09/09/17 09/19/17 [Glucagen] HydrOXYzine 10 mg PO TID PRN 09/09/17 09/19/17 Lisinopril [Zestril] 20 mg PO DAILY 09/09/17 09/19/17 Melatonin [Melatin] 6 mg PO HS 09/09/17 09/19/17 Prochlorperazine Maleate 10 mg PO Q6H PRN 09/09/17 09/19/17 [Compazine] Previous Rx's Medication Instructions Recorded Acetaminophen [Tylenol] 650 mg PO Q6HR PRN tablet 09/18/17 Diphenoxylate/Atropine [Lomotil 1 tab PO QID PRN #10 tablet 09/18/17 2.5 mg/0.025 mg] Gabapentin [Neurontin] 300 mg PO DAILY #5 capsule 09/18/17 Insulin DETEMIR [Levemir] 10 unit SQ BID [id number] 09/18/17 Ipratropium/Albuterol Neb [Duoneb] 3 ml IH [id number] PRN inhsol 09/18/17 Tramadol HCl [Ultram] 50 mg PO Q6H PRN #10 tablet 09/18/17 Allergies Allergy/AdvReac Type Severity Reaction Status Date / Time Penicillins Allergy Unknown Hives Verified 03/13/17 13:00 Sulfa (Sulfonamide Allergy Unknown Hives Verified 03/13/17 13:00 Antibiotics) aspirin AdvReac Unknown Nausea Verified 03/13/17 13:00 Past Medical History - Past Medical History Medical history: Reports: asthma, cancer, COPD Psychiatric history: Reports: no psych history - Social History Smoking Status: Current every day smoker Smokeless Tobacco Status: No Alcohol use: Reports: none Drug use: Reports: none Course Vital Signs Temperature 98.6 F 09/18/17 22:56 Pulse Rate 78 09/18/17 22:56 Respiratory Rate 32 09/18/17 22:56 Blood Pressure 92/59 09/18/17 22:56 O2 Sat by Pulse Oximetry 87 09/18/17 22:56 Temperature 97.7 F 09/19/17 11:33 Pulse Rate 67 09/19/17 11:33 Respiratory Rate 20 09/19/17 11:33 Blood Pressure 108/57 09/19/17 11:33 O2 Sat by Pulse Oximetry 94 09/19/17 11:33 Oxygen Delivery Oxygen Delivery Nasal Cannula Medical Decision Making - Lab Data Result diagrams: 09/19/17 02:33 09/19/17 02:33 Lab Results 09/18/17 09/18/17 09/18/17 Range/Units 23:15 23:15 23:15 WBC 23.0 H (4.3-11.1) K/mcL RBC 3.50 L (3.82-4.97) M/mcL Hgb 10.3 L (11.5-15.4) g/dL Hct 34.4 L (35.3-44.9) % MCV 98.3 (83.0-100.0) fL MCH 29.4 (28.0-33.3) pg MCHC 29.9 L (31.6-35.5) g/dL RDW 17.7 H (11.5-14.5) % Plt Count 54 L (140-400) K/mcL MPV 11.8 (9.4-12.4) fL Seg Neutrophils % 22.0 % Lymphocytes % 76.0 % Monocytes % 2.0 % Neutrophils # 5.1 (1.6-8.9) K/mcL Lymphocytes # 17.5 H (0.6-4.6) K/mcL Monocytes # 0.5 (0.0-1.3) K/mcL Nucleated RBCs/100 WBC 0.2 H (0) /100 WBC Reactive Lymphocytes Present A (Not Present) Smudge Cells Present A (Not Present) Platelet Estimate Decreased L (Normal) Immature Plt Fraction 9.4 H (1.1-6.1) % Anisocytosis 1+ A (Not Present) ABG pH (7.32-7.45) pH Units ABG pCO2 (35-45) mmHg ABG pO2 (85-104) mmHg ABG HCO3 (21-27) mEq/L ABG Total CO2 (20-26) mEq/L ABG O2 Saturation (95-98) % ABG Base Excess (-2 to 3) mEq/L Blood Gas Modality Inspired O2 (1-15=lpm [id number]=%) Sodium 133 L (136-145) mEq/L Potassium 5.5 H D (3.5-5.1) mEq/L Chloride 96 L (98-107) mEq/L Carbon Dioxide 32 H (23-29) mEq/L BUN 35 H (8-23) mg/dL Creatinine 0.53 L (0.60-1.20) mg/dL Est GFR ( Amer) > 60 (> 60) Est GFR (Non-Af Amer) > 60 (> 60) BUN/Creatinine Ratio 66 H (6-26) Glucose 223 H (70-105) mg/dL Calculated Osmolality 291 (280-300) Lactic Acid 1.4 (0.5-2.2) mmol/L Calcium 8.8 (8.6-10.3) mg/dL Troponin I (< 0.04) ng/mL B-Natriuretic Peptide (Less than 100) pg/mL Person Notif of Crit 09/18/17 09/18/17 09/18/17 Range/Units 23:15 23:15 23:38 WBC (4.3-11.1) K/mcL RBC (3.82-4.97) M/mcL Hgb (11.5-15.4) g/dL Hct (35.3-44.9) % MCV (83.0-100.0) fL MCH (28.0-33.3) pg MCHC (31.6-35.5) g/dL RDW (11.5-14.5) % Plt Count (140-400) K/mcL MPV (9.4-12.4) fL Seg Neutrophils % % Lymphocytes % % Monocytes % % Neutrophils # (1.6-8.9) K/mcL Lymphocytes # (0.6-4.6) K/mcL Monocytes # (0.0-1.3) K/mcL Nucleated RBCs/100 WBC (0) /100 WBC Reactive Lymphocytes (Not Present) Smudge Cells (Not Present) Platelet Estimate (Normal) Immature Plt Fraction (1.1-6.1) % Anisocytosis (Not Present) ABG pH 7.34 (7.32-7.45) pH Units ABG pCO2 73 H* (35-45) mmHg ABG pO2 103 (85-104) mmHg ABG HCO3 39 H (21-27) mEq/L ABG Total CO2 42 H (20-26) mEq/L ABG O2 Saturation 97 (95-98) % ABG Base Excess 11 H (-2 to 3) mEq/L Blood Gas Modality NCPAP Inspired O2 36.0 (1-15=lpm lu81-401=%) Sodium (136-145) mEq/L Potassium (3.5-5.1) mEq/L Chloride (98-107) mEq/L Carbon Dioxide (23-29) mEq/L BUN (8-23) mg/dL Creatinine (0.60-1.20) mg/dL Est GFR ( Amer) (> 60) Est GFR (Non-Af Amer) (> 60) BUN/Creatinine Ratio (6-26) Glucose (70-105) mg/dL Calculated Osmolality (280-300) Lactic Acid (0.5-2.2) mmol/L Calcium (8.6-10.3) mg/dL Troponin I 0.07 H* (< 0.04) ng/mL B-Natriuretic Peptide 877 H (Less than 100) pg/mL Person Notif of Cuauhtemoc SALAZAR Critical Care Time Critical Care Time: Yes Total Critical Care Time: 30 Attestation: The high probability of a clinically significant, sudden or life threatening deterioration of the [] system(s) required my full and direct attention, intervention and personal management. The aggregate critical care time was [] minutes. This time is in addition to time spent performing reported procedures but includes the following: [] Data Review and interpretation [] Patient assessment and monitoring of vital signs [] Documentation [] Medication orders and management Attestation Statement - Attestation Attestation: I examined this patient and my medical decision-making was reviewed with the Resident Physician. I agree with the documented findings, disposition and treatment plan as described except to the extent set forth below. [id number] time provided Patient arrives from the detention complaining of dyspnea. She has coarse breath sounds with a wet cough at the time of my exam. She is tachypneic and using accessory muscles. She was recently seen in the emergency department for similar symptoms 00:00: The patient required a subdissociative dose of ketamine to facilitate her workup including a chest x-ray. She did not tolerate BiPAP. She did not require endotracheal intubation. I compared her current chest x-ray image to previous. Her labs indicate leukocytosis but this is chronic secondary to her CLL.
[2017-09-18] MEDS ORDERED: Ipratropium/Albuterol Neb 3 ML IH ONE (23:00)
[2017-09-18] MEDS ORDERED: methylPREDNISolone 125 MG/2 ML VIAL IVP ONE (23:01)
[2017-09-18] MEDS: 0.9 % Sodium Chloride 1,000 ML IVC ONE (23:10)
[2017-09-18] MEDS ORDERED: Ketamine *HR* 500 MG/10 ML MDV IVP ONE (23:19)
[2017-09-18 23:24] LABS: Hemoglobin 10.3 g/dL (11.5-15.4); Nucleated Red Blood Cells 0.2 /100 WBC (0)
[2017-09-18 23:26] LABS: Hematocrit 34.4 % (35.3-44.9); Immature Platelets 9.4 % (1.1-6.1); Mean Corpuscular HGB Conc 29.9 g/dL (31.6-35.5); Mean Corpuscular Hemoglobin 29.4 pg (28.0-33.3); Mean Corpuscular Volume 98.3 fL (83.0-100.0); Mean Platelet Volume 11.8 fL (9.4-12.4); Red Cell Distribution Width 17.7 % (11.5-14.5)
[2017-09-18 23:30] LABS: Platelet Count 54 K/mcL (140-400)
[2017-09-18 23:39] LABS: BUN/Creatinine Ratio 66 (6-26); Blood Urea Nitrogen 35 mg/dL (8-23); Calcium 8.8 mg/dL (8.6-10.3); Carbon Dioxide 32 mEq/L (23-29); Chloride 96 mEq/L (98-107); Glucose 223 mg/dL (70-105); Osmolality,Calculated 291 (280-300); Potassium 5.5 mEq/L (3.5-5.1); Sodium 133 mEq/L (136-145); eGFR For African Americans > 60 (> 60); eGFR For Non-African Americans > 60 (> 60)
[2017-09-18 23:42] LABS: ABG Base Excess 11 mEq/L (-2 to 3); ABG HCO3 39 mEq/L (21-27); ABG Oxygen Saturation 97 % (95-98); ABG PCO2 73 mmHg (35-45); ABG PH 7.34 pH Units (7.32-7.45); ABG PO2 103 mmHg (85-104); ABG TCO2 42 mEq/L (20-26); Blood Gas Modality NCPAP
[2017-09-18 23:42] LABS: Anisocytosis 1+ (Not Present); Lymphocytes # 17.5 K/mcL (0.6-4.6); Monocytes # 0.5 K/mcL (0.0-1.3); Neutrophils # 5.1 K/mcL (1.6-8.9); Platelet Estimate Decreased (Normal); Reactive Lymphocytes Present (Not Present); Smudge Cells Present (Not Present)
--- NOTE | 2017-09-19 00:36 | Emergency Department Note ---
Disposition Clinical Impression: COPD exacerbation, Elevated troponin I level, Respiratory distress, Hyperkalemia, Hyponatremia, History of chronic lymphocytic leukemia Disposition: Admitted As Inpatient Condition: Serious Referrals: Stephen Liao MD [Primary Care Provider] - Forms: ED Satisfaction Letter Time of Disposition: 01:02 SOB HPI - General Chief Complaint: ED Shortness of Breath/Dyspnea Stated Complaint: Difficulty Breathing Time Seen by Provider: 09/18/17 22:56 Source: EMS Limitations: altered mental status Nursing Notes Reviewed: Yes Vital Signs Reviewed: Yes - History of Present Illness 62-year-old female brought from [facility] for respiratory distress. Patient was recently discharged from this facility this morning. Patient has a history of lung mass and CLL. Patient has a history of COPD which seems to be exacerbated by her other conditions. - Related Data Home Medications Medication Instructions Recorded Confirmed Glimepiride [Amaryl] 4 mg PO QAM 03/13/17 09/09/17 Ranitidine HCl [Zantac] 150 mg PO BID 03/13/17 09/09/17 Allopurinol [Zyloprim 300 MG] 300 mg PO DAILY 09/09/17 09/09/17 Atorvastatin [Lipitor] 40 mg PO HS 09/09/17 09/09/17 Budesonide/Formoterol 160/4.5 2 puff IH BIDR 09/09/17 09/09/17 [Symbicort 160/4.5] Carvedilol [Coreg] 25 mg PO BID 09/09/17 09/09/17 Ferrous Sulfate 324 mg PO BID 09/09/17 09/09/17 Furosemide [Lasix] 40 mg PO DAILY 09/09/17 09/09/17 Glucagon, Human Recombinant 1 mg IM ONCE PRN 09/09/17 09/09/17 [Glucagen] HydrOXYzine 10 mg PO TID PRN 09/09/17 09/09/17 Lisinopril [Zestril] 20 mg PO DAILY 09/09/17 09/09/17 Melatonin [Melatin] 6 mg PO HS 09/09/17 09/09/17 Prochlorperazine Maleate 10 mg PO Q6H PRN 09/09/17 09/09/17 [Compazine] Previous Rx's Medication Instructions Recorded Acetaminophen [Tylenol] 650 mg PO Q6HR PRN tablet 09/18/17 Diphenoxylate/Atropine [Lomotil 1 tab PO QID PRN #10 tablet 09/18/17 2.5 mg/0.025 mg] Gabapentin [Neurontin] 300 mg PO DAILY #5 capsule 09/18/17 Insulin DETEMIR [Levemir] 10 unit SQ BID [id number] 09/18/17 Ipratropium/Albuterol Neb [Duoneb] 3 ml IH [id number] inhsol 09/18/17 Ipratropium/Albuterol Neb [Duoneb] 3 ml IH [id number] PRN inhsol 09/18/17 Tramadol HCl [Ultram] 50 mg PO Q6H PRN #10 tablet 09/18/17 Allergies Allergy/AdvReac Type Severity Reaction Status Date / Time Penicillins Allergy Unknown Hives Verified 03/13/17 13:00 Sulfa (Sulfonamide Allergy Unknown Hives Verified 03/13/17 13:00 Antibiotics) aspirin AdvReac Unknown Nausea Verified 03/13/17 13:00 All systems ED: reviewed and negative except as stated. Review of Systems: As Per HPI Constitutional: Reports: weakness. Denies: fever ENT ED: Reports: congestion Cardiovascular: Denies: chest pain Respiratory: Reports: cough, dyspnea, wheezes Gastrointestinal: Denies: abdominal pain, nausea, vomiting Past Medical History - Past Medical History Attestation: Yes The following information was validated with the patient. Source: patient, nursing notes reviewed Medical history: Reports: asthma, cancer, COPD Psychiatric history: Reports: no psych history - Social History Smoking Status: Current every day smoker Smokeless Tobacco Status: No Alcohol use: Reports: none Drug use: Reports: none Physical Exam Vital Signs Temperature 98.6 F 09/18/17 22:56 Pulse Rate 78 09/18/17 22:56 Respiratory Rate 32 09/18/17 22:56 Blood Pressure 92/59 09/18/17 22:56 O2 Sat by Pulse Oximetry 87 09/18/17 22:56 Temperature 98.6 F 09/18/17 22:56 Pulse Rate 75 09/19/17 00:08 Respiratory Rate 24 09/19/17 00:08 Blood Pressure 104/42 09/19/17 00:08 O2 Sat by Pulse Oximetry 97 09/19/17 00:08 Oxygen Delivery Oxygen Delivery Nasal Cannula 62-year-old female who is alert and oriented to herself. Patient is afebrile but is hypotensive and tachypneic. Patient's on 4 L via nasal cannula. Patient has rhonchi and wheezing of bilateral lung [place]. Patient has accessory muscle use and conversational dyspnea - General Limitations: altered mental status General appearance: in distress - Head Head exam: atraumatic, normocephalic, normal inspection - Eye Eye exam: Present: normal appearance, PERRL, EOMI - ENT ENT exam: normal exam, normal oropharynx, mucous membranes dry - Neck Neck exam: Present: normal inspection, full ROM, trachea midline - Chest Chest inspection: Present: normal inspection, symmetric chest wall rise, tenderness (Posterior chest wall) - Respiratory Respiratory exam: Present: respiratory distress, wheezes - Abdominal Exam Abdominal exam: Present: soft, Non-Tender. Absent: tenderness, distention, guarding, rebound, rigidity Course Vital Signs Temperature 98.6 F 09/18/17 22:56 Pulse Rate 78 09/18/17 22:56 Respiratory Rate 32 09/18/17 22:56 Blood Pressure 92/59 09/18/17 22:56 O2 Sat by Pulse Oximetry 87 09/18/17 22:56 Temperature 98.6 F 09/18/17 22:56 Pulse Rate 75 09/19/17 00:08 Respiratory Rate 24 09/19/17 00:08 Blood Pressure 104/42 09/19/17 00:08 O2 Sat by Pulse Oximetry 97 09/19/17 00:08 Oxygen Delivery Oxygen Delivery Nasal Cannula Shortness of Breath/Dyspnea - [facility] Narrative Medical decision making narrative: Differential diagnosis COPD exacerbation, pneumonia, ACS/DC, PE Chest x-ray shows stable groundglass opacities seen on previous x-rays. Patient has COPD exacerbation. Patient's lung mass may be a direct component precipitating patient's constant exacerbations. Patient is hyperkalemic, hyponatremic, respiratory acidosis with metabolic compensation. Patient's CO2 retaining this just over her lower metabolic compensation of bicarbonate. Patient would not hold still for BiPAP which patient clinically needed secondary respiratory distress with accessory muscle use. She would not sit still to allow for x-ray. We gave the patient some dissociative dose of ketamine to help calm her down to proceed with her treatment. After the ketamine patient was relaxed enough and treatment proceeded. Patient's troponin came back elevated at 0.07 the patient still has same elevation seen on previous EKGs. Elevation is most likely from demand ischemia. Current plan is for patient to be admitted. Patient was admitted for evaluation. Patient accepted by hospitalist Leonard. - Lab Data Lab results reviewed: Yes I reviewed the patient's lab results. Lab results narrative: Short CBC 09/18/17 Range/Units 23:15 WBC 23.0 H (4.3-11.1) K/mcL Hgb 10.3 L (11.5-15.4) g/dL Hct 34.4 L (35.3-44.9) % Plt Count 54 L (140-400) K/mcL Neutrophils # 5.1 (1.6-8.9) K/mcL BMP 09/18/17 Range/Units 23:15 Sodium 133 L (136-145) mEq/L Potassium 5.5 H D (3.5-5.1) mEq/L Chloride 96 L (98-107) mEq/L Carbon Dioxide 32 H (23-29) mEq/L BUN 35 H (8-23) mg/dL Creatinine 0.53 L (0.60-1.20) mg/dL Glucose 223 H (70-105) mg/dL Calcium 8.8 (8.6-10.3) mg/dL Cardiac Enzymes 09/18/17 Range/Units 23:15 Troponin I 0.07 H* (< 0.04) ng/mL Result diagrams: 09/18/17 23:15 09/18/17 23:15 Lab Results 09/18/17 09/18/17 09/18/17 Range/Units 23:15 23:15 23:15 WBC 23.0 H (4.3-11.1) K/mcL RBC 3.50 L (3.82-4.97) M/mcL Hgb 10.3 L (11.5-15.4) g/dL Hct 34.4 L (35.3-44.9) % MCV 98.3 (83.0-100.0) fL MCH 29.4 (28.0-33.3) pg MCHC 29.9 L (31.6-35.5) g/dL RDW 17.7 H (11.5-14.5) % Plt Count 54 L (140-400) K/mcL MPV 11.8 (9.4-12.4) fL Seg Neutrophils % 22.0 % Lymphocytes % 76.0 % Monocytes % 2.0 % Neutrophils # 5.1 (1.6-8.9) K/mcL Lymphocytes # 17.5 H (0.6-4.6) K/mcL Monocytes # 0.5 (0.0-1.3) K/mcL Nucleated RBCs/100 WBC 0.2 H (0) /100 WBC Reactive Lymphocytes Present A (Not Present) Smudge Cells Present A (Not Present) Platelet Estimate Decreased L (Normal) Immature Plt Fraction 9.4 H (1.1-6.1) % Anisocytosis 1+ A (Not Present) ABG pH (7.32-7.45) pH Units ABG pCO2 (35-45) mmHg ABG pO2 (85-104) mmHg ABG HCO3 (21-27) mEq/L ABG Total CO2 (20-26) mEq/L ABG O2 Saturation (95-98) % ABG Base Excess (-2 to 3) mEq/L Blood Gas Modality Inspired O2 (1-15=lpm [id number]=%) Sodium 133 L (136-145) mEq/L Potassium 5.5 H D (3.5-5.1) mEq/L Chloride 96 L (98-107) mEq/L Carbon Dioxide 32 H (23-29) mEq/L BUN 35 H (8-23) mg/dL Creatinine 0.53 L (0.60-1.20) mg/dL Est GFR ( Amer) > 60 (> 60) Est GFR (Non-Af Amer) > 60 (> 60) BUN/Creatinine Ratio 66 H (6-26) Glucose 223 H (70-105) mg/dL Calculated Osmolality 291 (280-300) Lactic Acid 1.4 (0.5-2.2) mmol/L Calcium 8.8 (8.6-10.3) mg/dL Troponin I (< 0.04) ng/mL B-Natriuretic Peptide (Less than 100) pg/mL Person Notif of Crit 09/18/17 09/18/17 09/18/17 Range/Units 23:15 23:15 23:38 WBC (4.3-11.1) K/mcL RBC (3.82-4.97) M/mcL Hgb (11.5-15.4) g/dL Hct (35.3-44.9) % MCV (83.0-100.0) fL MCH (28.0-33.3) pg MCHC (31.6-35.5) g/dL RDW (11.5-14.5) % Plt Count (140-400) K/mcL MPV (9.4-12.4) fL Seg Neutrophils % % Lymphocytes % % Monocytes % % Neutrophils # (1.6-8.9) K/mcL Lymphocytes # (0.6-4.6) K/mcL Monocytes # (0.0-1.3) K/mcL Nucleated RBCs/100 WBC (0) /100 WBC Reactive Lymphocytes (Not Present) Smudge Cells (Not Present) Platelet Estimate (Normal) Immature Plt Fraction (1.1-6.1) % Anisocytosis (Not Present) ABG pH 7.34 (7.32-7.45) pH Units ABG pCO2 73 H* (35-45) mmHg ABG pO2 103 (85-104) mmHg ABG HCO3 39 H (21-27) mEq/L ABG Total CO2 42 H (20-26) mEq/L ABG O2 Saturation 97 (95-98) % ABG Base Excess 11 H (-2 to 3) mEq/L Blood Gas Modality NCPAP Inspired O2 36.0 (1-15=lpm li43-298=%) Sodium (136-145) mEq/L Potassium (3.5-5.1) mEq/L Chloride (98-107) mEq/L Carbon Dioxide (23-29) mEq/L BUN (8-23) mg/dL Creatinine (0.60-1.20) mg/dL Est GFR ( Amer) (> 60) Est GFR (Non-Af Amer) (> 60) BUN/Creatinine Ratio (6-26) Glucose (70-105) mg/dL Calculated Osmolality (280-300) Lactic Acid (0.5-2.2) mmol/L Calcium (8.6-10.3) mg/dL Troponin I 0.07 H* (< 0.04) ng/mL B-Natriuretic Peptide 877 H (Less than 100) pg/mL Person Notif of Cuauhtemoc SALAZAR - Radiology Data Radiology results reviewed: Yes I reviewed the patient's radiology results. Chest X-Ray 09/18/17 22:58 IMPRESSION: Reticular and ground-glass opacities are stable bilaterally. No evidence of mass on current exam. D/ / Jordy De Los Santos MD / Jordy De Los Santos MD Interpreting Provider: Jordy De Los Santos MD - EKG Data EKG attestation: Yes I reviewed and interpreted this EKG. EKG results narrative: EKG taken 2026 2016 1812 hrs. shows sinus rhythm at a rate of [address] elevations in V2, V3 and also had a right bundle-branch block. EKG findings can be seen on her previous EKGs Interpretation: Reports: no acute changes, unchanged when compared to prior tracing (date)
[2017-09-19] MEDS ORDERED: Acetaminophen 325 MG TABLET PO PRN (01:48)
[2017-09-19] MEDS ORDERED: Ondansetron 4 MG/2 ML VIAL IVP PRN (01:48)
[2017-09-19] MEDS ORDERED: Naloxone 0.4 MG/ML INJ IVP PRN (01:48)
[2017-09-19] MEDS ORDERED: *HR* Dextrose 50 % in Water (Syg) 50 ML SYRINGE IVP PRN (01:50)
[2017-09-19] MEDS ORDERED: Dextrose Gel 15 GM/37.5 ML TUBE PO PRN ×2 (01:50)
[2017-09-19] MEDS ORDERED: D5% in Water 1,000 ML IVC PRN (01:50)
[2017-09-19] MEDS ORDERED: Ipratropium/Albuterol Neb 3 ML IH PRN (01:51)
[2017-09-19 02:55] LABS: Basophils % 0.1 %; Hemoglobin 10.1 g/dL (11.5-15.4); Immature Granulocytes % 0.3 % (0-4); Mean Corpuscular HGB Conc 30.1 g/dL (31.6-35.5); Nucleated Red Blood Cells 0.1 /100 WBC (0)
[2017-09-19 02:57] LABS: Hematocrit 33.5 % (35.3-44.9); Immature Platelets 8.5 % (1.1-6.1); Lymphocytes % 80.9 %; Mean Corpuscular Hemoglobin 29.6 pg (28.0-33.3); Mean Corpuscular Volume 98.2 fL (83.0-100.0); Mean Platelet Volume 12.2 fL (9.4-12.4); Monocytes # 0.3 K/mcL (0.0-1.3); Monocytes % 1.2 %; Neutrophils # 3.7 K/mcL (1.6-8.9); Red Blood Count 3.41 M/mcL (3.82-4.97); Red Cell Distribution Width 17.9 % (11.5-14.5); Segmented Neutrophils % 17.5 %
[2017-09-19 03:04] LABS: BUN/Creatinine Ratio 76 (6-26); Blood Urea Nitrogen 32 mg/dL (8-23); Carbon Dioxide 35 mEq/L (23-29); Chloride 98 mEq/L (98-107); Glucose 184 mg/dL (70-105); Magnesium 2.4 mg/dL (1.6-2.6); Osmolality,Calculated 292 (280-300); Sodium 135 mEq/L (136-145); eGFR For African Americans > 60 (> 60); eGFR For Non-African Americans > 60 (> 60)
[2017-09-19 03:28] LABS: Platelet Count 53 K/mcL (140-400)
[2017-09-19 03:47] LABS: Platelet Estimate Decreased (Normal); Smudge Cells Present (Not Present)
--- NOTE | 2017-09-19 07:14 | Internal Med History&Physical ---
Date of Encounter: 09/19/17 Time of Encounter: 01:30 Assessment and Plan (1) Hyperkalemia Current visit: Yes Status: Acute Patient has had recurrent hyperkalemia during her previous admissions, was evaluated by nephrology, responded to medical management. We will give a dose of oral Kayexalate, no EKG changes at this time. Continue to monitor closely. (2) COPD (chronic obstructive pulmonary disease) Current visit: Yes Status: Chronic Reported shortness of breath, received ketamine, Solu-Medrol and breathing treatment in the emergency room. Was evaluated by pulmonology during recent admission, recommended no further antibiotics or steroids. We will continue to monitor with when necessary bronchodilators and supplemental oxygen. Currently saturating well on 4 L/m nasal cannula. Continue inhaled corticosteroids. Palliative care consult due to multiple readmissions, severe COPD, right lower lobe lung mass, CLL. Qualifiers: COPD type: chronic bronchitis Chronic bronchitis type: simple Qualified Code(s): J41.0 - Simple chronic bronchitis (3) Coronary artery disease Current visit: Yes Status: Chronic Qualifiers: Coronary Disease-Associated Artery/Lesion type: [place] artery [place] vs. transplanted heart: [place] heart Associated angina: without angina Qualified Code(s): I25.10 - Atherosclerotic heart disease of [place] coronary artery without angina pectoris (4) Diabetes mellitus type 2 in nonobese Current visit: Yes Status: Chronic Blood sugars noted to be elevated. Start Accu-Chek blood glucose monitoring with basal bolus insulin regimen. Diabetic diet as tolerated. (5) Thrombocytopenia Current visit: Yes Status: Chronic Acute on chronic. Avoid medical anticoagulants, monitor closely. (6) CLL (chronic lymphocytic leukemia) Current visit: Yes Status: Chronic Follows with oncology. WBC at 23,000, at baseline. (7) Elevated troponin I level Current visit: Yes Status: Acute Likely demand ischemia due to respiratory distress. Continue telemetry monitoring, cycle troponins. Internal Medicine - H&P: HPI Chief complaint: Shortness of breath Admitted From: Emergency Dept Plans for Post Hospital Care: Transfer [facility] History of present illness: Ms. Sheridan is a 62 year old female with history of CLL, COPD was sent from shelter for evaluation of shortness of breath. Patient was just discharged from our hospital earlier in the day after being treated for acute COPD, pleural effusion, right lower lobe lung mass. Patient was noted to be extremely agitated, not cooperative for diagnostic assessment and had to be given dissociative dose of ketamine and has been drowsy and lethargic since then. Unable to provide any history at this time. Past Med Surg Social Fam HX - Past Medical History Medical history: asthma, cancer, CHF, COPD, coronary artery disease, diabetes Psychiatric history: no psych history - Past Surgical History Surgical History: other (cannot be obtained due to patient's mental status) - Social History Smoking Status: Current every day smoker Smokeless Tobacco Status: No Alcohol use: none Drug use: none - Additional Family History Additional family history: cannot be obtained due to patient's mental status Internal Medicine - H&P: Meds Glimepiride [Amaryl] 4 mg PO QAM 03/13/17 [History] Ranitidine HCl [Zantac] 150 mg PO BID 03/13/17 [History] Allopurinol [Zyloprim 300 MG] 300 mg PO DAILY 09/09/17 [History] Atorvastatin [Lipitor] 40 mg PO HS 09/09/17 [History] Budesonide/Formoterol 160/4.5 [Symbicort 160/4.5] 2 puff IH BIDR 09/09/17 [ History] Carvedilol [Coreg] 25 mg PO BID 09/09/17 [History] Ferrous Sulfate 324 mg PO BID 09/09/17 [History] Furosemide [Lasix] 40 mg PO DAILY 09/09/17 [History] Glucagon, Human Recombinant [Glucagen] 1 mg IM ONCE PRN 09/09/17 [History] HydrOXYzine 10 mg PO TID PRN 09/09/17 [History] Lisinopril [Zestril] 20 mg PO DAILY 09/09/17 [History] Melatonin [Melatin] 6 mg PO HS 09/09/17 [History] Prochlorperazine Maleate [Compazine] 10 mg PO Q6H PRN 09/09/17 [History] Acetaminophen [Tylenol] 650 mg PO Q6HR PRN tablet 09/18/17 [Rx] Diphenoxylate/Atropine [Lomotil 2.5 mg/0.025 mg] 1 tab PO QID PRN #10 tablet [Rx] Gabapentin [Neurontin] 300 mg PO DAILY #5 capsule 09/18/17 [Rx] Insulin DETEMIR [Levemir] 10 unit SQ BID [id number] 09/18/17 [Rx] Ipratropium/Albuterol Neb [Duoneb] 3 ml IH [id number] inhsol 09/18/17 [Rx] Ipratropium/Albuterol Neb [Duoneb] 3 ml IH [id number] PRN inhsol 09/18/17 [Rx] Tramadol HCl [Ultram] 50 mg PO Q6H PRN #10 tablet 09/18/17 [Rx] 3 Allergy/AdvReac Type Severity Reaction Status Date / Time Penicillins Allergy Unknown Hives Verified 03/13/17 13:00 Sulfa (Sulfonamide Allergy Unknown Hives Verified 03/13/17 13:00 Antibiotics) aspirin AdvReac Unknown Nausea Verified 03/13/17 13:00 All Systems PM: A 10-system review of systems was performed and is negative for pertinent findings except as documented above in the HPI. - Constitutional Constitutional: lethargy, no chills, no fever(s), no night sweats - EENT Eyes: no change in vision, no discharge, no pain, no photophobia Ears: no ear discharge, no ear pain, no tinnitus Nose, mouth and throat: no dysphagia, no nasal discharge, no neck pain, no sore throat - Cardiovascular Cardiovascular ROS IM: no chest pain, no diaphoresis, no dyspnea, no lightheadedness, no palpitations, no syncope - Respiratory Respiratory: dyspnea - Gastrointestinal Gastrointestinal: no abdominal pain, no diarrhea, no hematemesis, no hematochezia, no melena, no nausea, no vomiting - Genitourinary Genitourinary: no change in urinary stream, no dysuria, no flank pain, no hematuria - Musculoskeletal Musculoskeletal ROS IM: no numbness, no tingling - Integumentary Integumentary IM: no rash, no unusual bruising - Neurological Neurological ROS: no confusion, no convulsions, no focal weakness, no numbness, no tingling, no tremor(s) - Hematologic/Lymphatic Hematologic/Lymphatic: no easy bruising - Constitutional Vitals: Temp Pulse Resp BP Pulse Ox 97.5 F L 71 17 118/54 96 09/19/17 03:29 09/19/17 03:29 09/19/17 03:29 09/19/17 03:29 09/19/17 03:29 General appearance: Present: A&O X 0. Absent: answers questions appropriately - Respiratory Respiratory exam: Present: CTAB (coarse breath sounds B/L). Absent: accessory muscle use, rales, rhonchi, wheezes - Cardiovascular Cardiovascular exam: Present: RRR, +S1, +S2. Absent: diastolic murmur, gallop, rubs, systolic murmur - GI/Abdominal GI/Abdominal exam: Present: normal bowel sounds, soft, no peritoneal signs. Absent: distended, tenderness - Extremities Exam Extremities exam: Present: pedal edema, warm, radial pulses palpable and symmetrical. Absent: calf tenderness, cyanotic Additional comments: B/L LE dependent edema and contractures in B/L feet - Neurological Exam Neurological exam: Present: altered. Absent: pronater drift, facial droop, speech deficit Additional comments: further exam cannot be completed Internal Med - H&P Results - Labs CBC & Chem 7: 09/19/17 02:33 09/19/17 02:33 Labs: Short CBC 09/19/17 Range/Units 02:33 WBC 21.0 H (4.3-11.1) K/mcL Hgb 10.1 L (11.5-15.4) g/dL Hct 33.5 L (35.3-44.9) % Plt Count 53 L (140-400) K/mcL Neutrophils # 3.7 (1.6-8.9) K/mcL BMP 09/19/17 02:33 Sodium 135 L Potassium 5.0 Chloride 98 Carbon Dioxide 35 H BUN 32 H Creatinine 0.42 L Glucose 184 H Calcium 9.0 Cardiac Enzymes 09/19/17 Range/Units 02:33 Troponin I 0.09 H* (< 0.04) ng/mL - EKG Data -: EKG Interpreted by Myself (LVH, LBBB) EKG shows normal: sinus rhythm Rate: normal
[2017-09-19] MEDS: Budesonide/Formoterol 160/4.5 MDI IH SCH ×2 (08:23→20:02)
[2017-09-19] MEDS: Gabapentin 300 MG CAPSULE PO SCH (08:49)
[2017-09-19] MEDS: Furosemide 40 MG TABLET PO SCH (08:50)
[2017-09-19] MEDS: traMADol 50 MG TABLET PO PRN (09:00)
[2017-09-19] MEDS: Insulin DETEMIR 100 UNIT/ML X5UNITS SQ SCH ×2 (09:00→22:10)
[2017-09-19] MEDS ORDERED: Lisinopril 20 MG TABLET PO SCH (09:00)
[2017-09-19] MEDS: Insulin LISPRO 300 UNITS/3 ML VIAL SQ SCH ×4 (09:02→22:09)
--- NOTE | 2017-09-19 16:10 | Event Note ---
Date of Encounter: 09/19/17 Time of Encounter: 09:30 Ms Sheridan has been placed in observation this AM due to difficulty breathing. Ms Sheridan was discharged yesterday. At that time she was breathing without difficulty and was approaching baseline. Abx had been discontinued due to low suspicion of infection. Mass noted on CXR and she was seen by pulm and had thoracentesis. She was to follow up as outpatient with heme/onc and pulm Symptoms recurred last evening. This is her third admission (one in [place] and two here). She did have blast crisis but that has improved. She had CT report from [place] with L side lung findings. Our xray shows R side changes. Will ask palliative to see patient as well as speech (? aspiration). Otherwise will continue plan of care as per H&P.
[2017-09-19] MEDS ORDERED: Albuterol 2.5 MG/3 ML NEBULIZER IH PRN (17:25)
[2017-09-19] MEDS: Ipratropium/Albuterol Neb 3 ML IH SCH (20:01)
[2017-09-20] MEDS: Ipratropium/Albuterol Neb 3 ML IH SCH ×7 (00:38→23:35)
[2017-09-20] MEDS: traMADol 50 MG TABLET PO PRN (05:38)
[2017-09-20] MEDS: Budesonide/Formoterol 160/4.5 MDI IH SCH ×2 (07:57→20:56)
[2017-09-20 08:04] LABS: Hemoglobin 9.9 g/dL (11.5-15.4)
[2017-09-20] MEDS: Insulin LISPRO 300 UNITS/3 ML VIAL SQ SCH ×4 (08:04→21:09)
[2017-09-20 08:06] LABS: Hematocrit 33.5 % (35.3-44.9); Immature Platelets 11.1 % (1.1-6.1); Mean Corpuscular HGB Conc 29.6 g/dL (31.6-35.5); Mean Corpuscular Hemoglobin 29.6 pg (28.0-33.3); Red Blood Count 3.35 M/mcL (3.82-4.97); Red Cell Distribution Width 17.4 % (11.5-14.5)
[2017-09-20 08:28] LABS: BUN/Creatinine Ratio 69 (6-26); Blood Urea Nitrogen 27 mg/dL (8-23); Calcium 8.3 mg/dL (8.6-10.3); Carbon Dioxide 37 mEq/L (23-29); Chloride 102 mEq/L (98-107); Glucose 59 mg/dL (70-105); Osmolality,Calculated 293 (280-300); Sodium 140 mEq/L (136-145); eGFR For African Americans > 60 (> 60); eGFR For Non-African Americans > 60 (> 60)
--- NOTE | 2017-09-20 09:36 | Internal Med Progress Note ---
<Omero Salamanca - Last Filed: 09/20/17 14:10> Date of Encounter: 09/20/17 Time of Encounter: 08:00 - Assessment and plan (1) Acute on chronic respiratory failure with hypoxia and hypercapnia Current Visit: Yes Status: Acute Assessment and plan: - Patient was noted to have desatruation to 87% on 4L NC in ED and ABG on : pH 7.34, pCO2 73, pO2 103, HCO3 39 - Feel it's likely secondary to inadequate COPD control as there's question if patient gets scheduled bronchodilators in SNF. - Will obtain CTA chest to rule out PE as recommended by pulmonology. - Continue Symbicort, bronchodilators and supplemental oxygen for COPD. - Improved as patient reports breathing better and maintains acceptable oxygen saturation on 4L NC. - Continue to monitor closely. (2) Lung nodule Current Visit: No Status: Acute Assessment and plan: - CT chest on 09/19/17 found multiple spiculated nodules in the right lower lobe with the largest of which measures approximately 18 x 12 mm. Additional small 4 x 3 mm nodule in the left upper lobe is also noted. - Per patient's family, patient did have bronchoscopy and biopsy at [facility] that is "inconclusive" but patient did get chemotherapy for that. - Patient's family also prefers to get care here at [place] if possible instead of going to [place]. - Will obtain medical records from [facility] including bronchoscopy report, pathology report and oncology note regarding the chemotherapy. - Given the lung nodules finding along with patient's CLL and thrombocytopenia, will consult [place] hematology/oncology and appreciate evaluation and recommendations. - Patient may benefit from bronchoscopy with EBUS biopsy as further work-up. Pulmonology consulted and appreciate evaluation and recommendation. (3) COPD (chronic obstructive pulmonary disease) Current Visit: Yes Status: Chronic Assessment and plan: - Continue Symbicort, scheduled bronchodilators and supplemental oxygen. Qualifiers: COPD type: chronic bronchitis Chronic bronchitis type: simple Qualified Code(s): J41.0 - Simple chronic bronchitis (4) CLL (chronic lymphocytic leukemia) Current Visit: Yes Status: Chronic Assessment and plan: - Know history of CLL. - Review of medical records from [facility] revealed that patient had acute blast crisis with WBC as high as 470 during her hospitalization there one month ago. - Current leukocytosis with lymphocyte-dominance is likely related to CLL. - Appreciate hematology/oncology input. (5) Thrombocytopenia Current Visit: Yes Status: Chronic Assessment and plan: - History of thrombocytopenia. - Per oncology note from March 2017, continue to monitor (platelet count was ~80 at that time). - Platelet stable at 53 today. - Continue to monitor. - Appreciate hematology/oncology input. (6) Diabetes mellitus type 2 in nonobese Current Visit: Yes Status: Chronic Assessment and plan: - Continue basal and sliding scale insulin with glucose monitoring. (7) DVT prophylaxis Current Visit: No Status: Acute Assessment and plan: - Start SQ heparin. - Subjective Interval history: Patient was seen and examined this morning. Patient still has some non- productive cough but reports breathing better compared to yesterday. Patient denies fever, chills, chest pain, abdominal pain, nausea, vomiting, diarrhea. - Constitutional Vitals: Temp Pulse Resp BP Pulse Ox 97.5 F L 79 17 140/73 100 09/20/17 08:07 09/20/17 08:07 09/20/17 08:07 09/20/17 08:07 09/20/17 08:07 General appearance: Present: cooperative, A&O X 3, no acute distress - Head Head exam: Present: normal inspection - Eye Eye exam: Present: EOMI, conjuntiva pink, sclera anicteric - Neck Neck exam general surgery: Present: normal inspection, supple, trachea midline - Respiratory Respiratory exam: Present: decreased breath sounds. Absent: accessory muscle use - Cardiovascular Cardiovascular exam: Present: RRR, +S1, +S2 - GI/Abdominal GI/Abdominal exam: Present: normal bowel sounds, soft, no peritoneal signs. Absent: tenderness - Extremities Exam Extremities exam: Present: warm. Absent: cyanotic - Neurological Exam Neurological exam: Present: alert, no focal deficits. Absent: facial droop - Skin Skin exam: Present: dry, warm Internal Medicine: Result - Labs CBC & Chem 7: 09/20/17 07:17 09/20/17 07:17 Labs: Short CBC 09/20/17 Range/Units 07:17 WBC 21.7 H (4.3-11.1) K/mcL Hgb 9.9 L (11.5-15.4) g/dL Hct 33.5 L (35.3-44.9) % Plt Count 53 L (140-400) K/mcL BMP 09/20/17 07:17 Sodium 140 Potassium 4.0 Chloride 102 Carbon Dioxide 37 H BUN 27 H Creatinine 0.39 L Glucose 59 L Calcium 8.3 L Cardiac Enzymes 09/19/17 Range/Units 13:40 Troponin I 0.04 H* (< 0.04) ng/mL - ABG Interpretation ABG results: ABG ABG pH 7.34 pH Units (7.32-7.45) 09/18/17 23:38 ABG pCO2 73 mmHg (35-45) H* 09/18/17 23:38 ABG pO2 103 mmHg (85-104) 09/18/17 23:38 ABG O2 Saturation 97 % (95-98) 09/18/17 23:38 - Impressions Impressions Chest CT 09/19/17 17:30 IMPRESSION: 1. Multiple spiculated nodules in the right lower lobe with the largest of which measures approximately 18 x 12 mm. These are somewhat better defined than on the previous exam but stable to mildly decreased in size. The differential includes multifocal pneumonia although neoplastic disease is not excluded. See recommendations below. 2. Additional small 4 x 3 mm nodule in the left upper lobe. 3. Trace right pleural effusion decreased from the previous exam. 4. Nonspecific mediastinal lymphadenopathy grossly unchanged the previous exam. Calcified mediastinal nodes also suggest old granulomatous disease. D/ / Darrius Santizo MD / Darrius Santizo MD Interpreting Provider: Darrius Santizo MD Consult Discharge Plan - Plan Referrals: Stephen Liao MD [Primary Care Provider] - <Mikel Spence - Last Filed: 09/20/17 17:10> Date of Encounter: 09/20/17 - Assessment and plan (1) Respiratory failure, acute and chronic Current Visit: Yes Status: Acute Assessment and plan: Wean oxygen as able. Qualifiers: Respiratory failure complication: hypoxia Qualified Code(s): J96.21 - Acute and chronic respiratory failure with hypoxia (2) CLL (chronic lymphocytic leukemia) Current Visit: Yes Status: Chronic (3) COPD (chronic obstructive pulmonary disease) Current Visit: Yes Status: Chronic Qualifiers: COPD type: chronic bronchitis Chronic bronchitis type: simple Qualified Code(s): J41.0 - Simple chronic bronchitis (4) Hypertension Current Visit: No Status: Chronic Qualifiers: Hypertension type: essential hypertension Qualified Code(s): I10 - Essential (primary) hypertension (5) Coronary artery disease Current Visit: Yes Status: Chronic Assessment and plan: Chronic issue. Continue meds. Qualifiers: Coronary Disease-Associated Artery/Lesion type: [place] artery [place] vs. transplanted heart: [place] heart Associated angina: without angina Qualified Code(s): I25.10 - Atherosclerotic heart disease of [place] coronary artery without angina pectoris (6) Thrombocytopenia Current Visit: Yes Status: Chronic (7) Pulmonary aspiration Current Visit: Yes Status: Suspected Assessment and plan: Suspect she may be aspirating. Speech eval. Qualifiers: Encounter type: initial encounter Qualified Code(s): T17.900A - Unspecified foreign body in respiratory tract, part unspecified causing asphyxiation, initial encounter (8) Tobacco abuse Current Visit: Yes Status: Chronic - Constitutional Vitals: Temp Pulse Resp BP Pulse Ox 98.1 F 88 18 150/68 90 09/20/17 15:51 09/20/17 15:51 09/20/17 16:28 09/20/17 15:51 09/20/17 16:28 Internal Medicine: Result - Labs CBC & Chem 7: 09/20/17 07:17 09/20/17 07:17 Labs: Short CBC 09/20/17 Range/Units 07:17 WBC 21.7 H (4.3-11.1) K/mcL Hgb 9.9 L (11.5-15.4) g/dL Hct 33.5 L (35.3-44.9) % Plt Count 53 L (140-400) K/mcL BMP 09/20/17 07:17 Sodium 140 Potassium 4.0 Chloride 102 Carbon Dioxide 37 H BUN 27 H Creatinine 0.39 L Glucose 59 L Calcium 8.3 L - ABG Interpretation ABG results: ABG ABG pH 7.34 pH Units (7.32-7.45) 09/18/17 23:38 ABG pCO2 73 mmHg (35-45) H* 09/18/17 23:38 ABG pO2 103 mmHg (85-104) 09/18/17 23:38 ABG O2 Saturation 97 % (95-98) 09/18/17 23:38 - Impressions Impressions Chest CT 09/19/17 17:30 IMPRESSION: 1. Multiple spiculated nodules in the right lower lobe with the largest of which measures approximately 18 x 12 mm. These are somewhat better defined than on the previous exam but stable to mildly decreased in size. The differential includes multifocal pneumonia although neoplastic disease is not excluded. See recommendations below. 2. Additional small 4 x 3 mm nodule in the left upper lobe. 3. Trace right pleural effusion decreased from the previous exam. 4. Nonspecific mediastinal lymphadenopathy grossly unchanged the previous exam. Calcified mediastinal nodes also suggest old granulomatous disease. D/ / Darrius Santizo MD / Darrius Santizo MD Interpreting Provider: Darrius Santizo MD - Attending Attestation I examined this patient and my medical decision-making was reviewed with the Resident Physician on 09/20/17. I agree with the documented findings, disposition and treatment plan as described except to the extent set forth below. Ms Sheridan is currently admitted for hypoxic resp failure and presumptive lung cancer. She remains moderate to high risk due to potential for worsening resp status. Ms Sheridan feels OK this AM. She is still coughing a lot. Less dyspnea. Still very hungry. No fever or chills. No GI issues. Exam Alert. Mild resp distress at rest. Mucus membranes dry Heart reg Lungs with scattered wheeze and rhonchi Abd soft I/P 1. Hypoxic resp failure 2. Possible aspiration 3. Probable lung cancer Further diagnoses and plan as above.
--- NOTE | 2017-09-20 10:07 | Pulmonology Consult Note ---
Date of Encounter: 09/20/17 Time of Encounter: 10:06 Assessment and Plan (1) Acute on chronic respiratory failure with hypoxia and hypercapnia Current Visit: Yes Status: Acute Patient has multiple risk factors for acute respiratory failure including chronic advanced COPD CHF chronic risk of aspiration and underlying CLL with lung involvement. It is possible that she also has primary lung malignancy although I feel that this is less likely. Curiously on examination today there is no overt evidence of wheezing suggestive airways disease although she is diminished she actually looks much less volume overloaded on today's exam and during last hospitalization and this is also evidenced radiographically with diminished pleural effusions. There is no clear evidence of acute infectious process on CT scan. Which patient may concerned about underlying venous thromboembolism given her high risk features with active malignancy and so I recommend proceeding with CT of the chest to rule out PE. If this is negative then I suspect this is just a manifestation of her severe airways disease coupled with heart failure and should be treated accordingly. I still do not feel strongly that she has an active infectious process and as such cannot recommend empiric antimicrobials in this situation and if started should be de- escalate it over the next 24-48 hours. -Cont O2 to keep sat at >88-92% -CTA of Chest to r/o PE -OOBCT ambulation as tolerated with incentive spirometry (2) Elevated WBC count Current Visit: No Status: Acute This is possibly related to underlying CLL no clear evidence of pneumonia but she is at risk for chronic aspiration agree with speech evaluation Qualifiers: Leukocytosis type: other Qualified Code(s): D72.828 - Other elevated white blood cell count (3) CLL (chronic lymphocytic leukemia) Current Visit: Yes Status: Chronic (4) COPD exacerbation Current Visit: Yes Status: Acute If no clear evidence of PE and will treat this as COPD exacerbation and restart oral prednisone 40 mg daily she may need to be kept on a small dose at time of discharge. Schedule bronchodilators DuoNeb's every 6 hours with hourly albuterol as needed (5) Pleural effusion Current Visit: No Status: Acute This is secondary to increased hydrostatic pressure from CHF and has improved radiographically she will need continued IV diuretic per primary service with monitoring of urine output/kidney function (6) Lung nodule Current Visit: No Status: Acute Patient has 2 right-sided lung nodules and a small left upper lobe lung nodule the right lung nodules were not clearly outlined to the report from [facility] at last admission making the probability of primary lung malignancy less likely but not totally excluded she has chronic hilar/mediastinal lymphadenopathy with a large left sided hilar lymph node conglomeration versus mass. I suspect this is all related to underlying CLL. Could proceed with bronchoscopy and endobronchial ultrasound/FNA in consultation with oncology versus empiric treatment for CLL and radiographic surveillance. (7) Goals of care, counseling/discussion Current Visit: Yes Status: Acute This is the patient's third admission in the last 2 months one of which was in ICU say the second of which was a prolonged hospitalization here at [facility] she went from [facility] to SNF to being admitted to [facility] and then back to SNF to readmission at [facility]. She has chronic deconditioning and chronic respiratory failure with multiple medical comorbidities including active malignancy that portend a very poor prognosis I think most importantly be establishing realistic goals of care with the family and the patient and for this I recommend formal consultation with palliative care medicine History of Present Illness Consult date: 09/20/17 Requesting physician: Mikel Spence Reason for consult: dyspnea Chief complaint: Difficulty in Breathing History of present illness: This is a 62-year-old woman with a history of chronic aspiratory failure COPD CLL heart failure with reduced ejection fraction chronic deconditioning who presented from long-term for increased work of breathing noted several hours after discharge for similar diagnosis. In the ED patient was noted to have significant work of breathing as chest x-ray and CT of the chest were performed without any notable acute processes. She has been afebrile and white count about where was the time of discharge. At the time of last admission she had a notable right-sided pleural effusion which has essentially disappeared on this admission CT scan she does have persistent lung nodules and diffuse hilar/ mediastinal lymphadenopathy consistent with known diagnosis of CLL. She was a heavy smoker and quit about the time at least per the patient she was admitted to the hospital at [facility] which was in July at that time she underwent endotracheal intubation and mechanical ventilation for her pneumonia and decompensated heart failure she also started a regimen of chemotherapy there for CLL for what appears to be blast crisis. Patient says she was generally feeling fine but started having some difficulty breathing and was transferred to the emergency department she still having some shortness of breath here. She has a cough but she says is able to cough anything out. Again conversation with the patient is significantly limited by her speech impairment/cognition Past Med Surg Social Fam HX - Past Medical History Medical history: asthma, cancer, COPD Psychiatric history: no psych history - Past Surgical History Surgical History: other (cannot be obtained due to patient's mental status) - Social History Smoking Status: Current every day smoker Smokeless Tobacco Status: No Alcohol use: none Drug use: none Medications and Allergies Glimepiride [Amaryl] 4 mg PO QAM 03/13/17 [History] Ranitidine HCl [Zantac] 150 mg PO BID 03/13/17 [History] Allopurinol [Zyloprim 300 MG] 300 mg PO DAILY 09/09/17 [History] Atorvastatin [Lipitor] 40 mg PO HS 09/09/17 [History] Budesonide/Formoterol 160/4.5 [Symbicort 160/4.5] 2 puff IH BIDR 09/09/17 [ History] Carvedilol [Coreg] 25 mg PO BID 09/09/17 [History] Ferrous Sulfate 324 mg PO BID 09/09/17 [History] Furosemide [Lasix] 40 mg PO DAILY 09/09/17 [History] Glucagon, Human Recombinant [Glucagen] 1 mg IM ONCE PRN 09/09/17 [History] HydrOXYzine 10 mg PO TID PRN 09/09/17 [History] Lisinopril [Zestril] 20 mg PO DAILY 09/09/17 [History] Melatonin [Melatin] 6 mg PO HS 09/09/17 [History] Prochlorperazine Maleate [Compazine] 10 mg PO Q6H PRN 09/09/17 [History] Acetaminophen [Tylenol] 650 mg PO Q6HR PRN tablet 09/18/17 [Rx] Diphenoxylate/Atropine [Lomotil 2.5 mg/0.025 mg] 1 tab PO QID PRN #10 tablet [Rx] Gabapentin [Neurontin] 300 mg PO DAILY #5 capsule 09/18/17 [Rx] Insulin DETEMIR [Levemir] 10 unit SQ BID [id number] 09/18/17 [Rx] Ipratropium/Albuterol Neb [Duoneb] 3 ml IH [id number] PRN inhsol 09/18/17 [Rx] Tramadol HCl [Ultram] 50 mg PO Q6H PRN #10 tablet 09/18/17 [Rx] 3 Allergy/AdvReac Type Severity Reaction Status Date / Time Penicillins Allergy Unknown Hives Verified 03/13/17 13:00 Sulfa (Sulfonamide Allergy Unknown Hives Verified 03/13/17 13:00 Antibiotics) aspirin AdvReac Unknown Nausea Verified 03/13/17 13:00 All Systems: A 10-system review of systems was performed and is negative for pertinent findings except as documented above in the HPI. Physical Examination Vital Signs: Vital Signs, Last 4 Hours Temp Pulse Resp BP Pulse Ox 09/20/17 08:07 97.5 F L 79 17 140/73 100 09/20/17 07:56 16 96 General appearance: no acute distress Effort: mildly labored Auscultation: bilateral: diminished breath sounds Cardiovascular: regular rate and rhythm Gastrointestinal: normoactive bowel sounds Extremities: no edema Musculoskeletal: no deformities normal mental status, non-focal exam Results - Laboratory Findings CBC and BMP: 09/20/17 07:17 09/20/17 07:17 ABG ABG pH 7.34 pH Units (7.32-7.45) 09/18/17 23:38 ABG pCO2 73 mmHg (35-45) H* 09/18/17 23:38 ABG pO2 103 mmHg (85-104) 09/18/17 23:38 ABG O2 Saturation 97 % (95-98) 09/18/17 23:38 Abnormal lab findings: Abnormal lab results WBC 21.7 K/mcL (4.3-11.1) H 09/20/17 07:17 RBC 3.35 M/mcL (3.82-4.97) L 09/20/17 07:17 Hgb 9.9 g/dL (11.5-15.4) L 09/20/17 07:17 Hct 33.5 % (35.3-44.9) L 09/20/17 07:17 MCHC 29.6 g/dL (31.6-35.5) L 09/20/17 07:17 RDW 17.4 % (11.5-14.5) H 09/20/17 07:17 Plt Count 53 K/mcL (140-400) L 09/20/17 07:17 Lymphocytes # 17.0 K/mcL (0.6-4.6) H 09/19/17 02:33 Nucleated RBCs/100 WBC 0.1 /100 WBC (0) H 09/19/17 02:33 Reactive Lymphocytes Present (Not Present) A 09/18/17 23:15 Smudge Cells Present (Not Present) A 09/19/17 02:33 Platelet Estimate Decreased (Normal) L 09/19/17 02:33 Immature Plt Fraction 11.1 % (1.1-6.1) H 09/20/17 07:17 Anisocytosis 1+ (Not Present) A 09/18/17 23:15 ABG pCO2 73 mmHg (35-45) H* 09/18/17 23:38 ABG HCO3 39 mEq/L (21-27) H 09/18/17 23:38 ABG Total CO2 42 mEq/L (20-26) H 09/18/17 23:38 ABG Base Excess 11 mEq/L (-2 to 3) H 09/18/17 23:38 Carbon Dioxide 37 mEq/L (23-29) H 09/20/17 07:17 BUN 27 mg/dL (8-23) H 09/20/17 07:17 Creatinine 0.39 mg/dL (0.60-1.20) L 09/20/17 07:17 BUN/Creatinine Ratio 69 (6-26) H 09/20/17 07:17 Glucose 59 mg/dL (70-105) L 09/20/17 07:17 Calcium 8.3 mg/dL (8.6-10.3) L 09/20/17 07:17 Troponin I 0.04 ng/mL (< 0.04) H* 09/19/17 13:40 B-Natriuretic Peptide 877 pg/mL (Less than 100) H 09/18/17 23:15 - Diagnostic Findings Chest x-ray: report reviewed, image reviewed CT scan - chest: report reviewed, image reviewed - Clinical Findings Intake & Output: Intake & Output 09/19/17 09/20/17 09/20/17 23:59 07:59 15:59 Intake Total 0 / 0 Output Total 370 / 370 Balance -370 / -370 Weight 42.297 kg Consult Discharge Plan - Plan Referrals: Stephen Liao MD [Primary Care Provider] -
[2017-09-20] MEDS: Insulin DETEMIR 100 UNIT/ML X5UNITS SQ SCH ×2 (11:01→21:09)
[2017-09-20] MEDS: Furosemide 40 MG TABLET PO SCH (11:01)
[2017-09-20] MEDS: Gabapentin 300 MG CAPSULE PO SCH (11:01)
--- NOTE | 2017-09-20 14:38 | Oncology Inp Consult Note ---
Date of Encounter: 09/21/17 Time of Encounter: 14:37 Assessment and Plan (1) COPD exacerbation Status: Acute Assessment and plan: pulmonary on board. Speculated lung nodules which could be infectious. Doubt CLL is causing lung nodules. Underlying lung cancer is a consideration.will continue to follow the lung nodules as an outpatient may be with a PET scan Bronchoalveolar lavage at [facility] was negative for malignancy Today when I examined her she is significantly seen with decreased air entry both lungs. Room air oxygen saturation 96 5%. Her breathing treatment and discussed with the nurse. Subsequently she had a trial of BiPAP and she felt a nevus transferred to ICU intubated on 09/21/2007 . (2) History of chronic lymphocytic leukemia Status: Acute Assessment and plan: she did not follow-up in the office. Reviewed the records from [facility]. One of the report FISH analysis was negative for clean D1 arrangement and normal signal number for CLL probe. She is 466X (19) IVGH variable region no mutation. Flow cytometry showed CLL thrombocytopenia is stable and chronic with platelet count 50,000 Currently no need for treatment of CLL Will check immunoglobulin level. If she has LOW IGg may consider IVIG especially if she has recurrent pulmonary infections - Data of Consult Patient: known to practice within the last 3 years Requesting Physician: Mikel Spence DO Primary Care Provider: Stephen Liao MD - Consult Narrative Reason for consult: CLL History of present illness: Ms. Sheridan is a 62 year old female [facility] with increase shortness of breath. After admission about 450 ML of right pleural fluid removed CT chest showed multiple sub centimeter lung nodule's . Repeat CT chest September 19 showed the lung nodules are stableand largest 18 x 12 mm. Differential include multifocal pneumonia but malignancy cannot be ruled out other lung nodules 4 x 3 mm left upper lobe. 13 x [address] right lower lobe. Dr[address] Werner pulmonology ordered CT angiogram chest rule out PE$. Empric antibiotic not started because of questionable infectious etiology for her symptoms I reviewed the records from [facility]. She was transferred there on 08/17/2017. Echocardiogram showed low ejection fraction 30%. Pathology workup done including peripheral blood flow cytometry for CLL. Bronchoscopy should was clear and bronchoalveolar lavage was performed. CT angiogram chest no PE but groundglass opacities in the left lung inflammatory versus malignancy As soon as she is transferred to a [facility] she came back here stage here for another 10 days. She barely went home to be readmitted now RT [id number] today she is not responding well and she does not feel good. She is conscious but not answering questions. She does have some difficulty in breathing. ONCOLOGY history I saw her first time as an inpatient on February 2017 I reviewed the PCI. She had lymphocytosis dating back to September 2007 with lymphocyte count 52K. On February of 2013 it increased 87. Further increased to 163 on May 2015 and on further increased to 184 on February. she also has mild thrombocytopenia platelet count 1 13 K on February 2013. Since hospitalization reduced further to 80K. CT abdomen and pelvis without contrast on March 13, 2017 showed splenomegaly 18 cm. On March 13, 2017 CT head without contrast negative pathology review of smear on May 2015 showed smudge cells indicating possible CLL PAST MEDICAL HISTORY hyperlipidemia, diabetes mellitus type 2, asthma/COPD, chronic smoker Past Med Surg Social Fam HX - Past Medical History Medical history: asthma, cancer, COPD Psychiatric history: no psych history - Past Surgical History Surgical History: other (cannot be obtained due to patient's mental status) - Social History Smoking Status: Current every day smoker Smokeless Tobacco Status: No Alcohol use: none Drug use: none Medications and Allergies Glimepiride [Amaryl] 4 mg PO QAM 03/13/17 [History] Ranitidine HCl [Zantac] 150 mg PO BID 03/13/17 [History] Allopurinol [Zyloprim 300 MG] 300 mg PO DAILY 09/09/17 [History] Atorvastatin [Lipitor] 40 mg PO HS 09/09/17 [History] Budesonide/Formoterol 160/4.5 [Symbicort 160/4.5] 2 puff IH BIDR 09/09/17 [ History] Carvedilol [Coreg] 25 mg PO BID 09/09/17 [History] Ferrous Sulfate 324 mg PO BID 09/09/17 [History] Furosemide [Lasix] 40 mg PO DAILY 09/09/17 [History] Glucagon, Human Recombinant [Glucagen] 1 mg IM ONCE PRN 09/09/17 [History] HydrOXYzine 10 mg PO TID PRN 09/09/17 [History] Lisinopril [Zestril] 20 mg PO DAILY 09/09/17 [History] Melatonin [Melatin] 6 mg PO HS 09/09/17 [History] Prochlorperazine Maleate [Compazine] 10 mg PO Q6H PRN 09/09/17 [History] Acetaminophen [Tylenol] 650 mg PO Q6HR PRN tablet 09/18/17 [Rx] Diphenoxylate/Atropine [Lomotil 2.5 mg/0.025 mg] 1 tab PO QID PRN #10 tablet [Rx] Gabapentin [Neurontin] 300 mg PO DAILY #5 capsule 09/18/17 [Rx] Insulin DETEMIR [Levemir] 10 unit SQ BID [id number] 09/18/17 [Rx] Ipratropium/Albuterol Neb [Duoneb] 3 ml IH [id number] PRN inhsol 09/18/17 [Rx] Tramadol HCl [Ultram] 50 mg PO Q6H PRN #10 tablet 09/18/17 [Rx] 3 Allergy/AdvReac Type Severity Reaction Status Date / Time Penicillins Allergy Unknown Hives Verified 03/13/17 13:00 Sulfa (Sulfonamide Allergy Unknown Hives Verified 03/13/17 13:00 Antibiotics) aspirin AdvReac Unknown Nausea Verified 03/13/17 13:00 Oncology - Exam - Constitutional Vitals: Temp Pulse Resp BP Pulse Ox 98.0 F 84 18 150/65 94 09/20/17 11:11 09/20/17 11:11 09/20/17 11:16 09/20/17 11:11 09/20/17 11:16 Exam: GENERAL: Alert but lethargic. Does not answer questions appropriately. Mental Status: Affect appropriate for circumstances HEENT: Sclerae anicteric. No mucositis or thrush. No other oral or pharyngeal lesions or erythema. Skin: No rashes or petechiae. No evidence of skin malignancy Lymph nodes: No cervical, supraclavicular, axillary, or inguinal adenopathy. Lungs: Air entry new subsequently reduced both lungs with increasing Cardiovascular: Regular rate and rhythm. No skipped beats Abdomen: Soft, nontender; no organomegaly or masses palpable. Extremities: No edema. No calf swelling or tenderness. No joint deformity. Neurologic: Alert, cranial nerves II-XII intact; normal gait; no focal weakness or sensory abnormalities Oncology - Results Labs: Short CBC 09/20/17 Range/Units 07:17 WBC 21.7 H (4.3-11.1) K/mcL Hgb 9.9 L (11.5-15.4) g/dL Hct 33.5 L (35.3-44.9) % Plt Count 53 L (140-400) K/mcL BMP 09/20/17 07:17 Sodium 140 Potassium 4.0 Chloride 102 Carbon Dioxide 37 H BUN 27 H Creatinine 0.39 L Glucose 59 L Calcium 8.3 L Consult Discharge Plan - Plan Referrals: Stephen Liao MD [Primary Care Provider] -
[2017-09-20] MEDS ORDERED: Furosemide 20 MG/2 ML VIAL IVP ONE (18:50)
[2017-09-20] MEDS ORDERED: *HR* LORazepam 2 MG/ML VIAL IVP ONE (20:20)
[2017-09-20 20:25] LABS: ABG Base Excess 14 mEq/L (-2 to 3); ABG HCO3 44 mEq/L (21-27); ABG Oxygen Saturation 87 % (95-98); ABG PCO2 87 mmHg (35-45); ABG PH 7.32 pH Units (7.32-7.45); ABG PO2 62 mmHg (85-104); ABG TCO2 47 mEq/L (20-26)
[2017-09-20] MEDS: *HR* Heparin 5,000 UNIT/ML VIAL SQ SCH (20:25)
[2017-09-21] MEDS ORDERED: *HR* LORazepam 2 MG/ML VIAL IVP PRN ×2 (00:16→09:10)
[2017-09-21] MEDS ORDERED: *HR* Metoprolol 5 MG/5 ML VIAL IVP ONE ×2 (03:00→03:05)
[2017-09-21] MEDS: Ipratropium/Albuterol Neb 3 ML IH SCH ×6 (03:33→23:24)
[2017-09-21 03:43] LABS: Red Cell Distribution Width 17.6 % (11.5-14.5)
[2017-09-21 03:44] LABS: Hematocrit 41.5 % (35.3-44.9); Hemoglobin 11.7 g/dL (11.5-15.4); Mean Corpuscular HGB Conc 28.2 g/dL (31.6-35.5); Mean Corpuscular Hemoglobin 28.4 pg (28.0-33.3); Mean Corpuscular Volume 100.7 fL (83.0-100.0); Mean Platelet Volume 12.4 fL (9.4-12.4); Red Blood Count 4.12 M/mcL (3.82-4.97)
[2017-09-21 04:06] LABS: BUN/Creatinine Ratio 57 (6-26); Blood Urea Nitrogen 21 mg/dL (8-23); Calcium 9.2 mg/dL (8.6-10.3); Carbon Dioxide 44 mEq/L (23-29); Chloride 94 mEq/L (98-107); Glucose 118 mg/dL (70-105); Osmolality,Calculated 294 (280-300); Potassium 4.4 mEq/L (3.5-5.1); Sodium 140 mEq/L (136-145); eGFR For African Americans > 60 (> 60); eGFR For Non-African Americans > 60 (> 60)
[2017-09-21 04:13] LABS: Platelet Count 77 K/mcL (140-400)
[2017-09-21 04:16] LABS: Lymphocytes # 32.9 K/mcL (0.6-4.6); Monocytes # 2.7 K/mcL (0.0-1.3); Neutrophils # 8.9 K/mcL (1.6-8.9); Platelet Estimate Decreased (Normal); Reactive Lymphocytes Present (Not Present)
[2017-09-21] MEDS: *HR* Heparin 5,000 UNIT/ML VIAL SQ SCH ×2 (05:45→16:40)
[2017-09-21] MEDS: Budesonide/Formoterol 160/4.5 MDI IH SCH ×3 (08:02→19:53)
[2017-09-21 08:08] LABS: ABG Base Excess 11 mEq/L (-2 to 3); ABG HCO3 44 mEq/L (21-27); ABG Oxygen Saturation 99 % (95-98); ABG PCO2 116 mmHg (35-45); ABG PH 7.19 pH Units (7.32-7.45); ABG PO2 154 mmHg (85-104); ABG TCO2 48 mEq/L (20-26); Blood Gas Respiration Rate 8
[2017-09-21] MEDS ORDERED: Lacri-Lube 3.5 GM TUBE BOTH EYES PRN ×2 (08:31→09:10)
[2017-09-21] MEDS ORDERED: Dexmedetomidine HCl 400 MCG/100 ML MLS IVC ONE (08:33)
--- NOTE | 2017-09-21 08:34 | Internal Med Progress Note ---
<Omero Salamanca - Last Filed: 09/21/17 13:29> Date of Encounter: 09/21/17 Time of Encounter: 07:30 - Assessment and plan (1) Acute on chronic respiratory failure with hypoxia and hypercapnia Current Visit: Yes Status: Acute Assessment and plan: - Patient was noted to have desatruation to 87% on 4L NC in ED and ABG on : pH 7.34, pCO2 73, pO2 103, HCO3 39. - Initially feel it's likely secondary to inadequate COPD control as there's question if patient gets scheduled bronchodilators in SNF. - CTA chest found no evidence of PE. - Patient respiratory status deteriorates overnight with reported hypoxia and worsening hypercapnia (ABG this AM: pH 7.19, pCO2 116, pO2 154, HCO3 44) - Start Solu-Medrol and continue Symbicort, bronchodilators and supplemental oxygen for COPD. - Patient was transferred to ICU for advanced respiratory care and close monitoring. - Patient was intubated in ICU today and currently on ventilation support. (2) COPD (chronic obstructive pulmonary disease) Current Visit: Yes Status: Chronic Assessment and plan: - Continue Symbicort, scheduled bronchodilators and supplemental oxygen. - Will start Solu-Medrol given patient's current acute respiratory failure Qualifiers: COPD type: chronic bronchitis Chronic bronchitis type: simple Qualified Code(s): J41.0 - Simple chronic bronchitis (3) Lung nodule Current Visit: No Status: Acute Assessment and plan: - CT chest on 09/19/17 found multiple spiculated nodules in the right lower lobe with the largest of which measures approximately 18 x 12 mm. Additional small 4 x 3 mm nodule in the left upper lobe is also noted. - Per patient's family, patient did have bronchoscopy and biopsy at [facility] that is "inconclusive" but patient did get chemotherapy for that. - Patient's family also prefers to get care here at [facility] if possible instead of going to [place]. - Will obtain medical records from [facility] including bronchoscopy report, pathology report and oncology note regarding the chemotherapy. - [facility] hematology/oncology was consulted for the lung nodules finding along with patient's CLL and thrombocytopenia. Per oncology, underlying lung cancer is a consideration and patient will need outpatient follow-up and possible PET scan. - Patient may benefit from bronchoscopy with EBUS biopsy as further work-up. Pulmonology consulted and appreciate evaluation and recommendation. - Given patient's CLL along with the lung nodules suspicious of malignancy, patient and her family may benefit from palliative care consult. (4) CLL (chronic lymphocytic leukemia) Current Visit: Yes Status: Chronic Assessment and plan: - Know history of CLL. - Review of medical records from [facility] revealed that patient had acute blast crisis with WBC as high as 470 during her hospitalization there one month ago. - Concern of blast crisis given the doubling of WBC today (WBC 44.5 compared to 21.7 yesterday) with lymphocyte-dominance (74%) - Appreciate hematology/oncology input. (5) Thrombocytopenia Current Visit: Yes Status: Chronic Assessment and plan: - History of thrombocytopenia. - Per oncology note from March 2017, continue to monitor (platelet count was ~80 at that time). - Slightly improves with platelet count 77 today. - Continue to monitor. - Appreciate hematology/oncology input. (6) Diabetes mellitus type 2 in nonobese Current Visit: Yes Status: Chronic Assessment and plan: - Continue basal and sliding scale insulin with glucose monitoring. (7) DVT prophylaxis Current Visit: No Status: Acute Assessment and plan: - Continue SQ heparin. - Subjective Interval history: Patient was noted to be hypoxic with O2 sat in 60s and started on BiPAP. Given patient's agitation and attempt to remove her BiPAP, restrains were ordered and Ativan was given with last dose at 2 am per churn operator margarine nurse. Patient was seen and examined this morning. Patient is hypersomnolent and not arousable to verbal or noxious stimuli. Patient is noted to be tachypneic on BiPAP with bedside pulse oximetry showing O2 sat 95%. STAT ABG obtained at bedside suggested worsening hypercapnia (pCO2 116). Given patient's respiratory distress and worsening hypercapnia with associated hypersomnolence, patient needs intubation and ventilation support. Case was discussed with ICU residents. Patient was transferred to ICU where patient was eventually intubated and put on ventilation support. - Constitutional Vitals: Temp Pulse Resp BP Pulse Ox 97.6 F 110 20 189/101 87 09/21/17 07:19 09/21/17 07:19 09/21/17 07:19 09/21/17 07:19 09/21/17 07:19 General appearance: Present: A&O X 0 (Hypersomnolent, not arousable to verbal or noxious stimuli.), mild distress - Head Head exam: Present: normal inspection - ENT Additional comments: On BiPAP - Neck Neck exam general surgery: Present: normal inspection, supple, trachea midline - Cardiovascular Cardiovascular exam: Present: tachycardia - GI/Abdominal GI/Abdominal exam: Present: normal bowel sounds, soft - Extremities Exam Extremities exam: Present: warm. Absent: cyanotic, pedal edema - Neurological Exam Additional comments: Unable to fully assess given patient's mental status. - Skin Skin exam: Present: dry, warm Internal Medicine: Result - Labs CBC & Chem 7: 09/21/17 03:28 09/21/17 03:28 Labs: Short CBC 09/21/17 Range/Units 03:28 WBC 44.5 H* D (4.3-11.1) K/mcL Hgb 11.7 D (11.5-15.4) g/dL Hct 41.5 (35.3-44.9) % Plt Count 77 L (140-400) K/mcL Neutrophils # 8.9 (1.6-8.9) K/mcL BMP 09/21/17 03:28 Sodium 140 Potassium 4.4 Chloride 94 L Carbon Dioxide 44 H* BUN 21 Creatinine 0.37 L Glucose 118 H Calcium 9.2 - ABG Interpretation ABG results: ABG ABG pH 7.19 pH Units (7.32-7.45) L* 09/21/17 08:03 ABG pCO2 116 mmHg (35-45) H* 09/21/17 08:03 ABG pO2 154 mmHg (85-104) H 09/21/17 08:03 ABG O2 Saturation 99 % (95-98) H 09/21/17 08:03 - Impressions Impressions Chest CTA 09/20/17 12:22 IMPRESSION: 1. No pulmonary embolism. 2. Multiple pulmonary nodules are stable from recent CT. Pattern may represent either infectious or neoplastic process. Pulmonary follow-up is recommended with repeat imaging after potential course of therapy. Otherwise, CT would be recommended in 3 months. 3. Stable mediastinal and hilar lymphadenopathy. D/ / Jordy De Los Santos MD / Jordy De Los Santos MD Interpreting Provider: Jordy De Los Santos MD Consult Discharge Plan - Plan Referrals: Stephen Liao MD [Primary Care Provider] - <JordyMikel Nicholas - Last Filed: 09/21/17 17:38> Date of Encounter: 09/21/17 - Assessment and plan (1) Respiratory failure, acute and chronic Current Visit: Yes Status: Acute Qualifiers: Respiratory failure complication: hypoxia and hypercapnia Qualified Code(s) : J96.21 - Acute and chronic respiratory failure with hypoxia; J96.22 - Acute and chronic respiratory failure with hypercapnia; J96.22 - Acute and chronic respiratory failure with hypercapnia; J96.22 - Acute and chronic respiratory failure with hypercapnia (2) CLL (chronic lymphocytic leukemia) Current Visit: Yes Status: Chronic (3) COPD (chronic obstructive pulmonary disease) Current Visit: Yes Status: Chronic Qualifiers: COPD type: chronic bronchitis Chronic bronchitis type: simple Qualified Code(s): J41.0 - Simple chronic bronchitis (4) Hypertension Current Visit: No Status: Chronic Qualifiers: Hypertension type: essential hypertension Qualified Code(s): I10 - Essential (primary) hypertension (5) Coronary artery disease Current Visit: Yes Status: Chronic Qualifiers: Coronary Disease-Associated Artery/Lesion type: [place] artery [place] vs. transplanted heart: [place] heart Associated angina: without angina Qualified Code(s): I25.10 - Atherosclerotic heart disease of [place] coronary artery without angina pectoris (6) Thrombocytopenia Current Visit: Yes Status: Chronic (7) Pulmonary aspiration Current Visit: Yes Status: Suspected Qualifiers: Encounter type: subsequent encounter Qualified Code(s): T17.900D - Unspecified foreign body in respiratory tract, part unspecified causing asphyxiation, subsequent encounter (8) Tobacco abuse Current Visit: Yes Status: Chronic - Constitutional Vitals: Temp Pulse Resp BP Pulse Ox 99.5 F 72 14 104/48 97 09/21/17 16:00 09/21/17 17:00 09/21/17 17:00 09/21/17 17:00 09/21/17 17:00 Internal Medicine: Result - Labs CBC & Chem 7: 09/21/17 03:28 09/21/17 03:28 - ABG Interpretation ABG results: ABG ABG pH 7.42 pH Units (7.32-7.45) D 09/21/17 10:04 ABG pCO2 65 mmHg (35-45) H D 09/21/17 10:04 ABG pO2 435 mmHg (85-104) H D 09/21/17 10:04 ABG O2 Saturation 100 % (95-98) H 09/21/17 10:04 - Attending Attestation I examined this patient and my medical decision-making was reviewed with the Resident Physician on 09/21/17. I agree with the documented findings, disposition and treatment plan as described except to the extent set forth below. Ms Sheridan is currently admitted for acute on chronic respiratory failure. She remains moderate to high risk due to potential for worsening respiratory status. Ms Sheridan had some dyspnea last night. She was placed on bipap and given Ativan. This AM she is somnolent on bipap. Repeat ABG done. Exam Somnolent. Does not respond to pain. Heart tachy and regular Rhonchi present bilaterally. No edema ABG shows acute on chronic respiratory acidosis. I/P 1. Acute resp failure - transfer to ICU for further management 2. COPD Further diagnoses and plan as above Prognosis guarded.
[2017-09-21] MEDS ORDERED: *HR* Etomidate 20 MG/10 ML AMPUL IVP ONE (08:38)
--- NOTE | 2017-09-21 08:40 | Procedure Note ---
<Rehan Figueredo - Last Filed: 09/21/17 08:37> Date of procedure: 09/21/17 Pre-op diagnosis: Acute on chronic respiratory failure with hypoxia and hypercapnia Post-op diagnosis: same Procedure: A time-out was completed verifying correct patient, procedure, site, positioning , and special equipment if applicable. The patient was placed in a flat position. Sedation was obtained using Etomidate 10mg. The patient was easily ventilated using an ambu bag. The [employer]/ MAC 3 BLADE was used and inserted into the oropharynx at which time there was a Grade 1 view of the vocal cords. A 7.5-pakistani endotracheal tube was inserted and visualized going through the vocal cords. The stylette was removed. Colorimetric change was visualized on the CO2 meter. Breath sounds were heard in both lung mancilla equally. The endotracheal tube was placed at 23 cm, measured at the teeth. Lele Cuevas, and Dr. Andersen were present for the entire procedure. A chest x-ray was ordered to assess for pneumothorax and verify endotrachealtube placement. The patient tolerated the procedure well and there were no complications. Was there an assistant to the vice president present: Yes Instructional Support Technician: Lele Cuevas Estimated blood loss (cc): 0 Specimen: none Disposition: ICU <Felisha Andersen - Last Filed: 09/21/17 16:54> Procedure: I examined this patient and my medical decision-making was reviewed with the Resident Physician. I agree with the documented findings, disposition and treatment plan as described except to the extent set forth below. I have personally supervised resident placing ET tube without immediate complications
[2017-09-21] MEDS ORDERED: Dexmedetomidine HCl 400 MCG/100 ML MLS IVC SCH (08:45)
[2017-09-21] MEDS ORDERED: Naloxone 0.4 MG/ML INJ IVP PRN ×2 (08:58→09:10)
--- NOTE | 2017-09-21 08:58 | Pulmonology Consult Note ---
Date of Encounter: 09/21/17 Time of Encounter: 08:56 Assessment and Plan (1) Acute on chronic respiratory failure with hypoxia and hypercapnia Current Visit: Yes Status: Acute 62-year-old female admitted with worsening shortness of breath, hypercapnia worsened while on BiPAP requiring intubation mechanical ventilation. - Chest x-ray without findings of infiltration - She had a CT angiogram of the chest performed that did not show any pulmonary embolism, multiple pulmonary nodules that were stable from recent CT, stable mediastinal hilar lymphadenopathy. I suspicious for COPD exacerbation, currently no other underlying infectious process identified. Patient does have a recent hospitalization. Elevated WBC count in the setting of CLL, we will continue to monitor as WBC increased from 21-44 overnight. Patient afebrile, no left shift. - Blood cultures negative 2 Plan: - Continue scheduled breathing treatments - Continue mechanical ventilation, wean FiO2 as tolerated - IV Solu-Medrol - Respiratory infectious panel ordered (2) COPD (chronic obstructive pulmonary disease) Current Visit: Yes Status: Chronic Known history of COPD, frequent hospitalizations. Patient is seen by pulmonology yesterday with recommendations that if no evidence of PE to continue treating for COPD exacerbation with steroids, scheduled bronchodilators and nebulizers. Qualifiers: COPD type: chronic bronchitis Chronic bronchitis type: simple Qualified Code(s): J41.0 - Simple chronic bronchitis (3) Coronary artery disease Current Visit: Yes Status: Chronic Hx CAD,. Hold Atorvastatin with intubation. Echocardiogram 03/14/2017 Impressions: LVEF 55%. Mild left ventricular diastolic dysfunction. Atypical septal motion. Normal right ventricular size and function. Mild mitral regurgitation. No pulmonary hypertension. There is no evidence of a PFO with agitated saline contrast. Aneurysmal interatrial septum. Qualifiers: Coronary Disease-Associated Artery/Lesion type: [place] artery [place] vs. transplanted heart: [place] heart Associated angina: without angina Qualified Code(s): I25.10 - Atherosclerotic heart disease of [place] coronary artery without angina pectoris (4) Diabetes mellitus type 2 in nonobese Current Visit: Yes Status: Chronic Known type II diabetic, well controlled. Plan: - Continue Levemir 10 units subcutaneous twice a day - Continue low-dose correction scale - Every 4 hourly glucose checks (5) Thrombocytopenia Current Visit: Yes Status: Chronic (6) CLL (chronic lymphocytic leukemia) Current Visit: Yes Status: Chronic History of Present Illness Consult date: 09/21/17 Requesting physician: Mikel Spence Reason for consult: dyspnea Chief complaint: SOB History of present illness: Ms. Sheridan 62-year-old female with no past medical history of COPD, CAD, type 2 diabetes, thrombocytopenia, chronic lymphocytic leukemia, recent hospitalization was admitted on 09/19/2017 after a recent discharge for treatment of pneumonia. She was admitted with worsening shortness of breath and increased oxygen demand for which she received Solu-Medrol and breathing treatments in the emergency department and was started on 4 L nasal cannula oxygen. After admission she demonstrated restricted toward decline and increased oxygen demand. She had a CT angiogram of the chest performed that did not show any pulmonary embolism, multiple pulmonary nodules that were stable from recent CT, stable mediastinal hilar lymphadenopathy. She continued to decline and required BiPAP on 09/20/2017. Despite noninvasive measures her CO2 continued to worsen and she was transferred to the ICU on 02/19/2018 requiring intubation and mechanical ventilation. Upon transfer to the ICU her blood gas demonstrated a pH of 7.19, PCO2 of 116, PO2 154, bicarbonate of 44, CO2 of 48 and oxygen saturation 99% on BiPAP. After successful intubation she demonstrated improvement in her hypercapnia. Past Med Surg Social Fam HX - Past Medical History Medical history: asthma, cancer, COPD Psychiatric history: no psych history - Past Surgical History Surgical History: other (cannot be obtained due to patient's mental status) - Social History Smoking Status: Current every day smoker Smokeless Tobacco Status: No Alcohol use: none Drug use: none Medications and Allergies Glimepiride [Amaryl] 4 mg PO QAM 03/13/17 [History] Ranitidine HCl [Zantac] 150 mg PO BID 03/13/17 [History] Allopurinol [Zyloprim 300 MG] 300 mg PO DAILY 09/09/17 [History] Atorvastatin [Lipitor] 40 mg PO HS 09/09/17 [History] Budesonide/Formoterol 160/4.5 [Symbicort 160/4.5] 2 puff IH BIDR 09/09/17 [ History] Carvedilol [Coreg] 25 mg PO BID 09/09/17 [History] Ferrous Sulfate 324 mg PO BID 09/09/17 [History] Furosemide [Lasix] 40 mg PO DAILY 09/09/17 [History] Glucagon, Human Recombinant [Glucagen] 1 mg IM ONCE PRN 09/09/17 [History] HydrOXYzine 10 mg PO TID PRN 09/09/17 [History] Lisinopril [Zestril] 20 mg PO DAILY 09/09/17 [History] Melatonin [Melatin] 6 mg PO HS 09/09/17 [History] Prochlorperazine Maleate [Compazine] 10 mg PO Q6H PRN 09/09/17 [History] Acetaminophen [Tylenol] 650 mg PO Q6HR PRN tablet 09/18/17 [Rx] Diphenoxylate/Atropine [Lomotil 2.5 mg/0.025 mg] 1 tab PO QID PRN #10 tablet [Rx] Gabapentin [Neurontin] 300 mg PO DAILY #5 capsule 09/18/17 [Rx] Insulin DETEMIR [Levemir] 10 unit SQ BID [id number] 09/18/17 [Rx] Ipratropium/Albuterol Neb [Duoneb] 3 ml IH [id number] PRN inhsol 09/18/17 [Rx] Tramadol HCl [Ultram] 50 mg PO Q6H PRN #10 tablet 09/18/17 [Rx] 3 Allergy/AdvReac Type Severity Reaction Status Date / Time Penicillins Allergy Unknown Hives Verified 03/13/17 13:00 Sulfa (Sulfonamide Allergy Unknown Hives Verified 03/13/17 13:00 Antibiotics) aspirin AdvReac Unknown Nausea Verified 03/13/17 13:00 ROS unobtainable: due to endotracheal tube, due to mental status All Systems: A 10-system review of systems was performed and is negative for pertinent findings except as documented above in the HPI. Physical Examination Vital Signs: Vital Signs, Last 4 Hours Temp Pulse Resp BP Pulse Ox 09/21/17 07:19 97.6 F 110 20 189/101 87 09/21/17 07:02 97.6 F 110 20 189/101 87 General appearance: appears uncomfortable Eyes: nonicteric ENT: oropharynx moist Neck: supple Effort: very labored Inspection: normal Auscultation: bilateral: diminished breath sounds, wheezes Cardiovascular: regular rate and rhythm Gastrointestinal: normoactive bowel sounds Integumentary: normal Extremities: no cyanosis unable to assess due to mental status Results - Laboratory Findings CBC and BMP: 09/21/17 03:28 09/21/17 03:28 ABG ABG pH 7.19 pH Units (7.32-7.45) L* 09/21/17 08:03 ABG pCO2 116 mmHg (35-45) H* 09/21/17 08:03 ABG pO2 154 mmHg (85-104) H 09/21/17 08:03 ABG O2 Saturation 99 % (95-98) H 09/21/17 08:03 Abnormal lab findings: Abnormal lab results WBC 44.5 K/mcL (4.3-11.1) H* D 09/21/17 03:28 MCV 100.7 fL (83.0-100.0) H 09/21/17 03:28 MCHC 28.2 g/dL (31.6-35.5) L 09/21/17 03:28 RDW 17.6 % (11.5-14.5) H 09/21/17 03:28 Plt Count 77 K/mcL (140-400) L 09/21/17 03:28 Lymphocytes # 32.9 K/mcL (0.6-4.6) H 09/21/17 03:28 Monocytes # 2.7 K/mcL (0.0-1.3) H 09/21/17 03:28 Nucleated RBCs/100 WBC 0.1 /100 WBC (0) H 09/19/17 02:33 Reactive Lymphocytes Present (Not Present) A 09/21/17 03:28 Smudge Cells Present (Not Present) A 09/19/17 02:33 Platelet Estimate Decreased (Normal) L 09/21/17 03:28 Immature Plt Fraction 11.1 % (1.1-6.1) H 09/20/17 07:17 Anisocytosis 1+ (Not Present) A 09/18/17 23:15 ABG pH 7.19 pH Units (7.32-7.45) L* 09/21/17 08:03 ABG pCO2 116 mmHg (35-45) H* 09/21/17 08:03 ABG pO2 154 mmHg (85-104) H 09/21/17 08:03 ABG HCO3 44 mEq/L (21-27) H 09/21/17 08:03 ABG Total CO2 48 mEq/L (20-26) H 09/21/17 08:03 ABG O2 Saturation 99 % (95-98) H 09/21/17 08:03 ABG Base Excess 11 mEq/L (-2 to 3) H 09/21/17 08:03 Chloride 94 mEq/L (98-107) L 09/21/17 03:28 Carbon Dioxide 44 mEq/L (23-29) H* 09/21/17 03:28 Creatinine 0.37 mg/dL (0.60-1.20) L 09/21/17 03:28 BUN/Creatinine Ratio 57 (6-26) H 09/21/17 03:28 Glucose 118 mg/dL (70-105) H 09/21/17 03:28 POC Glucose 171 (58-89) H 09/21/17 08:18 Troponin I 0.04 ng/mL (< 0.04) H* 09/19/17 13:40 B-Natriuretic Peptide 877 pg/mL (Less than 100) H 09/18/17 23:15 - Clinical Findings Intake & Output: Intake & Output 09/20/17 09/21/17 09/21/17 23:59 07:59 15:59 Weight 42.3 kg Consult Discharge Plan - Plan Referrals: Stephen Liao MD [Primary Care Provider] -
[2017-09-21] MEDS ORDERED: Chlorhexidine Rinse 15 ML MOUTHWASH MM SCH (09:00)
[2017-09-21] MEDS ORDERED: FentaNYL (PF) 1,000 MCG in 0.9 % Sodium Chloride 80 ML IVC SCH (09:00)
[2017-09-21] MEDS ORDERED: Pantoprazole 40 MG VIAL IVP SCH (09:00)
[2017-09-21] MEDS ORDERED: D5% in Water 1,000 ML IVC PRN (09:10)
[2017-09-21] MEDS ORDERED: *HR* Dextrose 50 % in Water (Syg) 50 ML SYRINGE IVP PRN (09:10)
[2017-09-21] MEDS ORDERED: Ondansetron 4 MG/2 ML VIAL IVP PRN (09:10)
[2017-09-21] MEDS ORDERED: 0.9 % Sodium Chloride 500 ML IVC ONE (09:10)
[2017-09-21] MEDS ORDERED: Dextrose Gel 15 GM/37.5 ML TUBE PO PRN ×2 (09:10)
[2017-09-21] MEDS ORDERED: Albuterol 2.5 MG/3 ML NEBULIZER IH PRN (09:10)
[2017-09-21] MEDS ORDERED: traMADol 50 MG TABLET PO PRN (09:10)
[2017-09-21] MEDS ORDERED: 0.9 % Sodium Chloride 1,000 ML ONE (09:19)
[2017-09-21] MEDS: Dexmedetomidine HCl 400 MCG/100 ML MLS IVC SCH ×2 (09:52→23:32)
[2017-09-21] MEDS: 0.9 % Sodium Chloride 1,000 ML IVC ONE (09:53)
[2017-09-21 10:08] LABS: ABG Base Excess 15 mEq/L (-2 to 3); ABG HCO3 42 mEq/L (21-27); ABG Oxygen Saturation 100 % (95-98); ABG PCO2 65 mmHg (35-45); ABG PH 7.42 pH Units (7.32-7.45); ABG PO2 435 mmHg (85-104); ABG TCO2 44 mEq/L (20-26); Blood Gas Modality ASSIST CONTROL; Blood Gas PEEP 5 cm H2O; Blood Gas Respiration Rate 18; Blood Gas VT 450 cc
[2017-09-21] MEDS ORDERED: Propofol 500 MG/50 ML INFUS..BTL ONE (10:42)
[2017-09-21] MEDS ORDERED: *HR* Midazolam HCl 5 MG/5 ML VIAL IVP ONE (10:42)
[2017-09-21] MEDS ORDERED: 0.9 % Sodium Chloride 1,000 ML IVC ONE (10:55)
[2017-09-21] MEDS ORDERED: Insulin LISPRO 300 UNITS/3 ML VIAL SQ SCH ×2 (11:30→21:00)
[2017-09-21] MEDS ORDERED: Lacri-Lube 3.5 GM TUBE BOTH EYES SCH (12:00)
[2017-09-21] MEDS: Norepinephrine 4 MG in D5% in Water 250 ML IVC SCH ×2 (12:30→13:30)
[2017-09-21] MEDS: FentaNYL (PF) 1,000 MCG in 0.9 % Sodium Chloride 80 ML IVC SCH ×2 (12:31→23:22)
[2017-09-21] MEDS: Lacri-Lube 3.5 GM TUBE BOTH EYES SCH ×4 (13:00→23:24)
--- NOTE | 2017-09-21 13:26 | Procedure Note ---
<Lele Cuevas Jacobo - Last Filed: 09/21/17 13:46> Date of procedure: 09/21/17 Pre-op diagnosis: Hypotension, ARF Post-op diagnosis: same Procedure: Central Venous Catheter Central Line Placement Date: 09/21/2017 Time: 1130 Indication: Hemodynamic monitoring/Intravenous access Resident: Lele Cuevas Attending: Felisha Andersen MD A time-out was completed verifying correct patient, procedure, site, positioning , and special equipment if applicable. The patient was placed in a dependent position appropriate for central line placement based on the vein to be cannulated. The patients right groin was prepped and draped in sterile fashion. 1% Lidocaine was used to anesthetize the surrounding skin area. A triple lumen 7 -[place] catheter was introduced into the the common femoral vein using the Seldinger technique and under ultrasound guidance. The catheter was threaded smoothly over the guide wire and appropriate blood return was obtained. Each lumen of the catheter was evacuated of air and flushed with sterile saline. The catheter was then sutured in place to the skin and a sterile dressing applied. Perfusion to the extremity distal to the point of catheter insertion was checked and found to be adequate. Felisha Andersen MD was present for the entire procedure. Estimated Blood Loss: 5ml The patient tolerated the procedure well and there were no complications. Anesthesia: local Was there an assistant bookkeeper present: No Estimated blood loss (cc): 0 Specimen: none Pathology: none sent <Felisha Andersen - Last Filed: 09/21/17 16:54> Procedure: I examined this patient and my medical decision-making was reviewed with the Resident Physician. I agree with the documented findings, disposition and treatment plan as described except to the extent set forth below. No immediate complications
--- NOTE | 2017-09-21 13:43 | Procedure Note ---
<Lele Cuevas - Last Filed: 09/21/17 13:40> Date of procedure: 09/21/17 Pre-op diagnosis: acute respiratory failure Post-op diagnosis: same Procedure: Date of procedure: 09/21/17 Time of procedure: 1040 Pre-op diagnosis: Acute on chronic respiratory failure with hypoxia and hypercapnia after self extubation. Post-op diagnosis: same Procedure: Endotracheal intubation A time-out was completed verifying correct patient, procedure, site, positioning , and special equipment if applicable. The patient was placed in a flat position. Sedation was obtained using Versed 5 mg, propofol 10 mg. The patient was easily ventilated using an ambu bag. The [employer]/ MAC 3 BLADE was used and inserted into the oropharynx at which time there was a Grade 1 view of the vocal cords. A 7.5-persian endotracheal tube was inserted and visualized going through the vocal cords. The stylette was removed. Colorimetric change was visualized on the CO2 meter. Breath sounds were heard in both lung mancilla equally. The endotracheal tube was placed at 23 cm, measured at the teeth. Dr. Andersen were present for the entire procedure. A chest x-ray was ordered to assess for pneumothorax and verify endotrachealtube placement. The patient tolerated the procedure well and there were no complications. Estimated blood loss (cc): 0 Specimen: none Disposition: ICU Was there an chef assistant present: No Estimated blood loss (cc): 0 Specimen: none Condition: critical Disposition: ICU <Felisha Andersen - Last Filed: 09/21/17 16:53> Procedure: I examined this patient and my medical decision-making was reviewed with the Resident Physician. I agree with the documented findings, disposition and treatment plan as described except to the extent set forth below. I personally supervised resident without immediate complications
--- NOTE | 2017-09-21 14:56 | Palliative - Consult Note ---
Date of Encounter: 09/21/17 Time of Encounter: 11:00 - Assessment and Plan (1) Acute on chronic respiratory failure with hypoxia and hypercapnia Current Visit: Yes Status: Acute Assessment and plan: Currently on the ventilator plan per hospitalist and property caretaker team (2) CLL (chronic lymphocytic leukemia) Current Visit: Yes Status: Chronic Assessment and plan: Patient is receiving chemotherapy at [facility] and through the cancer center here. However her performance scale at this point in time probably precludes further chemotherapy at least for the time being. (3) COPD exacerbation Current Visit: Yes Status: Acute Assessment and plan: Agent is currently on the ventilator. Did not tolerate BiPAP at all. Plan per hospitalist and property caretaker team's (4) Goals of care, counseling/discussion Current Visit: Yes Status: Acute Assessment and plan: Agent has no advanced directives, long discussion with family regarding CODE STATUS patient is now DNR CCA, DNI do not reintubate. Overall the goal of care and ultimately is to return to rehabilitation and then to return home. However family recognizes she may be too weak to do this. If the patient does not turn around extubation will be considered. At this time there will be no reintubation. Patient is now DO NOT RESUSCITATE comfort care arrest do not reintubate. Palliative-CN HPI - Data of Consult Patient: new to practice Requesting Physician: Mikel Spence DO Primary Care Provider: Stephen Liao MD - Consult Narrative Palliative Care/Comfort Measures: Palliative care Reason for consult: Also of care, CODE STATUS History of present illness: Ms. Sheridan is a 62 year old female Patient has a history of CLL, and has been hospitalized multiple times for vocal deep breathing secondary to her COPD. Been discharged admitted twice in the last couple of weeks acute COPD and what is felt to be pneumonia in addition the patient has CLL which she has not been able to be treated for since before . She had deterioration on the floor last night requiring BiPAP she did not tolerate the BiPAP well and this ended up requiring intubation. At this time the patient is intubated and sedated. Unable to give any history, however at this time she appears quite comfortable. CC: Mikel Spence DO Intubated Past Med Surg Social Fam HX - Past Medical History Medical history: asthma, cancer, COPD Psychiatric history: no psych history - Past Surgical History Surgical History: other (cannot be obtained due to patient's mental status) - Social History Smoking Status: Current every day smoker Smokeless Tobacco Status: No Alcohol use: none Drug use: none Medications and Allergies Glimepiride [Amaryl] 4 mg PO QAM 03/13/17 [History] Ranitidine HCl [Zantac] 150 mg PO BID 03/13/17 [History] Allopurinol [Zyloprim 300 MG] 300 mg PO DAILY 09/09/17 [History] Atorvastatin [Lipitor] 40 mg PO HS 09/09/17 [History] Budesonide/Formoterol 160/4.5 [Symbicort 160/4.5] 2 puff IH BIDR 09/09/17 [ History] Carvedilol [Coreg] 25 mg PO BID 09/09/17 [History] Ferrous Sulfate 324 mg PO BID 09/09/17 [History] Furosemide [Lasix] 40 mg PO DAILY 09/09/17 [History] Glucagon, Human Recombinant [Glucagen] 1 mg IM ONCE PRN 09/09/17 [History] HydrOXYzine 10 mg PO TID PRN 09/09/17 [History] Lisinopril [Zestril] 20 mg PO DAILY 09/09/17 [History] Melatonin [Melatin] 6 mg PO HS 09/09/17 [History] Prochlorperazine Maleate [Compazine] 10 mg PO Q6H PRN 09/09/17 [History] Acetaminophen [Tylenol] 650 mg PO Q6HR PRN tablet 09/18/17 [Rx] Diphenoxylate/Atropine [Lomotil 2.5 mg/0.025 mg] 1 tab PO QID PRN #10 tablet [Rx] Gabapentin [Neurontin] 300 mg PO DAILY #5 capsule 09/18/17 [Rx] Insulin DETEMIR [Levemir] 10 unit SQ BID [id number] 09/18/17 [Rx] Ipratropium/Albuterol Neb [Duoneb] 3 ml IH [id number] PRN inhsol 09/18/17 [Rx] Tramadol HCl [Ultram] 50 mg PO Q6H PRN #10 tablet 09/18/17 [Rx] 3 Allergy/AdvReac Type Severity Reaction Status Date / Time Penicillins Allergy Unknown Hives Verified 03/13/17 13:00 Sulfa (Sulfonamide Allergy Unknown Hives Verified 03/13/17 13:00 Antibiotics) aspirin AdvReac Unknown Nausea Verified 03/13/17 13:00 ROS unobtainable: due to mental status Palliative Care-Exam - Constitutional Vitals: Temp Pulse Resp BP Pulse Ox 98.0 F 69 13 118/51 97 09/21/17 12:00 09/21/17 14:00 09/21/17 14:00 09/21/17 14:00 09/21/17 14:00 General appearance: Present: no acute distress - Head Head Exam: Present: atraumatic, normal inspection - Eye Eye exam: Present: normal appearance - ENT ENT exam: Present: mucous membranes moist (Intubated) - Neck Neck exam: Present: normal inspection - Respiratory Respiratory exam: Present: decreased breath sounds (Per airway noise, intubated) - Cardiovascular Cardiovascular exam: Present: irregular rhythm - GI/Abdominal Exam GI/Abdominal exam: Present: normal bowel sounds, soft. Absent: tenderness - Extremities Exam Extremities exam: Absent: tenderness - Neurological Exam Neurological exam: Present: altered (Sedated and intubated) - Psychiatric Psychiatric exam: Absent: agitated, anxious - Skin Skin exam: Present: dry, warm Internal Medicine - CN: Reslt - Labs CBC & Chem 7: 09/21/17 03:28 09/21/17 03:28 - ABG Interpretation ABG results: ABG ABG pH 7.42 pH Units (7.32-7.45) D 09/21/17 10:04 ABG pCO2 65 mmHg (35-45) H D 09/21/17 10:04 ABG pO2 435 mmHg (85-104) H D 09/21/17 10:04 ABG O2 Saturation 100 % (95-98) H 09/21/17 10:04 Consult Discharge Plan - Plan Referrals: Stephen Liao MD [Primary Care Provider] - Palliative Quality Palliative Quality: Screen for Code Status: Yes, Screen for Goals of Care: Yes, Screen for Pain: Yes, If Pain Regimen Started, Initiate Bowel Regimen: Yes, Screen for Nausea/Vomitting: Yes Code Status: 09/19/17 01:48 Resuscitation Status: Active [RES] Routine Comment: do not reintubate Resuscitation Status: [id number]
--- NOTE | 2017-09-21 16:04 | Electrocardiograph Report ---
[address] [place], [place] [address] Test Date: 2017-09-18 Pat Name: Domenica Sheridan Department: 103 Room: 10 Gender: F Medical Technician: TMR : 1955 Requested By: Derek Sanchez Order Number: [id number] Reading MD: Gallo Marroquin Measurements Intervals [place] Rate: 76 P: 67 FL: 142 QRS: 83 QRSD: 119 T: 70 QT: 397 QTc: 428 Interpretive Statements SINUS RHYTHM MODERATE INTRAVENTRICULAR CONDUCTION DELAY LVH with secondary repolarization changes Electronically Signed On 09-21-2017 16:02:41 EST by Gallo Marroquin
--- NOTE | 2017-09-21 16:15 | Pulmonology Progress Note ---
<Lele Cuevas - Last Filed: 09/21/17 16:12> Date of Encounter: 09/21/17 Time of Encounter: 08:56 Assessment and Plan (1) Acute on chronic respiratory failure with hypoxia and hypercapnia Current Visit: Yes Status: Acute 62-year-old female admitted with worsening shortness of breath, hypercapnia worsened while on BiPAP requiring intubation mechanical ventilation. - Chest x-ray without findings of infiltration - She had a CT angiogram of the chest performed that did not show any pulmonary embolism, multiple pulmonary nodules that were stable from recent CT, stable mediastinal hilar lymphadenopathy. I suspicious for COPD exacerbation, currently no other underlying infectious process identified. Patient does have a recent hospitalization. Elevated WBC count in the setting of CLL, we will continue to monitor as WBC increased from 21-44 overnight. Patient afebrile, no left shift. - Blood cultures negative 2 Plan: - Continue scheduled breathing treatments - Continue mechanical ventilation, wean FiO2 as tolerated - IV Solu-Medrol - Respiratory infectious panel ordered (2) COPD (chronic obstructive pulmonary disease) Current Visit: Yes Status: Chronic Known history of COPD, frequent hospitalizations. Patient is seen by pulmonology yesterday with recommendations that if no evidence of PE to continue treating for COPD exacerbation with steroids, scheduled bronchodilators and nebulizers. Qualifiers: COPD type: chronic bronchitis Chronic bronchitis type: simple Qualified Code(s): J41.0 - Simple chronic bronchitis (3) Coronary artery disease Current Visit: Yes Status: Chronic Hx CAD, Hold Atorvastatin with intubation. Echocardiogram 03/14/2017 Impressions: LVEF 55%. Mild left ventricular diastolic dysfunction. Atypical septal motion. Normal right ventricular size and function. Mild mitral regurgitation. No pulmonary hypertension. There is no evidence of a PFO with agitated saline contrast. Aneurysmal interatrial septum. Qualifiers: Coronary Disease-Associated Artery/Lesion type: [place] artery [place] vs. transplanted heart: [place] heart Associated angina: without angina Qualified Code(s): I25.10 - Atherosclerotic heart disease of [place] coronary artery without angina pectoris (4) Diabetes mellitus type 2 in nonobese Current Visit: Yes Status: Chronic Known type II diabetic, well controlled. Plan: - Continue Levemir 10 units subcutaneous twice a day - Continue low-dose correction scale - Every 4 hourly glucose checks (5) CLL (chronic lymphocytic leukemia) Current Visit: Yes Status: Chronic Known hx of CLL, Current WBC 44, lymphocytes 32.9, neutrophil 8.9 monocytes 2.7 - Oncology following appreciate recommendations. (6) Thrombocytopenia Current Visit: Yes Status: Chronic Thrombocytopenia, platelets 77 up from 50 yesterday. - Likely secondary to CLL continue to monitor. (7) DVT prophylaxis Current Visit: No Status: Acute Heparin 5000 SQ Q8hrs Subjective Principal diagnosis: Acute respiratory failure Interval history: Ms. Sheridan 62-year-old female with no past medical history of COPD, CAD, type 2 diabetes, thrombocytopenia, chronic lymphocytic leukemia, recent hospitalization was admitted on 09/19/2017 after a recent discharge for treatment of pneumonia. She was admitted with worsening shortness of breath and increased oxygen demand for which she received Solu-Medrol and breathing treatments in the emergency department and was started on 4 L nasal cannula oxygen. After admission she demonstrated restricted toward decline and increased oxygen demand. She had a CT angiogram of the chest performed that did not show any pulmonary embolism, multiple pulmonary nodules that were stable from recent CT, stable mediastinal hilar lymphadenopathy. She continued to decline and required BiPAP on 09/20/2017. Despite noninvasive measures her CO2 continued to worsen and she was transferred to the ICU on 02/19/2018 requiring intubation and mechanical ventilation. Upon transfer to the ICU her blood gas demonstrated a pH of 7.19, PCO2 of 116, PO2 154, bicarbonate of 44, CO2 of 48 and oxygen saturation 99% on BiPAP. After successful intubation she demonstrated improvement in her hypercapnia. Objective PUL Vital signs: Last Vital Signs Temp 98.0 F 09/21/17 12:00 Pulse 71 09/21/17 15:00 Resp 13 09/21/17 15:00 BP 91/43 09/21/17 15:00 Pulse Ox 98 09/21/17 15:00 General appearance: no acute distress, appears uncomfortable Eyes: nonicteric ENT: oropharynx moist Neck: supple Effort: very labored Auscultation: bilateral: diminished breath sounds, wheezes Cardiovascular: regular rate and rhythm Gastrointestinal: normoactive bowel sounds Integumentary: normal Extremities: no cyanosis Musculoskeletal: no deformities Ventilator Settings Ventilator Settings: Ventilator Settings, Last 8 Hours Ventilator Mode VC+ Ventilator Tidal Volume 450 Setting Ventilator Respiratory Rate 14 Setting Actual Respiratory Rate 13 Actual Respiratory Rate 13 Actual Respiratory Rate 14 Actual Respiratory Rate 13 Positive End Expiratory 5 Pressure Positive End Expiratory 5 Pressure Positive End Expiratory 5 Pressure Positive End Expiratory 5 Pressure Peak Inspiratory Airway 26 Pressure Results - Laboratory Findings CBC and BMP: 09/21/17 03:28 09/21/17 03:28 ABG ABG pH 7.42 pH Units (7.32-7.45) D 09/21/17 10:04 ABG pCO2 65 mmHg (35-45) H D 09/21/17 10:04 ABG pO2 435 mmHg (85-104) H D 09/21/17 10:04 ABG O2 Saturation 100 % (95-98) H 09/21/17 10:04 Abnormal lab findings: Abnormal lab results WBC 44.5 K/mcL (4.3-11.1) H* D 09/21/17 03:28 MCV 100.7 fL (83.0-100.0) H 09/21/17 03:28 MCHC 28.2 g/dL (31.6-35.5) L 09/21/17 03:28 RDW 17.6 % (11.5-14.5) H 09/21/17 03:28 Plt Count 77 K/mcL (140-400) L 09/21/17 03:28 Lymphocytes # 32.9 K/mcL (0.6-4.6) H 09/21/17 03:28 Monocytes # 2.7 K/mcL (0.0-1.3) H 09/21/17 03:28 Nucleated RBCs/100 WBC 0.1 /100 WBC (0) H 09/19/17 02:33 Reactive Lymphocytes Present (Not Present) A 09/21/17 03:28 Smudge Cells Present (Not Present) A 09/19/17 02:33 Platelet Estimate Decreased (Normal) L 09/21/17 03:28 Immature Plt Fraction 11.1 % (1.1-6.1) H 09/20/17 07:17 Anisocytosis 1+ (Not Present) A 09/18/17 23:15 ABG pCO2 65 mmHg (35-45) H D 09/21/17 10:04 ABG pO2 435 mmHg (85-104) H D 09/21/17 10:04 ABG HCO3 42 mEq/L (21-27) H 09/21/17 10:04 ABG Total CO2 44 mEq/L (20-26) H 09/21/17 10:04 ABG O2 Saturation 100 % (95-98) H 09/21/17 10:04 ABG Base Excess 15 mEq/L (-2 to 3) H 09/21/17 10:04 Chloride 94 mEq/L (98-107) L 09/21/17 03:28 Carbon Dioxide 44 mEq/L (23-29) H* 09/21/17 03:28 Creatinine 0.37 mg/dL (0.60-1.20) L 09/21/17 03:28 BUN/Creatinine Ratio 57 (6-26) H 09/21/17 03:28 Glucose 118 mg/dL (70-105) H 09/21/17 03:28 POC Glucose 170 (58-89) H 09/21/17 12:17 Troponin I 0.04 ng/mL (< 0.04) H* 09/19/17 13:40 B-Natriuretic Peptide 877 pg/mL (Less than 100) H 09/18/17 23:15 Consult Discharge Plan - Plan Referrals: Stephen Liao MD [Primary Care Provider] - <Felisha Andersen - Last Filed: 09/21/17 20:22> Date of Encounter: 09/21/17 Objective PUL Vital signs: Last Vital Signs Temp 99.5 F 09/21/17 16:00 Pulse 71 09/21/17 15:00 Resp 14 09/21/17 16:37 BP 91/43 09/21/17 15:00 Pulse Ox 97 09/21/17 16:37 Ventilator Settings Ventilator Settings: Ventilator Settings, Last 8 Hours Ventilator Mode VC+ Ventilator Mode VC+ Ventilator Tidal Volume 450 Setting Ventilator Tidal Volume 450 Setting Ventilator Respiratory Rate 14 Setting Ventilator Respiratory Rate 14 Setting Actual Respiratory Rate 14 Actual Respiratory Rate 13 Actual Respiratory Rate 13 Actual Respiratory Rate 14 Actual Respiratory Rate 13 Positive End Expiratory 5 Pressure Positive End Expiratory 5 Pressure Positive End Expiratory 5 Pressure Positive End Expiratory 5 Pressure Positive End Expiratory 5 Pressure Peak Inspiratory Airway 28 Pressure Peak Inspiratory Airway 26 Pressure Results - Laboratory Findings CBC and BMP: 09/21/17 03:28 09/21/17 03:28 ABG ABG pH 7.42 pH Units (7.32-7.45) D 09/21/17 10:04 ABG pCO2 65 mmHg (35-45) H D 09/21/17 10:04 ABG pO2 435 mmHg (85-104) H D 09/21/17 10:04 ABG O2 Saturation 100 % (95-98) H 09/21/17 10:04 Abnormal lab findings: Abnormal lab results WBC 44.5 K/mcL (4.3-11.1) H* D 09/21/17 03:28 MCV 100.7 fL (83.0-100.0) H 09/21/17 03:28 MCHC 28.2 g/dL (31.6-35.5) L 09/21/17 03:28 RDW 17.6 % (11.5-14.5) H 09/21/17 03:28 Plt Count 77 K/mcL (140-400) L 09/21/17 03:28 Lymphocytes # 32.9 K/mcL (0.6-4.6) H 09/21/17 03:28 Monocytes # 2.7 K/mcL (0.0-1.3) H 09/21/17 03:28 Nucleated RBCs/100 WBC 0.1 /100 WBC (0) H 09/19/17 02:33 Reactive Lymphocytes Present (Not Present) A 09/21/17 03:28 Smudge Cells Present (Not Present) A 09/19/17 02:33 Platelet Estimate Decreased (Normal) L 09/21/17 03:28 Immature Plt Fraction 11.1 % (1.1-6.1) H 09/20/17 07:17 Anisocytosis 1+ (Not Present) A 09/18/17 23:15 ABG pCO2 65 mmHg (35-45) H D 09/21/17 10:04 ABG pO2 435 mmHg (85-104) H D 09/21/17 10:04 ABG HCO3 42 mEq/L (21-27) H 09/21/17 10:04 ABG Total CO2 44 mEq/L (20-26) H 09/21/17 10:04 ABG O2 Saturation 100 % (95-98) H 09/21/17 10:04 ABG Base Excess 15 mEq/L (-2 to 3) H 09/21/17 10:04 Chloride 94 mEq/L (98-107) L 09/21/17 03:28 Carbon Dioxide 44 mEq/L (23-29) H* 09/21/17 03:28 Creatinine 0.37 mg/dL (0.60-1.20) L 09/21/17 03:28 BUN/Creatinine Ratio 57 (6-26) H 09/21/17 03:28 Glucose 118 mg/dL (70-105) H 09/21/17 03:28 POC Glucose 170 (58-89) H 09/21/17 12:17 Troponin I 0.04 ng/mL (< 0.04) H* 09/19/17 13:40 B-Natriuretic Peptide 877 pg/mL (Less than 100) H 09/18/17 23:15 - Clinical Findings Intake & Output: Intake & Output 09/21/17 09/21/17 09/21/17 07:59 15:59 23:59 Output Total 125 / 125 Balance -125 / -125 - Attending Attestation I examined this patient and my medical decision-making was reviewed with the Resident Physician. I agree with the documented findings, disposition and treatment plan as described except to the extent set forth below. Patient seen and examined. Labs, radiology, chart personally reviewed. 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 Patient with acute hypoxic/ hypercapnic respiratory failure. Attempt to reach family before intubation multiple times with no success and patient was intubated successfully and had her on vent. Then patient unfortunately self extubated and she failed to supportive and non-invasive methods and family stated patient is full code and patient was intubated for second time. Then family arrived and I met with them and they stated when patient was in [facility] she was DNR-arrest and palliative care was consulted then. Necessary vent changes made. Will consider bronchoscopy. Cardiovascular: unstable and central line was placed for vasopressors. GI: Nutrition per dietary and GI prophylaxis per routine Heme: DVT prophylaxis per routine ID: Continue antibiotics and plan to de-escalation Renal; urine out put and renal funtion reviewed Endorcine: blood glucose is monitored Lines: all lines checked and no evidence of infections Skin: skin care to prevent pressure ulcers per nursing routine care Poor prognosis. I spent 50 min of Critical Care time with this patient. It involved decision making of high complexity to assess, manipulate, and support vital organ system failure and/or to prevent further life threatening deterioration of the patient' s condition. The time involved in the performance of separately reportable procedures was not counted toward critical care time.
[2017-09-21] MEDS: methylPREDNISolone 125 MG/2 ML VIAL IVP SCH ×2 (16:41→23:24)
[2017-09-21] MEDS: Insulin LISPRO 300 UNITS/3 ML VIAL SQ SCH ×2 (17:42→23:47)
[2017-09-21] MEDS: Chlorhexidine Rinse 15 ML MOUTHWASH MM SCH (20:09)
[2017-09-21] MEDS: Insulin DETEMIR 100 UNIT/ML X5UNITS SQ SCH (20:10)
[2017-09-22] MEDS: Ipratropium/Albuterol Neb 3 ML IH SCH ×5 (04:03→20:22)
[2017-09-22 04:05] LABS: Basophils % 0.1 %; Hematocrit 33.2 % (35.3-44.9); Mean Corpuscular HGB Conc 29.2 g/dL (31.6-35.5); Mean Corpuscular Volume 99.4 fL (83.0-100.0); Red Blood Count 3.34 M/mcL (3.82-4.97)
[2017-09-22 04:07] LABS: Hemoglobin 9.7 g/dL (11.5-15.4); Immature Granulocytes % 0.3 % (0-4); Immature Platelets 8.9 % (1.1-6.1); Lymphocytes # 12.5 K/mcL (0.6-4.6); Lymphocytes % 81.7 %; Mean Platelet Volume 12.1 fL (9.4-12.4); Monocytes # 0.6 K/mcL (0.0-1.3); Monocytes % 4.1 %; Neutrophils # 2.1 K/mcL (1.6-8.9); Nucleated Red Blood Cells 0.1 /100 WBC (0); Red Cell Distribution Width 17.2 % (11.5-14.5); Segmented Neutrophils % 13.8 %
[2017-09-22 04:18] LABS: Platelet Count 46 K/mcL (140-400)
[2017-09-22 04:24] LABS: Alanine Aminotransferase 18 Units/L (7-52); Albumin 3.4 g/dL (3.5-5.7); Albumin/Globulin Ratio 1.6 (1.1-2.2); Alkaline Phosphatase 50 Units/L (34-104); Aspartate Amino Transferase 14 Units/L (13-39); BUN/Creatinine Ratio 75 (6-26); Bilirubin,Total 0.8 mg/dL (0.3-1.0); Blood Urea Nitrogen 52 mg/dL (8-23); Carbon Dioxide 40 mEq/L (23-29); Chloride 98 mEq/L (98-107); Globulin 2.1 g/dL (2.4-3.5); Glucose 219 mg/dL (70-105); Osmolality,Calculated 317 (280-300); Potassium 4.4 mEq/L (3.5-5.1); Sodium 143 mEq/L (136-145); Total Protein 5.5 g/dL (6.4-8.9); eGFR For African Americans > 60 (> 60); eGFR For Non-African Americans > 60 (> 60)
[2017-09-22 04:39] LABS: Anisocytosis 1+ (Not Present); Macrocytosis Present (Not Present); Platelet Estimate Decreased (Normal)
[2017-09-22 04:40] LABS: ABG Base Excess 14 mEq/L (-2 to 3); ABG HCO3 41 mEq/L (21-27); ABG Oxygen Saturation 93 % (95-98); ABG PCO2 64 mmHg (35-45); ABG PH 7.41 pH Units (7.32-7.45); ABG PO2 68 mmHg (85-104); ABG TCO2 43 mEq/L (20-26); Blood Gas Modality VC; Blood Gas PEEP 5 cm H2O; Blood Gas Respiration Rate 14; Blood Gas VT 450 cc
[2017-09-22] MEDS: Lacri-Lube 3.5 GM TUBE BOTH EYES SCH ×2 (04:48→08:48)
[2017-09-22] MEDS: *HR* Heparin 5,000 UNIT/ML VIAL SQ SCH (04:49)
[2017-09-22] MEDS: Insulin LISPRO 300 UNITS/3 ML VIAL SQ SCH ×3 (04:56→18:48)
[2017-09-22] MEDS: Budesonide/Formoterol 160/4.5 MDI IH SCH ×2 (08:12→20:22)
--- NOTE | 2017-09-22 08:22 | Palliative Progress Note ---
<Sacha Dhillon - Last Filed: 09/22/17 08:19> Date of Encounter: 09/22/17 Time of Encounter: 08:20 - Assessment and plan (1) Goals of care, counseling/discussion Current Visit: Yes Status: Acute Assessment and plan: Code status changed yesterday to [id number]. Overall patient continues to improve while on vent, plan to attempt breathing trial later today without reintubation. Apparently did not tolerate Bipap yesterday. Goal of care to return to rehab and then home. Questionable if due to the current status of her endstage COPD whether patient will be able to get additional chemotherapy for her CLL. (2) Acute on chronic respiratory failure with hypoxia and hypercapnia Current Visit: Yes Status: Acute Assessment and plan: Currently on ventilator, likely breathing trial later today per Director [employer]. ABG improving. Code status [id number]. (3) COPD exacerbation Current Visit: Yes Status: Acute Assessment and plan: Plan per hand brush filler. (4) CLL (chronic lymphocytic leukemia) Current Visit: Yes Status: Chronic Assessment and plan: Known CLL, receiving chemo from [facility] and [facility]. Questionable if will receive chemo if continues to recover from current status. - Time Spent With Patient Total time spent is greater than 50% in coordination of care (as documented) at patient's floor/unit and/or counseling patient: - Subjective Interval history: Patient continued to do well overnight while intubated, appears comfortable and minimally sedated in no acute distress. No attempts to extubate were made yesterday. Plan to attempt breathing trial later today with consideration to code status of no reintubation. Vitals appear stable, labs continue to show improvement on ABG. - Constitutional Vitals: Abnormal lab results WBC 15.3 K/mcL (4.3-11.1) H D 09/22/17 03:55 RBC 3.34 M/mcL (3.82-4.97) L 09/22/17 03:55 Hgb 9.7 g/dL (11.5-15.4) L D 09/22/17 03:55 Hct 33.2 % (35.3-44.9) L 09/22/17 03:55 MCHC 29.2 g/dL (31.6-35.5) L 09/22/17 03:55 RDW 17.2 % (11.5-14.5) H 09/22/17 03:55 Plt Count 46 K/mcL (140-400) L 09/22/17 03:55 Lymphocytes # 12.5 K/mcL (0.6-4.6) H 09/22/17 03:55 Nucleated RBCs/100 WBC 0.1 /100 WBC (0) H 09/22/17 03:55 Reactive Lymphocytes Present (Not Present) A 09/21/17 03:28 Smudge Cells Present (Not Present) A 09/19/17 02:33 Platelet Estimate Decreased (Normal) L 09/22/17 03:55 Immature Plt Fraction 8.9 % (1.1-6.1) H 09/22/17 03:55 Anisocytosis 1+ (Not Present) A 09/22/17 03:55 Macrocytosis Present (Not Present) A 09/22/17 03:55 ABG pCO2 64 mmHg (35-45) H 09/22/17 04:37 ABG pO2 68 mmHg (85-104) L 09/22/17 04:37 ABG HCO3 41 mEq/L (21-27) H 09/22/17 04:37 ABG Total CO2 43 mEq/L (20-26) H 09/22/17 04:37 ABG O2 Saturation 93 % (95-98) L 09/22/17 04:37 ABG Base Excess 14 mEq/L (-2 to 3) H 09/22/17 04:37 Carbon Dioxide 40 mEq/L (23-29) H* 09/22/17 03:55 BUN 52 mg/dL (8-23) H 09/22/17 03:55 BUN/Creatinine Ratio 75 (6-26) H 09/22/17 03:55 Glucose 219 mg/dL (70-105) H 09/22/17 03:55 POC Glucose 258 (58-89) H 09/21/17 23:41 Calculated Osmolality 317 (280-300) H 09/22/17 03:55 Troponin I 0.04 ng/mL (< 0.04) H* 09/19/17 13:40 B-Natriuretic Peptide 877 pg/mL (Less than 100) H 09/18/17 23:15 Serum Total Protein 5.5 g/dL (6.4-8.9) L 09/22/17 03:55 Albumin 3.4 g/dL (3.5-5.7) L 09/22/17 03:55 Globulin 2.1 g/dL (2.4-3.5) L 09/22/17 03:55 General appearance: Present: no acute distress Exam: minimally sedated on vent. - Head Head exam: Present: atraumatic, normal inspection, normocephalic - Eye Eye exam: Present: EOMI, PERRL - ENT ENT exam: Present: mucous membranes moist - Respiratory Respiratory exam: Absent: rales, rhonchi, wheezes Additional comments: harsh breath sounds, intubated - Cardiovascular Cardiovascular exam: Present: RRR, +S1, +S2 - GI/Abdominal GI/Abdominal exam: Present: normal bowel sounds, soft. Absent: distended, tenderness - Extremities Exam Extremities exam: Present: normal inspection. Absent: pedal edema, tenderness - Neurological Exam Additional comments: arousable, minimally sedated. - Psychiatric Psychiatric exam: Absent: agitated, anxious - Skin Skin exam: Present: dry, intact, warm Palliative Quality Palliative Quality: Screen for Code Status: Yes, Screen for Goals of Care: Yes, Screen for Pain: Yes, If Pain Regimen Started, Initiate Bowel Regimen: Yes, Screen for Nausea/Vomitting: Yes Code Status: 09/19/17 01:48 Resuscitation Status: Active [RES] Routine Comment: do not reintubate Resuscitation Status: [id number] - Labs CBC & Chem 7: 09/22/17 03:55 09/22/17 03:55 Labs: Laboratory Results - last 24 hr 09/21/17 09/21/17 09/21/17 12:17 17:33 23:41 WBC RBC Hgb Hct MCV MCH MCHC RDW Plt Count MPV Immature Gran % Seg Neutrophils % Lymphocytes % Monocytes % Eosinophils % Basophils % Neutrophils # Lymphocytes # Monocytes # Eosinophils # Basophils # Nucleated RBCs/100 WBC Platelet Estimate Immature Plt Fraction Anisocytosis Macrocytosis Sample Site ABG pH ABG pCO2 ABG pO2 ABG HCO3 ABG Total CO2 ABG O2 Saturation ABG Base Excess Deng Test Respiration Rate O2 Delivery Device Blood Gas Modality Inspired O2 Tidal Volume PEEP Sodium Potassium Chloride Carbon Dioxide BUN Creatinine Est GFR ( Amer) Est GFR (Non-Af Amer) BUN/Creatinine Ratio Glucose POC Glucose 170 H 130 H 258 H Calculated Osmolality Calcium Total Bilirubin AST ALT Alkaline Phosphatase Serum Total Protein Albumin Globulin Albumin/Globulin Ratio 09/22/17 09/22/17 09/22/17 03:55 03:55 04:37 WBC 15.3 H D RBC 3.34 L Hgb 9.7 L D Hct 33.2 L MCV 99.4 MCH 29.0 MCHC 29.2 L RDW 17.2 H Plt Count 46 L MPV 12.1 Immature Gran % 0.3 Seg Neutrophils % 13.8 Lymphocytes % 81.7 Monocytes % 4.1 Eosinophils % 0.0 Basophils % 0.1 Neutrophils # 2.1 Lymphocytes # 12.5 H Monocytes # 0.6 Eosinophils # 0.0 Basophils # 0.0 Nucleated RBCs/100 WBC 0.1 H Platelet Estimate Decreased L Immature Plt Fraction 8.9 H Anisocytosis 1+ A Macrocytosis Present A Sample Site R Radial ABG pH 7.41 ABG pCO2 64 H ABG pO2 68 L ABG HCO3 41 H ABG Total CO2 43 H ABG O2 Saturation 93 L ABG Base Excess 14 H Deng Test N/A Respiration Rate 14 O2 Delivery Device Adult Vent Blood Gas Modality VC Inspired O2 40.0 Tidal Volume 450 PEEP 5 Sodium 143 Potassium 4.4 Chloride 98 Carbon Dioxide 40 H* BUN 52 H Creatinine 0.69 Est GFR ( Amer) > 60 Est GFR (Non-Af Amer) > 60 BUN/Creatinine Ratio 75 H Glucose 219 H POC Glucose Calculated Osmolality 317 H Calcium 9.0 Total Bilirubin 0.8 AST 14 ALT 18 Alkaline Phosphatase 50 Serum Total Protein 5.5 L Albumin 3.4 L Globulin 2.1 L Albumin/Globulin Ratio 1.6 - Impressions Impressions Chest X-Ray 09/22/17 06:59 IMPRESSION: Mild interstitial prominence which may be related to edema. Appearance overall is not substantially changed since the previous exam. D/ / Avis Feng MD / Avis Feng MD Interpreting Provider: Avis Feng MD - ABG Interpretation ABG results: ABG ABG pH 7.41 pH Units (7.32-7.45) 09/22/17 04:37 ABG pCO2 64 mmHg (35-45) H 09/22/17 04:37 ABG pO2 68 mmHg (85-104) L 09/22/17 04:37 ABG O2 Saturation 93 % (95-98) L 09/22/17 04:37 Consult Discharge Plan - Plan Referrals: Stephen Liao MD [Primary Care Provider] - <Brendan Mireles L - Last Filed: 09/22/17 11:33> Date of Encounter: 09/22/17 - Assessment and plan (1) Acute on chronic respiratory failure with hypoxia and hypercapnia Current Visit: Yes Status: Acute (2) CLL (chronic lymphocytic leukemia) Current Visit: Yes Status: Chronic (3) COPD exacerbation Current Visit: Yes Status: Acute (4) Goals of care, counseling/discussion Current Visit: Yes Status: Acute - Time Spent With Patient Total time spent is greater than 50% in coordination of care (as documented) at patient's floor/unit and/or counseling patient: - Constitutional Vitals: Abnormal lab results WBC 15.3 K/mcL (4.3-11.1) H D 09/22/17 03:55 RBC 3.34 M/mcL (3.82-4.97) L 09/22/17 03:55 Hgb 9.7 g/dL (11.5-15.4) L D 09/22/17 03:55 Hct 33.2 % (35.3-44.9) L 09/22/17 03:55 MCHC 29.2 g/dL (31.6-35.5) L 09/22/17 03:55 RDW 17.2 % (11.5-14.5) H 09/22/17 03:55 Plt Count 46 K/mcL (140-400) L 09/22/17 03:55 Lymphocytes # 12.5 K/mcL (0.6-4.6) H 09/22/17 03:55 Nucleated RBCs/100 WBC 0.1 /100 WBC (0) H 09/22/17 03:55 Reactive Lymphocytes Present (Not Present) A 09/21/17 03:28 Smudge Cells Present (Not Present) A 09/19/17 02:33 Platelet Estimate Decreased (Normal) L 09/22/17 03:55 Immature Plt Fraction 8.9 % (1.1-6.1) H 09/22/17 03:55 Anisocytosis 1+ (Not Present) A 09/22/17 03:55 Macrocytosis Present (Not Present) A 09/22/17 03:55 ABG pCO2 64 mmHg (35-45) H 09/22/17 04:37 ABG pO2 68 mmHg (85-104) L 09/22/17 04:37 ABG HCO3 41 mEq/L (21-27) H 09/22/17 04:37 ABG Total CO2 43 mEq/L (20-26) H 09/22/17 04:37 ABG O2 Saturation 93 % (95-98) L 09/22/17 04:37 ABG Base Excess 14 mEq/L (-2 to 3) H 09/22/17 04:37 Carbon Dioxide 40 mEq/L (23-29) H* 09/22/17 03:55 BUN 52 mg/dL (8-23) H 09/22/17 03:55 BUN/Creatinine Ratio 75 (6-26) H 09/22/17 03:55 Glucose 219 mg/dL (70-105) H 09/22/17 03:55 POC Glucose 211 (58-89) H 09/22/17 10:59 Calculated Osmolality 317 (280-300) H 09/22/17 03:55 Troponin I 0.04 ng/mL (< 0.04) H* 09/19/17 13:40 B-Natriuretic Peptide 877 pg/mL (Less than 100) H 09/18/17 23:15 Serum Total Protein 5.5 g/dL (6.4-8.9) L 09/22/17 03:55 Albumin 3.4 g/dL (3.5-5.7) L 09/22/17 03:55 Globulin 2.1 g/dL (2.4-3.5) L 09/22/17 03:55 - Attending Attestation I examined this patient and my medical decision-making was reviewed with the Resident Physician. I agree with the documented findings, disposition and treatment plan as described except to the extent set forth below. Since the writing of this note the patient has self extubated. As per discussion with family yesterday the patient will remain extubated. ICU team the patient is awake alert and seems to build understand the overall situation, she is requesting comfort care. As the ICU team was witness to this I have recommended that they go ahead and follow her recommendations as I believe this is in line with what the family told me that she would say. Palliative Quality Code Status: 09/22/17 10:56 Resuscitation Status: Active [RES] Routine Comment: Resuscitation Status: DNR-Comfort Care - Labs CBC & Chem 7: 09/22/17 03:55 09/22/17 03:55 Labs: Laboratory Results - last 24 hr 09/21/17 09/21/17 09/21/17 12:17 17:33 23:41 WBC RBC Hgb Hct MCV MCH MCHC RDW Plt Count MPV Immature Gran % Seg Neutrophils % Lymphocytes % Monocytes % Eosinophils % Basophils % Neutrophils # Lymphocytes # Monocytes # Eosinophils # Basophils # Nucleated RBCs/100 WBC Platelet Estimate Immature Plt Fraction Anisocytosis Macrocytosis Sample Site ABG pH ABG pCO2 ABG pO2 ABG HCO3 ABG Total CO2 ABG O2 Saturation ABG Base Excess Deng Test Respiration Rate O2 Delivery Device Blood Gas Modality Inspired O2 Tidal Volume PEEP Sodium Potassium Chloride Carbon Dioxide BUN Creatinine Est GFR ( Amer) Est GFR (Non-Af Amer) BUN/Creatinine Ratio Glucose POC Glucose 170 H 130 H 258 H Calculated Osmolality Calcium Total Bilirubin AST ALT Alkaline Phosphatase Serum Total Protein Albumin Globulin Albumin/Globulin Ratio 09/22/17 09/22/17 09/22/17 03:55 03:55 04:37 WBC 15.3 H D RBC 3.34 L Hgb 9.7 L D Hct 33.2 L MCV 99.4 MCH 29.0 MCHC 29.2 L RDW 17.2 H Plt Count 46 L MPV 12.1 Immature Gran % 0.3 Seg Neutrophils % 13.8 Lymphocytes % 81.7 Monocytes % 4.1 Eosinophils % 0.0 Basophils % 0.1 Neutrophils # 2.1 Lymphocytes # 12.5 H Monocytes # 0.6 Eosinophils # 0.0 Basophils # 0.0 Nucleated RBCs/100 WBC 0.1 H Platelet Estimate Decreased L Immature Plt Fraction 8.9 H Anisocytosis 1+ A Macrocytosis Present A Sample Site R Radial ABG pH 7.41 ABG pCO2 64 H ABG pO2 68 L ABG HCO3 41 H ABG Total CO2 43 H ABG O2 Saturation 93 L ABG Base Excess 14 H Deng Test N/A Respiration Rate 14 O2 Delivery Device Adult Vent Blood Gas Modality VC Inspired O2 40.0 Tidal Volume 450 PEEP 5 Sodium 143 Potassium 4.4 Chloride 98 Carbon Dioxide 40 H* BUN 52 H Creatinine 0.69 Est GFR ( Amer) > 60 Est GFR (Non-Af Amer) > 60 BUN/Creatinine Ratio 75 H Glucose 219 H POC Glucose Calculated Osmolality 317 H Calcium 9.0 Total Bilirubin 0.8 AST 14 ALT 18 Alkaline Phosphatase 50 Serum Total Protein 5.5 L Albumin 3.4 L Globulin 2.1 L Albumin/Globulin Ratio 1.6 09/22/17 10:59 WBC RBC Hgb Hct MCV MCH MCHC RDW Plt Count MPV Immature Gran % Seg Neutrophils % Lymphocytes % Monocytes % Eosinophils % Basophils % Neutrophils # Lymphocytes # Monocytes # Eosinophils # Basophils # Nucleated RBCs/100 WBC Platelet Estimate Immature Plt Fraction Anisocytosis Macrocytosis Sample Site ABG pH ABG pCO2 ABG pO2 ABG HCO3 ABG Total CO2 ABG O2 Saturation ABG Base Excess Deng Test Respiration Rate O2 Delivery Device Blood Gas Modality Inspired O2 Tidal Volume PEEP Sodium Potassium Chloride Carbon Dioxide BUN Creatinine Est GFR ( Amer) Est GFR (Non-Af Amer) BUN/Creatinine Ratio Glucose POC Glucose 211 H Calculated Osmolality Calcium Total Bilirubin AST ALT Alkaline Phosphatase Serum Total Protein Albumin Globulin Albumin/Globulin Ratio - Impressions Impressions Chest X-Ray 09/22/17 06:59
--- NOTE | 2017-09-22 08:43 | Pulmonology Progress Note ---
<Lele Cuevas - Last Filed: 09/22/17 09:07> Date of Encounter: 09/22/17 Time of Encounter: 08:42 Assessment and Plan (1) Acute on chronic respiratory failure with hypoxia and hypercapnia Current Visit: Yes Status: Acute 62-year-old female admitted with worsening shortness of breath, hypercapnia worsened while on BiPAP requiring intubation mechanical ventilation. - Chest x-ray without findings of infiltration - She had a CT angiogram of the chest performed that did not show any pulmonary embolism, multiple pulmonary nodules that were stable from recent CT, stable mediastinal hilar lymphadenopathy. - suspicious for COPD exacerbation, currently no other underlying infectious process identified. Patient does have a recent hospitalization. Elevated WBC count in the setting of CLL, Patient afebrile, no left shift. - Blood cultures negative 2 09/22- patient tolerating CPAP since 6 AM, no signs of distress or discomfort. Responding appropriately, Oxygenating appropriately respiratory rate appropriate. RSBI 50. Plan for extubation from mechanical ventilation to BiPAP this morning. Plan: - Continue scheduled breathing treatments - Transition to BiPAP if tolerated - IV Solu-Medrol 125 mg every 8 hours - Respiratory infectious panel ordered, results pending (2) COPD (chronic obstructive pulmonary disease) Current Visit: Yes Status: Chronic Known history of COPD, frequent hospitalizations. Patient is seen by pulmonology yesterday with recommendations that if no evidence of PE to continue treating for COPD exacerbation with steroids, scheduled bronchodilators and nebulizers. Qualifiers: COPD type: chronic bronchitis Chronic bronchitis type: simple Qualified Code(s): J41.0 - Simple chronic bronchitis (3) Coronary artery disease Current Visit: Yes Status: Chronic Hx CAD, restart by mouth medications when patient is off BiPAP today. Echocardiogram 03/14/2017 Impressions: LVEF 55%. Mild left ventricular diastolic dysfunction. Atypical septal motion. Normal right ventricular size and function. Mild mitral regurgitation. No pulmonary hypertension. There is no evidence of a PFO with agitated saline contrast. Aneurysmal interatrial septum. Qualifiers: Coronary Disease-Associated Artery/Lesion type: [place] artery [place] vs. transplanted heart: [place] heart Associated angina: without angina Qualified Code(s): I25.10 - Atherosclerotic heart disease of [place] coronary artery without angina pectoris (4) Diabetes mellitus type 2 in nonobese Current Visit: Yes Status: Chronic Known type II diabetic, demonstrating hyperglycemia today likely secondary to high-dose IV steroids for treatment of COPD exacerbation. Plan: - Continue Levemir 10 units subcutaneous twice a day - Increased correcting glucose scale to medium scale - Every 4 hourly glucose checks (5) CLL (chronic lymphocytic leukemia) Current Visit: Yes Status: Chronic Known hx of CLL, WBC returned to baseline, no acute changes. - CT of the chest demonstrates lymphadenopathy. - Oncology following appreciate recommendations. (6) Thrombocytopenia Current Visit: Yes Status: Chronic Thrombocytopenia, platelets 46 this morning. - Likely secondary to CLL continue to monitor. (7) DVT prophylaxis Current Visit: No Status: Acute Heparin 5000 SQ Q8hrs Subjective Principal diagnosis: Acute respiratory failure Interval history: Ms. Sheridan 62-year-old female has been seen and evaluated patient bedside this morning. She is alert awake interactive, still intubated but tolerating CPAP trial. She responds to questions appropriately. She does not appear to be in any distress. Tolerating CPAP since 6 AM and stable for extubation this morning. Objective PUL Vital signs: Last Vital Signs Temp 97.8 F 09/22/17 07:31 Pulse 66 09/22/17 08:00 Resp 14 09/22/17 08:00 BP 136/58 09/22/17 08:00 Pulse Ox 100 09/22/17 08:00 General appearance: no acute distress, other (Intubated and tolerating CPAP trial) Eyes: nonicteric ENT: oropharynx moist Neck: no JVD Auscultation: bilateral: diminished breath sounds Cardiovascular: irregular rhythm Gastrointestinal: normoactive bowel sounds Integumentary: normal, other (Right femoral central line in place without bleeding, drainage or erythema.) Extremities: no cyanosis, no edema Musculoskeletal: no deformities non-focal exam mood appropriate, affect normal Ventilator Settings Ventilator Settings: Ventilator Settings, Last 8 Hours Ventilator Mode CPAP Ventilator Mode CPAP Ventilator Mode VC+ Ventilator Mode VC+ Ventilator Mode VC+ Ventilator Mode VC+ Ventilator Mode VC+ Ventilator Mode VC+ Ventilator Mode VC+ Ventilator Mode VC+ Ventilator Mode VC+ Ventilator Mode VC+ Ventilator Tidal Volume 450 Setting Ventilator Tidal Volume 450 Setting Ventilator Tidal Volume 450 Setting Ventilator Tidal Volume 450 Setting Ventilator Tidal Volume 450 Setting Ventilator Tidal Volume 450 Setting Ventilator Tidal Volume 450 Setting Ventilator Tidal Volume 450 Setting Ventilator Tidal Volume 450 Setting Ventilator Tidal Volume 450 Setting Ventilator Respiratory Rate 14 Setting Ventilator Respiratory Rate 14 Setting Ventilator Respiratory Rate 14 Setting Ventilator Respiratory Rate 14 Setting Ventilator Respiratory Rate 14 Setting Ventilator Respiratory Rate 14 Setting Ventilator Respiratory Rate 14 Setting Ventilator Respiratory Rate 14 Setting Ventilator Respiratory Rate 14 Setting Ventilator Respiratory Rate 14 Setting Actual Respiratory Rate 14 Actual Respiratory Rate 18 Actual Respiratory Rate 17 Actual Respiratory Rate 16 Actual Respiratory Rate 14 Positive End Expiratory 5 Pressure Positive End Expiratory 5 Pressure Positive End Expiratory 5 Pressure Positive End Expiratory 5 Pressure Positive End Expiratory 5 Pressure Positive End Expiratory 5 Pressure Positive End Expiratory 5 Pressure Positive End Expiratory 5 Pressure Positive End Expiratory 5 Pressure Positive End Expiratory 5 Pressure Peak Inspiratory Airway 25 Pressure Peak Inspiratory Airway 21 Pressure Peak Inspiratory Airway 24 Pressure Results - Laboratory Findings CBC and BMP: 09/22/17 03:55 09/22/17 03:55 ABG ABG pH 7.41 pH Units (7.32-7.45) 09/22/17 04:37 ABG pCO2 64 mmHg (35-45) H 09/22/17 04:37 ABG pO2 68 mmHg (85-104) L 09/22/17 04:37 ABG O2 Saturation 93 % (95-98) L 09/22/17 04:37 Abnormal lab findings: Abnormal lab results WBC 15.3 K/mcL (4.3-11.1) H D 09/22/17 03:55 RBC 3.34 M/mcL (3.82-4.97) L 09/22/17 03:55 Hgb 9.7 g/dL (11.5-15.4) L D 09/22/17 03:55 Hct 33.2 % (35.3-44.9) L 09/22/17 03:55 MCHC 29.2 g/dL (31.6-35.5) L 09/22/17 03:55 RDW 17.2 % (11.5-14.5) H 09/22/17 03:55 Plt Count 46 K/mcL (140-400) L 09/22/17 03:55 Lymphocytes # 12.5 K/mcL (0.6-4.6) H 09/22/17 03:55 Nucleated RBCs/100 WBC 0.1 /100 WBC (0) H 09/22/17 03:55 Reactive Lymphocytes Present (Not Present) A 09/21/17 03:28 Smudge Cells Present (Not Present) A 09/19/17 02:33 Platelet Estimate Decreased (Normal) L 09/22/17 03:55 Immature Plt Fraction 8.9 % (1.1-6.1) H 09/22/17 03:55 Anisocytosis 1+ (Not Present) A 09/22/17 03:55 Macrocytosis Present (Not Present) A 09/22/17 03:55 ABG pCO2 64 mmHg (35-45) H 09/22/17 04:37 ABG pO2 68 mmHg (85-104) L 09/22/17 04:37 ABG HCO3 41 mEq/L (21-27) H 09/22/17 04:37 ABG Total CO2 43 mEq/L (20-26) H 09/22/17 04:37 ABG O2 Saturation 93 % (95-98) L 09/22/17 04:37 ABG Base Excess 14 mEq/L (-2 to 3) H 09/22/17 04:37 Carbon Dioxide 40 mEq/L (23-29) H* 09/22/17 03:55 BUN 52 mg/dL (8-23) H 09/22/17 03:55 BUN/Creatinine Ratio 75 (6-26) H 09/22/17 03:55 Glucose 219 mg/dL (70-105) H 09/22/17 03:55 POC Glucose 258 (58-89) H 09/21/17 23:41 Calculated Osmolality 317 (280-300) H 09/22/17 03:55 Troponin I 0.04 ng/mL (< 0.04) H* 09/19/17 13:40 B-Natriuretic Peptide 877 pg/mL (Less than 100) H 09/18/17 23:15 Serum Total Protein 5.5 g/dL (6.4-8.9) L 09/22/17 03:55 Albumin 3.4 g/dL (3.5-5.7) L 09/22/17 03:55 Globulin 2.1 g/dL (2.4-3.5) L 09/22/17 03:55 - Clinical Findings Intake & Output: Intake & Output 09/21/17 09/22/17 09/22/17 23:59 07:59 15:59 Intake Total 333.6 / 333.6 79.6 / 79.6 Output Total 725 / 725 200 / 200 Balance -391.4 / -391.4 -120.4 / -120.4 Weight 42.3 kg Consult Discharge Plan - Plan Referrals: Stephen Liao MD [Primary Care Provider] - <Felisha Andersen M - Last Filed: 09/22/17 16:12> Date of Encounter: 09/22/17 Objective PUL Vital signs: Last Vital Signs Temp 97.2 F L 09/22/17 15:21 Pulse 66 09/22/17 15:00 Resp 17 09/22/17 15:00 BP 121/50 09/22/17 15:00 Pulse Ox 100 09/22/17 15:00 Ventilator Settings Ventilator Settings: Ventilator Settings, Last 8 Hours Ventilator Mode CPAP Actual Respiratory Rate 15 Positive End Expiratory 5 Pressure Peak Inspiratory Airway 14 Pressure Results - Laboratory Findings CBC and BMP: 09/22/17 03:55 09/22/17 03:55 ABG ABG pH 7.41 pH Units (7.32-7.45) 09/22/17 04:37 ABG pCO2 64 mmHg (35-45) H 09/22/17 04:37 ABG pO2 68 mmHg (85-104) L 09/22/17 04:37 ABG O2 Saturation 93 % (95-98) L 09/22/17 04:37 Abnormal lab findings: Abnormal lab results WBC 15.3 K/mcL (4.3-11.1) H D 09/22/17 03:55 RBC 3.34 M/mcL (3.82-4.97) L 09/22/17 03:55 Hgb 9.7 g/dL (11.5-15.4) L D 09/22/17 03:55 Hct 33.2 % (35.3-44.9) L 09/22/17 03:55 MCHC 29.2 g/dL (31.6-35.5) L 09/22/17 03:55 RDW 17.2 % (11.5-14.5) H 09/22/17 03:55 Plt Count 46 K/mcL (140-400) L 09/22/17 03:55 Lymphocytes # 12.5 K/mcL (0.6-4.6) H 09/22/17 03:55 Nucleated RBCs/100 WBC 0.1 /100 WBC (0) H 09/22/17 03:55 Reactive Lymphocytes Present (Not Present) A 09/21/17 03:28 Smudge Cells Present (Not Present) A 09/19/17 02:33 Platelet Estimate Decreased (Normal) L 09/22/17 03:55 Immature Plt Fraction 8.9 % (1.1-6.1) H 09/22/17 03:55 Anisocytosis 1+ (Not Present) A 09/22/17 03:55 Macrocytosis Present (Not Present) A 09/22/17 03:55 ABG pCO2 64 mmHg (35-45) H 09/22/17 04:37 ABG pO2 68 mmHg (85-104) L 09/22/17 04:37 ABG HCO3 41 mEq/L (21-27) H 09/22/17 04:37 ABG Total CO2 43 mEq/L (20-26) H 09/22/17 04:37 ABG O2 Saturation 93 % (95-98) L 09/22/17 04:37 ABG Base Excess 14 mEq/L (-2 to 3) H 09/22/17 04:37 Carbon Dioxide 40 mEq/L (23-29) H* 09/22/17 03:55 BUN 52 mg/dL (8-23) H 09/22/17 03:55 BUN/Creatinine Ratio 75 (6-26) H 09/22/17 03:55 Glucose 219 mg/dL (70-105) H 09/22/17 03:55 POC Glucose 211 (58-89) H 09/22/17 10:59 Calculated Osmolality 317 (280-300) H 09/22/17 03:55 Troponin I 0.04 ng/mL (< 0.04) H* 09/19/17 13:40 B-Natriuretic Peptide 877 pg/mL (Less than 100) H 09/18/17 23:15 Serum Total Protein 5.5 g/dL (6.4-8.9) L 09/22/17 03:55 Albumin 3.4 g/dL (3.5-5.7) L 09/22/17 03:55 Globulin 2.1 g/dL (2.4-3.5) L 09/22/17 03:55 - Clinical Findings Intake & Output: Intake & Output 09/22/17 09/22/17 09/22/17 07:59 15:59 23:59 Intake Total 79.6 / 79.6 Output Total 200 / 200 350 / 350 Balance -120.4 / -120.4 -350 / -350 - Attending Attestation I examined this patient and my medical decision-making was reviewed with the Resident Physician. I agree with the documented findings, disposition and treatment plan as described except to the extent set forth below. Patient seen and examined. Labs, radiology, chart personally reviewed. 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 Palliative care follow-up. BiPAP as needed. Patient has self extubated twice and that has potential injuries to vocal cord and might interfere with her swallowing abilities. Cardiovascular: Relatively stable GI: Nutrition per dietary and GI prophylaxis per routine. Need to discuss with family regarding nutrition. Heme: DVT prophylaxis per routine mechanical DVT prophylaxis ID: Continue antibiotics and plan to de-escalation Renal; urine out put and renal funtion reviewed Endorcine: blood glucose is monitored Lines: all lines checked and no evidence of infections Skin: skin care to prevent pressure ulcers per nursing routine care Overall prognosis is poor.
[2017-09-22] MEDS: Insulin DETEMIR 100 UNIT/ML X5UNITS SQ SCH ×2 (08:47→21:42)
[2017-09-22] MEDS: Chlorhexidine Rinse 15 ML MOUTHWASH MM SCH ×2 (08:48→21:42)
[2017-09-22] MEDS: Pantoprazole 40 MG VIAL IVP SCH (08:48)
[2017-09-22] MEDS: methylPREDNISolone 125 MG/2 ML VIAL IVP SCH (08:48)
[2017-09-22] MEDS ORDERED: FentaNYL (PF) 1,000 MCG in 0.9 % Sodium Chloride 80 ML IVC SCH (11:15)
[2017-09-22 15:47] LABS: A.galactomannan Ag Index 0.03
[2017-09-22] MEDS: MethylPREDNISolone 40 MG/ML VIAL IVP SCH (16:44)
[2017-09-22] MEDS: Dexmedetomidine HCl 400 MCG/100 ML MLS IVC SCH (18:09)
[2017-09-23] MEDS: Ipratropium/Albuterol Neb 3 ML IH SCH ×6 (00:27→19:57)
[2017-09-23] MEDS: MethylPREDNISolone 40 MG/ML VIAL IVP SCH ×2 (03:33→08:31)
[2017-09-23] MEDS: Insulin LISPRO 300 UNITS/3 ML VIAL SQ SCH ×4 (03:34→16:38)
[2017-09-23 04:11] LABS: Basophils % 0.1 %; Hemoglobin 8.4 g/dL (11.5-15.4)
[2017-09-23 04:13] LABS: Hematocrit 29.1 % (35.3-44.9); Immature Granulocytes % 0.1 % (0-4); Lymphocytes # 19.4 K/mcL (0.6-4.6); Mean Corpuscular HGB Conc 28.9 g/dL (31.6-35.5); Mean Corpuscular Hemoglobin 28.9 pg (28.0-33.3); Mean Platelet Volume 11.9 fL (9.4-12.4); Monocytes # 0.5 K/mcL (0.0-1.3); Neutrophils # 3.5 K/mcL (1.6-8.9); Red Blood Count 2.91 M/mcL (3.82-4.97); Red Cell Distribution Width 16.7 % (11.5-14.5); Segmented Neutrophils % 14.8 %
[2017-09-23 04:45] LABS: Platelet Count 46 K/mcL (140-400)
[2017-09-23 04:47] LABS: Hypochromasia Present (Not Present); Platelet Estimate Decreased (Normal)
[2017-09-23 05:02] LABS: BUN/Creatinine Ratio 77 (6-26); Blood Urea Nitrogen 40 mg/dL (8-23); Calcium 8.8 mg/dL (8.6-10.3); Carbon Dioxide 38 mEq/L (23-29); Chloride 100 mEq/L (98-107); Glucose 438 mg/dL (70-105); Osmolality,Calculated 321 (280-300); Potassium 4.1 mEq/L (3.5-5.1); Sodium 141 mEq/L (136-145); eGFR For African Americans > 60 (> 60); eGFR For Non-African Americans > 60 (> 60)
[2017-09-23 08:23] LABS: Immunoglobulin A 52 mg/dL (68-408); Immunoglobulin G 609 mg/dL (768-1632); Immunoglobulin M 20 mg/dL (35-263)
[2017-09-23] MEDS: Chlorhexidine Rinse 15 ML MOUTHWASH MM SCH (08:23)
[2017-09-23] MEDS: Pantoprazole 40 MG VIAL IVP SCH (08:32)
[2017-09-23] MEDS: Dexmedetomidine HCl 400 MCG/100 ML MLS IVC SCH (08:35)
[2017-09-23] MEDS: Budesonide/Formoterol 160/4.5 MDI IH SCH ×2 (08:50→19:57)
--- NOTE | 2017-09-23 09:13 | Pulmonology Progress Note ---
<GaneshFelisha M - Last Filed: 09/23/17 17:17> Date of Encounter: 09/23/17 Objective PUL Vital signs: Last Vital Signs Temp 98.7 F 09/23/17 15:47 Pulse 93 09/23/17 16:15 Resp 20 09/23/17 16:15 BP 182/71 09/23/17 16:15 Pulse Ox 93 09/23/17 16:15 Results - Laboratory Findings CBC and BMP: 09/23/17 03:55 09/23/17 03:55 ABG ABG pH 7.41 pH Units (7.32-7.45) 09/22/17 04:37 ABG pCO2 64 mmHg (35-45) H 09/22/17 04:37 ABG pO2 68 mmHg (85-104) L 09/22/17 04:37 ABG O2 Saturation 93 % (95-98) L 09/22/17 04:37 Abnormal lab findings: Abnormal lab results WBC 23.4 K/mcL (4.3-11.1) H D 09/23/17 03:55 RBC 2.91 M/mcL (3.82-4.97) L 09/23/17 03:55 Hgb 8.4 g/dL (11.5-15.4) L 09/23/17 03:55 Hct 29.1 % (35.3-44.9) L 09/23/17 03:55 MCHC 28.9 g/dL (31.6-35.5) L 09/23/17 03:55 RDW 16.7 % (11.5-14.5) H 09/23/17 03:55 Plt Count 46 K/mcL (140-400) L 09/23/17 03:55 Lymphocytes # 19.4 K/mcL (0.6-4.6) H 09/23/17 03:55 Nucleated RBCs/100 WBC 0.1 /100 WBC (0) H 09/22/17 03:55 Reactive Lymphocytes Present (Not Present) A 09/21/17 03:28 Smudge Cells Present (Not Present) A 09/19/17 02:33 Platelet Estimate Decreased (Normal) L 09/23/17 03:55 Immature Plt Fraction 8.9 % (1.1-6.1) H 09/22/17 03:55 Hypochromasia Present (Not Present) A 09/23/17 03:55 Anisocytosis 1+ (Not Present) A 09/22/17 03:55 Macrocytosis Present (Not Present) A 09/22/17 03:55 ABG pCO2 64 mmHg (35-45) H 09/22/17 04:37 ABG pO2 68 mmHg (85-104) L 09/22/17 04:37 ABG HCO3 41 mEq/L (21-27) H 09/22/17 04:37 ABG Total CO2 43 mEq/L (20-26) H 09/22/17 04:37 ABG O2 Saturation 93 % (95-98) L 09/22/17 04:37 ABG Base Excess 14 mEq/L (-2 to 3) H 09/22/17 04:37 Carbon Dioxide 38 mEq/L (23-29) H 09/23/17 03:55 BUN 40 mg/dL (8-23) H 09/23/17 03:55 Creatinine 0.52 mg/dL (0.60-1.20) L 09/23/17 03:55 BUN/Creatinine Ratio 77 (6-26) H 09/23/17 03:55 Glucose 438 mg/dL (70-105) H 09/23/17 03:55 POC Glucose 192 (58-89) H 09/23/17 16:31 Calculated Osmolality 321 (280-300) H 09/23/17 03:55 Troponin I 0.04 ng/mL (< 0.04) H* 09/19/17 13:40 B-Natriuretic Peptide 877 pg/mL (Less than 100) H 09/18/17 23:15 Serum Total Protein 5.5 g/dL (6.4-8.9) L 09/22/17 03:55 Albumin 3.4 g/dL (3.5-5.7) L 09/22/17 03:55 Globulin 2.1 g/dL (2.4-3.5) L 09/22/17 03:55 IgG 609 mg/dL (768-1632) L 09/20/17 19:22 IgA 52 mg/dL (68-408) L 09/20/17 19:22 IgM 20 mg/dL (35-263) L 09/20/17 19:22 - Clinical Findings Intake & Output: Intake & Output 09/23/17 09/23/17 09/23/17 07:59 15:59 23:59 Intake Total 334 / 334 120 / 120 Output Total 525 / 525 500 / 500 Balance -525 / -525 -166 / -166 120 / 120 Weight 43.7 kg Consult Discharge Plan - Plan Referrals: Stephen Liao MD [Primary Care Provider] - - Attending Attestation I examined this patient and my medical decision-making was reviewed with the Resident Physician. I agree with the documented findings, disposition and treatment plan as described except to the extent set forth below. Patient seen and examined. Labs, radiology, chart personally reviewed. 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 Patient with low platelets and risk for bleeding if this may be from her underlying CLL and mechanical DVT prophylaxis. Renal; urine out put and renal funtion reviewed Endorcine: blood glucose is monitored Lines: all lines checked and no evidence of infections Skin: skin care to prevent pressure ulcers per nursing routine care Overall prognosis is poor and awaiting to be transferred to the floor. <Lele Cuevas - Last Filed: 09/24/17 09:31> Date of Encounter: 09/24/17 Time of Encounter: 07:20 Assessment and Plan (1) Acute on chronic respiratory failure with hypoxia and hypercapnia Current Visit: Yes Status: Acute 62-year-old female admitted with worsening shortness of breath, hypercapnia worsened while on BiPAP requiring intubation mechanical ventilation. - Chest x-ray without findings of infiltration - She had a CT angiogram of the chest performed that did not show any pulmonary embolism, multiple pulmonary nodules that were stable from recent CT, stable mediastinal hilar lymphadenopathy. - suspicious for COPD exacerbation, currently no other underlying infectious process identified. Patient does have a recent hospitalization. Elevated WBC count in the setting of CLL, Patient afebrile, no left shift. - Blood cultures negative 2 09/22- patient tolerating CPAP since 6 AM, no signs of distress or discomfort. Responding appropriately, Oxygenating appropriately respiratory rate appropriate. RSBI 50. Plan for extubation from mechanical ventilation to BiPAP this morning. 09/23: Patient awake, alert in no acute distress. Continues to have tachypnea and diminished breath sounds bilaterally. She is tolerating 4 L nasal cane oxygen with oxygen saturations at 96%. Plan: - Continue scheduled breathing treatments - Continue IV Solu-Medrol 40 mg every 8 hours (2) COPD (chronic obstructive pulmonary disease) Current Visit: Yes Status: Chronic Known history of COPD, frequent hospitalizations. Patient is seen by pulmonology yesterday with recommendations that if no evidence of PE to continue treating for COPD exacerbation with steroids, scheduled bronchodilators and nebulizers. Qualifiers: COPD type: chronic bronchitis Chronic bronchitis type: simple Qualified Code(s): J41.0 - Simple chronic bronchitis (3) Coronary artery disease Current Visit: Yes Status: Chronic Hx CAD, restart by mouth medications when patient is off BiPAP today. Echocardiogram 03/14/2017 Impressions: LVEF 55%. Mild left ventricular diastolic dysfunction. Atypical septal motion. Normal right ventricular size and function. Mild mitral regurgitation. No pulmonary hypertension. There is no evidence of a PFO with agitated saline contrast. Aneurysmal interatrial septum. Qualifiers: Coronary Disease-Associated Artery/Lesion type: [place] artery [place] vs. transplanted heart: [place] heart Associated angina: without angina Qualified Code(s): I25.10 - Atherosclerotic heart disease of [place] coronary artery without angina pectoris (4) Diabetes mellitus type 2 in nonobese Current Visit: Yes Status: Chronic Known type II diabetic, demonstrating hyperglycemia today likely secondary to high-dose IV steroids for treatment of COPD exacerbation. Plan: - Continue Levemir 10 units subcutaneous twice a day - Continue medium dose sliding scale insulin every 6 hours - Every 6 hourly glucose checks (5) CLL (chronic lymphocytic leukemia) Current Visit: Yes Status: Chronic Known hx of CLL, WBC returned to baseline, no acute changes. - CT of the chest demonstrates lymphadenopathy. - Oncology following appreciate recommendations. (6) Thrombocytopenia Current Visit: Yes Status: Chronic Thrombocytopenia, platelets 46 this morning. - Likely secondary to CLL continue to monitor. (7) DVT prophylaxis Current Visit: No Status: Acute SCDs Subjective Principal diagnosis: Acute respiratory failure Interval history: Ms. Sheridan 62-year-old female has been seen and evaluated patient bedside this morning. She is alert awake interactive, and says that she is doing better than yesterday. She asked what led to her receiving a endotracheal tube and we discussed the course of her care over last several days. She again states that she does not want BiPAP or reintubation at any time. Objective PUL Vital signs: Last Vital Signs Temp 98.5 F 09/23/17 07:30 Pulse 68 09/23/17 08:00 Resp 20 09/23/17 08:47 BP 146/56 09/23/17 08:00 Pulse Ox 100 09/23/17 08:47 General appearance: no acute distress, alert Eyes: nonicteric ENT: oropharynx moist Neck: supple Effort: mildly labored Auscultation: bilateral: diminished breath sounds Cardiovascular: irregular rhythm Gastrointestinal: normoactive bowel sounds Integumentary: normal Extremities: no cyanosis, no edema, no clubbing, pink and warm Musculoskeletal: no deformities non-focal exam mood appropriate Results - Laboratory Findings CBC and BMP: 09/24/17 05:32 09/24/17 05:32 ABG ABG pH 7.41 pH Units (7.32-7.45) 09/22/17 04:37 ABG pCO2 64 mmHg (35-45) H 09/22/17 04:37 ABG pO2 68 mmHg (85-104) L 09/22/17 04:37 ABG O2 Saturation 93 % (95-98) L 09/22/17 04:37 Abnormal lab findings: Abnormal lab results WBC 23.4 K/mcL (4.3-11.1) H D 09/23/17 03:55 RBC 2.91 M/mcL (3.82-4.97) L 09/23/17 03:55 Hgb 8.4 g/dL (11.5-15.4) L 09/23/17 03:55 Hct 29.1 % (35.3-44.9) L 09/23/17 03:55 MCHC 28.9 g/dL (31.6-35.5) L 09/23/17 03:55 RDW 16.7 % (11.5-14.5) H 09/23/17 03:55 Plt Count 46 K/mcL (140-400) L 09/23/17 03:55 Lymphocytes # 19.4 K/mcL (0.6-4.6) H 09/23/17 03:55 Nucleated RBCs/100 WBC 0.1 /100 WBC (0) H 09/22/17 03:55 Reactive Lymphocytes Present (Not Present) A 09/21/17 03:28 Smudge Cells Present (Not Present) A 09/19/17 02:33 Platelet Estimate Decreased (Normal) L 09/23/17 03:55 Immature Plt Fraction 8.9 % (1.1-6.1) H 09/22/17 03:55 Hypochromasia Present (Not Present) A 09/23/17 03:55 Anisocytosis 1+ (Not Present) A 09/22/17 03:55 Macrocytosis Present (Not Present) A 09/22/17 03:55 ABG pCO2 64 mmHg (35-45) H 09/22/17 04:37 ABG pO2 68 mmHg (85-104) L 09/22/17 04:37 ABG HCO3 41 mEq/L (21-27) H 09/22/17 04:37 ABG Total CO2 43 mEq/L (20-26) H 09/22/17 04:37 ABG O2 Saturation 93 % (95-98) L 09/22/17 04:37 ABG Base Excess 14 mEq/L (-2 to 3) H 09/22/17 04:37 Carbon Dioxide 38 mEq/L (23-29) H 09/23/17 03:55 BUN 40 mg/dL (8-23) H 09/23/17 03:55 Creatinine 0.52 mg/dL (0.60-1.20) L 09/23/17 03:55 BUN/Creatinine Ratio 77 (6-26) H 09/23/17 03:55 Glucose 438 mg/dL (70-105) H 09/23/17 03:55 POC Glucose 177 (58-89) H 09/23/17 08:01 Calculated Osmolality 321 (280-300) H 09/23/17 03:55 Troponin I 0.04 ng/mL (< 0.04) H* 09/19/17 13:40 B-Natriuretic Peptide 877 pg/mL (Less than 100) H 09/18/17 23:15 Serum Total Protein 5.5 g/dL (6.4-8.9) L 09/22/17 03:55 Albumin 3.4 g/dL (3.5-5.7) L 09/22/17 03:55 Globulin 2.1 g/dL (2.4-3.5) L 09/22/17 03:55 IgG 609 mg/dL (768-1632) L 09/20/17 19:22 IgA 52 mg/dL (68-408) L 09/20/17 19:22 IgM 20 mg/dL (35-263) L 09/20/17 19:22 - Clinical Findings Intake & Output: Intake & Output 09/22/17 09/23/17 09/23/17 23:59 07:59 15:59 Intake Total 617.4 / 617.4 Output Total 250 / 250 525 / 525 Balance 367.4 / 367.4 -525 / -525 Weight 43.7 kg
[2017-09-23] MEDS: Insulin DETEMIR 100 UNIT/ML X5UNITS SQ SCH ×2 (09:28→20:13)
[2017-09-23] MEDS ORDERED: Norepinephrine 4 MG in D5% in Water 250 ML IVC SCH (10:05)
[2017-09-23] MEDS ORDERED: Dextrose Gel 15 GM/37.5 ML TUBE PO PRN ×2 (10:05)
[2017-09-23] MEDS ORDERED: D5% in Water 1,000 ML IVC PRN (10:05)
[2017-09-23] MEDS ORDERED: Albuterol 2.5 MG/3 ML NEBULIZER IH PRN (10:05)
[2017-09-23] MEDS ORDERED: Acetaminophen 325 MG TABLET PO PRN (10:05)
[2017-09-23] MEDS ORDERED: Naloxone 0.4 MG/ML INJ IVP PRN (10:05)
[2017-09-23] MEDS ORDERED: Insulin LISPRO 300 UNITS/3 ML VIAL SQ SCH (12:00)
--- NOTE | 2017-09-23 12:44 | Palliative Progress Note ---
Date of Encounter: 09/23/17 Time of Encounter: 09:45 - Assessment and plan (1) Dyspnea Current Visit: No Status: Acute Assessment and plan: Patient on 4L NC O2. Tolerating well. - Cont Duonebs - Steroids - Antibiotics - Supplemental O2 - Position for comfort (2) Goals of care, counseling/discussion Current Visit: Yes Status: Acute Assessment and plan: Patient is DNRCC - Comfort Care. Refuses Bipap at this time. Reports feeling better. Desires rehah at [place] to get stronger to return home. - Time Spent With Patient Total time spent is greater than 50% in coordination of care (as documented) at patient's floor/unit and/or counseling patient: 25 - 35 minutes - Subjective Interval history: Patient up in bed. Tolerating NC O2 at 4L. Denies complaints. Reports feeling better today. - Constitutional Vitals: Abnormal lab results WBC 23.4 K/mcL (4.3-11.1) H D 09/23/17 03:55 RBC 2.91 M/mcL (3.82-4.97) L 09/23/17 03:55 Hgb 8.4 g/dL (11.5-15.4) L 09/23/17 03:55 Hct 29.1 % (35.3-44.9) L 09/23/17 03:55 MCHC 28.9 g/dL (31.6-35.5) L 09/23/17 03:55 RDW 16.7 % (11.5-14.5) H 09/23/17 03:55 Plt Count 46 K/mcL (140-400) L 09/23/17 03:55 Lymphocytes # 19.4 K/mcL (0.6-4.6) H 09/23/17 03:55 Nucleated RBCs/100 WBC 0.1 /100 WBC (0) H 09/22/17 03:55 Reactive Lymphocytes Present (Not Present) A 09/21/17 03:28 Smudge Cells Present (Not Present) A 09/19/17 02:33 Platelet Estimate Decreased (Normal) L 09/23/17 03:55 Immature Plt Fraction 8.9 % (1.1-6.1) H 09/22/17 03:55 Hypochromasia Present (Not Present) A 09/23/17 03:55 Anisocytosis 1+ (Not Present) A 09/22/17 03:55 Macrocytosis Present (Not Present) A 09/22/17 03:55 ABG pCO2 64 mmHg (35-45) H 09/22/17 04:37 ABG pO2 68 mmHg (85-104) L 09/22/17 04:37 ABG HCO3 41 mEq/L (21-27) H 09/22/17 04:37 ABG Total CO2 43 mEq/L (20-26) H 09/22/17 04:37 ABG O2 Saturation 93 % (95-98) L 09/22/17 04:37 ABG Base Excess 14 mEq/L (-2 to 3) H 09/22/17 04:37 Carbon Dioxide 38 mEq/L (23-29) H 09/23/17 03:55 BUN 40 mg/dL (8-23) H 09/23/17 03:55 Creatinine 0.52 mg/dL (0.60-1.20) L 09/23/17 03:55 BUN/Creatinine Ratio 77 (6-26) H 09/23/17 03:55 Glucose 438 mg/dL (70-105) H 09/23/17 03:55 POC Glucose 339 (58-89) H 09/23/17 11:44 Calculated Osmolality 321 (280-300) H 09/23/17 03:55 Troponin I 0.04 ng/mL (< 0.04) H* 09/19/17 13:40 B-Natriuretic Peptide 877 pg/mL (Less than 100) H 09/18/17 23:15 Serum Total Protein 5.5 g/dL (6.4-8.9) L 09/22/17 03:55 Albumin 3.4 g/dL (3.5-5.7) L 09/22/17 03:55 Globulin 2.1 g/dL (2.4-3.5) L 09/22/17 03:55 IgG 609 mg/dL (768-1632) L 09/20/17 19:22 IgA 52 mg/dL (68-408) L 09/20/17 19:22 IgM 20 mg/dL (35-263) L 09/20/17 19:22 - Head Head exam: Present: normal inspection, normocephalic - Eye Eye exam: Present: PERRL Pupils: Present: PERRL - ENT ENT exam: Present: mucous membranes moist - Neck Neck exam: Present: normal inspection, tenderness - Respiratory Respiratory exam: Present: decreased breath sounds - Expanded Respiratory Exam Location: decreased breath sounds: Left, Right, Lower - Cardiovascular Cardiovascular exam: Present: RRR, +S1, +S2, tachycardia - GI/Abdominal GI/Abdominal exam: Present: normal bowel sounds, soft - External exam: Present: normal external exam (Givens draining clear yellow urine) - Extremities Exam Extremities exam: Present: full ROM - Neurological Exam Neurological exam: Present: alert, oriented X3 - Psychiatric Psychiatric exam: Present: normal affect - Skin Skin exam: Present: pallor, warm Palliative Quality Palliative Quality: Screen for Code Status: Yes, Screen for Goals of Care: Yes, Screen for Pain: Yes, If Pain Regimen Started, Initiate Bowel Regimen: Yes, Screen for Nausea/Vomitting: Yes Code Status: 09/22/17 10:56 Resuscitation Status: Active [RES] Routine Comment: Resuscitation Status: DNR-Comfort Care - Labs CBC & Chem 7: 09/23/17 03:55 09/23/17 03:55 Labs: Laboratory Results - last 24 hr 09/22/17 09/22/17 09/23/17 17:30 19:42 00:00 WBC RBC Hgb Hct MCV MCH MCHC RDW Plt Count MPV Immature Gran % Seg Neutrophils % Lymphocytes % Monocytes % Eosinophils % Basophils % Neutrophils # Lymphocytes # Monocytes # Eosinophils # Basophils # Platelet Estimate Hypochromasia Sodium Potassium Chloride Carbon Dioxide BUN Creatinine Est GFR ( Amer) Est GFR (Non-Af Amer) BUN/Creatinine Ratio Glucose POC Glucose 136 H 328 H 219 H Calculated Osmolality Calcium 09/23/17 09/23/17 09/23/17 03:55 03:55 08:01 WBC 23.4 H D RBC 2.91 L Hgb 8.4 L Hct 29.1 L MCV 100.0 MCH 28.9 MCHC 28.9 L RDW 16.7 H Plt Count 46 L MPV 11.9 Immature Gran % 0.1 Seg Neutrophils % 14.8 Lymphocytes % 83.0 Monocytes % 2.0 Eosinophils % 0.0 Basophils % 0.1 Neutrophils # 3.5 Lymphocytes # 19.4 H Monocytes # 0.5 Eosinophils # 0.0 Basophils # 0.0 Platelet Estimate Decreased L Hypochromasia Present A Sodium 141 Potassium 4.1 Chloride 100 Carbon Dioxide 38 H BUN 40 H Creatinine 0.52 L Est GFR ( Amer) > 60 Est GFR (Non-Af Amer) > 60 BUN/Creatinine Ratio 77 H Glucose 438 H POC Glucose 177 H Calculated Osmolality 321 H Calcium 8.8 09/23/17 11:44 WBC RBC Hgb Hct MCV MCH MCHC RDW Plt Count MPV Immature Gran % Seg Neutrophils % Lymphocytes % Monocytes % Eosinophils % Basophils % Neutrophils # Lymphocytes # Monocytes # Eosinophils # Basophils # Platelet Estimate Hypochromasia Sodium Potassium Chloride Carbon Dioxide BUN Creatinine Est GFR ( Amer) Est GFR (Non-Af Amer) BUN/Creatinine Ratio Glucose POC Glucose 339 H Calculated Osmolality Calcium - ABG Interpretation ABG results: ABG ABG pH 7.41 pH Units (7.32-7.45) 09/22/17 04:37 ABG pCO2 64 mmHg (35-45) H 09/22/17 04:37 ABG pO2 68 mmHg (85-104) L 09/22/17 04:37 ABG O2 Saturation 93 % (95-98) L 09/22/17 04:37 Consult Discharge Plan - Plan Referrals: Stephen Liao MD [Primary Care Provider] -
[2017-09-23] MEDS ORDERED: MethylPREDNISolone 40 MG/ML VIAL IVP SCH (16:00)
[2017-09-23] MEDS: Melatonin 3 MG TABLET PO SCH (20:13)
[2017-09-23] MEDS ORDERED: Chlorhexidine Rinse 15 ML MOUTHWASH MM SCH (21:00)
[2017-09-23] MEDS: traMADol 50 MG TABLET PO PRN (23:22)
[2017-09-23] MEDS: *HR* LORazepam 2 MG/ML VIAL IVP PRN (23:22)
[2017-09-24] MEDS: *HR* Dextrose 50 % in Water (Syg) 50 ML SYRINGE IVP PRN ×3 (00:15→06:36)
[2017-09-24] MEDS: Ipratropium/Albuterol Neb 3 ML IH SCH ×7 (00:22→23:09)
[2017-09-24 01:29] LABS: ABG Base Excess 13 mEq/L (-2 to 3); ABG HCO3 40 mEq/L (21-27); ABG Oxygen Saturation 94 % (95-98); ABG PCO2 70 mmHg (35-45); ABG PH 7.37 pH Units (7.32-7.45); ABG PO2 77 mmHg (85-104); ABG TCO2 42 mEq/L (20-26); Blood Gas Modality NIV; Blood Gas PEEP 5 cm H2O
[2017-09-24] MEDS: MethylPREDNISolone 40 MG/ML VIAL IVP SCH ×2 (01:35→19:47)
[2017-09-24] MEDS: Furosemide 40 MG/4 ML VIAL IVP SCH ×2 (01:35→09:39)
[2017-09-24] MEDS ORDERED: Dexmedetomidine HCl 400 MCG/100 ML MLS IVC SCH (04:30)
[2017-09-24 06:17] LABS: Alanine Aminotransferase 23 Units/L (7-52); Albumin 3.3 g/dL (3.5-5.7); Albumin/Globulin Ratio 1.6 (1.1-2.2); Alkaline Phosphatase 48 Units/L (34-104); Aspartate Amino Transferase 14 Units/L (13-39); BUN/Creatinine Ratio 57 (6-26); Bilirubin,Total 0.9 mg/dL (0.3-1.0); Blood Urea Nitrogen 17 mg/dL (8-23); Carbon Dioxide 40 mEq/L (23-29); Chloride 97 mEq/L (98-107); Globulin 2.1 g/dL (2.4-3.5); Glucose 29 mg/dL (70-105); Osmolality,Calculated 296 (280-300); Potassium 3.6 mEq/L (3.5-5.1); Sodium 144 mEq/L (136-145); Total Protein 5.4 g/dL (6.4-8.9); eGFR For African Americans > 60 (> 60); eGFR For Non-African Americans > 60 (> 60)
[2017-09-24 06:20] LABS: Basophils % 0.1 %; Hematocrit 35.3 % (35.3-44.9); Immature Granulocytes % 0.2 % (0-4); Lymphocytes # 29.1 K/mcL (0.6-4.6); Lymphocytes % 82.4 %; Mean Corpuscular HGB Conc 29.2 g/dL (31.6-35.5); Mean Corpuscular Hemoglobin 28.7 pg (28.0-33.3); Mean Corpuscular Volume 98.3 fL (83.0-100.0); Mean Platelet Volume 12.5 fL (9.4-12.4); Monocytes # 0.5 K/mcL (0.0-1.3); Monocytes % 1.3 %; Red Blood Count 3.59 M/mcL (3.82-4.97); Red Cell Distribution Width 16.9 % (11.5-14.5)
[2017-09-24 06:22] LABS: Neutrophils # 5.7 K/mcL (1.6-8.9); Platelet Count 64 K/mcL (140-400)
[2017-09-24 06:26] LABS: Hemoglobin 10.3 g/dL (11.5-15.4)
[2017-09-24 06:29] LABS: Hypochromasia Present (Not Present); Platelet Estimate Marked Decrease (Normal); Reactive Lymphocytes Present (Not Present)
--- NOTE | 2017-09-24 08:12 | Palliative Progress Note ---
<Sacha Dhillon - Last Filed: 09/24/17 09:12> Date of Encounter: 09/24/17 Time of Encounter: 08:10 - Assessment and plan (1) Goals of care, counseling/discussion Current Visit: Yes Status: Acute Assessment and plan: Code status changed Wednesday to DNR-CCA-DNI and then DNR-CC Wednesday. Overall patient was showing signs of improvement, at which time patient was alert and oriented and expressed no reintubation and want for comfort measures. Patient has shown considerable decline overnight and no improvement with Bipap. Visibly and audibly struggling to breath, slightly agitated and removed an iv and keeps removing nasal cannula. Concern brought up yesterday by son whether she had decision making capacity regarding her code status changes, will talk with family later today, but seems to be consistent in that multiple physicians on various teams agree on code status and mental status at the time of decision. If improves significantly, it is questionable if due to the current status of her endstage COPD whether patient will be able to get additional chemotherapy for her CLL. Spoke with Purchase Price Analyst Team regarding comfort care measures, at this time only precedex on board. May consider other therapies as needed. (2) Acute on chronic respiratory failure with hypoxia and hypercapnia Current Visit: Yes Status: Acute Assessment and plan: Showing continued decline on blood gases despite Bipap. Continue per plan of c software developer. Continue with code status DNR-Comfort Care, comfort care meds per Purchase Price Analyst team. (3) COPD exacerbation Current Visit: Yes Status: Acute Assessment and plan: Plan per c software developer. (4) CLL (chronic lymphocytic leukemia) Current Visit: Yes Status: Chronic Assessment and plan: Known CLL, receiving chemo from [facility] and [facility] Questionable if will receive chemo if continues to recover from current status. - Time Spent With Patient Total time spent is greater than 50% in coordination of care (as documented) at patient's floor/unit and/or counseling patient: - Subjective Interval history: Patient is alert, aware, and oriented to person, place, and situation this morning. Patient did well yesterday, but overnight showed considerable decline and failure to improve with Bipap. Currently on nasal cannula and appears visibly in mild distress trying to breath and audible rhonchi vs rales with breathing. Vitals appear stable, labs show continued decline of respiratory function. - Constitutional Vitals: Abnormal lab results WBC 35.3 K/mcL (4.3-11.1) H* D 09/24/17 05:32 RBC 3.59 M/mcL (3.82-4.97) L 09/24/17 05:32 Hgb 10.3 g/dL (11.5-15.4) L D 09/24/17 05:32 MCHC 29.2 g/dL (31.6-35.5) L 09/24/17 05:32 RDW 16.9 % (11.5-14.5) H 09/24/17 05:32 Plt Count 64 K/mcL (140-400) L 09/24/17 05:32 MPV 12.5 fL (9.4-12.4) H 09/24/17 05:32 Lymphocytes # 29.1 K/mcL (0.6-4.6) H 09/24/17 05:32 Nucleated RBCs/100 WBC 0.1 /100 WBC (0) H 09/22/17 03:55 Reactive Lymphocytes Present (Not Present) A 09/24/17 05:32 Smudge Cells Present (Not Present) A 09/19/17 02:33 Platelet Estimate Marked Decrease (Normal) L 09/24/17 05:32 Immature Plt Fraction 8.9 % (1.1-6.1) H 09/22/17 03:55 Hypochromasia Present (Not Present) A 09/24/17 05:32 Anisocytosis 1+ (Not Present) A 09/22/17 03:55 Macrocytosis Present (Not Present) A 09/22/17 03:55 ABG pCO2 70 mmHg (35-45) H* 09/24/17 01:25 ABG pO2 77 mmHg (85-104) L 09/24/17 01:25 ABG HCO3 40 mEq/L (21-27) H 09/24/17 01:25 ABG Total CO2 42 mEq/L (20-26) H 09/24/17 01:25 ABG O2 Saturation 94 % (95-98) L 09/24/17 01:25 ABG Base Excess 13 mEq/L (-2 to 3) H 09/24/17 01:25 Chloride 97 mEq/L (98-107) L 09/24/17 05:32 Carbon Dioxide 40 mEq/L (23-29) H* 09/24/17 05:32 Creatinine 0.30 mg/dL (0.60-1.20) L 09/24/17 05:32 BUN/Creatinine Ratio 57 (6-26) H 09/24/17 05:32 Glucose 29 mg/dL (70-105) L* 09/24/17 05:32 POC Glucose 117 (58-89) H 09/24/17 07:19 Troponin I 0.04 ng/mL (< 0.04) H* 09/19/17 13:40 B-Natriuretic Peptide 877 pg/mL (Less than 100) H 09/18/17 23:15 Serum Total Protein 5.4 g/dL (6.4-8.9) L 09/24/17 05:32 Albumin 3.3 g/dL (3.5-5.7) L 09/24/17 05:32 Globulin 2.1 g/dL (2.4-3.5) L 09/24/17 05:32 IgG 609 mg/dL (768-1632) L 09/20/17 19:22 IgA 52 mg/dL (68-408) L 09/20/17 19:22 IgM 20 mg/dL (35-263) L 09/20/17 19:22 Exam: mild respiratory distress, alert and oriented to person place and situation, not time. Patient is uncomfortable and apparently pulled out an IV and consistently removing nasal cannula. Precedex drip started, patient calmer and sedated but arousable, minimal stimulation results in pulling off of nasal cannula again. - Head Head exam: Present: atraumatic, normal inspection, normocephalic - ENT ENT exam: Present: mucous membranes moist - Respiratory Respiratory exam: Present: accessory muscle use, rales, respiratory distress ( mild), rhonchi, wheezes, tachypnea Additional comments: Gross rales and rhonchi noted - Cardiovascular Cardiovascular exam: Present: RRR, +S1, +S2 - GI/Abdominal GI/Abdominal exam: Present: normal bowel sounds, soft. Absent: distended - Extremities Exam Extremities exam: Present: normal inspection. Absent: pedal edema, tenderness - Skin Skin exam: Present: dry, intact, normal color, warm. Absent: rash Palliative Quality Palliative Quality: Screen for Code Status: Yes, Screen for Goals of Care: Yes, Screen for Pain: Yes, If Pain Regimen Started, Initiate Bowel Regimen: Yes, Screen for Nausea/Vomitting: Yes Code Status: 09/22/17 10:56 Resuscitation Status: Active [RES] Routine Comment: Resuscitation Status: DNR-Comfort Care - Labs CBC & Chem 7: 09/24/17 05:32 09/24/17 05:32 Labs: Laboratory Results - last 24 hr 09/23/17 09/23/17 09/23/17 11:44 16:31 19:41 WBC RBC Hgb Hct MCV MCH MCHC RDW Plt Count MPV Immature Gran % Seg Neutrophils % Lymphocytes % Monocytes % Eosinophils % Basophils % Neutrophils # Lymphocytes # Monocytes # Eosinophils # Basophils # Reactive Lymphocytes Platelet Estimate Hypochromasia Sample Site ABG pH ABG pCO2 ABG pO2 ABG HCO3 ABG Total CO2 ABG O2 Saturation ABG Base Excess Deng Test O2 Delivery Device Blood Gas Modality Inspired O2 PEEP Sodium Potassium Chloride Carbon Dioxide BUN Creatinine Est GFR ( Amer) Est GFR (Non-Af Amer) BUN/Creatinine Ratio Glucose POC Glucose 339 H 192 H 118 H Calculated Osmolality Calcium Total Bilirubin AST ALT Alkaline Phosphatase Serum Total Protein Albumin Globulin Albumin/Globulin Ratio 09/24/17 09/24/17 09/24/17 00:04 01:01 01:25 WBC RBC Hgb Hct MCV MCH MCHC RDW Plt Count MPV Immature Gran % Seg Neutrophils % Lymphocytes % Monocytes % Eosinophils % Basophils % Neutrophils # Lymphocytes # Monocytes # Eosinophils # Basophils # Reactive Lymphocytes Platelet Estimate Hypochromasia Sample Site R Radial ABG pH 7.37 ABG pCO2 70 H* ABG pO2 77 L ABG HCO3 40 H ABG Total CO2 42 H ABG O2 Saturation 94 L ABG Base Excess 13 H Deng Test Positive O2 Delivery Device BiPAP Blood Gas Modality NIV Inspired O2 35.0 PEEP 5 Sodium Potassium Chloride Carbon Dioxide BUN Creatinine Est GFR ( Amer) Est GFR (Non-Af Amer) BUN/Creatinine Ratio Glucose POC Glucose 66 109 H Calculated Osmolality Calcium Total Bilirubin AST ALT Alkaline Phosphatase Serum Total Protein Albumin Globulin Albumin/Globulin Ratio 09/24/17 09/24/17 09/24/17 05:32 05:32 06:40 WBC 35.3 H* D RBC 3.59 L Hgb 10.3 L D Hct 35.3 MCV 98.3 MCH 28.7 MCHC 29.2 L RDW 16.9 H Plt Count 64 L MPV 12.5 H Immature Gran % 0.2 Seg Neutrophils % 16.0 Lymphocytes % 82.4 Monocytes % 1.3 Eosinophils % 0.0 Basophils % 0.1 Neutrophils # 5.7 Lymphocytes # 29.1 H Monocytes # 0.5 Eosinophils # 0.0 Basophils # 0.0 Reactive Lymphocytes Present A Platelet Estimate Marked Decrease L Hypochromasia Present A Sample Site ABG pH ABG pCO2 ABG pO2 ABG HCO3 ABG Total CO2 ABG O2 Saturation ABG Base Excess Deng Test O2 Delivery Device Blood Gas Modality Inspired O2 PEEP Sodium 144 Potassium 3.6 Chloride 97 L Carbon Dioxide 40 H* BUN 17 Creatinine 0.30 L Est GFR ( Amer) > 60 Est GFR (Non-Af Amer) > 60 BUN/Creatinine Ratio 57 H Glucose 29 L* POC Glucose 213 H Calculated Osmolality 296 Calcium 9.0 Total Bilirubin 0.9 AST 14 ALT 23 Alkaline Phosphatase 48 Serum Total Protein 5.4 L Albumin 3.3 L Globulin 2.1 L Albumin/Globulin Ratio 1.6 09/24/17 07:19 WBC RBC Hgb Hct MCV MCH MCHC RDW Plt Count MPV Immature Gran % Seg Neutrophils % Lymphocytes % Monocytes % Eosinophils % Basophils % Neutrophils # Lymphocytes # Monocytes # Eosinophils # Basophils # Reactive Lymphocytes Platelet Estimate Hypochromasia Sample Site ABG pH ABG pCO2 ABG pO2 ABG HCO3 ABG Total CO2 ABG O2 Saturation ABG Base Excess Deng Test O2 Delivery Device Blood Gas Modality Inspired O2 PEEP Sodium Potassium Chloride Carbon Dioxide BUN Creatinine Est GFR ( Amer) Est GFR (Non-Af Amer) BUN/Creatinine Ratio Glucose POC Glucose 117 H Calculated Osmolality Calcium Total Bilirubin AST ALT Alkaline Phosphatase Serum Total Protein Albumin Globulin Albumin/Globulin Ratio - Impressions Impressions Chest X-Ray 09/24/17 01:22 IMPRESSION: Increasing perihilar and reticular opacities centrally with a questionable small left pleural effusion. Pattern may represent worsening pulmonary edema. D/ / Jordy De Los Santos MD / Jordy De Los Santos MD Interpreting Provider: Jordy De Los Santos MD - ABG Interpretation ABG results: ABG ABG pH 7.37 pH Units (7.32-7.45) 09/24/17 01:25 ABG pCO2 70 mmHg (35-45) H* 09/24/17 01:25 ABG pO2 77 mmHg (85-104) L 09/24/17 01:25 ABG O2 Saturation 94 % (95-98) L 09/24/17 01:25 Consult Discharge Plan - Plan Referrals: Stephen Liao MD [Primary Care Provider] - <Brendan iMreles - Last Filed: 09/24/17 15:37> Date of Encounter: 09/24/17 - Assessment and plan (1) Acute on chronic respiratory failure with hypoxia and hypercapnia Current Visit: Yes Status: Acute (2) CLL (chronic lymphocytic leukemia) Current Visit: Yes Status: Chronic (3) COPD exacerbation Current Visit: Yes Status: Acute (4) Goals of care, counseling/discussion Current Visit: Yes Status: Acute - Time Spent With Patient Total time spent is greater than 50% in coordination of care (as documented) at patient's floor/unit and/or counseling patient: - Constitutional Vitals: Abnormal lab results WBC 35.3 K/mcL (4.3-11.1) H* D 09/24/17 05:32 RBC 3.59 M/mcL (3.82-4.97) L 09/24/17 05:32 Hgb 10.3 g/dL (11.5-15.4) L D 09/24/17 05:32 MCHC 29.2 g/dL (31.6-35.5) L 09/24/17 05:32 RDW 16.9 % (11.5-14.5) H 09/24/17 05:32 Plt Count 64 K/mcL (140-400) L 09/24/17 05:32 MPV 12.5 fL (9.4-12.4) H 09/24/17 05:32 Lymphocytes # 29.1 K/mcL (0.6-4.6) H 09/24/17 05:32 Nucleated RBCs/100 WBC 0.1 /100 WBC (0) H 09/22/17 03:55 Reactive Lymphocytes Present (Not Present) A 09/24/17 05:32 Smudge Cells Present (Not Present) A 09/19/17 02:33 Platelet Estimate Marked Decrease (Normal) L 09/24/17 05:32 Immature Plt Fraction 8.9 % (1.1-6.1) H 09/22/17 03:55 Hypochromasia Present (Not Present) A 09/24/17 05:32 Anisocytosis 1+ (Not Present) A 09/22/17 03:55 Macrocytosis Present (Not Present) A 09/22/17 03:55 ABG pCO2 70 mmHg (35-45) H* 09/24/17 01:25 ABG pO2 77 mmHg (85-104) L 09/24/17 01:25 ABG HCO3 40 mEq/L (21-27) H 09/24/17 01:25 ABG Total CO2 42 mEq/L (20-26) H 09/24/17 01:25 ABG O2 Saturation 94 % (95-98) L 09/24/17 01:25 ABG Base Excess 13 mEq/L (-2 to 3) H 09/24/17 01:25 Chloride 97 mEq/L (98-107) L 09/24/17 05:32 Carbon Dioxide 40 mEq/L (23-29) H* 09/24/17 05:32 Creatinine 0.30 mg/dL (0.60-1.20) L 09/24/17 05:32 BUN/Creatinine Ratio 57 (6-26) H 09/24/17 05:32 Glucose 29 mg/dL (70-105) L* 09/24/17 05:32 POC Glucose 110 (58-89) H 09/24/17 11:23 Troponin I 0.04 ng/mL (< 0.04) H* 09/19/17 13:40 B-Natriuretic Peptide 877 pg/mL (Less than 100) H 09/18/17 23:15 Serum Total Protein 5.4 g/dL (6.4-8.9) L 09/24/17 05:32 Albumin 3.3 g/dL (3.5-5.7) L 09/24/17 05:32 Globulin 2.1 g/dL (2.4-3.5) L 09/24/17 05:32 IgG 609 mg/dL (768-1632) L 09/20/17 19:22 IgA 52 mg/dL (68-408) L 09/20/17 19:22 IgM 20 mg/dL (35-263) L 09/20/17 19:22 - Attending Attestation I examined this patient and my medical decision-making was reviewed with the Resident Physician. I agree with the documented findings, disposition and treatment plan as described except to the extent set forth below. Palliative Quality Code Status: 09/22/17 10:56 Resuscitation Status: Active [RES] Routine Comment: Resuscitation Status: DNR-Comfort Care - Labs CBC & Chem 7: 09/24/17 05:32 09/24/17 05:32 Labs: Laboratory Results - last 24 hr 09/23/17 09/23/17 09/24/17 16:31 19:41 00:04 WBC RBC Hgb Hct MCV MCH MCHC RDW Plt Count MPV Immature Gran % Seg Neutrophils % Lymphocytes % Monocytes % Eosinophils % Basophils % Neutrophils # Lymphocytes # Monocytes # Eosinophils # Basophils # Reactive Lymphocytes Platelet Estimate Hypochromasia Sample Site ABG pH ABG pCO2 ABG pO2 ABG HCO3 ABG Total CO2 ABG O2 Saturation ABG Base Excess Deng Test O2 Delivery Device Blood Gas Modality Inspired O2 PEEP Sodium Potassium Chloride Carbon Dioxide BUN Creatinine Est GFR ( Amer) Est GFR (Non-Af Amer) BUN/Creatinine Ratio Glucose POC Glucose 192 H 118 H 66 Calculated Osmolality Calcium Total Bilirubin AST ALT Alkaline Phosphatase Serum Total Protein Albumin Globulin Albumin/Globulin Ratio 09/24/17 09/24/17 09/24/17 01:01 01:25 05:32 WBC 35.3 H* D RBC 3.59 L Hgb 10.3 L D Hct 35.3 MCV 98.3 MCH 28.7 MCHC 29.2 L RDW 16.9 H Plt Count 64 L MPV 12.5 H Immature Gran % 0.2 Seg Neutrophils % 16.0 Lymphocytes % 82.4 Monocytes % 1.3 Eosinophils % 0.0 Basophils % 0.1 Neutrophils # 5.7 Lymphocytes # 29.1 H Monocytes # 0.5 Eosinophils # 0.0 Basophils # 0.0 Reactive Lymphocytes Present A Platelet Estimate Marked Decrease L Hypochromasia Present A Sample Site R Radial ABG pH 7.37 ABG pCO2 70 H* ABG pO2 77 L ABG HCO3 40 H ABG Total CO2 42 H ABG O2 Saturation 94 L ABG Base Excess 13 H Deng Test Positive O2 Delivery Device BiPAP Blood Gas Modality NIV Inspired O2 35.0 PEEP 5 Sodium Potassium Chloride Carbon Dioxide BUN Creatinine Est GFR ( Amer) Est GFR (Non-Af Amer) BUN/Creatinine Ratio Glucose POC Glucose 109 H Calculated Osmolality Calcium Total Bilirubin AST ALT Alkaline Phosphatase Serum Total Protein Albumin Globulin Albumin/Globulin Ratio 09/24/17 09/24/17 09/24/17 05:32 06:40 07:19 WBC RBC Hgb Hct MCV MCH MCHC RDW Plt Count MPV Immature Gran % Seg Neutrophils % Lymphocytes % Monocytes % Eosinophils % Basophils % Neutrophils # Lymphocytes # Monocytes # Eosinophils # Basophils # Reactive Lymphocytes Platelet Estimate Hypochromasia Sample Site ABG pH ABG pCO2 ABG pO2 ABG HCO3 ABG Total CO2 ABG O2 Saturation ABG Base Excess Deng Test O2 Delivery Device Blood Gas Modality Inspired O2 PEEP Sodium 144 Potassium 3.6 Chloride 97 L Carbon Dioxide 40 H* BUN 17 Creatinine 0.30 L Est GFR ( Amer) > 60 Est GFR (Non-Af Amer) > 60 BUN/Creatinine Ratio 57 H Glucose 29 L* POC Glucose 213 H 117 H Calculated Osmolality 296 Calcium 9.0 Total Bilirubin 0.9 AST 14 ALT 23 Alkaline Phosphatase 48 Serum Total Protein 5.4 L Albumin 3.3 L Globulin 2.1 L Albumin/Globulin Ratio 1.6 09/24/17 09/24/17 09:51 11:23 WBC RBC Hgb Hct MCV MCH MCHC RDW Plt Count MPV Immature Gran % Seg Neutrophils % Lymphocytes % Monocytes % Eosinophils % Basophils % Neutrophils # Lymphocytes # Monocytes # Eosinophils # Basophils # Reactive Lymphocytes Platelet Estimate Hypochromasia Sample Site ABG pH ABG pCO2 ABG pO2 ABG HCO3 ABG Total CO2 ABG O2 Saturation ABG Base Excess Deng Test O2 Delivery Device Blood Gas Modality Inspired O2 PEEP Sodium Potassium Chloride Carbon Dioxide BUN Creatinine Est GFR ( Amer) Est GFR (Non-Af Amer) BUN/Creatinine Ratio Glucose POC Glucose 98 H 110 H Calculated Osmolality Calcium Total Bilirubin AST ALT Alkaline Phosphatase Serum Total Protein Albumin Globulin Albumin/Globulin Ratio - Impressions Impressions Chest X-Ray 09/24/17 01:22
[2017-09-24] MEDS: Budesonide/Formoterol 160/4.5 MDI IH SCH ×2 (08:19→23:09)
--- NOTE | 2017-09-24 09:29 | Pulmonology Progress Note ---
<Lele Cuevas - Last Filed: 09/24/17 15:05> Date of Encounter: 09/24/17 Time of Encounter: 08:00 Assessment and Plan (1) Acute on chronic respiratory failure with hypoxia and hypercapnia Current Visit: Yes Status: Acute 62-year-old female admitted with worsening shortness of breath, hypercapnia worsened while on BiPAP requiring intubation mechanical ventilation. - Chest x-ray without findings of infiltration - She had a CT angiogram of the chest performed that did not show any pulmonary embolism, multiple pulmonary nodules that were stable from recent CT, stable mediastinal hilar lymphadenopathy. - suspicious for COPD exacerbation, currently no other underlying infectious process identified. Patient does have a recent hospitalization. Elevated WBC count in the setting of CLL, Patient afebrile, no left shift. - Blood cultures negative 2 09/22- patient tolerating CPAP since 6 AM, no signs of distress or discomfort. Responding appropriately, Oxygenating appropriately respiratory rate appropriate. RSBI 50. Plan for extubation from mechanical ventilation to BiPAP this morning. 09/23: Patient awake, alert in no acute distress. Continues to have tachypnea and diminished breath sounds bilaterally. She is tolerating 4 L nasal cane oxygen with oxygen saturations at 96%. 09/24: Patient alert and awake mildly confused. Patient is to, heart rate control. Oxygen saturations appropriate on 4 L nasal cannula. Plan: - Continue scheduled breathing treatments - Continue Prednisone 40mg (2) COPD (chronic obstructive pulmonary disease) Current Visit: Yes Status: Chronic Known history of COPD, frequent hospitalizations. Continue treating with by mouth steroids, bronchodilators and nasal cocaine oxygen. - Palliative care discussion with family, will not do BiPAP or intubation. - Continue maximizing bronchodilator therapy. Qualifiers: COPD type: chronic bronchitis Chronic bronchitis type: simple Qualified Code(s): J41.0 - Simple chronic bronchitis (3) Coronary artery disease Current Visit: Yes Status: Chronic Hx CAD, continue cardiac meds. Echocardiogram 03/14/2017 Impressions: LVEF 55%. Mild left ventricular diastolic dysfunction. Atypical septal motion. Normal right ventricular size and function. Mild mitral regurgitation. No pulmonary hypertension. There is no evidence of a PFO with agitated saline contrast. Aneurysmal interatrial septum. Qualifiers: Coronary Disease-Associated Artery/Lesion type: [place] artery [place] vs. transplanted heart: [place] heart Associated angina: without angina Qualified Code(s): I25.10 - Atherosclerotic heart disease of [place] coronary artery without angina pectoris (4) Diabetes mellitus type 2 in nonobese Current Visit: Yes Status: Chronic Known type II diabetic, episode of hypoglycemia this morning patient was not eating all evening. We will continue to monitor glucose levels and adjust insulin therapy as necessary. Plan: - Continue Levemir 10 units subcutaneous twice a day - Continue medium dose sliding scale insulin every 6 hours - Every 6 hourly glucose checks (5) CLL (chronic lymphocytic leukemia) Current Visit: Yes Status: Chronic Known hx of CLL, WBC returned to baseline, no acute changes. - CT of the chest demonstrates lymphadenopathy. - Oncology following appreciate recommendations. (6) Thrombocytopenia Current Visit: Yes Status: Chronic Thrombocytopenia, platelets 64 this morning. - Likely secondary to CLL continue to monitor. (7) DVT prophylaxis Current Visit: No Status: Acute SCDs Subjective Principal diagnosis: Acute respiratory failure Interval history: Ms. Sheridan 62-year-old female has been seen and evaluated patient bedside this morning. She is alert awake interactive, yet still confused. She became more lethargic last evening, nursing staff contacted patient's son who requested BiPAP placement. She also demonstrated agitation over the evening and have received Ativan prior to her BiPAP requirements. Family agreeable to talking with palliative care. Objective PUL Vital signs: Last Vital Signs Temp 98.4 F 09/24/17 05:00 Pulse 90 09/24/17 08:00 Resp 16 09/24/17 08:26 BP 134/68 09/24/17 08:00 Pulse Ox 93 09/24/17 08:26 General appearance: no acute distress Eyes: nonicteric ENT: oropharynx moist Neck: supple Effort: normal Auscultation: bilateral: clear Cardiovascular: regular rate and rhythm Gastrointestinal: normoactive bowel sounds Integumentary: normal Extremities: no cyanosis, no edema, no clubbing, pink and warm Musculoskeletal: no deformities non-focal exam Results - Laboratory Findings CBC and BMP: 09/24/17 05:32 09/24/17 05:32 ABG ABG pH 7.37 pH Units (7.32-7.45) 09/24/17 01:25 ABG pCO2 70 mmHg (35-45) H* 09/24/17 01:25 ABG pO2 77 mmHg (85-104) L 09/24/17 01:25 ABG O2 Saturation 94 % (95-98) L 09/24/17 01:25 Abnormal lab findings: Abnormal lab results WBC 35.3 K/mcL (4.3-11.1) H* D 09/24/17 05:32 RBC 3.59 M/mcL (3.82-4.97) L 09/24/17 05:32 Hgb 10.3 g/dL (11.5-15.4) L D 09/24/17 05:32 MCHC 29.2 g/dL (31.6-35.5) L 09/24/17 05:32 RDW 16.9 % (11.5-14.5) H 09/24/17 05:32 Plt Count 64 K/mcL (140-400) L 09/24/17 05:32 MPV 12.5 fL (9.4-12.4) H 09/24/17 05:32 Lymphocytes # 29.1 K/mcL (0.6-4.6) H 09/24/17 05:32 Nucleated RBCs/100 WBC 0.1 /100 WBC (0) H 09/22/17 03:55 Reactive Lymphocytes Present (Not Present) A 09/24/17 05:32 Smudge Cells Present (Not Present) A 09/19/17 02:33 Platelet Estimate Marked Decrease (Normal) L 09/24/17 05:32 Immature Plt Fraction 8.9 % (1.1-6.1) H 09/22/17 03:55 Hypochromasia Present (Not Present) A 09/24/17 05:32 Anisocytosis 1+ (Not Present) A 09/22/17 03:55 Macrocytosis Present (Not Present) A 09/22/17 03:55 ABG pCO2 70 mmHg (35-45) H* 09/24/17 01:25 ABG pO2 77 mmHg (85-104) L 09/24/17 01:25 ABG HCO3 40 mEq/L (21-27) H 09/24/17 01:25 ABG Total CO2 42 mEq/L (20-26) H 09/24/17 01:25 ABG O2 Saturation 94 % (95-98) L 09/24/17 01:25 ABG Base Excess 13 mEq/L (-2 to 3) H 09/24/17 01:25 Chloride 97 mEq/L (98-107) L 09/24/17 05:32 Carbon Dioxide 40 mEq/L (23-29) H* 09/24/17 05:32 Creatinine 0.30 mg/dL (0.60-1.20) L 09/24/17 05:32 BUN/Creatinine Ratio 57 (6-26) H 09/24/17 05:32 Glucose 29 mg/dL (70-105) L* 09/24/17 05:32 POC Glucose 117 (58-89) H 09/24/17 07:19 Troponin I 0.04 ng/mL (< 0.04) H* 09/19/17 13:40 B-Natriuretic Peptide 877 pg/mL (Less than 100) H 09/18/17 23:15 Serum Total Protein 5.4 g/dL (6.4-8.9) L 09/24/17 05:32 Albumin 3.3 g/dL (3.5-5.7) L 09/24/17 05:32 Globulin 2.1 g/dL (2.4-3.5) L 09/24/17 05:32 IgG 609 mg/dL (768-1632) L 09/20/17 19:22 IgA 52 mg/dL (68-408) L 09/20/17 19:22 IgM 20 mg/dL (35-263) L 09/20/17 19:22 - Clinical Findings Intake & Output: Intake & Output 09/23/17 09/24/17 09/24/17 23:59 07:59 15:59 Intake Total 120 / 120 Output Total 300 / 300 1900 / 1900 250 / 250 Balance -180 / -180 -1900 / -1900 -250 / -250 Weight 44 kg Consult Discharge Plan - Plan Referrals: Stephen Liao MD [Primary Care Provider] - <Felisha Andersen - Last Filed: 09/24/17 17:19> Date of Encounter: 09/24/17 Objective PUL Vital signs: Last Vital Signs Temp 97.6 F 09/24/17 16:00 Pulse 60 09/24/17 17:00 Resp 20 09/24/17 17:00 BP 115/48 09/24/17 17:00 Pulse Ox 96 09/24/17 17:00 Results - Laboratory Findings CBC and BMP: 09/24/17 05:32 09/24/17 05:32 ABG ABG pH 7.37 pH Units (7.32-7.45) 09/24/17 01:25 ABG pCO2 70 mmHg (35-45) H* 09/24/17 01:25 ABG pO2 77 mmHg (85-104) L 09/24/17 01:25 ABG O2 Saturation 94 % (95-98) L 09/24/17 01:25 Abnormal lab findings: Abnormal lab results WBC 35.3 K/mcL (4.3-11.1) H* D 09/24/17 05:32 RBC 3.59 M/mcL (3.82-4.97) L 09/24/17 05:32 Hgb 10.3 g/dL (11.5-15.4) L D 09/24/17 05:32 MCHC 29.2 g/dL (31.6-35.5) L 09/24/17 05:32 RDW 16.9 % (11.5-14.5) H 09/24/17 05:32 Plt Count 64 K/mcL (140-400) L 09/24/17 05:32 MPV 12.5 fL (9.4-12.4) H 09/24/17 05:32 Lymphocytes # 29.1 K/mcL (0.6-4.6) H 09/24/17 05:32 Nucleated RBCs/100 WBC 0.1 /100 WBC (0) H 09/22/17 03:55 Reactive Lymphocytes Present (Not Present) A 09/24/17 05:32 Smudge Cells Present (Not Present) A 09/19/17 02:33 Platelet Estimate Marked Decrease (Normal) L 09/24/17 05:32 Immature Plt Fraction 8.9 % (1.1-6.1) H 09/22/17 03:55 Hypochromasia Present (Not Present) A 09/24/17 05:32 Anisocytosis 1+ (Not Present) A 09/22/17 03:55 Macrocytosis Present (Not Present) A 09/22/17 03:55 ABG pCO2 70 mmHg (35-45) H* 09/24/17 01:25 ABG pO2 77 mmHg (85-104) L 09/24/17 01:25 ABG HCO3 40 mEq/L (21-27) H 09/24/17 01:25 ABG Total CO2 42 mEq/L (20-26) H 09/24/17 01:25 ABG O2 Saturation 94 % (95-98) L 09/24/17 01:25 ABG Base Excess 13 mEq/L (-2 to 3) H 09/24/17 01:25 Chloride 97 mEq/L (98-107) L 09/24/17 05:32 Carbon Dioxide 40 mEq/L (23-29) H* 09/24/17 05:32 Creatinine 0.30 mg/dL (0.60-1.20) L 09/24/17 05:32 BUN/Creatinine Ratio 57 (6-26) H 09/24/17 05:32 Glucose 29 mg/dL (70-105) L* 09/24/17 05:32 POC Glucose 122 (58-89) H 09/24/17 16:49 Troponin I 0.04 ng/mL (< 0.04) H* 09/19/17 13:40 B-Natriuretic Peptide 877 pg/mL (Less than 100) H 09/18/17 23:15 Serum Total Protein 5.4 g/dL (6.4-8.9) L 09/24/17 05:32 Albumin 3.3 g/dL (3.5-5.7) L 09/24/17 05:32 Globulin 2.1 g/dL (2.4-3.5) L 09/24/17 05:32 IgG 609 mg/dL (768-1632) L 09/20/17 19:22 IgA 52 mg/dL (68-408) L 09/20/17 19:22 IgM 20 mg/dL (35-263) L 09/20/17 19:22 - Clinical Findings Intake & Output: Intake & Output 09/24/17 09/24/17 09/24/17 07:59 15:59 23:59 Intake Total 0 / 0 Output Total 1900 / 1900 1000 / 1000 Balance -1900 / -1900 -1000 / -1000 Weight 44 kg - Attending Attestation I examined this patient and my medical decision-making was reviewed with the Resident Physician. I agree with the documented findings, disposition and treatment plan as described except to the extent set forth below. Patient seen and examined. Labs, radiology, chart personally reviewed. Agree with resident's history and physical, assessment, plan with following comments: [employer]: Patient follows commands, Pulmonary: Acceptable oxygenation and ventilation Cardiovascular: stable GI: Nutrition per dietary and GI prophylaxis per routine Heme: DVT prophylaxis per routine Renal; urine out put and renal funtion reviewed Endorcine: blood glucose is monitored Lines: all lines checked and no evidence of infections Skin: skin care to prevent pressure ulcers per nursing routine care Discussed with the son and the bedside about the CODE STATUS subsequently palliative care talk to him as well and to keep patient comfortable and when bed available
[2017-09-24] MEDS: Pantoprazole 40 MG VIAL IVP SCH (09:39)
[2017-09-24] MEDS: Insulin LISPRO 300 UNITS/3 ML VIAL SQ SCH ×4 (09:53→19:46)
[2017-09-24] MEDS: Insulin DETEMIR 100 UNIT/ML X5UNITS SQ SCH ×2 (09:54→19:47)
[2017-09-24] MEDS: predniSONE 20 MG TABLET PO SCH (12:46)
--- NOTE | 2017-09-24 15:57 | Event Note ---
Date of Encounter: 09/24/17 Time of Encounter: 13:30 Long discussion with patient's son and daughter. She for the patient to have all chances to get better, however they recognize that she does not wish to have BiPAP or endotracheal intubation. Therefore the patient will remain comfort care, we will continue all pulmonary and her treatments short of BiPAP or endotracheal intubation. If the patient should pass she is already DNR comfort care. If she Flourishes we can discuss disposition on Wednesday.
[2017-09-24] MEDS: Furosemide 40 MG TABLET PO SCH (19:46)
[2017-09-24] MEDS: Gabapentin 300 MG CAPSULE PO SCH (19:47)
[2017-09-24] MEDS: Melatonin 3 MG TABLET PO SCH (20:26)
[2017-09-25] MEDS: Ipratropium/Albuterol Neb 3 ML IH SCH ×5 (03:50→20:11)
[2017-09-25] MEDS: traMADol 50 MG TABLET PO PRN (05:27)
[2017-09-25] MEDS: Budesonide/Formoterol 160/4.5 MDI IH SCH ×2 (07:42→20:11)
[2017-09-25] MEDS: predniSONE 20 MG TABLET PO SCH (08:48)
[2017-09-25] MEDS: Pantoprazole 40 MG VIAL IVP SCH (08:48)
[2017-09-25] MEDS: Furosemide 40 MG/4 ML VIAL IVP SCH (08:48)
[2017-09-25] MEDS: Insulin LISPRO 300 UNITS/3 ML VIAL SQ SCH ×4 (09:02→22:59)
[2017-09-25 10:50] LABS: Basophils % 0.1 %; Immature Granulocytes % 0.2 % (0-4)
[2017-09-25 10:51] LABS: Eosinophils % 0.1 %; Hematocrit 40.2 % (35.3-44.9); Hemoglobin 12.1 g/dL (11.5-15.4); Lymphocytes # 19.9 K/mcL (0.6-4.6); Lymphocytes % 77.3 %; Mean Corpuscular HGB Conc 30.1 g/dL (31.6-35.5); Mean Corpuscular Volume 96.4 fL (83.0-100.0); Mean Platelet Volume 11.8 fL (9.4-12.4); Monocytes # 0.8 K/mcL (0.0-1.3); Red Blood Count 4.17 M/mcL (3.82-4.97); Red Cell Distribution Width 16.7 % (11.5-14.5); Segmented Neutrophils % 19.3 %
[2017-09-25] MEDS ORDERED: Ketorolac 15 MG/ML VIAL IVP ONE (10:51)
[2017-09-25 11:03] LABS: Sodium 135 mEq/L (136-145)
[2017-09-25 11:08] LABS: BUN/Creatinine Ratio 33 (6-26); Blood Urea Nitrogen 15 mg/dL (8-23); Calcium 8.9 mg/dL (8.6-10.3); Carbon Dioxide 39 mEq/L (23-29); Chloride 92 mEq/L (98-107); Glucose 242 mg/dL (70-105); Osmolality,Calculated 289 (280-300); eGFR For African Americans > 60 (> 60); eGFR For Non-African Americans > 60 (> 60)
[2017-09-25 11:49] LABS: Platelet Count 58 K/mcL (140-400)
[2017-09-25 11:59] LABS: Platelet Estimate Decreased (Normal); Reactive Lymphocytes Present (Not Present)
[2017-09-25 12:04] LABS: Smudge Cells Present (Not Present)
[2017-09-25] MEDS: *HR* LORazepam 2 MG/ML VIAL IVP PRN (16:16)
--- NOTE | 2017-09-25 18:13 | Internal Med Progress Note ---
Date of Encounter: 09/25/17 Time of Encounter: 11:00 - Assessment and plan (1) COPD (chronic obstructive pulmonary disease) Current Visit: Yes Status: Chronic Assessment and plan: - Continue Symbicort, scheduled bronchodilators and supplemental oxygen. Qualifiers: COPD type: chronic bronchitis Chronic bronchitis type: simple Qualified Code(s): J41.0 - Simple chronic bronchitis (2) History of chronic lymphocytic leukemia Current Visit: Yes Status: Acute Assessment and plan: -Leukocytosis secondary to history of CLL (3) Goals of care, counseling/discussion Current Visit: Yes Status: Acute Assessment and plan: -Palliative care consulted and will discuss goals of care further on 09/27/17 - Subjective Interval history: No acute events overnight and patient has no complaints this morning She is requesting to go home - Constitutional Vitals: Temp Pulse Resp BP Pulse Ox 98.1 F 80 14 149/70 96 09/25/17 15:29 09/25/17 15:29 09/25/17 15:29 09/25/17 15:29 09/25/17 15:29 General appearance: Present: A&O X 0 (Hypersomnolent, not arousable to verbal or noxious stimuli.), mild distress - Respiratory Respiratory exam: Present: CTAB. Absent: accessory muscle use, rales, rhonchi, wheezes - Cardiovascular Cardiovascular exam: Present: RRR, +S1, +S2. Absent: diastolic murmur, gallop, rubs, systolic murmur Internal Medicine: Result - Labs CBC & Chem 7: 09/25/17 10:28 09/25/17 10:28 Labs: Short CBC 09/25/17 Range/Units 10:28 WBC 25.7 H (4.3-11.1) K/mcL Hgb 12.1 D (11.5-15.4) g/dL Hct 40.2 (35.3-44.9) % Plt Count 58 L (140-400) K/mcL Neutrophils # 5.0 (1.6-8.9) K/mcL BMP 09/25/17 10:28 Sodium 135 L Potassium 3.0 L Chloride 92 L Carbon Dioxide 39 H BUN 15 Creatinine 0.45 L Glucose 242 H Calcium 8.9 - ABG Interpretation ABG results: ABG ABG pH 7.37 pH Units (7.32-7.45) 09/24/17 01:25 ABG pCO2 70 mmHg (35-45) H* 09/24/17 01:25 ABG pO2 77 mmHg (85-104) L 09/24/17 01:25 ABG O2 Saturation 94 % (95-98) L 09/24/17 01:25 Consult Discharge Plan - Plan Referrals: Stephen Liao MD [Primary Care Provider] -
[2017-09-25] MEDS: Melatonin 3 MG TABLET PO SCH (21:49)
[2017-09-26] MEDS: Ipratropium/Albuterol Neb 3 ML IH SCH ×7 (00:30→23:12)
[2017-09-26] MEDS: Budesonide/Formoterol 160/4.5 MDI IH SCH ×2 (08:03→19:51)
[2017-09-26] MEDS: Pantoprazole 40 MG VIAL IVP SCH (09:06)
[2017-09-26] MEDS: Furosemide 40 MG/4 ML VIAL IVP SCH (09:06)
[2017-09-26] MEDS: predniSONE 20 MG TABLET PO SCH (09:07)
[2017-09-26] MEDS: Ketorolac 30 MG/ML VIAL IVP PRN (09:07)
[2017-09-26] MEDS: Insulin LISPRO 300 UNITS/3 ML VIAL SQ SCH ×4 (09:08→21:09)
[2017-09-26 10:45] LABS: Red Cell Distribution Width 16.1 % (11.5-14.5)
[2017-09-26 10:46] LABS: Hematocrit 36.4 % (35.3-44.9); Hemoglobin 10.9 g/dL (11.5-15.4); Immature Platelets 12.8 % (1.1-6.1); Mean Corpuscular HGB Conc 29.9 g/dL (31.6-35.5); Mean Corpuscular Hemoglobin 28.9 pg (28.0-33.3); Mean Corpuscular Volume 96.6 fL (83.0-100.0); Mean Platelet Volume 12.6 fL (9.4-12.4); Red Blood Count 3.77 M/mcL (3.82-4.97)
[2017-09-26 11:06] LABS: BUN/Creatinine Ratio 33 (6-26); Blood Urea Nitrogen 15 mg/dL (8-23); Calcium 8.7 mg/dL (8.6-10.3); Carbon Dioxide 35 mEq/L (23-29); Chloride 95 mEq/L (98-107); Glucose 239 mg/dL (70-105); Osmolality,Calculated 293 (280-300); Sodium 137 mEq/L (136-145); eGFR For African Americans > 60 (> 60); eGFR For Non-African Americans > 60 (> 60)
[2017-09-26 11:17] LABS: Platelet Count 56 K/mcL (140-400)
[2017-09-26 11:20] LABS: Lymphocytes # 16.1 K/mcL (0.6-4.6); Neutrophils # 5.7 K/mcL (1.6-8.9); Smudge Cells Present (Not Present)
[2017-09-26] MEDS: traMADol 50 MG TABLET PO PRN ×2 (12:42→20:14)
--- NOTE | 2017-09-26 17:53 | Internal Med Progress Note ---
Date of Encounter: 09/26/17 Time of Encounter: 11:00 - Assessment and plan (1) COPD (chronic obstructive pulmonary disease) Current Visit: Yes Status: Chronic Assessment and plan: - Continue Symbicort, scheduled bronchodilators and supplemental oxygen. Qualifiers: COPD type: chronic bronchitis Chronic bronchitis type: simple Qualified Code(s): J41.0 - Simple chronic bronchitis (2) History of chronic lymphocytic leukemia Current Visit: Yes Status: Acute Assessment and plan: -Leukocytosis secondary to history of CLL (3) Goals of care, counseling/discussion Current Visit: Yes Status: Acute Assessment and plan: -Palliative care consulted and will discuss goals of care further on 09/27/17 - Subjective Interval history: No acute events overnight and patient has no complaints this morning She is requesting to go home to see her grandkids. Will discuss with palliative care on 09/27/17 about the recommendations on discharge - Constitutional Vitals: Temp Pulse Resp BP Pulse Ox 98.1 F 84 18 156/58 97 09/26/17 14:42 09/26/17 14:42 09/26/17 14:42 09/26/17 14:42 09/26/17 14:42 General appearance: Present: A&O X 0 (Hypersomnolent, not arousable to verbal or noxious stimuli.), mild distress - Respiratory Respiratory exam: Present: CTAB. Absent: accessory muscle use, rales, rhonchi, wheezes - Cardiovascular Cardiovascular exam: Present: RRR, +S1, +S2. Absent: diastolic murmur, gallop, rubs, systolic murmur Internal Medicine: Result - Labs CBC & Chem 7: 09/26/17 10:08 09/26/17 10:08 Labs: Short CBC 09/26/17 Range/Units 10:08 WBC 21.8 H (4.3-11.1) K/mcL Hgb 10.9 L (11.5-15.4) g/dL Hct 36.4 (35.3-44.9) % Plt Count 56 L (140-400) K/mcL Neutrophils # 5.7 (1.6-8.9) K/mcL BMP 09/26/17 10:08 Sodium 137 Potassium 3.0 L Chloride 95 L Carbon Dioxide 35 H BUN 15 Creatinine 0.45 L Glucose 239 H Calcium 8.7 - ABG Interpretation ABG results: ABG ABG pH 7.37 pH Units (7.32-7.45) 09/24/17 01:25 ABG pCO2 70 mmHg (35-45) H* 09/24/17 01:25 ABG pO2 77 mmHg (85-104) L 09/24/17 01:25 ABG O2 Saturation 94 % (95-98) L 09/24/17 01:25 Consult Discharge Plan - Plan Referrals: Stephen Liao MD [Primary Care Provider] -
[2017-09-26] MEDS ORDERED: 0.9 % Sodium Chloride 1,000 ML ONE (18:19)
[2017-09-26] MEDS: Melatonin 3 MG TABLET PO SCH (20:14)
[2017-09-27] MEDS: Ipratropium/Albuterol Neb 3 ML IH SCH ×5 (03:39→20:17)
--- NOTE | 2017-09-27 08:04 | Palliative Progress Note ---
Date of Encounter: 09/27/17 Time of Encounter: 07:30 - Assessment and plan (1) Acute on chronic respiratory failure with hypoxia and hypercapnia Current Visit: Yes Status: Acute Assessment and plan: pt appears pretty good this am given her hx of severe co2 retention I would recommend hsopice over home health given discussions with family last week. will discuss today if they are available (son is usually available only in the afternoon) (2) CLL (chronic lymphocytic leukemia) Current Visit: Yes Status: Chronic Assessment and plan: given overall poor performance scale I doubt there is any further therapy available to her (3) COPD exacerbation Current Visit: Yes Status: Acute Assessment and plan: dooing better hopefully home soon (4) Goals of care, counseling/discussion Current Visit: Yes Status: Acute Assessment and plan: dnr cc need to fully clairify family goals for pt (she states she would lke to not have to return to hospital) if they concur I recommend hospice over hhc. she is eligible for either one I believe - Time Spent With Patient Total time spent is greater than 50% in coordination of care (as documented) at patient's floor/unit and/or counseling patient: - Subjective Interval history: pt alert and talkative, no problems, ahs would like to go home - Constitutional Vitals: Abnormal lab results WBC 21.8 K/mcL (4.3-11.1) H 09/26/17 10:08 RBC 3.77 M/mcL (3.82-4.97) L 09/26/17 10:08 Hgb 10.9 g/dL (11.5-15.4) L 09/26/17 10:08 MCHC 29.9 g/dL (31.6-35.5) L 09/26/17 10:08 RDW 16.1 % (11.5-14.5) H 09/26/17 10:08 Plt Count 56 K/mcL (140-400) L 09/26/17 10:08 MPV 12.6 fL (9.4-12.4) H 09/26/17 10:08 Lymphocytes # 16.1 K/mcL (0.6-4.6) H 09/26/17 10:08 Nucleated RBCs/100 WBC 0.1 /100 WBC (0) H 09/22/17 03:55 Reactive Lymphocytes Present (Not Present) A 09/25/17 10:28 Smudge Cells Present (Not Present) A 09/26/17 10:08 Platelet Estimate Decreased (Normal) L 09/25/17 10:28 Immature Plt Fraction 12.8 % (1.1-6.1) H 09/26/17 10:08 Hypochromasia Present (Not Present) A 09/24/17 05:32 Anisocytosis 1+ (Not Present) A 09/22/17 03:55 Macrocytosis Present (Not Present) A 09/22/17 03:55 ABG pCO2 70 mmHg (35-45) H* 09/24/17 01:25 ABG pO2 77 mmHg (85-104) L 09/24/17 01:25 ABG HCO3 40 mEq/L (21-27) H 09/24/17 01:25 ABG Total CO2 42 mEq/L (20-26) H 09/24/17 01:25 ABG O2 Saturation 94 % (95-98) L 09/24/17 01:25 ABG Base Excess 13 mEq/L (-2 to 3) H 09/24/17 01:25 Potassium 3.0 mEq/L (3.5-5.1) L 09/26/17 10:08 Chloride 95 mEq/L (98-107) L 09/26/17 10:08 Carbon Dioxide 35 mEq/L (23-29) H 09/26/17 10:08 Creatinine 0.45 mg/dL (0.60-1.20) L 09/26/17 10:08 BUN/Creatinine Ratio 33 (6-26) H 09/26/17 10:08 Glucose 239 mg/dL (70-105) H 09/26/17 10:08 POC Glucose 253 (58-89) H 09/27/17 00:34 Troponin I 0.04 ng/mL (< 0.04) H* 09/19/17 13:40 B-Natriuretic Peptide 877 pg/mL (Less than 100) H 09/18/17 23:15 Serum Total Protein 5.4 g/dL (6.4-8.9) L 09/24/17 05:32 Albumin 3.3 g/dL (3.5-5.7) L 09/24/17 05:32 Globulin 2.1 g/dL (2.4-3.5) L 09/24/17 05:32 IgG 609 mg/dL (768-1632) L 09/20/17 19:22 IgA 52 mg/dL (68-408) L 09/20/17 19:22 IgM 20 mg/dL (35-263) L 09/20/17 19:22 General appearance: Present: no acute distress - Head Head exam: Present: atraumatic, normal inspection - Eye Eye exam: Present: normal appearance - ENT ENT exam: Present: mucous membranes moist - Neck Neck exam: Present: normal inspection - Respiratory Respiratory exam: Present: decreased breath sounds - Cardiovascular Cardiovascular exam: Present: RRR - GI/Abdominal GI/Abdominal exam: Present: normal bowel sounds, soft. Absent: tenderness - Extremities Exam Extremities exam: Absent: tenderness - Neurological Exam Neurological exam: Present: alert - Psychiatric Psychiatric exam: Absent: agitated, anxious - Skin Skin exam: Present: dry, warm Palliative Quality Palliative Quality: Screen for Code Status: Yes, Screen for Goals of Care: Yes, Screen for Pain: Yes, If Pain Regimen Started, Initiate Bowel Regimen: Yes, Screen for Nausea/Vomitting: Yes Code Status: 09/22/17 10:56 Resuscitation Status: Active [RES] Routine Comment: Resuscitation Status: DNR-Comfort Care - Labs CBC & Chem 7: 09/26/17 10:08 09/26/17 10:08 Labs: Laboratory Results - last 24 hr 09/26/17 09/26/17 09/26/17 10:08 10:08 11:05 WBC 21.8 H RBC 3.77 L Hgb 10.9 L Hct 36.4 MCV 96.6 MCH 28.9 MCHC 29.9 L RDW 16.1 H Plt Count 56 L MPV 12.6 H Seg Neutrophils % 26.0 Lymphocytes % 74.0 Neutrophils # 5.7 Lymphocytes # 16.1 H Smudge Cells Present A Immature Plt Fraction 12.8 H Sodium 137 Potassium 3.0 L Chloride 95 L Carbon Dioxide 35 H BUN 15 Creatinine 0.45 L Est GFR ( Amer) > 60 Est GFR (Non-Af Amer) > 60 BUN/Creatinine Ratio 33 H Glucose 239 H POC Glucose 203 H Calculated Osmolality 293 Calcium 8.7 09/26/17 09/26/17 09/26/17 16:48 21:01 21:02 WBC RBC Hgb Hct MCV MCH MCHC RDW Plt Count MPV Seg Neutrophils % Lymphocytes % Neutrophils # Lymphocytes # Smudge Cells Immature Plt Fraction Sodium Potassium Chloride Carbon Dioxide BUN Creatinine Est GFR ( Amer) Est GFR (Non-Af Amer) BUN/Creatinine Ratio Glucose POC Glucose 253 H 437 H* 452 H* Calculated Osmolality Calcium 09/26/17 09/27/17 23:21 00:34 WBC RBC Hgb Hct MCV MCH MCHC RDW Plt Count MPV Seg Neutrophils % Lymphocytes % Neutrophils # Lymphocytes # Smudge Cells Immature Plt Fraction Sodium Potassium Chloride Carbon Dioxide BUN Creatinine Est GFR ( Amer) Est GFR (Non-Af Amer) BUN/Creatinine Ratio Glucose POC Glucose 330 H 253 H Calculated Osmolality Calcium - ABG Interpretation ABG results: ABG ABG pH 7.37 pH Units (7.32-7.45) 09/24/17 01:25 ABG pCO2 70 mmHg (35-45) H* 09/24/17 01:25 ABG pO2 77 mmHg (85-104) L 09/24/17 01:25 ABG O2 Saturation 94 % (95-98) L 09/24/17 01:25 Consult Discharge Plan - Plan Referrals: Stephen Liao MD [Primary Care Provider] -
[2017-09-27] MEDS: Budesonide/Formoterol 160/4.5 MDI IH SCH ×2 (08:19→21:47)
[2017-09-27] MEDS: predniSONE 20 MG TABLET PO SCH (08:23)
[2017-09-27] MEDS: Furosemide 40 MG/4 ML VIAL IVP SCH (08:24)
[2017-09-27] MEDS: Pantoprazole 40 MG VIAL IVP SCH (08:24)
[2017-09-27] MEDS: Insulin LISPRO 300 UNITS/3 ML VIAL SQ SCH ×4 (08:25→20:57)
[2017-09-27] MEDS: Ketorolac 30 MG/ML VIAL IVP PRN (12:09)
[2017-09-27] MEDS: Ondansetron 4 MG/2 ML VIAL IVP PRN (15:30)
[2017-09-27] MEDS ORDERED: Insulin LISPRO 300 UNITS/3 ML VIAL SQ ONE (16:45)
--- NOTE | 2017-09-27 18:00 | Internal Med Progress Note ---
Date of Encounter: 09/27/17 Time of Encounter: 11:00 - Assessment and plan (1) COPD (chronic obstructive pulmonary disease) Current Visit: Yes Status: Chronic Assessment and plan: - Continue Symbicort, scheduled bronchodilators and supplemental oxygen. Qualifiers: COPD type: chronic bronchitis Chronic bronchitis type: simple Qualified Code(s): J41.0 - Simple chronic bronchitis (2) History of chronic lymphocytic leukemia Current Visit: Yes Status: Acute Assessment and plan: -Leukocytosis secondary to history of CLL (3) Goals of care, counseling/discussion Current Visit: Yes Status: Acute Assessment and plan: -Palliative care consulted and will discuss goals of care further on 09/27/17 - Subjective Interval history: No acute events overnight and patient has no complaints this morning She is requesting to go home to see her grandkids. Palliative care only with discussions of possible hospice care - Constitutional Vitals: Temp Pulse Resp BP Pulse Ox 97.5 F L 91 18 163/51 94 09/27/17 15:45 09/27/17 15:45 09/27/17 16:11 09/27/17 15:45 09/27/17 16:11 General appearance: Present: A&O X 0 (Hypersomnolent, not arousable to verbal or noxious stimuli.), mild distress - Respiratory Respiratory exam: Present: CTAB. Absent: accessory muscle use, rales, rhonchi, wheezes - Cardiovascular Cardiovascular exam: Present: RRR, +S1, +S2. Absent: diastolic murmur, gallop, rubs, systolic murmur Internal Medicine: Result - Labs CBC & Chem 7: 09/26/17 10:08 09/26/17 10:08 - ABG Interpretation ABG results: ABG ABG pH 7.37 pH Units (7.32-7.45) 09/24/17 01:25 ABG pCO2 70 mmHg (35-45) H* 09/24/17 01:25 ABG pO2 77 mmHg (85-104) L 09/24/17 01:25 ABG O2 Saturation 94 % (95-98) L 09/24/17 01:25 Consult Discharge Plan - Plan Referrals: Stephen Liao MD [Primary Care Provider] -
[2017-09-27] MEDS: traMADol 50 MG TABLET PO PRN (20:57)
[2017-09-27] MEDS: Melatonin 3 MG TABLET PO SCH (20:57)
[2017-09-28] MEDS: Ipratropium/Albuterol Neb 3 ML IH SCH ×7 (00:07→23:56)
[2017-09-28] MEDS: Budesonide/Formoterol 160/4.5 MDI IH SCH ×2 (07:59→20:25)
[2017-09-28] MEDS ORDERED: Mag Hydrox/Al Hydrox/Simeth 30 ML UDC PO PRN (09:17)
[2017-09-28] MEDS: predniSONE 20 MG TABLET PO SCH (09:28)
[2017-09-28] MEDS: Furosemide 40 MG/4 ML VIAL IVP SCH (09:29)
[2017-09-28] MEDS: Pantoprazole 40 MG VIAL IVP SCH (09:29)
[2017-09-28] MEDS: Ketorolac 30 MG/ML VIAL IVP PRN (09:29)
--- NOTE | 2017-09-28 09:43 | Palliative Progress Note ---
Date of Encounter: 09/28/17 Time of Encounter: 09:10 - Assessment and plan (1) Acute on chronic respiratory failure with hypoxia and hypercapnia Current Visit: Yes Status: Acute Assessment and plan: pt appears pretty good this am given her hx of severe co2 retention I would recommend hsopice over home health given discussions with family last week. will discuss today if they are available (son is usually available only in the afternoon) d/w sone extensivly yesterday they would like to start with [facility] palliative outpatient, then transition to hospice if they desire. Awaiting setup of dme and d/c paperwork sw is following for this (2) CLL (chronic lymphocytic leukemia) Current Visit: Yes Status: Chronic Assessment and plan: given overall poor performance scale I doubt there is any further therapy available to her no change (3) COPD exacerbation Current Visit: Yes Status: Acute Assessment and plan: doing better hopefully home soon no change (4) Goals of care, counseling/discussion Current Visit: Yes Status: Acute Assessment and plan: dnr cc d/w son family [place] yesterday and after discussion the plan is to return home with [facility]. Pt can transition to hospice if desired. Pt does meet hospice criteria if desired in my opinion (5) Upset stomach Current Visit: Yes Status: Acute Assessment and plan: pt on prilosce and zofran did prescribe some mylanta prn for stomach ache - Time Spent With Patient Total time spent is greater than 50% in coordination of care (as documented) at patient's floor/unit and/or counseling patient: - Subjective Interval history: pt alert and talkative, c/o upset stomach but no vomiting wants to go home don[place] - Constitutional Vitals: Abnormal lab results WBC 21.8 K/mcL (4.3-11.1) H 09/26/17 10:08 RBC 3.77 M/mcL (3.82-4.97) L 09/26/17 10:08 Hgb 10.9 g/dL (11.5-15.4) L 09/26/17 10:08 MCHC 29.9 g/dL (31.6-35.5) L 09/26/17 10:08 RDW 16.1 % (11.5-14.5) H 09/26/17 10:08 Plt Count 56 K/mcL (140-400) L 09/26/17 10:08 MPV 12.6 fL (9.4-12.4) H 09/26/17 10:08 Lymphocytes # 16.1 K/mcL (0.6-4.6) H 09/26/17 10:08 Nucleated RBCs/100 WBC 0.1 /100 WBC (0) H 09/22/17 03:55 Reactive Lymphocytes Present (Not Present) A 09/25/17 10:28 Smudge Cells Present (Not Present) A 09/26/17 10:08 Platelet Estimate Decreased (Normal) L 09/25/17 10:28 Immature Plt Fraction 12.8 % (1.1-6.1) H 09/26/17 10:08 Hypochromasia Present (Not Present) A 09/24/17 05:32 Anisocytosis 1+ (Not Present) A 09/22/17 03:55 Macrocytosis Present (Not Present) A 09/22/17 03:55 ABG pCO2 70 mmHg (35-45) H* 09/24/17 01:25 ABG pO2 77 mmHg (85-104) L 09/24/17 01:25 ABG HCO3 40 mEq/L (21-27) H 09/24/17 01:25 ABG Total CO2 42 mEq/L (20-26) H 09/24/17 01:25 ABG O2 Saturation 94 % (95-98) L 09/24/17 01:25 ABG Base Excess 13 mEq/L (-2 to 3) H 09/24/17 01:25 Potassium 3.0 mEq/L (3.5-5.1) L 09/26/17 10:08 Chloride 95 mEq/L (98-107) L 09/26/17 10:08 Carbon Dioxide 35 mEq/L (23-29) H 09/26/17 10:08 Creatinine 0.45 mg/dL (0.60-1.20) L 09/26/17 10:08 BUN/Creatinine Ratio 33 (6-26) H 09/26/17 10:08 Glucose 239 mg/dL (70-105) H 09/26/17 10:08 POC Glucose 237 (58-89) H 09/28/17 07:09 Troponin I 0.04 ng/mL (< 0.04) H* 12/31/17 13:40 B-Natriuretic Peptide 877 pg/mL (Less than 100) H 09/18/17 23:15 Serum Total Protein 5.4 g/dL (6.4-8.9) L 09/24/17 05:32 Albumin 3.3 g/dL (3.5-5.7) L 09/24/17 05:32 Globulin 2.1 g/dL (2.4-3.5) L 09/24/17 05:32 IgG 609 mg/dL (768-1632) L 09/20/17 19:22 IgA 52 mg/dL (68-408) L 09/20/17 19:22 IgM 20 mg/dL (35-263) L 09/20/17 19:22 General appearance: Present: no acute distress - Head Head exam: Present: atraumatic, normal inspection - Eye Eye exam: Present: normal appearance - ENT ENT exam: Present: mucous membranes moist - Respiratory Respiratory exam: Present: decreased breath sounds - Cardiovascular Cardiovascular exam: Present: RRR - GI/Abdominal GI/Abdominal exam: Present: normal bowel sounds, soft. Absent: tenderness - Extremities Exam Extremities exam: Present: normal inspection. Absent: pedal edema, tenderness - Neurological Exam Neurological exam: Present: alert - Psychiatric Psychiatric exam: Absent: agitated, anxious - Skin Skin exam: Present: dry, warm Palliative Quality Palliative Quality: Screen for Code Status: Yes, Screen for Goals of Care: Yes, Screen for Pain: Yes, If Pain Regimen Started, Initiate Bowel Regimen: Yes, Screen for Nausea/Vomitting: Yes Code Status: 09/22/17 10:56 Resuscitation Status: Active [RES] Routine Comment: Resuscitation Status: DNR-Comfort Care - Labs CBC & Chem 7: 09/26/17 10:08 09/26/17 10:08 Labs: Laboratory Results - last 24 hr 09/27/17 09/27/17 09/27/17 12:02 16:05 20:47 POC Glucose 326 H 422 H* 459 H* 09/27/17 09/28/17 09/28/17 23:04 00:01 07:09 POC Glucose 108 H 78 237 H - ABG Interpretation ABG results: ABG ABG pH 7.37 pH Units (7.32-7.45) 09/24/17 01:25 ABG pCO2 70 mmHg (35-45) H* 09/24/17 01:25 ABG pO2 77 mmHg (85-104) L 09/24/17 01:25 ABG O2 Saturation 94 % (95-98) L 09/24/17 01:25 Consult Discharge Plan - Plan Referrals: Stephen Liao MD [Primary Care Provider] -
[2017-09-28] MEDS: Insulin LISPRO 300 UNITS/3 ML VIAL SQ SCH ×4 (09:47→20:41)
[2017-09-28] MEDS: Ondansetron 4 MG/2 ML VIAL IVP PRN (12:05)
[2017-09-28] MEDS ORDERED: Acetaminophen 325 MG TABLET PO PRN (12:27)
[2017-09-28 13:15] LABS: BUN/Creatinine Ratio 39 (6-26); Blood Urea Nitrogen 22 mg/dL (8-23); Calcium 9.2 mg/dL (8.6-10.3); Carbon Dioxide 37 mEq/L (23-29); Chloride 96 mEq/L (98-107); Glucose 192 mg/dL (70-105); Osmolality,Calculated 291 (280-300); Potassium 5.1 mEq/L (3.5-5.1); Sodium 136 mEq/L (136-145); eGFR For African Americans > 60 (> 60); eGFR For Non-African Americans > 60 (> 60)
--- NOTE | 2017-09-28 13:24 | Discharge Summary ---
Date of Encounter: 09/28/17 Time of Encounter: 13:22 - Discharge Medications Home Medications: Glimepiride [Amaryl] 4 mg PO QAM 03/13/17 [History] Ranitidine HCl [Zantac] 150 mg PO BID 03/13/17 [History] Allopurinol [Zyloprim 300 MG] 300 mg PO DAILY 09/09/17 [History] Atorvastatin [Lipitor] 40 mg PO HS 09/09/17 [History] Budesonide/Formoterol 160/4.5 [Symbicort 160/4.5] 2 puff IH BIDR 09/09/17 [ History] Carvedilol [Coreg] 25 mg PO BID 09/09/17 [History] Ferrous Sulfate 324 mg PO BID 09/09/17 [History] Furosemide [Lasix] 40 mg PO DAILY 09/09/17 [History] Glucagon, Human Recombinant [Glucagen] 1 mg IM ONCE PRN 09/09/17 [History] HydrOXYzine 10 mg PO TID PRN 09/09/17 [History] Lisinopril [Zestril] 20 mg PO DAILY 09/09/17 [History] Melatonin [Melatin] 6 mg PO HS 09/09/17 [History] Prochlorperazine Maleate [Compazine] 10 mg PO Q6H PRN 09/09/17 [History] Acetaminophen [Tylenol] 650 mg PO Q6HR PRN tablet 09/18/17 [Rx] Diphenoxylate/Atropine [Lomotil 2.5 mg/0.025 mg] 1 tab PO QID PRN #10 tablet [Rx] Gabapentin [Neurontin] 300 mg PO DAILY #5 capsule 09/18/17 [Rx] Insulin DETEMIR [Levemir] 10 unit SQ BID [id number] 09/18/17 [Rx] Ipratropium/Albuterol Neb [Duoneb] 3 ml IH [id number] PRN inhsol 09/18/17 [Rx] Tramadol HCl [Ultram] 50 mg PO Q6H PRN #10 tablet 09/18/17 [Rx] Allergies/Adverse Reactions: 3 Allergy/AdvReac Type Severity Reaction Status Date / Time Penicillins Allergy Unknown Hives Verified 03/13/17 13:00 Sulfa (Sulfonamide Allergy Unknown Hives Verified 03/13/17 13:00 Antibiotics) aspirin AdvReac Unknown Nausea Verified 03/13/17 13:00 Date of admission: 09/21/17 12:14 Primary care physician: Stephen Liao MD - Patient Status Condition: Serious - Discharge Instructions Follow Up With: Stephen Liao MD [Primary Care Provider] - Forms: ED Satisfaction Letter Hospital course: Ms. Sheridan is a 62 year old female - Time Spent with Patient Total time spent providing and/or coordinating discharge services: - Constitutional Vitals: Temp Pulse Resp BP Pulse Ox 97.4 F L 87 16 158/68 95 09/28/17 10:37 09/28/17 10:37 09/28/17 11:08 09/28/17 10:37 09/28/17 12:25 General appearance: Present: A&O X 0 (Hypersomnolent, not arousable to verbal or noxious stimuli.), mild distress
--- NOTE | 2017-09-28 14:13 | Discharge Summary ---
Date of Encounter: 09/28/17 Time of Encounter: 14:11 - Discharge Diagnosis (1) COPD (chronic obstructive pulmonary disease) Priority: Primary Status: Chronic Comments: Acute on chronic Qualifiers: COPD type: chronic bronchitis Chronic bronchitis type: simple Qualified Code(s): J41.0 - Simple chronic bronchitis (2) CLL (chronic lymphocytic leukemia) Priority: Secondary Status: Chronic (3) Weakness generalized Priority: Secondary Status: Acute (4) Elevated WBC count Priority: Secondary Status: Acute Qualifiers: Leukocytosis type: other Qualified Code(s): D72.828 - Other elevated white blood cell count - Discharge Medications Home Medications: Ranitidine HCl [Zantac] 150 mg PO BID 03/13/17 [History] Allopurinol [Zyloprim 300 MG] 300 mg PO DAILY 09/09/17 [History] Atorvastatin [Lipitor] 40 mg PO HS 09/09/17 [History] Budesonide/Formoterol 160/4.5 [Symbicort 160/4.5] 2 puff IH BIDR 09/09/17 [ History] Carvedilol [Coreg] 25 mg PO BID 09/09/17 [History] Ferrous Sulfate 324 mg PO BID 09/09/17 [History] Furosemide [Lasix] 40 mg PO DAILY 09/09/17 [History] HydrOXYzine 10 mg PO TID PRN 09/09/17 [History] Melatonin [Melatin] 6 mg PO HS 09/09/17 [History] Prochlorperazine Maleate [Compazine] 10 mg PO Q6H PRN 09/09/17 [History] Acetaminophen [Tylenol] 650 mg PO Q6HR PRN tablet 09/18/17 [Rx] Diphenoxylate/Atropine [Lomotil 2.5 mg/0.025 mg] 1 tab PO QID PRN #10 tablet [Rx] Gabapentin [Neurontin] 300 mg PO DAILY #5 capsule 09/18/17 [Rx] Tramadol HCl [Ultram] 50 mg PO Q6H PRN #10 tablet 09/18/17 [Rx] Famotidine [Pepcid] 20 mg PO BID tablet 09/28/17 [Rx] Insulin DETEMIR [Levemir] 15 unit SQ HS [id number] 09/28/17 [Rx] Insulin LISPRO [HumaLOG] 0 units SQ TIDAC vial 09/28/17 [Rx] Ipratropium/Albuterol Neb [Duoneb] 3 ml IH [id number] inhsol 09/28/17 [Rx] Lisinopril [Zestril] 10 mg PO DAILY tablet 09/28/17 [Rx] Mag Hydrox/Al Hydrox/Simeth [Maalox] 15 ml PO Q6HR PRN udc 09/28/17 [Rx] Ondansetron [Zofran] 4 mg IVP Q8HR PRN vial 09/28/17 [Rx] predniSONE [PredniSONE] See Taper PO DAILY #10 tablet 09/28/17 [Rx] Allergies/Adverse Reactions: 3 Allergy/AdvReac Type Severity Reaction Status Date / Time Penicillins Allergy Unknown Hives Verified 03/13/17 13:00 Sulfa (Sulfonamide Allergy Unknown Hives Verified 03/13/17 13:00 Antibiotics) aspirin AdvReac Unknown Nausea Verified 03/13/17 13:00 Date of admission: 09/21/17 12:14 Primary care physician: Stephen Liao MD Consults: 09/20/17 09:39 Consult to Oncology [CONS] Routine Consulting Provider: [facility] Reason for Consult: 62 yo F PMH of CLL & thrombocytopenia. Found to have multiple questionable lung nodules, leukocytosis (WBC 21.7, 80% lymphocyte) and thrombocytopenia (Plt 53). Family prefers getting care here at [facility]. Appreciate oncology evaluation and recommendation. Call Completed: Yes 09/20/17 09:42 Consult to Pulmonology [CONS] Routine Consulting Provider: [facility] Reason for Consult: 62 yo F PMH of COPD and CLL admitted for respiratory failure. CT chest showed multiple questionable lung nodules. Also concern of aspiration pneumonia. May benefit from bronscopy with EBUS. Family perfers to get care at [facility]. Appreciate pulmonology evaluation and recommendation Call Completed: Yes 09/19/17 07:20 Consult to Palliative Care [CONS] Routine Comment: Consulting Provider: [facility] Reason for Consult: Declining functional status, severe COPD Call Completed: No 09/19/17 16:11 Consult to Speech Therapy [CONS] Routine Comment: Evaluate, develop and implement POC Reason for Consult: Recurrent pulmonary changes - ? aspiration Call Completed: No Discharging clinician: Joey Torres Anticipated date of discharge: 09/28/17 - Patient Status Disposition: Hospice - Home Condition: Fair Functional capacity at discharge: wheelchair bound - Discharge Instructions Follow Up With: Stephen Liao MD [Primary Care Provider] - Forms: ED Satisfaction Letter Hospital course: Ms. Sheridan is a 62 year old female with an acute exacerbation of her chronic COPD. She was found to have an elevated WBC associated with her CLL. She was profoundly weak and evaluated by PT and OT. Palliative consult was also ordered to determine goals of care and it was decided the patient would go home with [facility] Pallitive care. HeAfter a face to face encounter with the patient she was found to be severely debilitated and weak with desaturation to <88% on room air. She will requiring an oxygen concentrator with gasseous portable tank and needs 4liters/mins. She will also wheelchair with leg supports and a bedside commode. Additionally she will need f /u PT and OT to improve strength, balance and coordination to prevent falls. She was discharged in stable condition. - Time Spent with Patient Total time spent providing and/or coordinating discharge services: Greater than 30 minutes (45 minutes discharging patient.) - Constitutional Vitals: Temp Pulse Resp BP Pulse Ox 97.4 F L 87 16 158/68 95 09/28/17 10:37 09/28/17 10:37 09/28/17 11:08 09/28/17 10:37 09/28/17 12:25 General appearance: Present: A&O X 0 (Hypersomnolent, not arousable to verbal or noxious stimuli.), cooperative, mild distress, A&O X 3, no acute distress - Head Head exam: Present: atraumatic, normocephalic - Eye Eye exam: Present: EOMI, PERRL, sclera anicteric Pupils: Present: normal accommodation, PERRL - ENT ENT exam: Present: mucous membranes moist, normal exam - Neck Neck exam general surgery: Present: normal inspection, trachea midline - Respiratory Respiratory exam: Present: CTAB - Cardiovascular Cardiovascular exam: Present: RRR, +S1 Additional comments: RRR with Nl rate and rhythm. No murmur, rubs or gallups - GI/Abdominal Additional comments: Abdomen soft without distension. Mild RUQ pain without gaurding or RBT - Extremities Exam Additional comments: Normal distal pulses without pedal edema - Skin Additional comments: Warm and dry without rashes
[2017-09-28] MEDS: Melatonin 3 MG TABLET PO SCH (20:38)
[2017-09-28] MEDS: Insulin DETEMIR 100 UNIT/ML X5UNITS SQ SCH (21:40)
[2017-09-29] MEDS: Ipratropium/Albuterol Neb 3 ML IH SCH ×6 (04:20→23:08)
[2017-09-29] MEDS: Budesonide/Formoterol 160/4.5 MDI IH SCH ×2 (08:21→19:45)
[2017-09-29] MEDS: Furosemide 40 MG/4 ML VIAL IVP SCH (09:24)
[2017-09-29] MEDS: Famotidine 20 MG TABLET PO SCH ×2 (09:24→20:30)
[2017-09-29] MEDS: predniSONE 20 MG TABLET PO SCH (09:24)
[2017-09-29] MEDS: Insulin LISPRO 300 UNITS/3 ML VIAL SQ SCH ×4 (09:30→20:52)
--- NOTE | 2017-09-29 19:56 | Internal Med Progress Note ---
Date of Encounter: 09/29/17 Time of Encounter: 19:53 (Pt seen this afternoon) - Assessment and plan (1) COPD (chronic obstructive pulmonary disease) Current Visit: Yes Status: Chronic Qualifiers: COPD type: chronic bronchitis Chronic bronchitis type: simple Qualified Code(s): J41.0 - Simple chronic bronchitis (2) CLL (chronic lymphocytic leukemia) Current Visit: Yes Status: Chronic (3) Weakness generalized Current Visit: Yes Status: Acute (4) Elevated WBC count Current Visit: No Status: Acute Qualifiers: Leukocytosis type: other Qualified Code(s): D72.828 - Other elevated white blood cell count - Subjective Interval history: No significant changes. Still awaiting Medicare to approve home o2, wc and bedside comode. [employer] TECHNICIAN faxed additional info to help expidite d/c to home with palliative care - Constitutional Vitals: Temp Pulse Resp BP Pulse Ox 97.4 F L 65 16 161/90 94 09/29/17 19:50 09/29/17 19:50 09/29/17 19:50 09/29/17 19:50 09/29/17 19:50 General appearance: Present: A&O X 0 (Hypersomnolent, not arousable to verbal or noxious stimuli.), cooperative, mild distress, A&O X 3, no acute distress - Head Head exam: Present: atraumatic, normocephalic - Eye Eye exam: Present: PERRL, conjuntiva pink, sclera anicteric Pupils: Present: PERRL - Neck Neck exam general surgery: Present: supple, trachea midline. Absent: lymphadenopathy - Respiratory Respiratory exam: Present: CTAB. Absent: accessory muscle use, rales, rhonchi, wheezes - Cardiovascular Cardiovascular exam: Present: RRR, +S1, +S2. Absent: diastolic murmur, gallop, rubs, systolic murmur - GI/Abdominal GI/Abdominal exam: Present: normal bowel sounds, soft, no peritoneal signs. Absent: distended, tenderness - Extremities Exam Extremities exam: Present: warm, radial pulses palpable and symmetrical. Absent : calf tenderness, cyanotic, pedal edema - Neurological Exam Neurological exam: Present: CN II-XII intact, oriented X3, no focal deficits. Absent: pronater drift, facial droop, speech deficit - Skin Skin exam: Present: dry, intact Internal Medicine: Result - Labs CBC & Chem 7: 09/26/17 10:08 09/28/17 12:34 - ABG Interpretation ABG results: ABG ABG pH 7.37 pH Units (7.32-7.45) 09/24/17 01:25 ABG pCO2 70 mmHg (35-45) H* 09/24/17 01:25 ABG pO2 77 mmHg (85-104) L 09/24/17 01:25 ABG O2 Saturation 94 % (95-98) L 09/24/17 01:25 Consult Discharge Plan - Plan Referrals: Stephen Liao MD [Primary Care Provider] -
[2017-09-29] MEDS: Insulin DETEMIR 100 UNIT/ML X5UNITS SQ SCH (20:30)
[2017-09-29] MEDS: Melatonin 3 MG TABLET PO SCH (20:30)
[2017-09-30] MEDS: Ipratropium/Albuterol Neb 3 ML IH SCH ×4 (03:28→16:22)
[2017-09-30] MEDS: Budesonide/Formoterol 160/4.5 MDI IH SCH (07:52)
[2017-09-30] MEDS: *HR* Dextrose 50 % in Water (Syg) 50 ML SYRINGE IVP PRN (08:20)
[2017-09-30] MEDS ORDERED: Furosemide 40 MG TABLET PO SCH (09:00)
[2017-09-30] MEDS: Insulin LISPRO 300 UNITS/3 ML VIAL SQ SCH ×3 (09:38→17:45)
[2017-09-30] MEDS: Famotidine 20 MG TABLET PO SCH (09:39)
[2017-09-30] MEDS: predniSONE 20 MG TABLET PO SCH (09:39)
[2017-09-30 12:05] VITALS: BP 141/56
--- NOTE | 2017-09-30 12:56 | Discharge Summary ---
Date of Encounter: 09/30/17 Time of Encounter: 12:53 - Discharge Diagnosis (1) COPD (chronic obstructive pulmonary disease) Priority: Primary Status: Chronic Comments: Acute on chronic oxygen dependent COPD. She will need continuous home oxygen at discharge. She will also need ongoing PT and OT. Qualifiers: COPD type: chronic bronchitis Chronic bronchitis type: unspecified Qualified Code(s): J42 - Unspecified chronic bronchitis Code(s): J44.9 - Chronic obstructive pulmonary disease, unspecified SNOMED Code(s): 06433066 (2) CLL (chronic lymphocytic leukemia) Priority: Secondary Status: Chronic Comments: Stable in remission. (3) Weakness generalized Priority: Secondary Status: Chronic Comments: She is severely debilated and requires ongoing PT/OT. Code(s): R53.1 - Weakness SNOMED Code(s): 85415197 (4) Elevated WBC count Priority: Secondary Status: Acute Comments: Secondary to CLL and ongoing steroid use. Qualifiers: Leukocytosis type: lymphocytosis Qualified Code(s): D72.820 - Lymphocytosis (symptomatic) Code(s): D72.829 - Elevated white blood cell count, unspecified SNOMED Code(s) : 266201718 - Discharge Medications Home Medications: Ranitidine HCl [Zantac] 150 mg PO BID 03/13/17 [History] Allopurinol [Zyloprim 300 MG] 300 mg PO DAILY 09/09/17 [History] Atorvastatin [Lipitor] 40 mg PO HS 09/09/17 [History] Budesonide/Formoterol 160/4.5 [Symbicort 160/4.5] 2 puff IH BIDR 09/09/17 [ History] Carvedilol [Coreg] 25 mg PO BID 09/09/17 [History] Ferrous Sulfate 324 mg PO BID 09/09/17 [History] Furosemide [Lasix] 40 mg PO DAILY 09/09/17 [History] HydrOXYzine 10 mg PO TID PRN 09/09/17 [History] Melatonin [Melatin] 6 mg PO HS 09/09/17 [History] Prochlorperazine Maleate [Compazine] 10 mg PO Q6H PRN 09/09/17 [History] Acetaminophen [Tylenol] 650 mg PO Q6HR PRN tablet 09/18/17 [Rx] Diphenoxylate/Atropine [Lomotil 2.5 mg/0.025 mg] 1 tab PO QID PRN #10 tablet [Rx] Gabapentin [Neurontin] 300 mg PO DAILY #5 capsule 09/18/17 [Rx] Tramadol HCl [Ultram] 50 mg PO Q6H PRN #10 tablet 09/18/17 [Rx] Allergies/Adverse Reactions: 3 Allergy/AdvReac Type Severity Reaction Status Date / Time Penicillins Allergy Unknown Hives Verified 03/13/17 13:00 Sulfa (Sulfonamide Allergy Unknown Hives Verified 03/13/17 13:00 Antibiotics) aspirin AdvReac Unknown Nausea Verified 03/13/17 13:00 Date of admission: 09/21/17 12:14 Primary care physician: Stephen Liao MD Consults: Pulmonary medicine Palliative care Discharging clinician: Joey Torres - Patient Status Disposition: Home Health Service Condition: Fair - Discharge Instructions Follow Up With: Ketty Mittal CNP [Advanced Practice Nurse] - 10/04/17 2:45 pm Forms: ED Satisfaction Letter Hospital course: Ms. Sheridan is a 62 year old female with history of CLL, COPD was sent from [facility] for evaluation of shortness of breath. She was evaluated by pulmonary medicine who determined she has multiple risk factors for acute respiratory failure including chronic advanced COPD CHF chronic risk of aspiration and underlying CLL with lung involvement. There was no clear evidence of acute infectious process on CT scan. Her severe airways disease coupled with heart failure were treated and she clinically deteriorated requiring BiPAP and then intubation. After returning to a [facility] from the ICU she was also evaluated by medical oncology who determined no need for acute treatment of her CLL. Her status was changed to DNR and a pallitive care consult was ordered. Because of her end-stage COPD, CLL and severe debilitation she decided to return home with pallitive care services. She was discharged in stable condition. Arrangements were made after to face to face evaluyation that she would need continuus home oxygen therapy as well as a wheelchair, bedside commode and ongoing PT, OP and nursing care. - Time Spent with Patient Total time spent providing and/or coordinating discharge services: Greater than 30 minutes - Constitutional Vitals: Temp Pulse Resp BP Pulse Ox 97.7 F 108 18 141/56 92 09/30/17 12:02 09/30/17 12:02 09/30/17 12:02 09/30/17 12:02 09/30/17 12:02 General appearance: Present: A&O X 0 (Hypersomnolent, not arousable to verbal or noxious stimuli.), cooperative, mild distress, A&O X 3, no acute distress - Head Head exam: Present: atraumatic, normocephalic - Eye Eye exam: Present: PERRL, conjuntiva pink, sclera anicteric Pupils: Present: PERRL - Neck Neck exam general surgery: Present: supple, trachea midline. Absent: lymphadenopathy - Respiratory Respiratory exam: Present: CTAB. Absent: accessory muscle use, rales, rhonchi, wheezes - Cardiovascular Cardiovascular exam: Present: RRR, +S1, +S2. Absent: diastolic murmur, gallop, rubs, systolic murmur - GI/Abdominal GI/Abdominal exam: Present: normal bowel sounds, soft, no peritoneal signs. Absent: distended, tenderness - Extremities Exam Extremities exam: Present: warm, radial pulses palpable and symmetrical. Absent : calf tenderness, cyanotic, pedal edema - Neurological Exam Neurological exam: Present: CN II-XII intact, oriented X3, no focal deficits. Absent: pronater drift, facial droop, speech deficit - Skin Skin exam: Present: dry, intact
[2017-09-30] MEDS ORDERED: FLUARIX QUAD 2017-18 36MOS UP/PF 0.5 ML SYRINGE IM ONE (15:00)
--- NOTE | 2017-10-01 10:17 | Physician Discharge Referral ---
Home Health/Hosp Referral Info Attending Provider: Joey Torres MD - Diagnosis (1) COPD (chronic obstructive pulmonary disease) Status: Chronic (2) CLL (chronic lymphocytic leukemia) Status: Chronic (3) Weakness generalized Status: Chronic (4) Elevated WBC count Status: Acute - Respiratory Orders Smoking Cessation: Smoking cessation has been advised. For more information, call the [place] Tobacco Quit Line at 9-903-CRNU-NOW. - Diet/Nutrition Diet/Nutrition Orders: Regular - Activity Activity Orders: Chair, Walker - Services Needed Following services are medically necessary services: Nursing, Physical Therapy, Occupational Therapy Home Care Orders: Patient needs employment adjudicator of patient to determine condition Patient needs PT/OT treatment to improve strength, balance, coordination Other Treatments: Continuous oxygen to maintain spo2 > 90 % - Transfer Medications Home Medications: Ranitidine HCl [Zantac] 150 mg PO BID 03/13/17 [History] Allopurinol [Zyloprim 300 MG] 300 mg PO DAILY 09/09/17 [History] Atorvastatin [Lipitor] 40 mg PO HS 09/09/17 [History] Budesonide/Formoterol 160/4.5 [Symbicort 160/4.5] 2 puff IH BIDR 09/09/17 [ History] Carvedilol [Coreg] 25 mg PO BID 09/09/17 [History] Ferrous Sulfate 324 mg PO BID 09/09/17 [History] Furosemide [Lasix] 40 mg PO DAILY 09/09/17 [History] HydrOXYzine 10 mg PO TID PRN 09/09/17 [History] Melatonin [Melatin] 6 mg PO HS 09/09/17 [History] Prochlorperazine Maleate [Compazine] 10 mg PO Q6H PRN 09/09/17 [History] Acetaminophen [Tylenol] 650 mg PO Q6HR PRN tablet 09/18/17 [Rx] Diphenoxylate/Atropine [Lomotil 2.5 mg/0.025 mg] 1 tab PO QID PRN #10 tablet [Rx] Gabapentin [Neurontin] 300 mg PO DAILY #5 capsule 09/18/17 [Rx] Tramadol HCl [Ultram] 50 mg PO Q6H PRN #10 tablet 09/18/17 [Rx] Allergies/Adverse Reactions: 3 Allergy/AdvReac Type Severity Reaction Status Date / Time Penicillins Allergy Unknown Hives Verified 03/13/17 13:00 Sulfa (Sulfonamide Allergy Unknown Hives Verified 03/13/17 13:00 Antibiotics) aspirin AdvReac Unknown Nausea Verified 03/13/17 13:00 Certification: Further, I certify that my clinical findings support that this patient is homebound (i.e. absences from home require considerable and taxing effort and are for medical reasons or church services or infrequently or short duration when for other reasons) because: Homebound Reason: Severity of cardiac or pulmonary status limits activity tolerance (The patient was evluated face to face and she requires home health/ hospice due to severe debilitation secondary to advanced COPD.) Attestation: My signature below is to certify that this patient is under my care and that I, or nurse practitioner, or a physician's certified pathology assistant working with me, has a face-to -face encounter with this patient.
== END 2017-09-30 18:00 | disposition home health service (06) | DRG 133 ==
LOC: 2ANU 22:54 → EMEROO 22:54 → SUATTDRO 09-19 00:25 → 2ANU 09-19 00:40 → ICNU 09-21 09:03 → SUATTDRO 09-21 12:14 → 3ANU 09-24 19:41
PROVIDERS: ADMIT Internal Medicine; ATTEND Hospitalist

== ENCOUNTER 2017-10-13 17:29 | Inpatient (IN) ==
--- NOTE | 2017-10-13 17:39 | Emergency Department Note ---
Disposition Clinical Impression: Hypotension, Altered mental state, Hx of chronic lymphocytic leukemia Disposition: Admitted As Inpatient Condition: Fair General Adult HPI - General Chief complaint: ED General Medical Stated complaint: Generalized weakness Time Seen by Provider: 10/13/17 17:33 Source: family Limitations: no limitations - History of Present Illness Pain Scale: 0 - Related Data Home Medications Medication Instructions Recorded Confirmed Ranitidine HCl [Zantac] 150 mg PO BID 03/13/17 10/13/17 Allopurinol [Zyloprim 300 MG] 300 mg PO DAILY 09/09/17 10/13/17 Atorvastatin [Lipitor] 40 mg PO HS 09/09/17 10/13/17 Carvedilol [Coreg] 25 mg PO BID 09/09/17 10/13/17 Furosemide [Lasix] 40 mg PO DAILY 09/09/17 10/13/17 HydrOXYzine 10 mg PO TID PRN 09/09/17 10/13/17 Melatonin [Melatin] 6 mg PO HS 09/09/17 10/13/17 Prochlorperazine Maleate 10 mg PO Q6H PRN 09/09/17 10/13/17 [Compazine] Albuterol Neb [Proventil Neb] 2.5 mg IH Q6H PRN 10/13/17 10/13/17 Albuterol Sulfate [Albuterol 2 puff IH Q4H PRN 10/13/17 10/13/17 Inhaler] Aspirin 81 mg PO DAILY 10/13/17 10/13/17 Beclomethasone Diprop 40mcg [QVAR 2 puff IH BID 10/13/17 10/13/17 40 mcg] Diphenoxylate/Atropine [Lomotil 1 tab PO TID PRN 10/13/17 10/13/17 2.5 mg/0.025 mg] Ferrous Sulfate 325 mg PO BIDWM 10/13/17 10/13/17 Ipratropium [ATROVENT Inhaler] 2 puff IH QID 10/13/17 10/13/17 Ipratropium/Albuterol Sulfate 1 puff IH QID 10/13/17 10/13/17 [Combivent Respimat Inhal [place]] Previous Rx's Medication Instructions Recorded Gabapentin [Neurontin] 300 mg PO DAILY #5 capsule 09/18/17 Allergies Allergy/AdvReac Type Severity Reaction Status Date / Time Penicillins Allergy Unknown Hives Verified 03/13/17 13:00 Sulfa (Sulfonamide Allergy Unknown Hives Verified 03/13/17 13:00 Antibiotics) aspirin AdvReac Unknown Nausea Verified 03/13/17 13:00 Past Medical History - Past Medical History Medical history: Reports: asthma, cancer, COPD Surgical history: Reports: other (cannot be obtained due to patient's mental status) Psychiatric history: Reports: no psych history - Social History Smoking Status: Current every day smoker Smokeless Tobacco Status: No Alcohol use: Reports: none Drug use: Reports: none Physical Exam - General Limitations: no limitations General appearance: lethargic Course Vital Signs Temperature 97.4 F L 10/13/17 17:33 Pulse Rate 68 10/13/17 17:33 Respiratory Rate 26 10/13/17 17:33 Blood Pressure 80/41 10/13/17 17:33 O2 Sat by Pulse Oximetry 92 10/13/17 17:33 Temperature 97.4 F L 10/13/17 17:33 Pulse Rate 62 10/13/17 19:54 Respiratory Rate 24 10/13/17 19:54 Blood Pressure 109/49 10/13/17 19:54 O2 Sat by Pulse Oximetry 93 10/13/17 19:54 Oxygen Delivery Oxygen Delivery Nasal Cannula Medical Decision Making - Lab Data Result diagrams: 10/13/17 18:34 10/13/17 18:34 Lab Results 10/13/17 10/13/17 10/13/17 Range/Units 18:13 18:34 18:34 WBC 11.3 H (4.3-11.1) K/mcL RBC 3.47 L (3.82-4.97) M/mcL Hgb 9.9 L (11.5-15.4) g/dL Hct 32.4 L (35.3-44.9) % MCV 93.4 (83.0-100.0) fL MCH 28.5 (28.0-33.3) pg MCHC 30.6 L (31.6-35.5) g/dL RDW 15.1 H (11.5-14.5) % Plt Count 115 L (140-400) K/mcL MPV 12.1 (9.4-12.4) fL Immature Gran % 0.2 (0-4) % Seg Neutrophils % 13.7 % Lymphocytes % 83.4 % Monocytes % 2.3 % Eosinophils % 0.1 % Basophils % 0.3 % Neutrophils # 1.6 (1.6-8.9) K/mcL Lymphocytes # 9.4 H (0.6-4.6) K/mcL Monocytes # 0.3 (0.0-1.3) K/mcL Eosinophils # 0.0 (0.0-0.6) K/mcL Basophils # 0.0 (0.0-0.2) K/mcL Reactive Lymphocytes Present A (Not Present) Smudge Cells Present A (Not Present) PT 12.5 H (9.4-12.1) Seconds INR 1.2 APTT 35.8 (26.0-36.0) Seconds Sample Site R Radial ABG pH 7.36 (7.32-7.45) pH Units ABG pCO2 74 H* (35-45) mmHg ABG pO2 62 L (85-104) mmHg ABG HCO3 42 H (21-27) mEq/L ABG Total CO2 45 H (20-26) mEq/L ABG O2 Saturation 89 L (95-98) % ABG Base Excess 14 H (-2 to 3) mEq/L Deng Test Positive O2 Delivery Device Cannula Inspired O2 32.0 (1-15=lpm [id number]=%) Sodium (136-145) mEq/L Potassium (3.5-5.1) mEq/L Chloride (98-107) mEq/L Carbon Dioxide (23-29) mEq/L BUN (8-23) mg/dL Creatinine (0.60-1.20) mg/dL Est GFR ( Amer) (> 60) Est GFR (Non-Af Amer) (> 60) BUN/Creatinine Ratio (6-26) Glucose (70-105) mg/dL Calculated Osmolality (280-300) Lactic Acid (0.5-2.2) mmol/L Calcium (8.6-10.3) mg/dL Direct Bilirubin (0.0-0.2) mg/dL AST (13-39) Units/L ALT (7-52) Units/L Alkaline Phosphatase (34-104) Units/L Ammonia (16-53) mcmol/L Troponin I (< 0.04) ng/mL Serum Total Protein (6.4-8.9) g/dL Albumin (3.5-5.7) g/dL Globulin (2.4-3.5) g/dL Albumin/Globulin Ratio (1.1-2.2) Urine Color (Yellow) Urine Clarity (Clear) Urine pH (5.0-8.0) pH Units Ur Specific [place] (1.010-1.025) Urine Protein (Neg-Trace) mg/dL Urine Glucose (UA) (Normal) mg/dL Urine Ketones (Negative) mg/dL Urine Blood (Negative) Urine Nitrite (Negative) Urine Bilirubin (Negative) Urine Urobilinogen (Normal) mg/dL Ur Leukocyte Esterase (Negative) Urine Microscopic WBC (0-3) per hpf Ur Squamous Epith Cells (None-Few) per lpf Urine Bacteria (None-Few) per hpf Urine Yeast (None Seen) per hpf Ur Culture Indicated? (NO) 10/13/17 10/13/17 10/13/17 Range/Units 18:34 18:34 18:34 WBC (4.3-11.1) K/mcL RBC (3.82-4.97) M/mcL Hgb (11.5-15.4) g/dL Hct (35.3-44.9) % MCV (83.0-100.0) fL MCH (28.0-33.3) pg MCHC (31.6-35.5) g/dL RDW (11.5-14.5) % Plt Count (140-400) K/mcL MPV (9.4-12.4) fL Immature Gran % (0-4) % Seg Neutrophils % % Lymphocytes % % Monocytes % % Eosinophils % % Basophils % % Neutrophils # (1.6-8.9) K/mcL Lymphocytes # (0.6-4.6) K/mcL Monocytes # (0.0-1.3) K/mcL Eosinophils # (0.0-0.6) K/mcL Basophils # (0.0-0.2) K/mcL Reactive Lymphocytes (Not Present) Smudge Cells (Not Present) PT (9.4-12.1) Seconds INR APTT (26.0-36.0) Seconds Sample Site ABG pH (7.32-7.45) pH Units ABG pCO2 (35-45) mmHg ABG pO2 (85-104) mmHg ABG HCO3 (21-27) mEq/L ABG Total CO2 (20-26) mEq/L ABG O2 Saturation (95-98) % ABG Base Excess (-2 to 3) mEq/L Deng Test O2 Delivery Device Inspired O2 (1-15=lpm [id number]=%) Sodium 142 (136-145) mEq/L Potassium 3.9 (3.5-5.1) mEq/L Chloride 95 L (98-107) mEq/L Carbon Dioxide 40 H* (23-29) mEq/L BUN 21 (8-23) mg/dL Creatinine 0.88 (0.60-1.20) mg/dL Est GFR ( Amer) > 60 (> 60) Est GFR (Non-Af Amer) > 60 (> 60) BUN/Creatinine Ratio 24 (6-26) Glucose 219 H (70-105) mg/dL Calculated Osmolality 304 H (280-300) Lactic Acid (0.5-2.2) mmol/L Calcium 9.2 (8.6-10.3) mg/dL Direct Bilirubin 0.2 (0.0-0.2) mg/dL AST 23 (13-39) Units/L ALT 11 (7-52) Units/L Alkaline Phosphatase 78 (34-104) Units/L Ammonia 40 (16-53) mcmol/L Troponin I 0.11 H* (< 0.04) ng/mL Serum Total Protein 6.0 L (6.4-8.9) g/dL Albumin 3.3 L (3.5-5.7) g/dL Globulin 2.7 (2.4-3.5) g/dL Albumin/Globulin Ratio 1.2 (1.1-2.2) Urine Color (Yellow) Urine Clarity (Clear) Urine pH (5.0-8.0) pH Units Ur Specific [place] (1.010-1.025) Urine Protein (Neg-Trace) mg/dL Urine Glucose (UA) (Normal) mg/dL Urine Ketones (Negative) mg/dL Urine Blood (Negative) Urine Nitrite (Negative) Urine Bilirubin (Negative) Urine Urobilinogen (Normal) mg/dL Ur Leukocyte Esterase (Negative) Urine Microscopic WBC (0-3) per hpf Ur Squamous Epith Cells (None-Few) per lpf Urine Bacteria (None-Few) per hpf Urine Yeast (None Seen) per hpf Ur Culture Indicated? (NO) 10/13/17 10/13/17 Range/Units 18:40 20:05 WBC (4.3-11.1) K/mcL RBC (3.82-4.97) M/mcL Hgb (11.5-15.4) g/dL Hct (35.3-44.9) % MCV (83.0-100.0) fL MCH (28.0-33.3) pg MCHC (31.6-35.5) g/dL RDW (11.5-14.5) % Plt Count (140-400) K/mcL MPV (9.4-12.4) fL Immature Gran % (0-4) % Seg Neutrophils % % Lymphocytes % % Monocytes % % Eosinophils % % Basophils % % Neutrophils # (1.6-8.9) K/mcL Lymphocytes # (0.6-4.6) K/mcL Monocytes # (0.0-1.3) K/mcL Eosinophils # (0.0-0.6) K/mcL Basophils # (0.0-0.2) K/mcL Reactive Lymphocytes (Not Present) Smudge Cells (Not Present) PT (9.4-12.1) Seconds INR APTT (26.0-36.0) Seconds Sample Site ABG pH (7.32-7.45) pH Units ABG pCO2 (35-45) mmHg ABG pO2 (85-104) mmHg ABG HCO3 (21-27) mEq/L ABG Total CO2 (20-26) mEq/L ABG O2 Saturation (95-98) % ABG Base Excess (-2 to 3) mEq/L Deng Test O2 Delivery Device Inspired O2 (1-15=lpm [id number]=%) Sodium (136-145) mEq/L Potassium (3.5-5.1) mEq/L Chloride (98-107) mEq/L Carbon Dioxide (23-29) mEq/L BUN (8-23) mg/dL Creatinine (0.60-1.20) mg/dL Est GFR ( Amer) (> 60) Est GFR (Non-Af Amer) (> 60) BUN/Creatinine Ratio (6-26) Glucose (70-105) mg/dL Calculated Osmolality (280-300) Lactic Acid 1.8 (0.5-2.2) mmol/L Calcium (8.6-10.3) mg/dL Direct Bilirubin (0.0-0.2) mg/dL AST (13-39) Units/L ALT (7-52) Units/L Alkaline Phosphatase (34-104) Units/L Ammonia (16-53) mcmol/L Troponin I (< 0.04) ng/mL Serum Total Protein (6.4-8.9) g/dL Albumin (3.5-5.7) g/dL Globulin (2.4-3.5) g/dL Albumin/Globulin Ratio (1.1-2.2) Urine Color Dark Yellow (Yellow) Urine Clarity Cloudy A (Clear) Urine pH 6.5 (5.0-8.0) pH Units Ur Specific [place] 1.019 (1.010-1.025) Urine Protein 100 H (Neg-Trace) mg/dL Urine Glucose (UA) 100 H (Normal) mg/dL Urine Ketones Negative (Negative) mg/dL Urine Blood Negative (Negative) Urine Nitrite Negative (Negative) Urine Bilirubin Negative (Negative) Urine Urobilinogen Normal (Normal) mg/dL Ur Leukocyte Esterase Small H (Negative) Urine Microscopic WBC 15-30 H (0-3) per hpf Ur Squamous Epith Cells Many H (None-Few) per lpf Urine Bacteria None Seen (None-Few) per hpf Urine Yeast Moderate H (None Seen) per hpf Ur Culture Indicated? NO. (NO) Critical Care Time Critical Care Time: Yes Total Critical Care Time: 30 Attestation: The high probability of a clinically significant, sudden or life threatening deterioration of the [] system(s) required my full and direct attention, intervention and personal management. The aggregate critical care time was [] minutes. This time is in addition to time spent performing reported procedures but includes the following: [] Data Review and interpretation [] Patient assessment and monitoring of vital signs [] Documentation [] Medication orders and management Attestation Statement - Attestation Attestation: I examined this patient and my medical decision-making was reviewed with the Resident Physician. I agree with the documented findings, disposition and treatment plan as described except to the extent set forth below. [id number] time provided Patient arrives from home by EMS with reports of altered mentation. EMS crew reports that the patient's symptoms improved after increasing her oxygen. She has a recent history of pneumonia. She appears pale and frail on exam 19:19: The etiology of the patient's hypotensive is incompletely certain. She does not have any foci of infection. She does not meet sepsis criteria otherwise. Her blood pressure is responding to hydration. Her most recent blood pressure was 87 systolic after 500 mL of fluid. We will continue to hydrate
[2017-10-13] MEDS ORDERED: 0.9 % Sodium Chloride 1,000 ML IVC ONE ×2 (17:50→19:42)
--- NOTE | 2017-10-13 17:57 | Emergency Department Note ---
Disposition Clinical Impression: Hx of chronic lymphocytic leukemia Hypotension Qualifiers: Hypotension type: unspecified hypotension type Qualified Code(s): I95.9 - Hypotension, unspecified Altered mental state Qualifiers: Altered mental status type: unspecified Qualified Code(s): R41.82 - Altered mental status, unspecified Disposition: Admitted As Inpatient Condition: Fair Time of Disposition: 20:16 General Adult HPI - General Chief complaint: ED General Medical Stated complaint: Generalized weakness Time Seen by Provider: 10/13/17 17:33 Source: family Limitations: no limitations Nursing Notes Reviewed: Yes Vital Signs Reviewed: Yes - History of Present Illness HPI Narrative: Patient is a 62-year-old female that presents to the emergency department for altered mental status. Patient's family member at bedside states that she was fine last night and this morning she did not arouse like normal and has not been acting appropriately. She states that she was recently discharged from the hospital approximately 10-15 days ago for pneumonia. Family states that she had previously be intubated. Family states she uses 4 L of oxygen at home. Patient does not provide any history due to the altered mental status. Pain Scale: 0 - Related Data Home Medications Medication Instructions Recorded Confirmed Ranitidine HCl [Zantac] 150 mg PO BID 03/13/17 09/19/17 Allopurinol [Zyloprim 300 MG] 300 mg PO DAILY 09/09/17 09/19/17 Atorvastatin [Lipitor] 40 mg PO HS 09/09/17 09/19/17 Carvedilol [Coreg] 25 mg PO BID 09/09/17 09/19/17 Furosemide [Lasix] 40 mg PO DAILY 09/09/17 09/19/17 HydrOXYzine 10 mg PO TID PRN 09/09/17 09/19/17 Melatonin [Melatin] 6 mg PO HS 09/09/17 09/19/17 Prochlorperazine Maleate 10 mg PO Q6H PRN 09/09/17 09/19/17 [Compazine] Albuterol Neb [Proventil Neb] 2.5 mg IH Q6H PRN 10/13/17 10/13/17 Albuterol Sulfate [Albuterol 2 puff IH Q4H PRN 10/13/17 10/13/17 Inhaler] Aspirin 81 mg PO DAILY 01/24/18 01/24/18 Beclomethasone Diprop 40mcg [QVAR 2 puff IH BID 10/13/17 10/13/17 40 mcg] Diphenoxylate/Atropine [Lomotil 1 tab PO TID PRN 10/13/17 10/13/17 2.5 mg/0.025 mg] Ferrous Sulfate 325 mg PO BIDWM 10/13/17 10/13/17 Ipratropium [ATROVENT Inhaler] 2 puff IH QID 10/13/17 10/13/17 Ipratropium/Albuterol Sulfate 1 puff IH QID 10/13/17 10/13/17 [Combivent Respimat Inhal [place]] Previous Rx's Medication Instructions Recorded Gabapentin [Neurontin] 300 mg PO DAILY #5 capsule 09/18/17 Allergies Allergy/AdvReac Type Severity Reaction Status Date / Time Penicillins Allergy Unknown Hives Verified 03/13/17 13:00 Sulfa (Sulfonamide Allergy Unknown Hives Verified 03/13/17 13:00 Antibiotics) aspirin AdvReac Unknown Nausea Verified 03/13/17 13:00 Limitations: ROS unobtainable due to patients medical condition Past Medical History - Past Medical History Medical history: Reports: asthma, cancer, COPD Surgical history: Reports: other (cannot be obtained due to patient's mental status) Psychiatric history: Reports: no psych history - Social History Smoking Status: Current every day smoker Smokeless Tobacco Status: No Alcohol use: Reports: none Drug use: Reports: none Physical Exam - General Limitations: altered mental status General appearance: lethargic - Head Head exam: atraumatic, normocephalic - Eye Eye exam: Present: normal appearance, EOMI - Neck Neck exam: Present: normal inspection, full ROM, trachea midline - Respiratory Respiratory exam: Present: other (Decreased breath sounds bilaterally) - Cardiovascular Cardiovascular exam: Present: regular rate, normal rhythm, normal heart sounds, +S1, +S2 - Abdominal Exam Abdominal exam: Present: soft, Non-Tender, normal bowel sounds - Neurological Exam Neurological exam: Present: other (Patient is lethargic and does not respond to questioning on exam.) - Psychiatric Psychiatric exam: Present: other (Able to assess due to patient's mental status. ) - Skin Skin exam: Present: warm, dry, intact Course Vital Signs Temperature 97.4 F L 10/13/17 17:33 Pulse Rate 68 10/13/17 17:33 Respiratory Rate 26 10/13/17 17:33 Blood Pressure 80/41 10/13/17 17:33 O2 Sat by Pulse Oximetry 92 10/13/17 17:33 Temperature 97.4 F L 10/13/17 17:33 Pulse Rate 62 10/13/17 19:54 Respiratory Rate 24 10/13/17 19:54 Blood Pressure 109/49 10/13/17 19:54 O2 Sat by Pulse Oximetry 93 10/13/17 19:54 Oxygen Delivery Oxygen Delivery Nasal Cannula Medical Decision Making - MDM Narrative Medical decision making narrative: The patient presented with altered mental status were a CBC and BMP, troponin, lactic acid, ammonia, EKG, chest x-ray, CT of the head and a urinalysis. X-ray appeared to be unchanged from previous chest x-ray per radiology read. Patient had elevated troponin of 0.11. We were unable to give the patient aspirin due to her being allergic. Patient elevated PCO2 of 74 which appears to be chronic for her. Patient did have a mildly elevated white count. Her urine did not show a urinary tract infection. Patient's lactic acid level was 1.8. After review of of the med rec it appears that the patient takes fludrocortisone at homes we have given the patient a dose of hydrocortisone here in the emergency department. We will also do a trial of Narcan. Patient's CT scans showed no acute intracranial abnormality. However it did show a maxillary sinusitis and mastoiditis. After receiving 2 L of fluid, hydrocortisone and Narcan the patient's blood pressure is now 111 systolic. The patient will need to be admitted to the hospital for further evaluation and management. I called and spoke possible name except for the patient to the service. The patient be admitted to the hospital this time for further evaluation and management. - Medical Records Medical records reviewed: Yes I reviewed the patient's medical records. - Lab Data Lab results reviewed: Yes I reviewed the patient's lab results. Result diagrams: 10/13/17 18:34 10/13/17 18:34 Lab Results 10/13/17 10/13/17 10/13/17 Range/Units 18:13 18:34 18:34 WBC 11.3 H (4.3-11.1) K/mcL RBC 3.47 L (3.82-4.97) M/mcL Hgb 9.9 L (11.5-15.4) g/dL Hct 32.4 L (35.3-44.9) % MCV 93.4 (83.0-100.0) fL MCH 28.5 (28.0-33.3) pg MCHC 30.6 L (31.6-35.5) g/dL RDW 15.1 H (11.5-14.5) % Plt Count 115 L (140-400) K/mcL MPV 12.1 (9.4-12.4) fL Immature Gran % 0.2 (0-4) % Seg Neutrophils % 13.7 % Lymphocytes % 83.4 % Monocytes % 2.3 % Eosinophils % 0.1 % Basophils % 0.3 % Neutrophils # 1.6 (1.6-8.9) K/mcL Lymphocytes # 9.4 H (0.6-4.6) K/mcL Monocytes # 0.3 (0.0-1.3) K/mcL Eosinophils # 0.0 (0.0-0.6) K/mcL Basophils # 0.0 (0.0-0.2) K/mcL Reactive Lymphocytes Present A (Not Present) Smudge Cells Present A (Not Present) PT 12.5 H (9.4-12.1) Seconds INR 1.2 APTT 35.8 (26.0-36.0) Seconds Sample Site R Radial ABG pH 7.36 (7.32-7.45) pH Units ABG pCO2 74 H* (35-45) mmHg ABG pO2 62 L (85-104) mmHg ABG HCO3 42 H (21-27) mEq/L ABG Total CO2 45 H (20-26) mEq/L ABG O2 Saturation 89 L (95-98) % ABG Base Excess 14 H (-2 to 3) mEq/L Deng Test Positive O2 Delivery Device Cannula Inspired O2 32.0 (1-15=lpm [id number]=%) Sodium (136-145) mEq/L Potassium (3.5-5.1) mEq/L Chloride (98-107) mEq/L Carbon Dioxide (23-29) mEq/L BUN (8-23) mg/dL Creatinine (0.60-1.20) mg/dL Est GFR ( Amer) (> 60) Est GFR (Non-Af Amer) (> 60) BUN/Creatinine Ratio (6-26) Glucose (70-105) mg/dL Calculated Osmolality (280-300) Lactic Acid (0.5-2.2) mmol/L Calcium (8.6-10.3) mg/dL Direct Bilirubin (0.0-0.2) mg/dL AST (13-39) Units/L ALT (7-52) Units/L Alkaline Phosphatase (34-104) Units/L Ammonia (16-53) mcmol/L Troponin I (< 0.04) ng/mL Serum Total Protein (6.4-8.9) g/dL Albumin (3.5-5.7) g/dL Globulin (2.4-3.5) g/dL Albumin/Globulin Ratio (1.1-2.2) Urine Color (Yellow) Urine Clarity (Clear) Urine pH (5.0-8.0) pH Units Ur Specific [place] (1.010-1.025) Urine Protein (Neg-Trace) mg/dL Urine Glucose (UA) (Normal) mg/dL Urine Ketones (Negative) mg/dL Urine Blood (Negative) Urine Nitrite (Negative) Urine Bilirubin (Negative) Urine Urobilinogen (Normal) mg/dL Ur Leukocyte Esterase (Negative) Urine Microscopic WBC (0-3) per hpf Ur Squamous Epith Cells (None-Few) per lpf Urine Bacteria (None-Few) per hpf Urine Yeast (None Seen) per hpf Ur Culture Indicated? (NO) 10/13/17 10/13/17 10/13/17 Range/Units 18:34 18:34 18:34 WBC (4.3-11.1) K/mcL RBC (3.82-4.97) M/mcL Hgb (11.5-15.4) g/dL Hct (35.3-44.9) % MCV (83.0-100.0) fL MCH (28.0-33.3) pg MCHC (31.6-35.5) g/dL RDW (11.5-14.5) % Plt Count (140-400) K/mcL MPV (9.4-12.4) fL Immature Gran % (0-4) % Seg Neutrophils % % Lymphocytes % % Monocytes % % Eosinophils % % Basophils % % Neutrophils # (1.6-8.9) K/mcL Lymphocytes # (0.6-4.6) K/mcL Monocytes # (0.0-1.3) K/mcL Eosinophils # (0.0-0.6) K/mcL Basophils # (0.0-0.2) K/mcL Reactive Lymphocytes (Not Present) Smudge Cells (Not Present) PT (9.4-12.1) Seconds INR APTT (26.0-36.0) Seconds Sample Site ABG pH (7.32-7.45) pH Units ABG pCO2 (35-45) mmHg ABG pO2 (85-104) mmHg ABG HCO3 (21-27) mEq/L ABG Total CO2 (20-26) mEq/L ABG O2 Saturation (95-98) % ABG Base Excess (-2 to 3) mEq/L Deng Test O2 Delivery Device Inspired O2 (1-15=lpm ux85-233=%) Sodium 142 (136-145) mEq/L Potassium 3.9 (3.5-5.1) mEq/L Chloride 95 L (98-107) mEq/L Carbon Dioxide 40 H* (23-29) mEq/L BUN 21 (8-23) mg/dL Creatinine 0.88 (0.60-1.20) mg/dL Est GFR ( Amer) > 60 (> 60) Est GFR (Non-Af Amer) > 60 (> 60) BUN/Creatinine Ratio 24 (6-26) Glucose 219 H (70-105) mg/dL Calculated Osmolality 304 H (280-300) Lactic Acid (0.5-2.2) mmol/L Calcium 9.2 (8.6-10.3) mg/dL Direct Bilirubin 0.2 (0.0-0.2) mg/dL AST 23 (13-39) Units/L ALT 11 (7-52) Units/L Alkaline Phosphatase 78 (34-104) Units/L Ammonia 40 (16-53) mcmol/L Troponin I 0.11 H* (< 0.04) ng/mL Serum Total Protein 6.0 L (6.4-8.9) g/dL Albumin 3.3 L (3.5-5.7) g/dL Globulin 2.7 (2.4-3.5) g/dL Albumin/Globulin Ratio 1.2 (1.1-2.2) Urine Color (Yellow) Urine Clarity (Clear) Urine pH (5.0-8.0) pH Units Ur Specific [place] (1.010-1.025) Urine Protein (Neg-Trace) mg/dL Urine Glucose (UA) (Normal) mg/dL Urine Ketones (Negative) mg/dL Urine Blood (Negative) Urine Nitrite (Negative) Urine Bilirubin (Negative) Urine Urobilinogen (Normal) mg/dL Ur Leukocyte Esterase (Negative) Urine Microscopic WBC (0-3) per hpf Ur Squamous Epith Cells (None-Few) per lpf Urine Bacteria (None-Few) per hpf Urine Yeast (None Seen) per hpf Ur Culture Indicated? (NO) 10/13/17 10/13/17 Range/Units 18:40 20:05 WBC (4.3-11.1) K/mcL RBC (3.82-4.97) M/mcL Hgb (11.5-15.4) g/dL Hct (35.3-44.9) % MCV (83.0-100.0) fL MCH (28.0-33.3) pg MCHC (31.6-35.5) g/dL RDW (11.5-14.5) % Plt Count (140-400) K/mcL MPV (9.4-12.4) fL Immature Gran % (0-4) % Seg Neutrophils % % Lymphocytes % % Monocytes % % Eosinophils % % Basophils % % Neutrophils # (1.6-8.9) K/mcL Lymphocytes # (0.6-4.6) K/mcL Monocytes # (0.0-1.3) K/mcL Eosinophils # (0.0-0.6) K/mcL Basophils # (0.0-0.2) K/mcL Reactive Lymphocytes (Not Present) Smudge Cells (Not Present) PT (9.4-12.1) Seconds INR APTT (26.0-36.0) Seconds Sample Site ABG pH (7.32-7.45) pH Units ABG pCO2 (35-45) mmHg ABG pO2 (85-104) mmHg ABG HCO3 (21-27) mEq/L ABG Total CO2 (20-26) mEq/L ABG O2 Saturation (95-98) % ABG Base Excess (-2 to 3) mEq/L Deng Test O2 Delivery Device Inspired O2 (1-15=lpm [id number]=%) Sodium (136-145) mEq/L Potassium (3.5-5.1) mEq/L Chloride (98-107) mEq/L Carbon Dioxide (23-29) mEq/L BUN (8-23) mg/dL Creatinine (0.60-1.20) mg/dL Est GFR ( Amer) (> 60) Est GFR (Non-Af Amer) (> 60) BUN/Creatinine Ratio (6-26) Glucose (70-105) mg/dL Calculated Osmolality (280-300) Lactic Acid 1.8 (0.5-2.2) mmol/L Calcium (8.6-10.3) mg/dL Direct Bilirubin (0.0-0.2) mg/dL AST (13-39) Units/L ALT (7-52) Units/L Alkaline Phosphatase (34-104) Units/L Ammonia (16-53) mcmol/L Troponin I (< 0.04) ng/mL Serum Total Protein (6.4-8.9) g/dL Albumin (3.5-5.7) g/dL Globulin (2.4-3.5) g/dL Albumin/Globulin Ratio (1.1-2.2) Urine Color Dark Yellow (Yellow) Urine Clarity Cloudy A (Clear) Urine pH 6.5 (5.0-8.0) pH Units Ur Specific [place] 1.019 (1.010-1.025) Urine Protein 100 H (Neg-Trace) mg/dL Urine Glucose (UA) 100 H (Normal) mg/dL Urine Ketones Negative (Negative) mg/dL Urine Blood Negative (Negative) Urine Nitrite Negative (Negative) Urine Bilirubin Negative (Negative) Urine Urobilinogen Normal (Normal) mg/dL Ur Leukocyte Esterase Small H (Negative) Urine Microscopic WBC 15-30 H (0-3) per hpf Ur Squamous Epith Cells Many H (None-Few) per lpf Urine Bacteria None Seen (None-Few) per hpf Urine Yeast Moderate H (None Seen) per hpf Ur Culture Indicated? NO. (NO) - Radiology Data Radiology results reviewed: Yes I reviewed the patient's radiology results. Chest X-Ray 10/13/17 17:39 IMPRESSION: Increased interstitial markings are similar to the prior chest x-ray and could be due to chronic lung disease or possibly interstitial edema. D/ / Dain Liu MD / Dain Liu MD Interpreting Provider: Dain Liu MD Head CT 10/13/17 17:50 IMPRESSION: No acute intracranial abnormality. Maxillary sinusitis and mastoiditis, slightly progressed. D/ / Avis Feng MD / Avis Feng MD Interpreting Provider: Avis Feng MD - EKG Data EKG #1 EKG attestation: Yes I reviewed and interpreted this EKG. EKG results narrative: EKG showed a sinus rhythm at a rate of 64 bpm, NH interval of 159, duration of 127, QTC of 484 with a normal axis. This is compared to previous EKG on which also showed a sinus rhythm at a rate of 76 bpm there are no acute changes noted between these 2 EKGs.
[2017-10-13 18:16] LABS: ABG Base Excess 14 mEq/L (-2 to 3); ABG HCO3 42 mEq/L (21-27); ABG Oxygen Saturation 89 % (95-98); ABG PCO2 74 mmHg (35-45); ABG PH 7.36 pH Units (7.32-7.45); ABG PO2 62 mmHg (85-104); ABG TCO2 45 mEq/L (20-26)
[2017-10-13 18:43] LABS: Basophils % 0.3 %; Eosinophils % 0.1 %; Hematocrit 32.4 % (35.3-44.9); Hemoglobin 9.9 g/dL (11.5-15.4); Immature Granulocytes % 0.2 % (0-4); Lymphocytes # 9.4 K/mcL (0.6-4.6); Lymphocytes % 83.4 %; Mean Corpuscular HGB Conc 30.6 g/dL (31.6-35.5); Mean Corpuscular Hemoglobin 28.5 pg (28.0-33.3); Mean Corpuscular Volume 93.4 fL (83.0-100.0); Mean Platelet Volume 12.1 fL (9.4-12.4); Monocytes # 0.3 K/mcL (0.0-1.3); Monocytes % 2.3 %; Neutrophils # 1.6 K/mcL (1.6-8.9); Platelet Count 115 K/mcL (140-400); Red Blood Count 3.47 M/mcL (3.82-4.97); Red Cell Distribution Width 15.1 % (11.5-14.5); Segmented Neutrophils % 13.7 %
[2017-10-13 18:46] LABS: Bilirubin,Urine Negative (Negative); Blood,Urine Negative (Negative); Clarity,Urine Cloudy (Clear); Color,Urine Dark Yellow (Yellow); Glucose,Urine (UA) 100 mg/dL (Normal); Ketones,Urine Negative (Negative); Leukocyte Esterase,Urine Small (Negative); Nitrite,Urine Negative (Negative); PH,Urine 6.5 pH Units (5.0-8.0); Protein,Urine 100 mg/dL (Neg-Trace); Specific Gravity,Urine 1.019 (1.010-1.025); Urobilinogen,Urine Normal (Normal)
[2017-10-13 18:47] LABS: Bacteria,Urine None Seen per hpf (None-Few); Squamous Epithelial Cell,Urine Many per lpf (None-Few); WBC,Urine 15-30 per hpf (0-3)
[2017-10-13 18:51] LABS: INR 1.2; Prothrombin Time 12.5 Seconds (9.4-12.1)
[2017-10-13 18:54] LABS: Activated Partial Thrombo Time 35.8 Seconds (26.0-36.0)
[2017-10-13 19:07] LABS: Yeast,Urine Moderate per hpf (None Seen)
[2017-10-13 19:10] LABS: Alanine Aminotransferase 11 Units/L (7-52); Albumin 3.3 g/dL (3.5-5.7); Albumin/Globulin Ratio 1.2 (1.1-2.2); Alkaline Phosphatase 78 Units/L (34-104); Aspartate Amino Transferase 23 Units/L (13-39); BUN/Creatinine Ratio 24 (6-26); Bilirubin,Direct 0.2 mg/dL (0.0-0.2); Blood Urea Nitrogen 21 mg/dL (8-23); Calcium 9.2 mg/dL (8.6-10.3); Chloride 95 mEq/L (98-107); Globulin 2.7 g/dL (2.4-3.5); Glucose 219 mg/dL (70-105); Osmolality,Calculated 304 (280-300); Potassium 3.9 mEq/L (3.5-5.1); Sodium 142 mEq/L (136-145); eGFR For African Americans > 60 (> 60); eGFR For Non-African Americans > 60 (> 60)
[2017-10-13 19:15] LABS: Reactive Lymphocytes Present (Not Present); Smudge Cells Present (Not Present)
[2017-10-13] MEDS ORDERED: Hydrocortisone Sodium Succ 100 MG/2 ML VIAL IVP ONE (19:46)
[2017-10-13] MEDS ORDERED: Naloxone 0.4 MG/ML INJ IVP ONE (19:46)
[2017-10-13 20:01] LABS: Carbon Dioxide 40 mEq/L (23-29)
[2017-10-13] MEDS ORDERED: Acetaminophen 325 MG TABLET PO PRN (21:25)
[2017-10-13] MEDS ORDERED: Naloxone 0.4 MG/ML INJ IVP PRN (21:25)
[2017-10-13] MEDS ORDERED: Ibuprofen 400 MG TABLET PO PRN (21:25)
[2017-10-13] MEDS ORDERED: Ondansetron 4 MG/2 ML VIAL IVP PRN (21:43)
--- NOTE | 2017-10-13 22:10 | Internal Med History&Physical ---
<Lionel Michele - Last Filed: 10/13/17 22:55> Date of Encounter: 10/13/17 Time of Encounter: 22:09 Assessment and Plan (1) Altered mental state Current visit: Yes Status: Acute Altered mental status likely secondary to acute on chronic respiratory failure with hypoxia and hypercapnia Patient is difficult to arouse but does respond to physical stimuli ABG did demonstrate respiratory acidosis with a compensated metabolic alkalosis Hypercapnia may play a role in the patient's overall mental status I will start the patient on BiPAP, get a new VBG in the morning, Cardiac and O2 monitoring. Qualifiers: Altered mental status type: somnolence Qualified Code(s): R40.0 - Somnolence (2) Acute on chronic respiratory failure with hypoxia and hypercapnia Current visit: Yes Status: Acute Acute on chronic respiratory failure with hypoxia and hypercapnia ABG demonstrates pH 7.36, PCO2 74, PO2 62, HCO3 42 There is a primary respiratory acidosis with metabolic alkalosis compensation Additionally, CXR shows interstitial markings which could indicate atypical pneumonia vs. interstitial edema Prior TTE 03/06 shows EF 55% with mild LV diastolic dysfunction We will treat this as a possible COPD exacerbation at this time IV Solumedrol 60mg Q8h, Azithromycin + Ceftriaxone, Duonebs q4 We will screen for Flu, mycoplasma, legionella, and s. pneumo We will start BiPAP (3) Hypotension Current visit: Yes Status: Acute Hypotension possibly secondary to dehydration vs. respiratory status Patient got 2L NS in the ED which was helpful Start maintenance fluids because patient is NPO at this time Repeat limited TTE in the AM for evaluation of LVEF Qualifiers: Hypotension type: unspecified hypotension type Qualified Code(s): I95.9 - Hypotension, unspecified (4) COPD exacerbation Current visit: Yes Status: Acute COPD with Acute exacerbation Respiratory status is poor, and the patient is a chronic CO2 retainer and has elevated bicarb to compensate We will give the patient antibiotics and steroids, repeat VBG in the AM (5) UTI (urinary tract infection) Current visit: Yes Status: Suspected Possible UTI in dirty urine collection UTI cannot be ruled out with current urine sample The patient will be treated with Rocephin + Azithromycin for pulmonary infection , which will cover possible UTI We will also insert sanchez catheter due to AMS Qualifiers: Urinary tract infection type: acute cystitis Hematuria presence: without hematuria Qualified Code(s): N30.00 - Acute cystitis without hematuria (6) Elevated troponin I level Current visit: Yes Status: Acute Elevated troponin I, 0.11, likely demand ischemia The patient has chronically elevated troponin, however this is above baseline Likely secondary to demand ischemia, no obvious EKG abnormalities We will get a repeat TTE for LVEF in the morning to r/o new cardiomyopathy (7) Anemia Current visit: No Status: Chronic Chronic ESDRAS in CLL patient Continue home dose of iron Qualifiers: Anemia type: iron deficiency Iron deficiency anemia type: unspecified iron deficiency Qualified Code(s): D50.9 - Iron deficiency anemia, unspecified (8) Diabetes mellitus type 2 in nonobese Current visit: Yes Status: Chronic DM2 with hyperglycemia Start SSI on ACHS protocol (9) DVT prophylaxis Current visit: No Status: Acute SQ Heparin (10) Code status needs review Current visit: Yes Status: Acute I spoke with the patient's daughter regarding code status, however she is not POA. She says that she knows that her mother does not want compressions, but she 's not sure whether or not she would want intubation. She believed that she would, however. The patient is not oriented to make this decision at this time. I made the status DNR-CCA for now, but there will need to be further discussion with family and patient once mental status improves. Internal Medicine - H&P: HPI Chief complaint: AMS Admitted From: Emergency Dept Plans for Post Hospital Care: Home History of present illness: Ms. Sheridan is a 62 year old female with a history of asthma, COPD, CLL, recent admission for pneumonia which required intubation who presented to the ED with her daughter and son earlier today for altered mental status as of this morning. She apparently was doing well last night, as of this morning her family was unable to wake her and she would not get up for food and/or breathing treatments. She was discharged from the hospital on September 30, and has been well since then. According to her daughter, the patient has not complained about anything and specific up until this point. She denies any fevers, chills, sweats. She denies any chest pain, shortness of breath as determined by the patient. Apparently, the patient has had some problems with controlling her blood glucose over the past day but that is the only remote complaint that they have. The patient does use 4 L home oxygen. Past Med Surg Social Fam HX - Past Medical History Medical history: arthritis, asthma, cancer, COPD, diabetes, hyperlipidemia, hypertension Psychiatric history: anxiety - Past Surgical History Surgical History: other - Social History Smoking Status: Former smoker Smokeless Tobacco Status: No Alcohol use: none Drug use: none - Family History Daughter Name: kaela Bermudez Age: 28 Living Status: Still Living Hx Family Cardiac Disorders: Yes (murmur) Hx Family Cancer: Yes (breast) Hx Family Endocrine Disorder: Yes (dm type1) Hx Family HEENT Disorders: Yes (glasses) Internal Medicine - H&P: Meds Ranitidine HCl [Zantac] 150 mg PO BID 03/13/17 [History] Allopurinol [Zyloprim 300 MG] 300 mg PO DAILY 09/09/17 [History] Atorvastatin [Lipitor] 40 mg PO HS 09/09/17 [History] Carvedilol [Coreg] 25 mg PO BID 09/09/17 [History] Furosemide [Lasix] 40 mg PO DAILY 09/09/17 [History] HydrOXYzine 10 mg PO TID PRN 09/09/17 [History] Melatonin [Melatin] 6 mg PO HS 09/09/17 [History] Prochlorperazine Maleate [Compazine] 10 mg PO Q6H PRN 09/09/17 [History] Gabapentin [Neurontin] 300 mg PO DAILY #5 capsule 09/18/17 [Rx] Albuterol Neb [Proventil Neb] 2.5 mg IH Q6H PRN 10/13/17 [History] Albuterol Sulfate [Albuterol Inhaler] 2 puff IH Q4H PRN 10/13/17 [History] Aspirin 81 mg PO DAILY 10/13/17 [History] Beclomethasone Diprop 40mcg [QVAR 40 mcg] 2 puff IH BID 10/13/17 [History] Diphenoxylate/Atropine [Lomotil 2.5 mg/0.025 mg] 1 tab PO TID PRN 10/13/17 [ History] Ferrous Sulfate 325 mg PO BIDWM 10/13/17 [History] Ipratropium [ATROVENT Inhaler] 2 puff IH QID 10/13/17 [History] Ipratropium/Albuterol Sulfate [Combivent Respimat Inhal [place]] 1 puff IH QID [History] 3 Allergy/AdvReac Type Severity Reaction Status Date / Time Penicillins Allergy Unknown Hives Verified 03/13/17 13:00 Sulfa (Sulfonamide Allergy Unknown Hives Verified 03/13/17 13:00 Antibiotics) aspirin AdvReac Unknown Nausea Verified 03/13/17 13:00 ROS unobtainable: due to mental status All Systems PM: A 10-system review of systems was performed and is negative for pertinent findings except as documented above in the HPI. - Constitutional Vitals: Temp Pulse Resp BP Pulse Ox 97.8 F 62 24 121/52 93 10/13/17 21:08 10/13/17 19:54 10/13/17 21:08 10/13/17 21:08 10/13/17 19:54 General appearance: Present: A&O X 1 Exam: Gen.: Vitals noted. No acute distress. Somnolent but alert to physical stimuli and oriented to person only HEENT: oropharynx clear, Normocephalic, atraumatic Neck: Supple. No adenopathy. Cardiac: RRR, no murmur, +S1/S2 Pulmonary: CTA bilaterally to the extent that was able to examine, however the patient is uncooperative with physical exam because of mental state Abdomen: soft, nontender, BS noted, no guarding Back: Nontender throughout. Extremities: no BLE edema, no cyanosis or clubbing Neuro: Patient's neurological status is challenging to assess due to somnolence and inability or unwillingness to cooperate. Speech is garbled however this is baseline according to daughter who is present in the room. Internal Med - H&P Results - Labs CBC & Chem 7: 10/13/17 18:34 10/13/17 18:34 <Osmany Jim - Last Filed: 10/13/17 22:56> Date of Encounter: 10/13/17 Internal Medicine - H&P: HPI History of present illness: Ms. Sheridan is a 62 year old female All Systems PM: A 10-system review of systems was performed and is negative for pertinent findings except as documented above in the HPI. - Constitutional Vitals: Temp Pulse Resp BP Pulse Ox 98.8 F 72 17 128/58 96 10/13/17 22:09 10/13/17 22:09 10/13/17 22:09 10/13/17 22:09 10/13/17 22:09 Internal Med - H&P Results - Labs CBC & Chem 7: 10/13/17 18:34 10/13/17 18:34 - Attending Attestation I examined this patient and my medical decision-making was reviewed with the Resident Physician. I agree with the documented findings, disposition and treatment plan as described except to the extent set forth below. 62 yo with COPD chronic 4 L NC at home who presents to the ED with respiratory failure and hypotension. She lives at home with dtr and developed acute mental status change since this morning- lunch time. She is chronically ill and has been in and out of facilities frequently. In the ED, she was found to be hypoxic with depressed mentation. She was also hypotension but responded to fluids and IV hydrocortisone. Her dtr denies any steroids to me Dtr discussed DNCCA EKG reviewed with rate 64, LBBB CT/CT head/brain wo con IMPRESSION: No acute intracranial abnormality. Maxillary sinusitis and mastoiditis, slightly progressed. XR/XR chest 1V portable IMPRESSION: Increased interstitial markings are similar to the prior chest x-ray and could be due to chronic lung disease or possibly interstitial edema. ROS 14 point review of systems reviewed as best as possible given presentation. Pertinent positive or negative as per HPI or otherwise reviewed as negative General - AAO x 3 Psych - Appropriate affect/speech. No agitation Eyes - ASHISH. Eye lids intact. No scleral icterus Neuro - No gross peripheral or central neuro deficits noted Heart - Sinus. RRR. S1 and S2 present. No added HS/murmurs appreciated. No elevated JVD appreciated. Lung - Decreased air entry b/l, No crackles/wheezes appreciated GI - Soft, non-tender. No hepatosplenomegaly/ascites. BS+ - No CVA/suprapubic tenderness or palpable bladder distension Skin - Intact. No rash/petechiae/ecchymosis. Warm extremities MSK - Joints with normal ROM. No joint swellings A/P Acute COPD exacerbation Acute on chronic hypoxia, resp failure, chronic 4 L NC at home - BIPAP - has chronic hypercarbia with metabolic compensation - nebs, IV solumedrol, IV antibiotics - send serologies, RVP - check TTE given CXR with interstitial findings Hypotension - TTE - cx pending - gentle IVF - hold home coreg. Now getting gentle IVF. Hold home lasix 40mg PO until re- eval in the a.m - if BP stable, may d/c IVF and start lasix to avoid volume overload - improved with steroids in the ED - uncertain etiology, possible infection ?? Dirty urine - sanchez, resend urine cx, UA - IV rocephin Encephalopathy - likely related to above Maxillary sinusitis and mastoiditis - likely chronic - monitor for now with above therapy Troponemia - trend
[2017-10-13] MEDS ORDERED: Dextrose Gel 15 GM/37.5 ML TUBE PO PRN ×2 (22:39)
[2017-10-13] MEDS ORDERED: *HR* Dextrose 50 % in Water (Syg) 50 ML SYRINGE IVP PRN (22:39)
[2017-10-13] MEDS ORDERED: D5% in Water 1,000 ML IVC PRN (22:39)
[2017-10-13 22:58] LABS: Bilirubin,Indirect 0.3 mg/dL (0.0-1.2); Bilirubin,Total 0.5 mg/dL (0.3-1.0)
[2017-10-13] MEDS ORDERED: cefTRIAXone 1,000 MG in Water for inj. (sterile) 20 ML 10 ML IVPB SCH (23:00)
[2017-10-13] MEDS: Azithromycin 500 MG in D5% in Water 250 ML IVPB SCH (23:44)
[2017-10-13] MEDS: 0.9 % Sodium Chloride 1,000 ML IVC SCH (23:45)
[2017-10-13] MEDS: *HR* Heparin 5,000 UNIT/ML VIAL SQ SCH (23:45)
[2017-10-13] MEDS: methylPREDNISolone 125 MG/2 ML VIAL IVP SCH (23:45)
[2017-10-14 04:17] LABS: VBG HCO3 34 mEq/L (21-27); VBG PCO2 67 mmHg (41-51); VBG PH 7.32 pH Units (7.32-7.42); VBG PO2 101 mmHg (25-50)
[2017-10-14 05:06] LABS: Basophils % 0.2 %; Hematocrit 31.7 % (35.3-44.9); Hemoglobin 9.5 g/dL (11.5-15.4); Immature Granulocytes % 0.2 % (0-4); Lymphocytes % 85.1 %; Mean Corpuscular Hemoglobin 28.1 pg (28.0-33.3); Mean Corpuscular Volume 93.8 fL (83.0-100.0); Monocytes # 0.2 K/mcL (0.0-1.3); Monocytes % 1.1 %; Neutrophils # 2.5 K/mcL (1.6-8.9); Platelet Count 117 K/mcL (140-400); Red Blood Count 3.38 M/mcL (3.82-4.97); Red Cell Distribution Width 15.3 % (11.5-14.5); Segmented Neutrophils % 13.4 %
[2017-10-14 05:59] LABS: Lymphocytes # 15.8 K/mcL (0.6-4.6)
[2017-10-14 06:48] LABS: BUN/Creatinine Ratio 26 (6-26); Blood Urea Nitrogen 20 mg/dL (8-23); Carbon Dioxide 33 mEq/L (23-29); Chloride 101 mEq/L (98-107); Glucose 245 mg/dL (70-105); Osmolality,Calculated 307 (280-300); Potassium 3.9 mEq/L (3.5-5.1); Sodium 143 mEq/L (136-145); eGFR For African Americans > 60 (> 60); eGFR For Non-African Americans > 60 (> 60)
[2017-10-14 07:01] LABS: Reactive Lymphocytes Present (Not Present); Smudge Cells Present (Not Present)
[2017-10-14 07:02] LABS: Platelet Estimate Slight Decrease (Normal)
[2017-10-14] MEDS: Beclomethasone 40mcg MDI IH SCH ×2 (07:57→22:11)
[2017-10-14] MEDS: Insulin LISPRO 300 UNITS/3 ML VIAL SQ SCH ×4 (08:46→20:57)
[2017-10-14] MEDS: methylPREDNISolone 125 MG/2 ML VIAL IVP SCH (08:46)
[2017-10-14] MEDS: Aspirin 81 MG TAB.CHEW PO SCH (08:46)
[2017-10-14] MEDS: Gabapentin 300 MG CAPSULE PO SCH (08:46)
[2017-10-14] MEDS: *HR* Heparin 5,000 UNIT/ML VIAL SQ SCH ×2 (08:47→17:21)
--- NOTE | 2017-10-14 08:58 | Internal Med Progress Note ---
<Rickie Alegria - Last Filed: 10/14/17 15:01> Date of Encounter: 10/14/17 Time of Encounter: 08:58 - Assessment and plan (1) Altered mental state Current Visit: Yes Status: Acute Assessment and plan: improved since yesterday, but remains altered. most likely secondary to acute exacerbation of COPD vs PNA vs resp acidosis compensated metabolic alkalosis vs vs unlikely UTI vs unlikely cardiac related. CXR showed interstitial markings which was consistent with atypical pneumonia. Patient was started on BiPAP last night, and VBG this AM showed mild improvement; remains resp acidosis compensated metabolic alkalosis. trop 0.11, 0.21, 0.28, 0.23. BNP 1521. echo LVEF 50%, normal wall motion. UTI - U/A showed small leuks but had many epithelial cells. - Patient will need BiPAP evaluation when D/C - continue to monitor respiratory status; and resp support PRN - closely follow SpO2; goal 88-92% - decreased solumederol to 40 mg - HAP ABx changed to vanc + Zosyn Day 1 - influezna A, B negative, legionella neg, S. PNA negative Qualifiers: Altered mental status type: somnolence Qualified Code(s): R40.0 - Somnolence (2) Acute on chronic respiratory failure with hypoxia and hypercapnia Current Visit: Yes Status: Acute Assessment and plan: see above (3) Anemia Current Visit: Yes Status: Chronic Assessment and plan: chronic. currently stable. will continue to follow. Qualifiers: Anemia type: iron deficiency Iron deficiency anemia type: unspecified iron deficiency Qualified Code(s): D50.9 - Iron deficiency anemia, unspecified (4) CLL (chronic lymphocytic leukemia) Current Visit: No Status: Chronic Assessment and plan: chronic. (5) Code status needs review Current Visit: Yes Status: Acute Assessment and plan: Unable to reach family today. per chart review "I spoke with the patient's daughter regarding code status, however she is not POA. She says that she knows that her mother does not want compressions, but she's not sure whether or not she would want intubation. She believed that she would, however. The patient is not oriented to make this decision at this time. I made the status DNR-CCA for now, but there will need to be further discussion with family and patient once mental status improves." (6) COPD exacerbation Current Visit: Yes Status: Acute Assessment and plan: see above (7) Diabetes mellitus type 2 in nonobese Current Visit: Yes Status: Chronic Assessment and plan: BG elevated today, possibly due to steroid administration. SSI increased to medium (8) DVT prophylaxis Current Visit: No Status: Acute Assessment and plan: Heparin SQ (9) Elevated troponin I level Current Visit: Yes Status: Acute Assessment and plan: most likely due to demand ischemia. see above (10) Hypertension Current Visit: No Status: Chronic Assessment and plan: currently stable. Will consider Rx if elevates Qualifiers: Hypertension type: essential hypertension Qualified Code(s): I10 - Essential (primary) hypertension (11) UTI (urinary tract infection) Current Visit: Yes Status: Suspected Assessment and plan: U/A was most likely contaminated. see above. Qualifiers: Urinary tract infection type: acute cystitis Hematuria presence: without hematuria Qualified Code(s): N30.00 - Acute cystitis without hematuria - Subjective Interval history: Mr Sheridan 62F admitted for AMS with Acute on chronic respiratory failure found to be hypotensive. Patient today is more coherent, but continues to be a poor historian. Patient was unable to answer questions. No events overnight and no new complaints. - Constitutional Vitals: Temp Pulse Resp BP Pulse Ox 98.1 F 76 18 142/61 95 10/14/17 07:41 10/14/17 07:41 10/14/17 08:01 10/14/17 07:41 10/14/17 08:01 General appearance: Present: cooperative, A&O X 1, pleasant, no acute distress. Absent: answers questions appropriately - Respiratory Respiratory exam: Present: prolonged expiratory phase - Cardiovascular Cardiovascular exam: Present: RRR, +S1, +S2. Absent: diastolic murmur, gallop, rubs, systolic murmur - Extremities Exam Extremities exam: Present: normal capillary refill, warm, radial pulses palpable and symmetrical. Absent: calf tenderness, cyanotic, pedal edema Internal Medicine: Result - Labs CBC & Chem 7: 10/14/17 03:54 10/14/17 03:54 Labs: Short CBC 10/14/17 Range/Units 03:54 WBC 18.6 H D (4.3-11.1) K/mcL Hgb 9.5 L (11.5-15.4) g/dL Hct 31.7 L (35.3-44.9) % Plt Count 117 L (140-400) K/mcL Neutrophils # 2.5 (1.6-8.9) K/mcL BMP 10/14/17 03:54 Sodium 143 Potassium 3.9 Chloride 101 Carbon Dioxide 33 H BUN 20 Creatinine 0.77 Glucose 245 H Calcium 8.0 L Cardiac Enzymes 10/13/17 10/14/17 Range/Units 22:15 03:54 Troponin I 0.21 H* 0.28 H* (< 0.04) ng/mL - ABG Interpretation ABG results: ABG ABG pH 7.36 pH Units (7.32-7.45) 10/13/17 18:13 ABG pCO2 74 mmHg (35-45) H* 10/13/17 18:13 ABG pO2 62 mmHg (85-104) L 10/13/17 18:13 ABG O2 Saturation 89 % (95-98) L 10/13/17 18:13 PT/INR, D-dimer PT 12.5 Seconds (9.4-12.1) H 10/13/17 18:34 Consult Discharge Plan - Plan Referrals: Stephen Liao MD [Primary Care Provider] - <Mikel Spence - Last Filed: 10/14/17 19:29> Date of Encounter: 10/14/17 - Assessment and plan (1) Acute on chronic respiratory failure with hypoxia and hypercapnia Current Visit: Yes Status: Acute (2) COPD exacerbation Current Visit: Yes Status: Acute (3) Diabetes mellitus type 2 in nonobese Current Visit: Yes Status: Chronic (4) Acute metabolic encephalopathy Current Visit: Yes Status: Acute (5) CLL (chronic lymphocytic leukemia) Current Visit: No Status: Chronic (6) Hypertension Current Visit: No Status: Chronic Qualifiers: Hypertension type: essential hypertension Qualified Code(s): I10 - Essential (primary) hypertension (7) Coronary artery disease Current Visit: No Status: Chronic Qualifiers: Coronary Disease-Associated Artery/Lesion type: [place] artery [place] vs. transplanted heart: [place] heart Associated angina: without angina Qualified Code(s): I25.10 - Atherosclerotic heart disease of [place] coronary artery without angina pectoris - Constitutional Vitals: Temp Pulse Resp BP Pulse Ox 97.9 F 87 19 154/54 94 10/14/17 18:56 10/14/17 18:56 10/14/17 18:56 10/14/17 18:56 10/14/17 18:56 Internal Medicine: Result - Labs CBC & Chem 7: 10/14/17 03:54 10/14/17 03:54 Labs: Short CBC 10/14/17 Range/Units 03:54 WBC 18.6 H D (4.3-11.1) K/mcL Hgb 9.5 L (11.5-15.4) g/dL Hct 31.7 L (35.3-44.9) % Plt Count 117 L (140-400) K/mcL Neutrophils # 2.5 (1.6-8.9) K/mcL BMP 10/14/17 03:54 Sodium 143 Potassium 3.9 Chloride 101 Carbon Dioxide 33 H BUN 20 Creatinine 0.77 Glucose 245 H Calcium 8.0 L Cardiac Enzymes 10/13/17 10/14/17 10/14/17 Range/Units 22:15 03:54 09:34 Troponin I 0.21 H* 0.28 H* 0.23 H* (< 0.04) ng/mL - ABG Interpretation ABG results: ABG ABG pH 7.36 pH Units (7.32-7.45) 10/13/17 18:13 ABG pCO2 74 mmHg (35-45) H* 10/13/17 18:13 ABG pO2 62 mmHg (85-104) L 10/13/17 18:13 ABG O2 Saturation 89 % (95-98) L 10/13/17 18:13 PT/INR, D-dimer PT 12.5 Seconds (9.4-12.1) H 10/13/17 18:34 - Impressions Impressions Echocardiogram Limited Views 10/13/17 22:54 Impressions: LVEF 50%. Atypical septal motion. Normal right ventricular structure and function. Normally sized aortic root. Ascending aorta not well visualized. There is a trivial pericardial effusion present. No findings suggesting tamponade. Left Ventricular Wall Motion: Rest Echo Findings The basal inferior wall was hypokinetic. All other wall segments showed normal motion. Findings: Study Quality * Technically adequate exam. ECG Findings * Normal sinus rhythm. Left Ventricle * Atypical septal motion. * LVEF 50%. Right Ventricle * Normal right ventricular structure and function. Aorta * Normally sized aortic root. * Ascending aorta not well visualized. Pericardium * There is a trivial pericardial effusion present. - Attending Attestation I examined this patient and my medical decision-making was reviewed with the Resident Physician on 10/14/17. I agree with the documented findings, disposition and treatment plan as described except to the extent set forth below. Ms Sheridan is currently admitted for acute on chronic resp failure and COPD exac. She remains moderate to high risk due to potential for worsening clinical status. Ms Sheridan is still confused. She is tearful at times. She feels her breathing is OK at this time. Exam Alert Tearful Mucus membranes dry Heart distant Wheezes noted No edema I/P 1. Resp failure 2. COPD Further diagnoses and plan as above.
[2017-10-14] MEDS ORDERED: Pantoprazole 40 MG VIAL IVP SCH (09:00)
[2017-10-14] MEDS ORDERED: Furosemide 40 MG TABLET PO SCH (09:00)
[2017-10-14] MEDS: Vancomycin 750 MG in D5% in Water 250 ML IVPB SCH (11:15)
[2017-10-14] MEDS: Piperacillin/Tazobactam 3.375 GM/200 ML BAG IVPB SCH ×2 (11:16→18:43)
--- NOTE | 2017-10-14 16:26 | Electrocardiograph Report ---
[address] [place] [address] Test Date: 2017-10-13 Pat Name: Domenica Sheridan Department: 104 Room: [id number] Gender: F [employer]: : 1955 Requested By: Leonardo Javed Order Number: [id number] Reading MD: Jose E Samuel MD Measurements Intervals [place] Rate: 64 P: 59 WA: 159 QRS: 61 QRSD: 127 T: 67 QT: 475 QTc: 484 Interpretive Statements SINUS RHYTHM LEFT BUNDLE BRANCH BLOCK Electronically Signed On 10-14-2017 16:24:44 EST by Jose E Samuel MD
[2017-10-14] MEDS: MethylPREDNISolone 40 MG/ML VIAL IVP SCH (17:21)
[2017-10-14] MEDS: Famotidine 20 MG TABLET PO SCH (20:51)
[2017-10-14] MEDS: Insulin DETEMIR 100 UNIT/ML X5UNITS SQ SCH (20:57)
[2017-10-14] MEDS ORDERED: Insulin LISPRO 300 UNITS/3 ML VIAL SQ SCH (21:00)
[2017-10-14] MEDS: Azithromycin 500 MG in D5% in Water 250 ML IVPB SCH (23:01)
[2017-10-14] MEDS ORDERED: Aminoglycoside Consult 1 EACH MC ONE (23:24)
[2017-10-15] MEDS: MethylPREDNISolone 40 MG/ML VIAL IVP SCH ×2 (00:43→08:11)
[2017-10-15] MEDS: Albuterol 2.5 MG/3 ML NEBULIZER IH PRN ×4 (00:57→17:15)
[2017-10-15] MEDS ORDERED: Insulin Human Regular 10 UNIT in 0.9 % Sodium Chloride 10 ML IV ONE (01:15)
[2017-10-15] MEDS ORDERED: Insulin LISPRO 300 UNITS/3 ML VIAL SQ ONE (01:46)
[2017-10-15] MEDS: Piperacillin/Tazobactam 3.375 GM/200 ML BAG IVPB SCH ×2 (01:51→11:51)
[2017-10-15 04:24] LABS: Basophils % 0.1 %; Hemoglobin 9.1 g/dL (11.5-15.4); Immature Granulocytes % 0.6 % (0-4); Red Cell Distribution Width 15.3 % (11.5-14.5)
[2017-10-15 04:26] LABS: Hematocrit 30.9 % (35.3-44.9); Lymphocytes # 19.7 K/mcL (0.6-4.6); Lymphocytes % 78.6 %; Mean Corpuscular HGB Conc 29.4 g/dL (31.6-35.5); Mean Corpuscular Hemoglobin 27.9 pg (28.0-33.3); Mean Corpuscular Volume 94.8 fL (83.0-100.0); Mean Platelet Volume 11.1 fL (9.4-12.4); Monocytes # 1.3 K/mcL (0.0-1.3); Monocytes % 5.3 %; Neutrophils # 3.9 K/mcL (1.6-8.9); Nucleated Red Blood Cells 0.1 /100 WBC (0); Platelet Count 127 K/mcL (140-400); Red Blood Count 3.26 M/mcL (3.82-4.97); Segmented Neutrophils % 15.4 %
[2017-10-15 04:45] LABS: BUN/Creatinine Ratio 33 (6-26); Blood Urea Nitrogen 24 mg/dL (8-23); Calcium 8.4 mg/dL (8.6-10.3); Carbon Dioxide 36 mEq/L (23-29); Chloride 100 mEq/L (98-107); Glucose 216 mg/dL (70-105); Osmolality,Calculated 297 (280-300); Potassium 3.9 mEq/L (3.5-5.1); Sodium 138 mEq/L (136-145); eGFR For African Americans > 60 (> 60); eGFR For Non-African Americans > 60 (> 60)
[2017-10-15 05:16] LABS: Reactive Lymphocytes Present (Not Present); Smudge Cells Present (Not Present)
[2017-10-15] MEDS: *HR* Heparin 5,000 UNIT/ML VIAL SQ SCH ×2 (05:16→17:58)
[2017-10-15 05:17] LABS: Platelet Estimate Slight Decrease (Normal)
[2017-10-15] MEDS: Beclomethasone 40mcg MDI IH SCH ×2 (08:10→21:53)
[2017-10-15] MEDS: Famotidine 20 MG TABLET PO SCH (08:11)
[2017-10-15] MEDS: Gabapentin 300 MG CAPSULE PO SCH (08:11)
[2017-10-15] MEDS: Aspirin 81 MG TAB.CHEW PO SCH (08:11)
[2017-10-15] MEDS: Insulin LISPRO 300 UNITS/3 ML VIAL SQ SCH ×4 (08:17→20:15)
--- NOTE | 2017-10-15 08:56 | Internal Med Progress Note ---
<Rickie Alegria - Last Filed: 10/15/17 15:08> Date of Encounter: 10/15/17 Time of Encounter: 08:56 - Assessment and plan (1) Altered mental state Current Visit: Yes Status: Acute Assessment and plan: AMS most likely secondary to acute exacerbation of COPD vs PNA vs resp acidosis compensated metabolic alkalosis vs vs unlikely UTI vs unlikely cardiac related. CXR showed interstitial markings which was consistent with atypical pneumonia. Patient was started on BiPAP last night, and VBG this AM showed mild improvement; remains resp acidosis compensated metabolic alkalosis. trop 0.11, 0.21, 0.28, 0.23. BNP 1521. 1/ echo LVEF 50%, normal wall motion. UTI - U/A showed small leuks but had many epithelial cells. enterococcus species identified on preliminary Urine culture. - WBC elevated today to 25.1; most likely due to steroids and CLL - bipap eval - pending; patient may refuse - continue to monitor respiratory status; and resp support PRN - closely follow SpO2; goal 88-92% - solumederol changed to PO Prednisone - UTI + HAP ABx changed to Levaquin. deescalate other abx. - influezna A, B negative, legionella neg, S. PNA negative Qualifiers: Altered mental status type: somnolence Qualified Code(s): R40.0 - Somnolence (2) Acute on chronic respiratory failure with hypoxia and hypercapnia Current Visit: Yes Status: Acute Assessment and plan: see above (3) Anemia Current Visit: Yes Status: Chronic Assessment and plan: chronic. currently stable. will continue to follow. Qualifiers: Anemia type: iron deficiency Iron deficiency anemia type: unspecified iron deficiency Qualified Code(s): D50.9 - Iron deficiency anemia, unspecified (4) CLL (chronic lymphocytic leukemia) Current Visit: Yes Status: Chronic Assessment and plan: chronic. (5) Code status needs review Current Visit: Yes Status: Acute Assessment and plan: Palliative care consulted. Code status DNR/DNI/CCA. On discharge, family wishes to have patient to return home but wants patient to be returned to hospital if becomes ill again. family refuses correction at this time. (6) COPD exacerbation Current Visit: Yes Status: Acute Assessment and plan: see above (7) Diabetes mellitus type 2 in nonobese Current Visit: Yes Status: Chronic Assessment and plan: BG elevated today, possibly due to steroid administration. SSI medium (8) DVT prophylaxis Current Visit: No Status: Acute Assessment and plan: Heparin SQ (9) Elevated troponin I level Current Visit: Yes Status: Acute Assessment and plan: most likely due to demand ischemia. see above (10) Hypertension Current Visit: No Status: Chronic Assessment and plan: currently stable. Will consider Rx if elevates Qualifiers: Hypertension type: essential hypertension Qualified Code(s): I10 - Essential (primary) hypertension (11) UTI (urinary tract infection) Current Visit: Yes Status: Suspected Assessment and plan: see above. Qualifiers: Urinary tract infection type: acute cystitis Hematuria presence: without hematuria Qualified Code(s): N30.00 - Acute cystitis without hematuria - Subjective Interval history: Mr Sheridan 62F admitted for AMS with Acute on chronic respiratory failure found to be hypotensive. Patient today is feeling ok, and states she's ready to leave. She continues to be difficult to understand. But she no new complaints or events overnight. - Constitutional Vitals: Temp Pulse Resp BP Pulse Ox 98.6 F 76 18 155/78 96 10/15/17 04:32 10/15/17 04:32 10/15/17 08:13 10/15/17 04:32 10/15/17 08:13 General appearance: Present: cooperative, A&O X 1, pleasant, no acute distress. Absent: answers questions appropriately - Respiratory Respiratory exam: Present: prolonged expiratory phase, wheezes. Absent: accessory muscle use, rales, rhonchi - Cardiovascular Cardiovascular exam: Present: RRR, +S1, +S2. Absent: diastolic murmur, gallop, rubs, systolic murmur - GI/Abdominal GI/Abdominal exam: Present: normal bowel sounds, soft, no peritoneal signs. Absent: distended, tenderness - Extremities Exam Extremities exam: Present: warm, radial pulses palpable and symmetrical. Absent : calf tenderness, cyanotic, pedal edema - Psychiatric Psychiatric exam: Present: normal affect, normal mood Internal Medicine: Result - Labs CBC & Chem 7: 10/15/17 04:04 10/15/17 04:04 Labs: Short CBC 10/15/17 Range/Units 04:04 WBC 25.1 H (4.3-11.1) K/mcL Hgb 9.1 L (11.5-15.4) g/dL Hct 30.9 L (35.3-44.9) % Plt Count 127 L (140-400) K/mcL Neutrophils # 3.9 (1.6-8.9) K/mcL BMP 10/15/17 04:04 Sodium 138 Potassium 3.9 Chloride 100 Carbon Dioxide 36 H BUN 24 H Creatinine 0.73 Glucose 216 H Calcium 8.4 L Cardiac Enzymes 10/14/17 Range/Units 09:34 Troponin I 0.23 H* (< 0.04) ng/mL - ABG Interpretation ABG results: ABG ABG pH 7.36 pH Units (7.32-7.45) 10/13/17 18:13 ABG pCO2 74 mmHg (35-45) H* 10/13/17 18:13 ABG pO2 62 mmHg (85-104) L 10/13/17 18:13 ABG O2 Saturation 89 % (95-98) L 10/13/17 18:13 PT/INR, D-dimer PT 12.5 Seconds (9.4-12.1) H 10/13/17 18:34 - Impressions Impressions Echocardiogram Limited Views 10/13/17 22:54 Impressions: LVEF 50%. Atypical septal motion. Normal right ventricular structure and function. Normally sized aortic root. Ascending aorta not well visualized. There is a trivial pericardial effusion present. No findings suggesting tamponade. Left Ventricular Wall Motion: Rest Echo Findings The basal inferior wall was hypokinetic. All other wall segments showed normal motion. Findings: Study Quality * Technically adequate exam. ECG Findings * Normal sinus rhythm. Left Ventricle * Atypical septal motion. * LVEF 50%. Right Ventricle * Normal right ventricular structure and function. Aorta * Normally sized aortic root. * Ascending aorta not well visualized. Pericardium * There is a trivial pericardial effusion present. Consult Discharge Plan - Plan Referrals: Stephen Liao MD [Primary Care Provider] - <Mikel Spence - Last Filed: 10/15/17 18:32> Date of Encounter: 10/15/17 - Assessment and plan (1) Acute on chronic respiratory failure with hypoxia and hypercapnia Current Visit: Yes Status: Acute (2) COPD exacerbation Current Visit: Yes Status: Acute (3) Diabetes mellitus type 2 in nonobese Current Visit: Yes Status: Chronic (4) Acute metabolic encephalopathy Current Visit: Yes Status: Acute (5) CLL (chronic lymphocytic leukemia) Current Visit: Yes Status: Chronic (6) Hypertension Current Visit: No Status: Chronic Qualifiers: Hypertension type: essential hypertension Qualified Code(s): I10 - Essential (primary) hypertension (7) Coronary artery disease Current Visit: No Status: Chronic Qualifiers: Coronary Disease-Associated Artery/Lesion type: [place] artery [place] vs. transplanted heart: [place] heart Associated angina: without angina Qualified Code(s): I25.10 - Atherosclerotic heart disease of [place] coronary artery without angina pectoris (8) Moderate protein-calorie malnutrition Current Visit: Yes Status: Chronic - Constitutional Vitals: Temp Pulse Resp BP Pulse Ox 98.2 F 89 16 154/68 94 10/15/17 15:38 10/15/17 15:38 10/15/17 17:16 10/15/17 17:16 10/15/17 17:16 Internal Medicine: Result - Labs CBC & Chem 7: 10/15/17 04:04 10/15/17 04:04 Labs: Short CBC 10/15/17 Range/Units 04:04 WBC 25.1 H (4.3-11.1) K/mcL Hgb 9.1 L (11.5-15.4) g/dL Hct 30.9 L (35.3-44.9) % Plt Count 127 L (140-400) K/mcL Neutrophils # 3.9 (1.6-8.9) K/mcL BMP 10/15/17 04:04 Sodium 138 Potassium 3.9 Chloride 100 Carbon Dioxide 36 H BUN 24 H Creatinine 0.73 Glucose 216 H Calcium 8.4 L - ABG Interpretation ABG results: ABG ABG pH 7.36 pH Units (7.32-7.45) 10/13/17 18:13 ABG pCO2 74 mmHg (35-45) H* 10/13/17 18:13 ABG pO2 62 mmHg (85-104) L 10/13/17 18:13 ABG O2 Saturation 89 % (95-98) L 10/13/17 18:13 PT/INR, D-dimer PT 12.5 Seconds (9.4-12.1) H 10/13/17 18:34 - Attending Attestation I examined this patient and my medical decision-making was reviewed with the Resident Physician on 10/15/17. I agree with the documented findings, disposition and treatment plan as described except to the extent set forth below. Ms Sheridan is currently admitted for acute on chronic resp failure and encephalopathy. She remains moderate to high risk due to potential for worsening clinical status. Ms Sheridan won't wear bipap despite need. Family at bedside - spoke with Dr. Mireles and now DNRCCA/DNI. She is afebrile. Exam alert> Confused. Restless Mucus membranes dry Heart reg Lungs with wheeze throughout Abd soft I/P 1. Resp failure 2. Encephalopathy Family does not want patient to at home. She refuses bipap. Will continue supportive care. Haldol for agitation. Further diagnoses and plan as above.
[2017-10-15] MEDS: Vancomycin 750 MG in D5% in Water 250 ML IVPB SCH (11:50)
[2017-10-15] MEDS ORDERED: levoFLOXacin 750 MG TABLET PO SCH (14:30)
--- NOTE | 2017-10-15 14:59 | Palliative - Consult Note ---
Date of Encounter: 10/15/17 Time of Encounter: 14:00 - Assessment and Plan (1) COPD (chronic obstructive pulmonary disease) Current Visit: No Status: Chronic Assessment and plan: Continue current therapy. bIPAP as the patient tolerates although in the past patient has tolerated it very poorly. Qualifiers: COPD type: chronic bronchitis Chronic bronchitis type: unspecified Qualified Code(s): J42 - Unspecified chronic bronchitis (2) CLL (chronic lymphocytic leukemia) Current Visit: Yes Status: Chronic Assessment and plan: Eating treatment at [facility] and through the cancer center here. Overall the patient 's gnosis is quite dismal but this is more related to her lungs and to her CLL. (3) Acute respiratory failure with hypoxia and hypercarbia Current Visit: No Status: Acute Assessment and plan: Patient wishes to be DNR CCA DNI. This is based on previous discussions with patient and family should not self extubated during the last intubation in last hospitalization. Change CODE STATUS to DNR CCA DNI. Test at length with the patient's daughter with whom she lives in the patient's other son. Joel the medical power of deputy county attorney not reachable at this time. After discussion with the family in knowing previously known intent in his previously known intent I change the CODE STATUS and provide the family with paperwork. Patient has a history of doing quite poorly with BiPAP, however I have discussed with the family that this is really about the only option given the fact that they do not want her intubated beer. Should the patient in all likelihood require a [id number] sitter except when family is present as she really wants to get up and I think she is exceedingly high fall risk due to this. White count is quite elevated this is consistent with her CLL also with the fact that she has COPD and respiratory failure. In addition she is also on steroids. I doubt the urinary tract infection as it appears to be grossly contaminated. (4) Goals of care, counseling/discussion Current Visit: No Status: Acute Assessment and plan: Patient wishes to be DNR CCA DNI. This is based on previous discussions with patient and family should not self extubated during the last intubation in last hospitalization. Change CODE STATUS to DNR CCA DNI. Test at length with the patient's daughter with whom she lives in the patient's other son. Joel the medical power of deputy county attorney not reachable at this time. After discussion with the family in knowing previously known intent in his previously known intent I change the CODE STATUS and provide the family with paperwork. I spoke at length with the patient's daughter with whom she lives. In one of her sons. All in agreement with previously known CODE STATUS DNR DNI. Adeola Sheridan at [phone] the works at night and sleeps during the day and is only available in the afternoon I have tried to call him he is not answering his phone currently. Status was changed on the basis of previously known intent from the patient and family. Daughter and son that are here completely concur. Copies of the DNR was provided to them. The patient is certainly hospice eligible. Family does not wish to have hospice at this time due to the fact that if she worsens in her condition they will call the squad they do not want her to pass at home. Palliative-CN HPI - Data of Consult Patient: known to practice within the last 3 years Requesting Physician: Mikel Spence DO Primary Care Provider: Stephen Liao MD - Consult Narrative Palliative Care/Comfort Measures: Palliative care Reason for consult: Goals of care History of present illness: Ms. Sheridan is a 62 year old female Patient well known to me from hospitalization earlier this month. Patient has a very bad COPD. Came in earlier in the month and respiratory failure and was intubated. Patient self extubated after discussion with family at that point in time it was decided to make the patient DNR CCA DNI. Patient also did not do well at all with IPAP. However the patient did pull-through was able to be discharged home with home health. (I had recommended hospice, however the family elected to have home health care as they wish to be able to bring the patient back to the hospital) the patient was doing fair at home, and then on the day of admission she became hypersomnolent and unable to be awakened. Deborah did not want the patient to pass at home and was worried, they contacted the home healthcare nurse are directed in the down 911. Patient was therefore brought into the hospital. At this time the patient is awake, able to answer questions she is clearly not in a right mind. Is present. No complaint of at this time except that she thinks her bed is wet however this has been changed. Patient has no complaints of pain, and does not complain of being short of breath at this time. CC: Mikel Spence, DO shortness of breath Past Med Surg Social Fam HX - Past Medical History Medical history: arthritis, asthma, cancer, COPD, diabetes, hyperlipidemia, hypertension Psychiatric history: anxiety - Past Surgical History Surgical History: other - Social History Smoking Status: Former smoker Smokeless Tobacco Status: No Alcohol use: none Drug use: none - Family History Daughter Name: kaela Bermudez Age: 28 Living Status: Still Living Hx Family Cardiac Disorders: Yes (murmur) Hx Family Cancer: Yes (breast) Hx Family Endocrine Disorder: Yes (dm type1) Hx Family HEENT Disorders: Yes (glasses) Medications and Allergies Ranitidine HCl [Zantac] 150 mg PO BID 03/13/17 [History] Allopurinol [Zyloprim 300 MG] 300 mg PO DAILY 09/09/17 [History] Atorvastatin [Lipitor] 40 mg PO HS 09/09/17 [History] Carvedilol [Coreg] 25 mg PO BID 09/09/17 [History] Furosemide [Lasix] 40 mg PO DAILY 09/09/17 [History] HydrOXYzine 10 mg PO TID PRN 09/09/17 [History] Melatonin [Melatin] 6 mg PO HS 09/09/17 [History] Prochlorperazine Maleate [Compazine] 10 mg PO Q6H PRN 09/09/17 [History] Gabapentin [Neurontin] 300 mg PO DAILY #5 capsule 09/18/17 [Rx] Albuterol Neb [Proventil Neb] 2.5 mg IH Q6H PRN 10/13/17 [History] Albuterol Sulfate [Albuterol Inhaler] 2 puff IH Q4H PRN 10/13/17 [History] Aspirin 81 mg PO DAILY 10/13/17 [History] Beclomethasone Diprop 40mcg [QVAR 40 mcg] 2 puff IH BID 10/13/17 [History] Diphenoxylate/Atropine [Lomotil 2.5 mg/0.025 mg] 1 tab PO TID PRN 10/13/17 [ History] Ferrous Sulfate 325 mg PO BIDWM 10/13/17 [History] Ipratropium [ATROVENT Inhaler] 2 puff IH QID 10/13/17 [History] Ipratropium/Albuterol Sulfate [Combivent Respimat Inhal [place]] 1 puff IH QID [History] 3 Allergy/AdvReac Type Severity Reaction Status Date / Time Penicillins Allergy Unknown Hives Verified 03/13/17 13:00 Sulfa (Sulfonamide Allergy Unknown Hives Verified 03/13/17 13:00 Antibiotics) aspirin AdvReac Unknown Nausea Verified 03/13/17 13:00 ROS unobtainable: due to mental status Palliative Care-Exam - Constitutional Vitals: Temp Pulse Resp BP Pulse Ox 97.4 F L 75 20 156/73 93 10/15/17 09:45 10/15/17 09:45 10/15/17 11:08 10/15/17 09:45 10/15/17 11:08 General appearance: Present: no acute distress - Head Head Exam: Present: atraumatic, normal inspection - Eye Eye exam: Present: EOMI - ENT ENT exam: Present: mucous membranes moist - Respiratory Respiratory exam: Present: decreased breath sounds, rhonchi, wheezes - Cardiovascular Cardiovascular exam: Present: RRR - GI/Abdominal Exam GI/Abdominal exam: Present: normal bowel sounds, soft. Absent: tenderness - Catheter Type: Urethral ([place]) - Extremities Exam Extremities exam: Present: normal inspection. Absent: pedal edema, tenderness - Neurological Exam Neurological exam: Present: alert, altered. Absent: oriented X3 - Psychiatric Psychiatric exam: Present: agitated (She wants to get up,). Absent: anxious - Skin Skin exam: Present: dry, warm Internal Medicine - CN: Reslt - Labs CBC & Chem 7: 10/15/17 04:04 10/15/17 04:04 Labs: Short CBC 10/15/17 Range/Units 04:04 WBC 25.1 H (4.3-11.1) K/mcL Hgb 9.1 L (11.5-15.4) g/dL Hct 30.9 L (35.3-44.9) % Plt Count 127 L (140-400) K/mcL Neutrophils # 3.9 (1.6-8.9) K/mcL BMP 10/15/17 04:04 Sodium 138 Potassium 3.9 Chloride 100 Carbon Dioxide 36 H BUN 24 H Creatinine 0.73 Glucose 216 H Calcium 8.4 L - ABG Interpretation ABG results: ABG ABG pH 7.36 pH Units (7.32-7.45) 10/13/17 18:13 ABG pCO2 74 mmHg (35-45) H* 10/13/17 18:13 ABG pO2 62 mmHg (85-104) L 10/13/17 18:13 ABG O2 Saturation 89 % (95-98) L 10/13/17 18:13 PT/INR, D-dimer PT 12.5 Seconds (9.4-12.1) H 10/13/17 18:34 Consult Discharge Plan - Plan Referrals: Stephen Liao MD [Primary Care Provider] - Palliative Quality Palliative Quality: Screen for Code Status: Yes, Screen for Goals of Care: Yes, Screen for Pain: Yes, If Pain Regimen Started, Initiate Bowel Regimen: Yes, Screen for Nausea/Vomitting: Yes Code Status: 10/13/17 22:05 CODE [Resuscitation Status: Active] [RES] Routine Comment: Resuscitation Status: DNR-Comfort Care-Arrest
[2017-10-15] MEDS ORDERED: Haloperidol Lactate 5 MG/ML VIAL IVP ONE (17:43)
[2017-10-15] MEDS ORDERED: Haloperidol Lactate 5 MG/ML VIAL IM PRN (18:07)
[2017-10-15] MEDS: Insulin DETEMIR 100 UNIT/ML X5UNITS SQ SCH (20:10)
[2017-10-15] MEDS ORDERED: Melatonin 3 MG TABLET PO SCH (21:00)
[2017-10-16] MEDS: *HR* Heparin 5,000 UNIT/ML VIAL SQ SCH (01:51)
[2017-10-16] MEDS ORDERED: Ondansetron ODT 4 MG TAB.RAPDIS SL PRN (04:39)
[2017-10-16] MEDS ORDERED: Nitroglycerin 0.4 MG TAB.SUBL SL PRN (05:25)
[2017-10-16] MEDS ORDERED: Nitroglycerin 0.4 MG TAB.SUBL SL ONE (05:26)
[2017-10-16 05:50] LABS: Hematocrit 43.1 % (35.3-44.9); Mean Corpuscular Volume 100.5 fL (83.0-100.0); Red Blood Count 4.29 M/mcL (3.82-4.97)
[2017-10-16 05:51] LABS: Hemoglobin 11.6 g/dL (11.5-15.4); Mean Corpuscular HGB Conc 26.9 g/dL (31.6-35.5); Mean Platelet Volume 10.7 fL (9.4-12.4); Platelet Count 317 K/mcL (140-400); Red Cell Distribution Width 16.8 % (11.5-14.5)
[2017-10-16 06:21] LABS: BUN/Creatinine Ratio 33 (6-26); Blood Urea Nitrogen 26 mg/dL (8-23); Carbon Dioxide 42 mEq/L (23-29); Chloride 100 mEq/L (98-107); Glucose 207 mg/dL (70-105); Osmolality,Calculated 305 (280-300); Potassium 5.4 mEq/L (3.5-5.1); Sodium 142 mEq/L (136-145); eGFR For African Americans > 60 (> 60); eGFR For Non-African Americans > 60 (> 60)
[2017-10-16 07:20] LABS: ABG PCO2 > 150 mmHg (35-45); ABG PH 7.06 pH Units (7.32-7.45); ABG PO2 83 mmHg (85-104)
[2017-10-16] MEDS: Insulin LISPRO 300 UNITS/3 ML VIAL SQ SCH ×3 (08:23→16:57)
[2017-10-16] MEDS: Gabapentin 300 MG CAPSULE PO SCH (08:24)
[2017-10-16] MEDS: Aspirin 81 MG TAB.CHEW PO SCH (08:24)
[2017-10-16] MEDS ORDERED: Levofloxacin 750 MG/150 ML 750 MG/150 ML BAG IVPB SCH (09:00)
[2017-10-16] MEDS ORDERED: Famotidine 20 MG TABLET PO SCH (09:00)
[2017-10-16] MEDS ORDERED: predniSONE 20 MG TABLET PO SCH (09:00)
--- NOTE | 2017-10-16 10:06 | Palliative Progress Note ---
Date of Encounter: 10/16/17 Time of Encounter: 09:30 - Assessment and plan (1) Altered mental state Current Visit: Yes Status: Acute Assessment and plan: Patient CO2 >150 this AM. Patient requiring Bipap. Patient with repeat episodes of respiratory distress requiring Bipap. Family called for meeting. Qualifiers: Altered mental status type: somnolence Qualified Code(s): R40.0 - Somnolence (2) Acute respiratory failure with hypoxia and hypercarbia Current Visit: Yes Status: Acute Assessment and plan: Patient on Bipap CO2 level this AM >150. (3) Goals of care, counseling/discussion Current Visit: Yes Status: Acute Assessment and plan: Conducted bedside meeting with sons Joel and Brannon. Joel is primary care decision maker as brother Brannon and sister Phoebe defer to him for decision making. Explained that patient with CLL and WBC count now 161.7 and ABGs show CO2 > 150. Explained clinical significance in regards to inability to breath and history of pneumonia and COPD. Sons agree that patient would not want Bipap unless unresponsive. 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 Explained that it is a temporary solution and that patents has been improving then requiring it over and over. Sons desire to maintain patient on Bipap for today and assess for any improvement. I explained that she is weak and frail and that it is not likely she will tolerate coming off. Family will call other family members to discuss compassionate removal of Bipap and transition to comfort. Family desires to give the patient today and see how she progresses. I explained Hospice care and that she meets criteria for terminal diagnosis of COPD and CLL. Patient with poor prognosis as WBC 161.7 and CO2 >150. Spiritual assessment conducted and patient with family history of being Muslim but has not attended taoism in past. Family denies needing [facility] Claims Administrator would be fine to conduct bedside prayer. I provided son Joel with my cellphone contact information and requested that he call me in regards for time for family meeting tomorrow or with any other issues or concerns. Family verbalized understanding. Plan is for compassionate removal of Bipap, if patient is able to have Bipap removed before tomorrow it is likely she will require it again. (4) CLL (chronic lymphocytic leukemia) Current Visit: Yes Status: Chronic Assessment and plan: WBC 161.7. Patient receiving steroids as well as history of CLL. - Time Spent With Patient Total time spent is greater than 50% in coordination of care (as documented) at patient's floor/unit and/or counseling patient: 25 - 35 minutes - Subjective Interval history: Patent with respiratory failure overnight requiring Bipap. Patient is somnolent with ABG CO2 showing >150 this AM. Son Brannon at bedside. Discussed goals of care given current decline in respiratory function. - Constitutional Vitals: Abnormal lab results WBC 161.7 K/mcL (4.3-11.1) H* D 10/16/17 05:33 MCV 100.5 fL (83.0-100.0) H 10/16/17 05:33 MCH 27.0 pg (28.0-33.3) L 10/16/17 05:33 MCHC 26.9 g/dL (31.6-35.5) L 10/16/17 05:33 RDW 16.8 % (11.5-14.5) H 10/16/17 05:33 Lymphocytes # 19.7 K/mcL (0.6-4.6) H 10/15/17 04:04 Nucleated RBCs/100 WBC 0.1 /100 WBC (0) H 10/15/17 04:04 Reactive Lymphocytes Present (Not Present) A 10/15/17 04:04 Smudge Cells Present (Not Present) A 10/15/17 04:04 Platelet Estimate Slight Decrease (Normal) L 10/15/17 04:04 PT 12.5 Seconds (9.4-12.1) H 10/13/17 18:34 ABG pH 7.06 pH Units (7.32-7.45) L* 10/16/17 07:12 ABG pCO2 > 150 mmHg (35-45) H* 10/16/17 07:12 ABG pO2 83 mmHg (85-104) L 10/16/17 07:12 VBG pCO2 67 mmHg (41-51) H 10/14/17 04:15 VBG pO2 101 mmHg (25-50) H 10/14/17 04:15 VBG HCO3 34 mEq/L (21-27) H 10/14/17 04:15 Potassium 5.4 mEq/L (3.5-5.1) H 10/16/17 05:33 Carbon Dioxide 42 mEq/L (23-29) H* 10/16/17 05:33 BUN 26 mg/dL (8-23) H 10/16/17 05:33 BUN/Creatinine Ratio 33 (6-26) H 10/16/17 05:33 Glucose 207 mg/dL (70-105) H 10/16/17 05:33 POC Glucose 356 (58-89) H 10/15/17 20:13 Calculated Osmolality 305 (280-300) H 10/16/17 05:33 Troponin I 0.08 ng/mL (< 0.04) H* 10/16/17 05:33 B-Natriuretic Peptide 1521 pg/mL (Less than 100) H 10/14/17 03:54 Serum Total Protein 6.0 g/dL (6.4-8.9) L 10/13/17 18:34 Albumin 3.3 g/dL (3.5-5.7) L 10/13/17 18:34 Urine Clarity Cloudy (Clear) A 10/13/17 18:40 Urine Protein 100 mg/dL (Neg-Trace) H 10/13/17 18:40 Urine Glucose (UA) 100 mg/dL (Normal) H 10/13/17 18:40 Ur Leukocyte Esterase Small (Negative) H 10/13/17 18:40 Urine Microscopic WBC 15-30 per hpf (0-3) H 10/13/17 18:40 Ur Squamous Epith Cells Many per lpf (None-Few) H 10/13/17 18:40 Urine Yeast Moderate per hpf (None Seen) H 10/13/17 18:40 - Head Head exam: Present: atraumatic, normal inspection - Eye Eye exam: Present: PERRL Pupils: Present: PERRL - ENT ENT exam: Present: mucous membranes moist - Neck Neck exam: Present: normal inspection - Respiratory Respiratory exam: Present: decreased breath sounds - Expanded Respiratory Exam Location: decreased breath sounds: Left, Right, Lower - Cardiovascular Cardiovascular exam: Present: RRR, +S1, +S2 - Expanded Cardiovascular Exam Peripheral pulses: 1+: Femoral (L) PM, Femoral (R) PM, Posterior Tibialis (L), Posterior Tibialis (R), 2+: Carotid (L) PM, Carotid (R) PM, Radial (L), Radial ( R), Dorsalis Pedis (L) PM, Dorsalis Pedis (R) PM - GI/Abdominal GI/Abdominal exam: Present: normal bowel sounds, soft - Rectal Rectal exam: Present: deferred - Neurological Exam Neurological exam: Present: altered (somnulent ) - Psychiatric Psychiatric exam: Present: flat affect - Skin Skin exam: Present: pallor, warm Palliative Quality Palliative Quality: Screen for Code Status: Yes, Screen for Goals of Care: Yes, Screen for Pain: Yes, If Pain Regimen Started, Initiate Bowel Regimen: Yes, Screen for Nausea/Vomitting: Yes Code Status: 10/13/17 22:05 CODE [Resuscitation Status: Active] [RES] Routine Comment: Resuscitation Status: DNR-Comfort Care-Arrest CODE [Resuscitation Status: Active] [RES] Routine Comment: Resuscitation Status: [id number] - Labs CBC & Chem 7: 10/16/17 05:33 10/16/17 05:33 Labs: Laboratory Results - last 24 hr 10/14/17 10/14/17 10/15/17 20:54 20:56 01:39 WBC RBC Hgb Hct MCV MCH MCHC RDW Plt Count MPV ABG pH ABG pCO2 ABG pO2 ABG HCO3 ABG Total CO2 ABG O2 Saturation ABG Base Excess Sodium Potassium Chloride Carbon Dioxide BUN Creatinine Est GFR ( Amer) Est GFR (Non-Af Amer) BUN/Creatinine Ratio Glucose POC Glucose 481 H* 448 H* 367 H Calculated Osmolality Calcium Troponin I Person Notif of Crit 10/15/17 10/15/17 10/15/17 03:09 11:14 16:55 WBC RBC Hgb Hct MCV MCH MCHC RDW Plt Count MPV ABG pH ABG pCO2 ABG pO2 ABG HCO3 ABG Total CO2 ABG O2 Saturation ABG Base Excess Sodium Potassium Chloride Carbon Dioxide BUN Creatinine Est GFR ( Amer) Est GFR (Non-Af Amer) BUN/Creatinine Ratio Glucose POC Glucose 274 H 254 H 357 H Calculated Osmolality Calcium Troponin I Person Notif of Crit 10/15/17 10/16/17 10/16/17 20:13 05:33 05:33 WBC 161.7 H* D RBC 4.29 Hgb 11.6 D Hct 43.1 MCV 100.5 H MCH 27.0 L MCHC 26.9 L RDW 16.8 H Plt Count 317 D MPV 10.7 ABG pH ABG pCO2 ABG pO2 ABG HCO3 ABG Total CO2 ABG O2 Saturation ABG Base Excess Sodium 142 Potassium 5.4 H Chloride 100 Carbon Dioxide 42 H* BUN 26 H Creatinine 0.78 Est GFR ( Amer) > 60 Est GFR (Non-Af Amer) > 60 BUN/Creatinine Ratio 33 H Glucose 207 H POC Glucose 356 H Calculated Osmolality 305 H Calcium 9.0 Troponin I Person Notif of Crit 10/16/17 10/16/17 05:33 07:12 WBC RBC Hgb Hct MCV MCH MCHC RDW Plt Count MPV ABG pH 7.06 L* ABG pCO2 > 150 H* ABG pO2 83 L ABG HCO3 TNP ABG Total CO2 TNP ABG O2 Saturation TNP ABG Base Excess TNP Sodium Potassium Chloride Carbon Dioxide BUN Creatinine Est GFR ( Amer) Est GFR (Non-Af Amer) BUN/Creatinine Ratio Glucose POC Glucose Calculated Osmolality Calcium Troponin I 0.08 H* Person Notif of Crit joshua morin - ABG Interpretation ABG results: ABG ABG pH 7.06 pH Units (7.32-7.45) L* 10/16/17 07:12 ABG pCO2 > 150 mmHg (35-45) H* 10/16/17 07:12 ABG pO2 83 mmHg (85-104) L 10/16/17 07:12 ABG O2 Saturation TNP 10/16/17 07:12 PT/INR, D-dimer PT 12.5 Seconds (9.4-12.1) H 10/13/17 18:34 Consult Discharge Plan - Plan Referrals: Stephen Liao MD [Primary Care Provider] -
[2017-10-16] MEDS: 0.9 % Sodium Chloride 1,000 ML IVC SCH (10:24)
[2017-10-16] MEDS: Beclomethasone 40mcg MDI IH SCH (10:29)
[2017-10-16] MEDS ORDERED: *HR* Morphine 2 MG/ML SYRINGE IVP PRN (10:48)
[2017-10-16] MEDS ORDERED: *HR* Morphine 2 MG/ML SYRINGE IVP SCH (11:00)
[2017-10-16 11:23] LABS: Mycoplasma pneumoniae IgG 0.02 U/L (<=0.09)
--- NOTE | 2017-10-16 11:57 | Event Note ---
Date of Encounter: 10/16/17 Time of Encounter: 11:55 Family received spiritual support from Control Panel Operator Crude Unit. Family reports now being ready to do compassionate removal of Bipap. Patient made DNRCC - Comfort Care and cardiac monitors removed. Educated patient on goals of dyspnea management with morphine. Hospitality cart provided and family agrees to POC. Will follow course of Bipap removal and adjust medications PRN.
--- NOTE | 2017-10-16 16:53 | Internal Med Progress Note ---
<Rickie Alegria - Last Filed: 10/16/17 16:49> Date of Encounter: 10/16/17 Time of Encounter: 16:49 - Assessment and plan (1) Altered mental state Current Visit: Yes Status: Acute Assessment and plan: morning ABG 7.06, and remained altered. This morning RR on bipap was <8 and determined no longer assisting her respiratory function. Bipap was taken off. Comfort care only in agreement with family. - Morphine 1mg q15min Qualifiers: Altered mental status type: somnolence Qualified Code(s): R40.0 - Somnolence (2) Acute on chronic respiratory failure with hypoxia and hypercapnia Current Visit: Yes Status: Acute Assessment and plan: see above (3) Anemia Current Visit: Yes Status: Chronic Assessment and plan: see above Qualifiers: Anemia type: iron deficiency Iron deficiency anemia type: unspecified iron deficiency Qualified Code(s): D50.9 - Iron deficiency anemia, unspecified (4) CLL (chronic lymphocytic leukemia) Current Visit: Yes Status: Chronic Assessment and plan: chronic. (5) Code status needs review Current Visit: Yes Status: Acute Assessment and plan: comfort care only (6) COPD exacerbation Current Visit: Yes Status: Acute Assessment and plan: see above (7) Diabetes mellitus type 2 in nonobese Current Visit: Yes Status: Chronic Assessment and plan: BG elevated today, possibly due to steroid administration. SSI medium (8) DVT prophylaxis Current Visit: No Status: Acute Assessment and plan: see above (9) Elevated troponin I level Current Visit: Yes Status: Acute Assessment and plan: most likely due to demand ischemia. see above (10) Hypertension Current Visit: No Status: Chronic Assessment and plan: see above Qualifiers: Hypertension type: essential hypertension Qualified Code(s): I10 - Essential (primary) hypertension (11) UTI (urinary tract infection) Current Visit: Yes Status: Suspected Assessment and plan: see above Qualifiers: Urinary tract infection type: acute cystitis Hematuria presence: without hematuria Qualified Code(s): N30.00 - Acute cystitis without hematuria - Subjective Interval history: Mr Sheridan 62F admitted for AMS with Acute on chronic respiratory failure found to be hypotensive. Patient was found altered last night and placed on bipap. This afternoon palliative care and family discussed withdrawal from bipap due to poor prognostic outcome. Patient is seen with family today, she remains unconsciou and comfortable at this time. - Constitutional Vitals: Temp Pulse Resp BP Pulse Ox 96.6 F L 67 20 116/50 99 10/16/17 11:21 10/16/17 11:21 10/16/17 11:21 10/16/17 11:21 10/16/17 11:21 General appearance: Present: cooperative, A&O X 1, pleasant, no acute distress. Absent: answers questions appropriately - Respiratory Respiratory exam: Present: prolonged expiratory phase, respiratory distress, wheezes - Cardiovascular Cardiovascular exam: Present: RRR - Extremities Exam Extremities exam: Present: warm, radial pulses palpable and symmetrical. Absent : calf tenderness, cyanotic, pedal edema, tenderness Internal Medicine: Result - Labs CBC & Chem 7: 10/16/17 05:33 10/16/17 05:33 Labs: Short CBC 10/16/17 Range/Units 05:33 WBC 161.7 H* D (4.3-11.1) K/mcL Hgb 11.6 D (11.5-15.4) g/dL Hct 43.1 (35.3-44.9) % Plt Count 317 D (140-400) K/mcL BMP 10/16/17 05:33 Sodium 142 Potassium 5.4 H Chloride 100 Carbon Dioxide 42 H* BUN 26 H Creatinine 0.78 Glucose 207 H Calcium 9.0 Cardiac Enzymes 10/16/17 Range/Units 05:33 Troponin I 0.08 H* (< 0.04) ng/mL - ABG Interpretation ABG results: ABG ABG pH 7.06 pH Units (7.32-7.45) L* 10/16/17 07:12 ABG pCO2 > 150 mmHg (35-45) H* 10/16/17 07:12 ABG pO2 83 mmHg (85-104) L 10/16/17 07:12 ABG O2 Saturation TNP 10/16/17 07:12 PT/INR, D-dimer PT 12.5 Seconds (9.4-12.1) H 10/13/17 18:34 Consult Discharge Plan - Plan Referrals: Stephen Liao MD [Primary Care Provider] - <Mikel Spence - Last Filed: 10/16/17 17:48> Date of Encounter: 10/16/17 - Assessment and plan (1) Acute on chronic respiratory failure with hypoxia and hypercapnia Current Visit: Yes Status: Acute (2) COPD exacerbation Current Visit: Yes Status: Acute (3) Diabetes mellitus type 2 in nonobese Current Visit: Yes Status: Chronic (4) Acute metabolic encephalopathy Current Visit: Yes Status: Acute (5) CLL (chronic lymphocytic leukemia) Current Visit: Yes Status: Chronic (6) Hypertension Current Visit: No Status: Chronic Qualifiers: Hypertension type: essential hypertension Qualified Code(s): I10 - Essential (primary) hypertension (7) Coronary artery disease Current Visit: No Status: Chronic Qualifiers: Coronary Disease-Associated Artery/Lesion type: [place] artery [place] vs. transplanted heart: [place] heart Associated angina: without angina Qualified Code(s): I25.10 - Atherosclerotic heart disease of [place] coronary artery without angina pectoris (8) Moderate protein-calorie malnutrition Current Visit: Yes Status: Chronic - Constitutional Vitals: Temp Pulse Resp BP Pulse Ox 96.6 F L 67 20 116/50 99 10/16/17 11:21 10/16/17 11:21 10/16/17 11:21 10/16/17 11:21 10/16/17 11:21 Internal Medicine: Result - Labs CBC & Chem 7: 10/16/17 05:33 10/16/17 05:33 Labs: Short CBC 10/16/17 Range/Units 05:33 WBC 161.7 H* D (4.3-11.1) K/mcL Hgb 11.6 D (11.5-15.4) g/dL Hct 43.1 (35.3-44.9) % Plt Count 317 D (140-400) K/mcL BMP 10/16/17 05:33 Sodium 142 Potassium 5.4 H Chloride 100 Carbon Dioxide 42 H* BUN 26 H Creatinine 0.78 Glucose 207 H Calcium 9.0 Cardiac Enzymes 10/16/17 Range/Units 05:33 Troponin I 0.08 H* (< 0.04) ng/mL - ABG Interpretation ABG results: ABG ABG pH 7.06 pH Units (7.32-7.45) L* 10/16/17 07:12 ABG pCO2 > 150 mmHg (35-45) H* 10/16/17 07:12 ABG pO2 83 mmHg (85-104) L 10/16/17 07:12 ABG O2 Saturation TNP 10/16/17 07:12 PT/INR, D-dimer PT 12.5 Seconds (9.4-12.1) H 10/13/17 18:34 - Attending Attestation I examined this patient and my medical decision-making was reviewed with the Resident Physician on 10/16/17. I agree with the documented findings, disposition and treatment plan as described except to the extent set forth below. Ms Sheridan is currently admitted for resp failure. She has declined and bipap started. Family has elected for comfort care and bipap removed. Ms Sheridan is comfortable Exam Unresponsive. Tachypneic at times Heart reg Wheezing througout I/P 1. Respiratory failure - comfort only
[2017-10-16] MEDS: *HR* Morphine 2 MG/ML SYRINGE IVP PRN (19:51)
[2017-10-16] MEDS: *HR* LORazepam Oral Conc 2 MG/ML SL PRN (20:53)
[2017-10-17] MEDS: *HR* Morphine 2 MG/ML SYRINGE IVP PRN ×6 (02:51→17:16)
[2017-10-17 07:59] VITALS: BP 137/70
[2017-10-17] MEDS: Atropine Sulfate 1% 40 DROP/2 ML BOTTLE SL PRN ×4 (08:26→20:04)
[2017-10-17] MEDS: *HR* LORazepam Oral Conc 2 MG/ML SL PRN (08:59)
[2017-10-17] MEDS ORDERED: MORPHINE SUL Oral CONC 10 MG/0.5 ML ORAL.SYG PO PRN (11:12)
[2017-10-17] MEDS ORDERED: Haloperidol Oral Conc 10 MG/5 ML UDC PO PRN (11:13)
--- NOTE | 2017-10-17 11:17 | Palliative Progress Note ---
Date of Encounter: 10/17/17 Time of Encounter: 10:45 - Assessment and plan (1) Altered mental state Current Visit: Yes Status: Acute Assessment and plan: Patient is now comfort care. Bipap was removed yesterday the patient is unresponsive resting comfortable. Family at bedside. Educated on dying processes. provided support and offered prayer. Qualifiers: Altered mental status type: somnolence Qualified Code(s): R40.0 - Somnolence (2) Acute respiratory failure with hypoxia and hypercarbia Current Visit: Yes Status: Acute Assessment and plan: Patient receiving as needed morphine for dyspnea. Calm at present. (3) Goals of care, counseling/discussion Current Visit: Yes Status: Acute Assessment and plan: Patient is comfort care. Sons at bedside. Provided support and educated on dying process. Family reported that patient was restless and agitated last night throughout night. I adjusted ativan times and added Haldol to POC. Family support provided. (4) CLL (chronic lymphocytic leukemia) Current Visit: Yes Status: Chronic Assessment and plan: WBC 161.7. (5) COPD (chronic obstructive pulmonary disease) Current Visit: No Status: Chronic Qualifiers: COPD type: chronic bronchitis Chronic bronchitis type: unspecified Qualified Code(s): J42 - Unspecified chronic bronchitis - Time Spent With Patient Total time spent is greater than 50% in coordination of care (as documented) at patient's floor/unit and/or counseling patient: 25 - 35 minutes - Subjective Interval history: Patient is resting comfortable. Son Brannon at bedside. Patient now comfort care. Anticipate transition to inpatient hospice care tomorrow if patient survives. - Constitutional Vitals: Abnormal lab results WBC 161.7 K/mcL (4.3-11.1) H* D 10/16/17 05:33 MCV 100.5 fL (83.0-100.0) H 10/16/17 05:33 MCH 27.0 pg (28.0-33.3) L 10/16/17 05:33 MCHC 26.9 g/dL (31.6-35.5) L 10/16/17 05:33 RDW 16.8 % (11.5-14.5) H 10/16/17 05:33 Lymphocytes # 19.7 K/mcL (0.6-4.6) H 10/15/17 04:04 Nucleated RBCs/100 WBC 0.1 /100 WBC (0) H 10/15/17 04:04 Reactive Lymphocytes Present (Not Present) A 10/15/17 04:04 Smudge Cells Present (Not Present) A 10/15/17 04:04 Platelet Estimate Slight Decrease (Normal) L 10/15/17 04:04 PT 12.5 Seconds (9.4-12.1) H 10/13/17 18:34 ABG pH 7.06 pH Units (7.32-7.45) L* 10/16/17 07:12 ABG pCO2 > 150 mmHg (35-45) H* 10/16/17 07:12 ABG pO2 83 mmHg (85-104) L 10/16/17 07:12 VBG pCO2 67 mmHg (41-51) H 10/14/17 04:15 VBG pO2 101 mmHg (25-50) H 10/14/17 04:15 VBG HCO3 34 mEq/L (21-27) H 10/14/17 04:15 Potassium 5.4 mEq/L (3.5-5.1) H 10/16/17 05:33 Carbon Dioxide 42 mEq/L (23-29) H* 10/16/17 05:33 BUN 26 mg/dL (8-23) H 10/16/17 05:33 BUN/Creatinine Ratio 33 (6-26) H 10/16/17 05:33 Glucose 207 mg/dL (70-105) H 10/16/17 05:33 POC Glucose 174 (58-89) H 10/16/17 11:28 Calculated Osmolality 305 (280-300) H 10/16/17 05:33 Troponin I 0.08 ng/mL (< 0.04) H* 10/16/17 05:33 B-Natriuretic Peptide 1521 pg/mL (Less than 100) H 10/14/17 03:54 Serum Total Protein 6.0 g/dL (6.4-8.9) L 10/13/17 18:34 Albumin 3.3 g/dL (3.5-5.7) L 10/13/17 18:34 Urine Clarity Cloudy (Clear) A 10/13/17 18:40 Urine Protein 100 mg/dL (Neg-Trace) H 10/13/17 18:40 Urine Glucose (UA) 100 mg/dL (Normal) H 10/13/17 18:40 Ur Leukocyte Esterase Small (Negative) H 10/13/17 18:40 Urine Microscopic WBC 15-30 per hpf (0-3) H 10/13/17 18:40 Ur Squamous Epith Cells Many per lpf (None-Few) H 10/13/17 18:40 Urine Yeast Moderate per hpf (None Seen) H 10/13/17 18:40 - Head Head exam: Present: atraumatic - Eye Eye exam: Present: PERRL - ENT ENT exam: Present: mucous membranes dry - Neck Neck exam: Present: full ROM - Respiratory Respiratory exam: Present: decreased breath sounds - Expanded Respiratory Exam Location: decreased breath sounds: Left, Right, Upper, Lower - Cardiovascular Cardiovascular exam: Present: RRR, +S1, +S2 - GI/Abdominal GI/Abdominal exam: Present: normal bowel sounds, soft - Neurological Exam Neurological exam: Present: altered (unreponsive) - Psychiatric Psychiatric exam: Present: normal affect - Skin Skin exam: Present: pallor, warm Palliative Quality Palliative Quality: Screen for Code Status: Yes, Screen for Goals of Care: Yes, Screen for Pain: Yes, If Pain Regimen Started, Initiate Bowel Regimen: Yes, Screen for Nausea/Vomitting: Yes Code Status: 10/13/17 22:05 CODE [Resuscitation Status: Active] [RES] Routine Comment: Resuscitation Status: DNR-Comfort Care-Arrest CODE [Resuscitation Status: Active] [RES] Routine Comment: Resuscitation Status: [id number] 10/16/17 10:47 CODE [Resuscitation Status: Active] [RES] Routine Comment: Resuscitation Status: DNR-Comfort Care - Labs CBC & Chem 7: 10/16/17 05:33 10/16/17 05:33 Labs: Laboratory Results - last 24 hr 10/14/17 10/16/17 03:54 11:28 POC Glucose 174 H Mycoplasma pneumon IgG 0.02 Mycoplasma pneumon IgM 0.10 - ABG Interpretation ABG results: ABG ABG pH 7.06 pH Units (7.32-7.45) L* 10/16/17 07:12 ABG pCO2 > 150 mmHg (35-45) H* 10/16/17 07:12 ABG pO2 83 mmHg (85-104) L 10/16/17 07:12 ABG O2 Saturation TNP 10/16/17 07:12 PT/INR, D-dimer PT 12.5 Seconds (9.4-12.1) H 10/13/17 18:34 Consult Discharge Plan - Plan Referrals: Stephen Liao MD [Primary Care Provider] -
--- NOTE | 2017-10-17 11:28 | Internal Med Progress Note ---
<Rickie Alegria - Last Filed: 10/17/17 11:26> Date of Encounter: 10/17/17 Time of Encounter: 11:26 - Assessment and plan (1) Altered mental state Current Visit: Yes Status: Acute Assessment and plan: morning ABG 7.06, and remained altered. yesterday morning RR on bipap was <8 and determined no longer assisting her respiratory function. Bipap was taken off. Comfort care only in agreement with family. Today patient had gargling in throat, and SpO2 ~60% - Morphine 1mg q15min - atropine drops - ativan for agitation Qualifiers: Altered mental status type: somnolence Qualified Code(s): R40.0 - Somnolence (2) Acute on chronic respiratory failure with hypoxia and hypercapnia Current Visit: Yes Status: Acute Assessment and plan: see above (3) Anemia Current Visit: Yes Status: Chronic Assessment and plan: see above Qualifiers: Anemia type: iron deficiency Iron deficiency anemia type: unspecified iron deficiency Qualified Code(s): D50.9 - Iron deficiency anemia, unspecified (4) CLL (chronic lymphocytic leukemia) Current Visit: Yes Status: Chronic Assessment and plan: chronic. (5) Code status needs review Current Visit: Yes Status: Acute Assessment and plan: comfort care only (6) COPD exacerbation Current Visit: Yes Status: Acute Assessment and plan: see above (7) Diabetes mellitus type 2 in nonobese Current Visit: Yes Status: Chronic Assessment and plan: BG elevated today, possibly due to steroid administration. SSI medium (8) DVT prophylaxis Current Visit: No Status: Acute Assessment and plan: see above (9) Elevated troponin I level Current Visit: Yes Status: Acute Assessment and plan: most likely due to demand ischemia. see above (10) Hypertension Current Visit: No Status: Chronic Assessment and plan: see above Qualifiers: Hypertension type: essential hypertension Qualified Code(s): I10 - Essential (primary) hypertension (11) UTI (urinary tract infection) Current Visit: Yes Status: Suspected Assessment and plan: see above Qualifiers: Urinary tract infection type: acute cystitis Hematuria presence: without hematuria Qualified Code(s): N30.00 - Acute cystitis without hematuria - Subjective Interval history: Mr Sheridan 62F admitted for AMS with Acute on chronic respiratory failure found to be hypotensive. Patient was found altered last night and placed on bipap. Bipap was withdrawn yesterday. Patient is seen with family today, she remains unconscious and comfortable at this time. - Constitutional Vitals: Temp Pulse Resp BP Pulse Ox 97.4 F L 98 24 137/70 68 10/17/17 07:57 10/17/17 07:57 10/17/17 07:57 10/17/17 07:57 10/17/17 07:57 General appearance: Present: no acute distress. Absent: answers questions appropriately - Respiratory Respiratory exam: Present: prolonged expiratory phase, respiratory distress, wheezes - Cardiovascular Cardiovascular exam: Present: RRR, +S1, +S2. Absent: diastolic murmur, gallop, rubs, systolic murmur Internal Medicine: Result - Labs CBC & Chem 7: 10/16/17 05:33 10/16/17 05:33 - ABG Interpretation ABG results: ABG ABG pH 7.06 pH Units (7.32-7.45) L* 10/16/17 07:12 ABG pCO2 > 150 mmHg (35-45) H* 10/16/17 07:12 ABG pO2 83 mmHg (85-104) L 10/16/17 07:12 ABG O2 Saturation TNP 10/16/17 07:12 PT/INR, D-dimer PT 12.5 Seconds (9.4-12.1) H 10/13/17 18:34 Consult Discharge Plan - Plan Referrals: Stephen Liao MD [Primary Care Provider] - <Mikel Spence - Last Filed: 10/17/17 14:32> Date of Encounter: 10/17/17 - Assessment and plan (1) Acute on chronic respiratory failure with hypoxia and hypercapnia Current Visit: Yes Status: Acute (2) COPD exacerbation Current Visit: Yes Status: Acute (3) Diabetes mellitus type 2 in nonobese Current Visit: Yes Status: Chronic (4) Acute metabolic encephalopathy Current Visit: Yes Status: Acute (5) CLL (chronic lymphocytic leukemia) Current Visit: Yes Status: Chronic (6) Hypertension Current Visit: No Status: Chronic Qualifiers: Hypertension type: essential hypertension Qualified Code(s): I10 - Essential (primary) hypertension (7) Coronary artery disease Current Visit: No Status: Chronic Qualifiers: Coronary Disease-Associated Artery/Lesion type: [place] artery [place] vs. transplanted heart: [place] heart Associated angina: without angina Qualified Code(s): I25.10 - Atherosclerotic heart disease of [place] coronary artery without angina pectoris (8) Moderate protein-calorie malnutrition Current Visit: Yes Status: Chronic - Constitutional Vitals: Temp Pulse Resp BP Pulse Ox 97.4 F L 98 24 137/70 68 10/17/17 07:57 10/17/17 07:57 10/17/17 07:57 10/17/17 07:57 10/17/17 07:57 Internal Medicine: Result - Labs CBC & Chem 7: 10/16/17 05:33 10/16/17 05:33 - ABG Interpretation ABG results: ABG ABG pH 7.06 pH Units (7.32-7.45) L* 10/16/17 07:12 ABG pCO2 > 150 mmHg (35-45) H* 10/16/17 07:12 ABG pO2 83 mmHg (85-104) L 10/16/17 07:12 ABG O2 Saturation TNP 10/16/17 07:12 PT/INR, D-dimer PT 12.5 Seconds (9.4-12.1) H 10/13/17 18:34 - Attending Attestation I examined this patient and my medical decision-making was reviewed with the Resident Physician on 10/17/17. I agree with the documented findings, disposition and treatment plan as described except to the extent set forth below. Ms Sheridan is currently admitted for respiratory failure. She is now DNRCC. Ms Sheridan is not responsive. She appears comfortable at this time. She was restless last night - meds have been adjusted by palliative. Exam Unresponsive. Comortable Secretions noted. Hypoxic at this time. I/P 1. Respiratory failure 2. COPD Comfort care measures. If survives overnight anticipate d/c to inpatient hospice tomorrow if possible.
[2017-10-17] MEDS: *HR* LORazepam Oral Conc 2 MG/ML SL SCH ×3 (12:48→20:04)
--- NOTE | 2017-10-17 21:41 | Death Note ---
Discharge Sum: Summary - Date and Time Date of admission: 10/13/17 22:02 Date of : 10/17/17 Time of : 21:18 - Summary Details: Patient seen at bedside. at 2118 hrs Cause of : Respiratory failure from COPD Plan of care prior to expiring : (1) Altered mental state Current Visit: Yes Status: Acute Assessment and plan: morning ABG 7.06, and remained altered. yesterday morning RR on bipap was <8 and determined no longer assisting her respiratory function. Bipap was taken off. Comfort care only in agreement with family. - Morphine 1mg q15min - atropine drops - ativan for agitation Qualifiers: Altered mental status type: somnolence Qualified Code(s): R40.0 - Somnolence (2) Acute on chronic respiratory failure with hypoxia and hypercapnia Current Visit: Yes Status: Acute Assessment and plan: see above (3) Anemia Current Visit: Yes Status: Chronic Assessment and plan: see above Qualifiers: Anemia type: iron deficiency Iron deficiency anemia type: unspecified iron deficiency Qualified Code(s): D50.9 - Iron deficiency anemia, unspecified (4) CLL (chronic lymphocytic leukemia) Current Visit: Yes Status: Chronic Assessment and plan: chronic. (5) Code status needs review Current Visit: Yes Status: Acute Assessment and plan: comfort care only (6) COPD exacerbation Current Visit: Yes Status: Acute Assessment and plan: see above (7) Diabetes mellitus type 2 in nonobese Current Visit: Yes Status: Chronic Assessment and plan: BG elevated today, possibly due to steroid administration. SSI medium (8) DVT prophylaxis Current Visit: No Status: Acute Assessment and plan: see above (9) Elevated troponin I level Current Visit: Yes Status: Acute Assessment and plan: most likely due to demand ischemia. see above (10) Hypertension Current Visit: No Status: Chronic Assessment and plan: see above Qualifiers: Hypertension type: essential hypertension Qualified Code(s): I10 - Essential (primary) hypertension (11) UTI (urinary tract infection) Current Visit: Yes Status: Suspected - Additional Data Attending physician: Mikel Spence DO Discharge Sum: Diag - PCOD Probable Cause of : Chronic obstructive pulmonary disease Discharge Sum: Prov - Provider Primary care physician: Stephen Liao MD Consults: 01/26/18 14:03 Consult to Palliative Care [CONS] Routine Comment: Consulting Provider: Palliative [facility] [place] Reason for Consult: Readmission with respiratory failure. Care goals, etc. Time Notified: 13:30 Call Completed: Yes
--- NOTE | 2017-10-18 06:22 | Event Note ---
Date of Encounter: 10/17/17 Time of Encounter: 21:18 Ms Sheridan was a 62 year old Female who was brought to [facility] ED by her daughter and son after being altered at home on the morning of 10/13/17. She was recently discharged from [facility] on 09/30/17 for exacerbation of COPD for which she had to be intubated. While in the ED, the patient had pH of 7.36 and pCO2 of 74 and was determined to be in acute exacerbation of COPD with hypoxia and hypercapnia. Patient would cycle through being altered and having BiPAP placed , then recovering mental status and refusing BiPAP, and then returning to altered mental status. Palliative care was consulted due to suspicion of deterioration. Patient status was changed to DNR/Comfort Care in agreement of family members and PoA. On the morning of 10/16/17, follow up ABG was taken and patient had a pH of 7.06, and pCO2 >150. Around 11:15 on 10/16/17, patient respiratory rate dropped below 8 on BiPAP and it was determined that BiPAP would no longer be able to assist patients breathing. Per request of family, warehouse representative was brought in to consult family and patient. Soon after, patient was taken off BiPAP and given morphine for comfort. At 21:18, the patient . During hospitalization, WBC progressively increased from 11.3, 18.6, 25.1, to 161.7. Patient has known history of CLL. On initial presentation, trops were trended at 0.21, 0.23, and 0.09, and BNP 1521. Most likely resulting from demand ischemia from the COPD exacerbation. Echo was performed which showed LVEF 50% and normal wall motion. Additional workup involved - EKG Rate 64, LBBB - CT head/brain w/o contrast no acute intracranial abnormalities. Maxillary sinusitis and mastoiditis, slightly progressed - UA - negative
--- NOTE | 2017-10-19 16:57 | Electrocardiograph Report ---
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
--- NOTE | 2017-10-19 17:02 | Electrocardiograph Report ---
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
== END 2017-10-17 23:25 | disposition expired | DRG 133 ==
LOC: EMEROO 17:29 → 2NENU 17:29
PROVIDERS: ADMIT Internal Medicine Hematology & Oncology; ATTEND Internal Medicine